=== PATIENT | male | born 1975 | race Caucasian/White ===

== ENCOUNTER 2016-08-27 18:55 | Emergency (ER) | payer OTHER ==
[2016-08-27 19:04] VITALS: BP 131/59; RESP 20; TEMP 99.4
[2016-08-27] MEDS ORDERED: methylPREDNISolone SOD SUCCI 125 MG/2 ML VIAL IM STA (19:10)
[2016-08-27] MEDS ORDERED: IPRATROPIUM-ALBUTEROL 3 ML NEB INHALATION STA (19:10)
--- NOTE | 2016-08-27 19:14 | ED ---
General Adult HPI - General Chief complaint: Upper Respiratory Infection Stated complaint: Cough x 4days Time Seen by Provider: 08/27/16 19:06 Source: patient, RN notes reviewed Mode of arrival: ambulatory Limitations: no limitations - History of Present Illness Initial comments: Patient 40-year-old male with significant past medical history for asthma, who presents emergency room today with chief complaint of cough congestion over the last 4 days. Does admit to positive sputum production it's been "white" in color. Patient does admit to using inhaler at home with little relief. Patient denies any other complaints or associated symptoms. Patient denies any recent fever, chills, shortness of breath, chest pain, back pain, abdominal pain , nausea or vomiting, numbness or tingling, dysuria or hematuria, constipation or diarrhea, headaches or visual changes, or any other complaints. - Related Data Home Medications Medication Instructions Recorded Confirmed Albuterol Sulfate [Ventolin HFA] 1 - 2 puff INHALATION RT-Q6H PRN 01/11/1408/27 Beclomethasone Dipropionate [Qvar 2 puff INHALATION RT-BID 10/02/14 08/27/16 80 mcg/puff] ARIPiprazole [Abilify Maintena] 400 mg IM QMONTH 01/22/16 08/27/16 FLUoxetine HCL [PROzac] 20 mg PO DAILY 01/22/16 08/27/16 Lisinopril [Zestril] 10 mg PO HS 01/22/16 08/27/16 [place] Carbonate 600 mg PO HS 01/22/16 08/27/16 Pravastatin Sodium [Pravachol] 40 mg PO HS 01/22/16 08/27/16 QUEtiapine [SEROquel] 25 mg PO HS 01/22/16 08/27/16 Previous Rx's Medication Instructions Recorded Montelukast Sodium [Singulair] 10 mg PO HS #30 tab 01/24/16 Beclomethasone Dipropionate [Qvar 1 puff INHALATION BID #1 inhaler 04/18/16 80 mcg] Albuterol Nebulized [Ventolin 2.5 mg INHALATION Q4H PRN 10 Days 08/27/16 Nebulized] Azithromycin [Zithromax Z-pack] 0 mg PO DIRECTED #6 tab 08/27/16 guaiFENesin 2 tab PO Q4-6H #30 tablet 08/27/16 predniSONE 60 mg PO DAILY 5 Days 08/27/16 Allergies Allergy/AdvReac Type Severity Reaction Status Date / Time haloperidol [From Haldol] Allergy Unknown Verified 08/27/16 19:04 haloperidol lactate Allergy Unknown Verified 08/27/16 19:04 [From Haldol] Review of Systems ROS Statement: Those systems with pertinent positive or pertinent negative responses have been documented in the HPI. ROS Other: All systems not noted in ROS Statement are negative. Past Medical History Past Medical History: Asthma, Hyperlipidemia, Hypertension Additional Past Medical History / Comment(s): Tourette's syndrome, seasonal ALLERGIES History of Any Multi-Drug Resistant Organisms: None Reported Past Surgical History: Hernia Repair, Tonsillectomy Past Anesthesia/Blood Transfusion Reactions: No Reported Reaction Past Psychological History: Anxiety, Bipolar, Depression, Panic Disorder Additional Psychological History / Comment(s): schizophrenia Smoking Status: Never smoker Past Alcohol Use History: None Reported Additional Past Alcohol Use History / Comment(s): Patient states he has never smoked cigarettes. He has had exposure to secondhand smoke from his parents were heavy smokers. He denies any medical marijuana, marijuana or street drug use. He denies. any alcohol use or abuse. He lives his his for 16 years. They do have a dog at home. They do not have any children. Past Drug Use History: None Reported - Past Family History Father Family Medical History: No Reported History Additional Family Medical History / Comment(s): He is 61 years of age. Patient has had no contact with him and 20 years Mother Additional Family Medical History / Comment(s): Mother at age 63 from sepsis. Sister(s) Family Medical History: No Reported History Additional Family Medical History / Comment(s): He has 2 sisters with no major medical problems. General Exam - General Exam Comments Initial Comments: General: The patient is awake and alert, in no distress, and does not appear acutely ill. Eye: Pupils are equal, round and reactive to light, extra-ocular movements are intact. No nystagmus. There is normal conjunctiva bilaterally. No signs of icterus. Ears, nose, mouth and throat: There are moist mucous membranes and no oral lesions. Neck: The neck is supple, there is no tenderness or JVD. Cardiovascular: There is a regular rate and rhythm. No murmur, rub or gallop is appreciated. Respiratory: Bilateral expiratory wheeze. respirations are non-labored, breath sounds are equal. No stridor, rales, or rhonchi. Musculoskeletal: Normal ROM, no tenderness. Strength 5/5. Sensation intact. Pulses equal bilaterally 2+. Neurological: A&O x 3. CN II-XII intact, There are no obvious motor or sensory deficits. Coordination appears grossly intact. Speech is normal. Skin: Skin is warm and dry and no rashes or lesions are noted. Psychiatric: Cooperative, appropriate mood & affect, normal judgment. Limitations: no limitations Course Vital Signs 08/27/16 08/27/16 08/27/16 19:03 19:14 19:25 Temperature 99.4 F Pulse Rate 105 H 100 100 Respiratory 20 Rate Blood Pressure 131/59 O2 Sat by Pulse 98 Oximetry Medical Decision Making - Medical Decision Making Case discussed in detail with attending physician Dr. Greene. X-ray reviewed shows no acute pneumonia. No other acute abnormalities. Patient reexamined after breathing treatment does admit to improvement. Lung sounds clear bilaterally. Patient will be discharged home on steroids, breathing treatments , cough medication. Patient advised mostly viral illness. Will be provided a prescription for azithromycin advised to hold this prescription to see if there is improvement with other medications first. He states understanding and is in agreement with this plan. Disposition Clinical Impression: Acute bronchitis Disposition: HOME SELF-CARE Condition: Good Instructions: Acute Bronchitis (ED) Additional Instructions: Please use medication as discussed. Please follow-up with family doctor in the next 2 days of symptoms have not improved. Please return to emergency room if the symptoms increase or worsen or for any other concerns. Prescriptions: Albuterol Nebulized [Ventolin Nebulized] 2.5 mg INHALATION Q4H PRN 10 Days PRN Reason: Cough Azithromycin [Zithromax Z-pack] 0 mg PO DIRECTED #6 tab guaiFENesin 2 tab PO Q4-6H #30 tablet predniSONE 60 mg PO DAILY 5 Days Time of Disposition: 19:37
[2016-08-27 19:16] VITALS: PULSE 100
--- NOTE | 2016-08-27 19:51 | XR ---
EXAMINATION TYPE: XR chest 2V DATE OF EXAM: 08/27/2016 7:29 PM COMPARISON: 04/18/2016 HISTORY: Cough and congestion. History of asthma. TECHNIQUE: Frontal and lateral views of the chest are obtained. FINDINGS: There is no focal air space opacity, pleural effusion, or pneumothorax seen. The cardiac silhouette size is within normal limits. The osseous structures are intact. IMPRESSION: No acute cardiopulmonary process, unchanged from the prior.
== END 2016-08-27 19:51 | disposition home or self-care (01) ==
LOC: EC 18:55
DX: J20.9 Acute bronchitis, unspecified (principal); E78.5 Hyperlipidemia, unspecified; I10 Essential (primary) hypertension; J45.909 Unspecified asthma, uncomplicated; F31.9 Bipolar disorder, unspecified; Z79.899 Other long term (current) drug therapy; Z88.8 Allergy status to other drugs, medicaments and biological substances
CPT/HCPCS: 94640; 71020; 99283; 96372; J2930

== ENCOUNTER 2016-09-05 21:28 | Emergency (ER) | payer OTHER ==
[2016-09-05 22:04] VITALS: TEMP 98.4
[2016-09-05] MEDS ORDERED: IPRATROPIUM-ALBUTEROL 3 ML NEB INHALATION STA (23:00)
--- NOTE | 2016-09-05 23:05 | ED ---
General Adult HPI - General Chief complaint: Upper Respiratory Infection Stated complaint: cough Time Seen by Provider: 09/05/16 22:54 Source: patient, RN notes reviewed Mode of arrival: ambulatory Limitations: no limitations - History of Present Illness Initial comments: Patient is a pleasant 40-year-old male presenting to emergency Department with cough. Onset of symptoms was close to month ago. Patient was in the hospital around a week ago and prescribed antibiotic and steroid without improvement of symptoms. Patient does occasionally use nebulizers. Patient has a history of asthma similar problems. Patient also complains of some sinus congestion. No fevers. - Related Data Previous Rx's Medication Instructions Recorded Sulfamethox-Tmp 800-160Mg [Bactrim 1 each PO Q12HR #20 tab 09/06/16 DS 800-160 mg] methylPREDNISolone Dose Pack 24 mg PO DAILY #1 tab 09/06/16 [Medrol Dose Pack] Allergies Allergy/AdvReac Type Severity Reaction Status Date / Time haloperidol [From Haldol] Allergy Unknown Verified 09/05/16 22:04 haloperidol lactate Allergy Unknown Verified 09/05/16 22:04 [From Haldol] Review of Systems ROS Statement: Those systems with pertinent positive or pertinent negative responses have been documented in the HPI. ROS Other: All systems not noted in ROS Statement are negative. Constitutional: Denies: fever, chills Eyes: Denies: eye pain ENT: Reports: congestion. Denies: ear pain Respiratory: Reports: cough, dyspnea (At times), wheezes Cardiovascular: Denies: chest pain Endocrine: Denies: fatigue Gastrointestinal: Denies: abdominal pain Genitourinary: Denies: dysuria Musculoskeletal: Denies: back pain Skin: Denies: rash Neurological: Denies: weakness Past Medical History Past Medical History: Asthma, Hyperlipidemia, Hypertension Additional Past Medical History / Comment(s): Tourette's syndrome, seasonal ALLERGIES History of Any Multi-Drug Resistant Organisms: None Reported Past Surgical History: Hernia Repair, Tonsillectomy Past Anesthesia/Blood Transfusion Reactions: No Reported Reaction Past Psychological History: Anxiety, Bipolar, Depression, Panic Disorder Additional Psychological History / Comment(s): schizophrenia Smoking Status: Never smoker Past Alcohol Use History: None Reported Additional Past Alcohol Use History / Comment(s): Patient states he has never smoked cigarettes. He has had exposure to secondhand smoke from his parents were heavy smokers. He denies any medical marijuana, marijuana or street drug use. He denies. any alcohol use or abuse. He lives his his for 16 years. They do have a dog at home. They do not have any children. Past Drug Use History: None Reported - Past Family History Father Family Medical History: No Reported History Additional Family Medical History / Comment(s): He is 61 years of age. Patient has had no contact with him and 20 years Mother Additional Family Medical History / Comment(s): Mother at age 63 from sepsis. Sister(s) Family Medical History: No Reported History Additional Family Medical History / Comment(s): He has 2 sisters with no major medical problems. General Exam Limitations: no limitations General appearance: alert, in no apparent distress Head exam: Present: atraumatic Eye exam: Present: normal appearance, PERRL ENT exam: Present: normal oropharynx, other (Mild tenderness over the frontal ethmoid and maxillary sinuses) Neck exam: Present: normal inspection Respiratory exam: Present: wheezes Cardiovascular Exam: Present: tachycardia GI/Abdominal exam: Present: soft. Absent: tenderness Extremities exam: Present: normal inspection. Absent: pedal edema, calf tenderness Neurological exam: Present: alert Psychiatric exam: Present: normal affect, normal mood Skin exam: Absent: rash Course Vital Signs 09/05/16 09/05/16 09/05/16 22:01 23:05 23:12 Temperature 98.4 F Pulse Rate 120 H 92 88 Respiratory 20 Rate Blood Pressure 119/84 O2 Sat by Pulse 98 Oximetry Medical Decision Making - Medical Decision Making Patient reexamined and feels much better. Patient is comfortable with discharge. Patient has some mild continued wheezing and is agreeable to repeat nebulizer prior to discharge. Patient does request repeat antibiotics. Vital signs have improved. - Radiology Data Radiology results: image reviewed (Chest x-ray shows no acute process) Disposition Clinical Impression: Asthmatic bronchitis Disposition: HOME SELF-CARE Condition: Stable Instructions: Asthma (ED), Acute Bronchitis (ED) Additional Instructions: Please follow-up to primary care physician in the next couple days for recheck. Return for difficulty breathing, fevers, worsening symptoms or other concerns. Prescriptions: Sulfamethox-Tmp 800-160Mg [Bactrim DS 800-160 mg] 1 each PO Q12HR #20 tab methylPREDNISolone Dose Pack [Medrol Dose Pack] 24 mg PO DAILY #1 tab Referrals: Sharyn Fonseca MD [Primary Care Provider] - 1-2 days
--- NOTE | 2016-09-05 23:53 | XR ---
EXAM: XR Chest, 2 Views. CLINICAL HISTORY: Reason: dyspnea TECHNIQUE: Frontal and lateral views of the chest. COMPARISON: Recent 08/27/16 radiographs. FINDINGS: Lungs: Unremarkable. No consolidation. Pleural spaces: Unremarkable. No pneumothorax. Heart: Unremarkable. No cardiomegaly. Mediastinum: Unremarkable. Bones: The patient is rotated towards the left and/or there is mild rightward curvature of the thoracic spine, stable. No acute fracture. IMPRESSION: No significant change including no new acute intrathoracic abnormality identified.
[2016-09-06] MEDS ORDERED: IPRATROPIUM-ALBUTEROL 3 ML NEB INHALATION STA (00:12)
[2016-09-06] MEDS ORDERED: predniSONE 50 MG TAB PO STA (00:14)
[2016-09-06 01:22] VITALS: BP 136/84; PULSE 101; RESP 18
== END 2016-09-06 01:21 | disposition home or self-care (01) ==
LOC: EC 21:28
DX: J45.909 Unspecified asthma, uncomplicated (principal); Z88.8 Allergy status to other drugs, medicaments and biological substances
CPT/HCPCS: 71020; 99283; J7512

== ENCOUNTER → 2016-10-05 | Outpatient (CLI) | payer OTHER ==
[2016-10-05 11:41] LABS: Anion Gap 10 mmol/L; Blood Urea Nitrogen 9 mg/dL (9-20); Carbon Dioxide 28 mmol/L (22-30); Chloride 103 mmol/L (98-107); Glucose 98 mg/dL (74-99); Lithium 0.8 mmol/L; Non-African American GFR(MDRD) >60 (>60 ml/min/1.73 sqM); Potassium 4.9 mmol/L (3.5-5.1); Sodium 141 mmol/L (137-145)
[2016-10-05 11:57] LABS: Calcium 10.4 mg/dL (8.4-10.2)
== END ==
LOC: LABWHC1 09:55
PROVIDERS: ATTEND Nurse Practitioner Psychiatric/Mental Health
DX: F20.9 Schizophrenia, unspecified (principal)
CPT/HCPCS: 36415; 80048; 80178

== ENCOUNTER 2016-11-04 20:36 | Emergency (ER) | payer OTHER ==
[2016-11-04 20:45] VITALS: RESP 18
--- NOTE | 2016-11-04 21:00 | ED ---
General Adult HPI - General Chief complaint: Back Pain/Injury Stated complaint: Back Pain Time Seen by Provider: 11/04/16 20:48 Source: patient, RN notes reviewed Mode of arrival: ambulatory Limitations: no limitations - History of Present Illness Initial comments: Patient is a 41-year-old male who presents emergency room today with chief complaint of right upper back pain times one week. Denies any known injury or trauma. Does admit that it seems to be worse with certain movements of his right shoulder and with twisting. Patient does admit he tried ibuprofen with little relief the symptoms. He denies any other complaints or associated symptoms. Patient denies any recent fever, chills, shortness of breath, chest pain, abdominal pain, nausea or vomiting, numbness or tingling, dysuria or hematuria, constipation or diarrhea, headaches or visual changes, or any other complaints. - Related Data Home Medications Medication Instructions Recorded Confirmed Albuterol Inhaler [Ventolin Hfa 1 - 2 puff INHALATION RT-Q6H PRN 11/04/16 Inhaler] Beclomethasone Dipropionate [Qvar 1 puff INHALATION RT-BID 11/04/16 11/04/16 40 mcg] FLUoxetine HCL [PROzac] 20 mg PO QAM 11/04/16 11/04/16 Lisinopril [Zestril] 20 mg PO HS 11/04/16 11/04/16 [place] Carbonate 900 mg PO HS 11/04/16 11/04/16 Pravastatin Sodium [Pravachol] 40 mg PO HS 11/04/16 11/04/16 QUEtiapine FUMARATE [SEROquel] 25 mg PO HS 11/04/16 11/04/16 Previous Rx's Medication Instructions Recorded Cyclobenzaprine [Flexeril] 10 mg PO TID #20 tab 11/04/16 Allergies Allergy/AdvReac Type Severity Reaction Status Date / Time haloperidol [From Haldol] Allergy Unknown Verified 11/04/16 21:08 haloperidol lactate Allergy Unknown Verified 11/04/16 21:08 [From Haldol] Review of Systems ROS Statement: Those systems with pertinent positive or pertinent negative responses have been documented in the HPI. ROS Other: All systems not noted in ROS Statement are negative. Past Medical History Past Medical History: Asthma, Hyperlipidemia, Hypertension Additional Past Medical History / Comment(s): Tourette's syndrome, seasonal ALLERGIES History of Any Multi-Drug Resistant Organisms: None Reported Past Surgical History: Hernia Repair, Tonsillectomy Past Anesthesia/Blood Transfusion Reactions: No Reported Reaction Past Psychological History: Anxiety, Bipolar, Depression, Panic Disorder Additional Psychological History / Comment(s): schizophrenia Smoking Status: Never smoker Past Alcohol Use History: None Reported Additional Past Alcohol Use History / Comment(s): Patient states he has never smoked cigarettes. He has had exposure to secondhand smoke from his parents were heavy smokers. He denies any medical marijuana, marijuana or street drug use. He denies. any alcohol use or abuse. He lives his his for 16 years. They do have a dog at home. They do not have any children. Past Drug Use History: None Reported - Past Family History Father Family Medical History: No Reported History Additional Family Medical History / Comment(s): He is 61 years of age. Patient has had no contact with him and 20 years Mother Additional Family Medical History / Comment(s): Mother at age 63 from sepsis. Sister(s) Family Medical History: No Reported History Additional Family Medical History / Comment(s): He has 2 sisters with no major medical problems. General Exam - General Exam Comments Initial Comments: General: The patient is awake and alert, in no distress, and does not appear acutely ill. Eye: Pupils are equal, round and reactive to light, extra-ocular movements are intact. No nystagmus. There is normal conjunctiva bilaterally. No signs of icterus. Ears, nose, mouth and throat: There are moist mucous membranes and no oral lesions. Neck: The neck is supple, there is no tenderness or JVD. Cardiovascular: There is a regular rate and rhythm. No murmur, rub or gallop is appreciated. Respiratory: Lungs are clear to auscultation, respirations are non-labored, breath sounds are equal. No wheezes, stridor, rales, or rhonchi. Musculoskeletal: normal appearance of cervical and thoracic spine with no step- offs forms appreciated. Mild tenderness to the T2-T3 area. Does have increased paravertebral tenderness on the right. Strength 5/5. Sensation intact. Pulses equal bilaterally 2+. Neurological: A&O x 3. CN II-XII intact, There are no obvious motor or sensory deficits. Coordination appears grossly intact. Speech is normal. Skin: Skin is warm and dry and no rashes or lesions are noted. Psychiatric: Cooperative, appropriate mood & affect, normal judgment. Limitations: no limitations Course Vital Signs 11/04/16 20:43 Temperature 98 F Pulse Rate 89 Respiratory 18 Rate Blood Pressure 155/91 O2 Sat by Pulse 98 Oximetry Medical Decision Making - Medical Decision Making X-ray reviewed does show old fracture T12. Patient has no pain or tenderness in this area. Patient's symptoms seem to be muscular skeletal as it is worse with certain movements and is tender in the paravertebral areas next T2 and T3. Will be started on a muscle relaxer. He is advised tofollow-up family doctor over the next 2 days or return if any symptoms increase or worsen. Disposition Clinical Impression: Back strain Disposition: HOME SELF-CARE Condition: Good Instructions: Thoracic Back Strain (ED) Additional Instructions: Please use muscle relaxer as prescribed and be aware that it may make you drowsy. Prescriptions: Cyclobenzaprine [Flexeril] 10 mg PO TID #20 tab Time of Disposition: 21:23
--- NOTE | 2016-11-04 21:12 | XR ---
EXAMINATION TYPE: XR thoracic spine complete DATE OF EXAM: 11/04/2016 9:05 PM COMPARISON: NONE HISTORY: Back pain TECHNIQUE: 3 views FINDINGS: The vertebra have normal alignment. Posterior elements are intact. There is no paraspinal m ass. There is a 15% anterior wedging of T12 vertebra. IMPRESSION: Mild wedging of T12 is of uncertain age. This could be a relatively acute fracture..
[2016-11-04 21:46] VITALS: BP 162/72; PULSE 68; TEMP 97.5
== END 2016-11-04 21:40 | disposition home or self-care (01) ==
LOC: EC 20:36
DX: S29.012A Strain of muscle and tendon of back wall of thorax, initial encounter (principal); E78.5 Hyperlipidemia, unspecified; I10 Essential (primary) hypertension; J45.909 Unspecified asthma, uncomplicated; F31.9 Bipolar disorder, unspecified; F41.0 Panic disorder [episodic paroxysmal anxiety]; Z79.51 Long term (current) use of inhaled steroids; Z79.899 Other long term (current) drug therapy; Z88.8 Allergy status to other drugs, medicaments and biological substances; Z77.22 Contact with and (suspected) exposure to environmental tobacco smoke (acute) (chronic); Z87.81 Personal history of (healed) traumatic fracture; X58.XXXA Exposure to other specified factors, initial encounter
CPT/HCPCS: 72072; 99283

== ENCOUNTER 2016-12-10 21:27 | Observation (INO) | payer OTHER ==
--- NOTE | 2016-12-10 21:49 | ED ---
Chest Pain HPI - General Chief Complaint: Chest Pain Stated Complaint: Chest pain/ left arm pain Time Seen by Provider: 12/10/16 21:36 Source: patient Mode of arrival: wheelchair Limitations: no limitations - History of Present Illness Initial Comments: This patient is a 41-year-old man who presents to be alive for left-sided chest pain that started he states about 15 minutes before arriving here. He had just finished taking shower. Patient states the pain is constant, sharp, moderately severe. He has not noticed anything that helps the pain or anything that makes it worse. He states that he also felt like he was breaking into a sweat. He denies any other anginal type symptoms. MD Complaint: chest pain Onset/Timin -: minutes(s) Onset: other (After taking shallow) Pain Location: left chest Pain Radiation: LUE Severity: moderate Quality: sharp Consistency: constant Improves With: nothing Worsens With: nothing Anginal Symptoms: diaphoresis Treatments Prior to Arrival: none - Related Data Home Medications Medication Instructions Recorded Confirmed Albuterol Inhaler [Ventolin Hfa 1 - 2 puff INHALATION RT-Q6H PRN 11/04/16 Inhaler] FLUoxetine HCL [PROzac] 20 mg PO QAM 11/04/16 12/10/16 Lisinopril [Zestril] 20 mg PO HS 11/04/16 12/10/16 [place] Carbonate 900 mg PO HS 11/04/16 12/10/16 Pravastatin Sodium [Pravachol] 40 mg PO HS 11/04/16 12/10/16 QUEtiapine FUMARATE [SEROquel] 25 mg PO HS 11/04/16 12/10/16 ARIPiprazole [Abilify Maintena] 400 mg IM Q28D 12/10/16 12/10/16 Baclofen [Lioresal] 20 mg PO TID-W/MEALS PRN 12/10/16 12/10/16 Beclomethasone Dip 80 Mcg/Puff 1 puff INHALATION RT-BID 12/10/16 12/10/16 [Qvar 80 mcg] Allergies Allergy/AdvReac Type Severity Reaction Status Date / Time haloperidol [From Haldol] Allergy Stroke-like Verified 12/10/16 22:17 symptoms Review of Systems ROS Statement: Those systems with pertinent positive or pertinent negative responses have been documented in the HPI. ROS Other: All systems not noted in ROS Statement are negative. Constitutional: Denies: fever, chills, weakness Respiratory: Denies: cough, dyspnea Cardiovascular: Reports: chest pain. Denies: palpitations, orthopnea, edema, syncope Gastrointestinal: Denies: abdominal pain, nausea, vomiting Musculoskeletal: Denies: back pain Skin: Denies: rash Neurological: Denies: headache, weakness, numbness EKG Findings - EKG Results: EKG: interpreted by ERMD, sinus rhythm, normal axis, normal QRS, normal ST/T EKG shows: tachycardia (Rate 112 bpm) Past Medical History Past Medical History: Asthma, Hyperlipidemia, Hypertension Additional Past Medical History / Comment(s): Tourette's syndrome, seasonal ALLERGIES History of Any Multi-Drug Resistant Organisms: None Reported Past Surgical History: Hernia Repair, Tonsillectomy Past Anesthesia/Blood Transfusion Reactions: No Reported Reaction Past Psychological History: Anxiety, Bipolar, Depression, Panic Disorder, Schizophrenia Smoking Status: Never smoker Past Alcohol Use History: None Reported Past Drug Use History: None Reported - Past Family History Father Family Medical History: No Reported History Additional Family Medical History / Comment(s): He is 61 years of age. Patient has had no contact with him and 20 years Mother Additional Family Medical History / Comment(s): Mother at age 63 from sepsis. Sister(s) Family Medical History: No Reported History Additional Family Medical History / Comment(s): He has 2 sisters with no major medical problems. General Exam Limitations: no limitations General appearance: alert, in no apparent distress Head exam: Present: atraumatic, normocephalic Eye exam: Present: normal appearance. Absent: scleral icterus, conjunctival injection Neck exam: Present: normal inspection, full ROM Respiratory exam: Present: normal lung sounds bilaterally. Absent: respiratory distress, wheezes, rales, rhonchi, stridor, chest wall tenderness Cardiovascular Exam: Present: regular rate, normal rhythm, normal heart sounds. Absent: systolic murmur, diastolic murmur, rubs, gallop GI/Abdominal exam: Present: soft. Absent: distended, tenderness, guarding, rebound, mass Extremities exam: Present: normal inspection, normal capillary refill. Absent: pedal edema, calf tenderness Back exam: Present: normal inspection. Absent: CVA tenderness (R), CVA tenderness (L) Skin exam: Present: warm, dry, intact, normal color. Absent: rash, cyanosis, diaphoretic, erythema, petechiae, pallor, mottled Course Vital Signs 12/10/16 12/10/16 12/10/16 21:33 22:01 23:00 Temperature 99 F Pulse Rate 109 H 108 H 102 H Respiratory 18 20 18 Rate Blood Pressure 123/71 140/71 109/58 O2 Sat by Pulse 97 97 100 Oximetry 12/11/16 00:00 Temperature Pulse Rate 82 Respiratory 20 Rate Blood Pressure 100/50 O2 Sat by Pulse 98 Oximetry Disposition Clinical Impression: Chest pain Disposition: ADMITTED IP TO THIS HOSP Condition: Fair Referrals: Sharyn Fonseca MD [Primary Care Provider] - 1-2 days
[2016-12-10] MEDS ORDERED: NITROGLYCERIN SL TABS 0.4 MG TAB SUBLINGUAL STA (21:52)
[2016-12-10] MEDS ORDERED: ASPIRIN 81 MG CHEW PO STA (21:52)
--- NOTE | 2016-12-10 22:06 | XR ---
EXAMINATION TYPE: XR chest 1V portable DATE OF EXAM: 12/10/2016 COMPARISON: 09/05/2016 INDICATION: Chest pain TECHNIQUE: Single frontal view of the chest is obtained. FINDINGS: The heart size is normal. The pulmonary vasculature is normal. The lungs are clear. IMPRESSION: 1. No acute pulmonary process.
[2016-12-10 22:07] LABS: Basophils # (A) 0.1 k/uL (0-0.2); Basophils % (A) 1 %; CH 30.1; CHCM 33.5; Eosinophils # (A) 0.5 k/uL (0-0.7); Eosinophils % (A) 4 %; HCT 45.5 % (39.0-53.0); HDW 2.44; HGB 15.2 gm/dL (13.0-17.5); Luc # (Auto) 0.25; Luc % (Auto) 2; Lymphocytes # (A) 3.3 k/uL (1.0-4.8); Lymphocytes % (A) 25 %; MCHC 33.4 g/dL (31.0-37.0); Mean Platelet Volume 7.6; Monocytes # (A) 0.8 k/uL (0-1.0); Monocytes % (A) 6 %; Neutrophils # (A) 8.5 k/uL (1.3-7.7); Neutrophils % (A) 63 %; RBC 5.05 m/uL (4.30-5.90); RDW 13.1 % (11.5-15.5); WBC 13.5 k/uL (3.8-10.6); WBC (Perox) 12.85
[2016-12-10 22:16] LABS: ALT 32 U/L (21-72); AST 20 U/L (17-59); Alkaline Phosphatase 80 U/L (38-126); Anion Gap 11 mmol/L; Blood Urea Nitrogen 10 mg/dL (9-20); Calcium 9.9 mg/dL (8.4-10.2); Carbon Dioxide 21 mmol/L (22-30); Chloride 107 mmol/L (98-107); Glucose 137 mg/dL (74-99); Magnesium 2.1 mg/dL (1.6-2.3); Non-African American GFR(MDRD) >60 (>60 ml/min/1.73 sqM); Potassium 4.1 mmol/L (3.5-5.1); Sodium 139 mmol/L (137-145); Total Bilirubin 0.4 mg/dL (0.2-1.3); Total Protein 7.4 g/dL (6.3-8.2)
[2016-12-10 22:26] LABS: Partial Thromboplastin Time 25.7 sec (22.0-30.0); Prothrombin Time 10.2 sec (9.0-12.0)
[2016-12-11] MEDS ORDERED: NITROGLYCERIN SL TABS 0.4 MG TAB SUBLINGUAL PRN (00:12)
[2016-12-11] MEDS ORDERED: ENOXAPARIN 120 MG/0.8 ML SYRINGE SQ SCH (00:15)
[2016-12-11] MEDS ORDERED: BACLOFEN 10 MG TAB PO PRN (00:15)
[2016-12-11] MEDS ORDERED: ALBUTEROL NEBULIZED 2.5 MG/3 ML INHALATION PRN (00:15)
[2016-12-11 01:08] VITALS: BMI 32.1
[2016-12-11 05:05] LABS: Creatine Kinase 65 U/L (55-170)
[2016-12-11 05:19] LABS: Creatine Kinase MB 0.5 ng/mL (0.0-2.4); Troponin I <0.012 ng/mL (0.000-0.034)
[2016-12-11] MEDS ORDERED: BECLOMETHASONE DIP 80 MCG/PUFF INHALER INHALATION SCH (08:00)
[2016-12-11] MEDS ORDERED: FLUoxetine HCL 20 MG CAP PO SCH (09:00)
[2016-12-11 10:39] LABS: Creatine Kinase 56 U/L (55-170)
[2016-12-11 10:52] LABS: Creatine Kinase MB 0.4 ng/mL (0.0-2.4); Troponin I <0.012 ng/mL (0.000-0.034)
--- NOTE | 2016-12-11 11:40 | CONS ---
DATE OF CONSULTATION: Mr. Stanley is a 41-year-old male with known history of hypertension, hyperlipidemia, who presented to the emergency room with symptoms of chest discomfort that occurred after going out from the shower,, the discomfort radiating to the left arm, but it was worse when he takes a deep breath. He was in the hospital in December of last year with symptoms of chest pain. At that time underwent stress echocardiogram revealed no evidence of inducible ischemia and his left ventricular systolic function by echocardiography was preserved. Patient gets some chest pain random not related to any physical activity. He has no significant dyspnea,, rare palpitation. No syncope. No peripheral edema. No PND. No orthopnea. His coronary risk factors are positive for hypertension, hyperlipidemia. He is nonsmoker, nondiabetic. His medications include Seroquel, Pravachol 40 mg daily, lithium, Zestril 20 mg daily, Prozac, Qvar, Lioresal, Ventolin and Abilify. REVIEW OF SYSTEMS: RESPIRATORY SYSTEM: He has history of bronchial asthma. GI SYSTEM: No recent GI bleeding. No peptic ulcer disease. SYSTEM: No dysuria or hematuria. NERVOUS SYSTEM: He has no history of stroke or seizure. He has a history of bipolar disorder. PHYSICAL EXAMINATION: He is a 41-year-old male, alert, oriented in no apparent distress. Blood pressure 103/60 with the heart rates in the 70s. HEAD: Normocephalic. EYES: Sclerae anicteric. NECK: Good upstroke. No bruit. No jugular venous distention. LUNGS: Clear to auscultation. HEART: Regular rate and rhythm. S1, S2, no S3, no S4, no rub. ABDOMEN: Soft, nontender, positive bowel sounds. No organomegaly. EXTREMITIES: No edema. Intact distal pulses. Lab data revealed BUN and creatinine 10 and 0.94. Troponin less than 0.012. Hemoglobin of 15.2. White blood cells 13.5. EKG reveals sinus mechanism, normal axis and intervals, rate of [address]-T wave changes with no evolution on subsequent EKG. Chest x-ray revealed no acute infiltrate. IMPRESSION: 1. Chest discomfort, has atypical feature for ischemic heart disease. The discomfort gets worse when he takes a deep breath. 2. History of bronchial asthma. 3. History of hypertension. 4. Hyperlipidemia. 5. History of bipolar disorder. RECOMMENDATION: I reviewed the results of his prior testing including the stress test and the echo. At this time I see no evidence of any cardiac abnormality. Patient should be able to be discharged home and follow up with his primary care physician. Thank you for this consult.
[2016-12-11 12:04] VITALS: BP 112/57; PULSE 84; RESP 18; TEMP 98.3
--- NOTE | 2016-12-11 18:40 | HP ---
DATE OF ADMISSION: 12/11/2016 PRESENTING COMPLAINT: Chest pain. HISTORY OF PRESENTING COMPLAINT: Chest pressure. This is a very pleasant 41-year-old patient of Dr. Pena whose chronic stable medical conditions include hyperlipidemia, hypertension, bipolar disorder, schizophrenia and hernia. Patient developed chest pressure going down the left arm. Some relief with nitroglycerin. Some shortness of breath, some dizziness that lasted about 2 hours. Patient had a stress echocardiogram in December of last year, but was reported as negative. REVIEW OF SYSTEMS: CONSTITUTIONAL: Tired. HEENT: None. RESPIRATORY: As above. CARDIOVASCULAR: As above. GASTROINTESTINAL: None. GENITOURINARY: None. MUSCULOSKELETAL: None. DERMATOLOGICAL: None. HEMATOLOGICAL: None. LYMPHATIC: None. PSYCHIATRY: Some anxiety. NEUROLOGICAL: None. PAST MEDICAL HISTORY: Hypertension, hyperlipidemia, bipolar, schizophrenia, lower back muscle spasm, Tourette syndrome. PAST SURGICAL HISTORY: Hernia repair, tonsillectomy. SOCIAL HISTORY: . No smoking. Alcohol rarely. Patient is unemployed. FAMILY HISTORY: Reviewed; noncontributory to presentation. HOME MEDICATIONS: 1. Seroquel 25 mg q.h.s. 2. Pravachol 40 mg q.h.s. 3. [place] 900 mg q.h.s. 4. Zestril 20 mg q.h.s. 5. Prozac 20 mg in the morning. 6. Qvar 80, 1 puff b.i.d. 7. Baclofen 20 mg t.i.d. p.r.n. with meals. 8. Ventolin 1 to 2 puffs every 6 hours p.r.n. 9. Abilify 100 mg IM q. 28 days. ALLERGIES: HALDOL. On examination, temperature 98.5, pulse 74, respirations 15, blood pressure 103/64, pulse ox 94% on room air. GENERAL APPEARANCE: Well built, BMI of 32.3. Lying in bed, comfortable. EYES: Pupils equal. Conjunctivae HEENT: Oral cavity normal. NECK: JVD not raised. Mass not palpable. RESPIRATORY: Effort normal. LUNGS: Fair air entry. CARDIOVASCULAR: First and second sounds normal. No edema. ABDOMEN: Soft, nontender. Liver and spleen not palpable. LYMPHATIC: No lymph nodes palpable in neck or axillae. PSYCHIATRIC: Alert and oriented x3. Mood and affect normal. NEUROLOGICAL: Pupils equal. Cranial nerves grossly intact. Power and sensation grossly intact. INVESTIGATIONS: White count 13.5, hemoglobin 15.2. Potassium 4.1. Troponin x3 negative. EKG: Some sinus tachycardia. D-dimer less than 0.017. ASSESSMENT: 1. Chest pain. The patient has had a stress test negative about a year ago. 2. Obesity; body mass index 32.3. 3. Essential hypertension. 4. Hyperlipidemia. 5. Bipolar disorder under control. 6. Moderate persistent asthma, controlled. PLAN: Serial cardiac enzymes and Cardiology was consulted. Care was discussed with the patient.
[2016-12-11] MEDS ORDERED: LITHIUM CARBONATE 300 MG CAP PO SCH (21:00)
[2016-12-11] MEDS ORDERED: QUEtiapine 25 MG TAB PO SCH (21:00)
[2016-12-11] MEDS ORDERED: LISINOPRIL 20 MG TAB PO SCH (21:00)
[2016-12-11] MEDS ORDERED: PRAVASTATIN SODIUM 40 MG TAB PO SCH (21:00)
[2016-12-12] MEDS ORDERED: ASPIRIN 325 MG TAB PO SCH (09:00)
--- NOTE | 2016-12-13 20:35 | DS ---
DATE OF ADMISSION: 12/11/2016 DATE OF DISCHARGE: 12/11/2016 FINAL DIAGNOSES: 1. Anterior chest wall pain; could be musculoskeletal. 2. Obesity; body mass index of 32.3. 3. Essential hypertension. 4. Hyperlipidemia. 5. Bipolar disorder, under control. 6. Moderate persistent asthma, controlled. HOSPITAL COURSE: This patient presented with chest pain, pressure. Patient had a negative stress echocardiogram of last year. Dr. Alberto from Cardiology was consulted, and he okayed the patient to be discharged. Patient's troponins were negative. Patient had no further symptoms. DISCHARGE MEDICATIONS: 1. Ventolin 1 to 2 puffs q.6 p.r.n. 2. Prozac 20 mg p.o. daily. 3. Zestril 20 mg at bedtime. 4. [place] 900 mg at bedtime. 5. Pravachol 40 mg at bedtime. 6. Seroquel 25 mg at bedtime. 7. Abilify 400 mg IM every 28 days. 8. Baclofen 20 mg t.i.d. with meals p.r.n. 9. Qvar 80 mcg 1 puff b.i.d. Follow up with Dr. Shawnee Rosales in 2 weeks. Follow up with Dr. Sharyn Fonseca in 3 days. On examination, lungs are clear. CARDIOVASCULAR: First and second seconds normal.
[2016-12-20] MEDS ORDERED: ARIPiprazole 400 MG VIAL IM SCH (09:00)
== END 2016-12-11 14:40 | disposition home or self-care (01) ==
LOC: EC 21:27 → 3OBS 12-11 00:12
PROVIDERS: ADMIT Hospitalist; ATTEND Hospitalist
DX: R07.89 Other chest pain (principal); M79.602 Pain in left arm; R61 Generalized hyperhidrosis; Z79.899 Other long term (current) drug therapy; Z88.8 Allergy status to other drugs, medicaments and biological substances; J45.40 Moderate persistent asthma, uncomplicated; I10 Essential (primary) hypertension; E78.5 Hyperlipidemia, unspecified; F95.2 Tourette's disorder; F41.0 Panic disorder [episodic paroxysmal anxiety]; F20.9 Schizophrenia, unspecified; F41.9 Anxiety disorder, unspecified; F31.9 Bipolar disorder, unspecified; Z68.32 Body mass index [BMI] 32.0-32.9, adult; E66.9 Obesity, unspecified
CPT/HCPCS: 96372; 99285; 36415; 94640; 93005; 85379; 80053; 82550; 82553; 83735; 84484 ×2; 85025; 85610; 85730; 71010; G0378; J1650

== ENCOUNTER → 2016-12-30 | Outpatient (CLI) | payer OTHER ==
[2016-12-30 10:51] LABS: Hemoglobin A1C 5.1 % (4.2-6.1)
[2016-12-30 10:58] LABS: Blood Urea Nitrogen 7 mg/dL (9-20); Cholesterol 140 mg/dL (<200); Glucose 84 mg/dL (74-99); HDL Cholesterol 42 mg/dL (40-60); Lithium 0.5 mmol/L; Non-African American GFR(MDRD) >60 (>60 ml/min/1.73 sqM); Triglycerides 204 mg/dL (<150)
== END | disposition home or self-care (01) ==
LOC: LABWHC1 09:52
PROVIDERS: ATTEND Psychiatry & Neurology Psychiatry
DX: Z51.81 Encounter for therapeutic drug level monitoring (principal); Z79.899 Other long term (current) drug therapy
CPT/HCPCS: 36415; 80061; 80178; 82565; 82947; 83036; 84439; 84443; 84520

== ENCOUNTER 2017-05-20 20:45 | Emergency (ER) | payer OTHER ==
[2017-05-20 20:49] VITALS: BP 172/92; PULSE 92; RESP 20; TEMP 98.6
--- NOTE | 2017-05-20 21:13 | ED ---
Back Pain HPI - General Chief Complaint: Back Pain/Injury Stated Complaint: Back Pain Time Seen by Provider: 05/20/17 20:50 Source: patient, RN notes reviewed Limitations: no limitations - History of Present Illness Initial Comments: This is a 41-year-old male who presents to the emergency department with chief complaint of acute low back pain. Patient states he has been experiencing low back pain for the past 4 days. He states he was laying down when the pain came on. Pain is made worse with movement and better while lying still. States he' s been taking ibuprofen with minimal relief. Pain is localized to right lower back. Patient denies any specific injury or trauma. He denies saddle paresthesias or loss of bladder or bowel function. Denies fever, chills, chest pain, shortness of breath, abdominal pain, nausea or vomiting, constipation or diarrhea, dysuria or hematuria, numbness or tingling, headache or vision changes. - Related Data Home Medications Medication Instructions Recorded Confirmed Albuterol Inhaler [Ventolin Hfa 1 - 2 puff INHALATION RT-Q6H PRN 11/04/16 Inhaler] FLUoxetine HCL [PROzac] 20 mg PO QAM 11/04/16 12/10/16 Lisinopril [Zestril] 20 mg PO HS 11/04/16 12/10/16 [place] Carbonate 900 mg PO HS 11/04/16 12/10/16 Pravastatin Sodium [Pravachol] 40 mg PO HS 11/04/16 12/10/16 QUEtiapine FUMARATE [SEROquel] 25 mg PO HS 11/04/16 12/10/16 ARIPiprazole [Abilify Maintena] 400 mg IM Q28D 12/10/16 12/10/16 Baclofen [Lioresal] 20 mg PO TID-W/MEALS PRN 12/10/16 12/10/16 Beclomethasone Dip 80 Mcg/Puff 1 puff INHALATION RT-BID 12/10/16 12/10/16 [Qvar 80 mcg] Previous Rx's Medication Instructions Recorded Orphenadrine [Norflex] 100 mg PO Q12H #10 tablet.er 05/20/17 Allergies Allergy/AdvReac Type Severity Reaction Status Date / Time haloperidol [From Haldol] Allergy Stroke-like Verified 05/20/17 20:49 symptoms Review of Systems ROS Statement: Those systems with pertinent positive or pertinent negative responses have been documented in the HPI. ROS Other: All systems not noted in ROS Statement are negative. Past Medical History Past Medical History: Asthma, Hyperlipidemia, Hypertension Additional Past Medical History / Comment(s): Tourette's syndrome, seasonal ALLERGIES History of Any Multi-Drug Resistant Organisms: None Reported Past Surgical History: Hernia Repair, Tonsillectomy Past Anesthesia/Blood Transfusion Reactions: No Reported Reaction Past Psychological History: Anxiety, Bipolar, Depression, Panic Disorder, Schizophrenia Smoking Status: Never smoker Past Alcohol Use History: None Reported Past Drug Use History: None Reported - Past Family History Father Family Medical History: No Reported History Additional Family Medical History / Comment(s): He is 61 years of age. Patient has had no contact with him and 20 years Mother Additional Family Medical History / Comment(s): Mother at age 63 from sepsis. Sister(s) Family Medical History: No Reported History Additional Family Medical History / Comment(s): He has 2 sisters with no major medical problems. General Exam - General Exam Comments Initial Comments: General: Awake and alert, well-developed; in no apparent distress. Pleasant and cooperative. HEENT: Head atraumatic, normocephalic. Pupils are equal, round and reactive to light. Extraocular movements intact. Oropharynx moist without erythema or exudate. Neck: Supple. Normal ROM. Cardiovascular: Regular rate and rhythm. No murmurs, rubs or gallops. Chest symmetrical. Respiratory: Lungs clear to auscultation bilaterally. No wheezes, rales or rhonchi. Normal respiratory effort with no use of accessory muscles. Musculoskeletal: Tenderness on palpation of right SI joint and paraspinal muscles. No bony point tenderness of vertebrae. Patient has normal range of motion of back. Sensation is intact. Pedal pulses 2+ equal and palpable bilaterally. Skin: [place], warm and dry without rashes or lesions. Neurological: Alert and oriented x3. CN II-XII grossly intact. Speech is fluent and answers are appropriate. No focal neuro deficits. Psychiatric: Normal mood and affect. No overt signs of depression or anxiety noted. Limitations: no limitations Course Vital Signs 05/20/17 20:46 Temperature 98.6 F Pulse Rate 92 Respiratory 20 Rate Blood Pressure 172/92 O2 Sat by Pulse 98 Oximetry Medical Decision Making - Medical Decision Making This is a 41-year-old male who presents to the emergency department with chief complaint of low back pain. Patient has pain localized to right SI joint and paraspinal muscles. X-ray revealed no acute abnormalities. Patient's pain is localized to right paraspinal muscles and SI joint. Recommended patient to continue taking ibuprofen every 6 hours. He will be discharged home with a prescription for muscle relaxers. Patient states last time he was in the emergency department for acute back pain, Norflex helped to improve the pain. Patient denies saddle paresthesias or loss of bladder or bowel function. Denies lower extremity numbness or tingling. He is in no acute distress at this time. Patient is in agreement to the plan and voiced understanding. All questions were answered. - Radiology Data Radiology results: report reviewed Lumbar x-ray findings: Vertebra have normal alignment. Disc spaces are fairly normal. Posterior elements are intact. Sacroiliac joints appear normal. Impression: Negative lumbar spine exam Disposition Clinical Impression: Strain of lumbar region Disposition: HOME SELF-CARE Condition: Good Instructions: Acute Low Back Pain (ED) Additional Instructions: Please take medications as prescribed. Please follow up with primary care provider within 1-2 days. Return to emergency department if symptoms should worsen or any concerns arise. Prescriptions: Orphenadrine [Norflex] 100 mg PO Q12H #10 tablet.er Referrals: Sharyn Fonseca MD [Primary Care Provider] - 1-2 days Time of Disposition: 21:46
--- NOTE | 2017-05-20 21:27 | XR ---
EXAMINATION TYPE: XR lumbar spine 2 or 3V DATE OF EXAM: 05/20/2017 COMPARISON: NONE HISTORY: Back pain TECHNIQUE: 3 views FINDINGS: Vertebra have normal alignment. Disc spaces are fairly normal. Posterior elements are intac t. Sacroiliac joints appear normal. IMPRESSION: Negative lumbar spine exam
== END 2017-05-20 21:40 | disposition home or self-care (01) ==
LOC: EC 20:45
DX: S39.012A Strain of muscle, fascia and tendon of lower back, initial encounter (principal); J45.909 Unspecified asthma, uncomplicated; E78.5 Hyperlipidemia, unspecified; I10 Essential (primary) hypertension; F20.9 Schizophrenia, unspecified; F41.0 Panic disorder [episodic paroxysmal anxiety]; F31.9 Bipolar disorder, unspecified; Z79.51 Long term (current) use of inhaled steroids; Z79.899 Other long term (current) drug therapy; Z88.8 Allergy status to other drugs, medicaments and biological substances
CPT/HCPCS: 72100; 99283

== ENCOUNTER 2017-08-05 19:02 | Emergency (ER) | payer OTHER ==
[2017-08-05 19:09] VITALS: BP 140/75; TEMP 98.6
[2017-08-05] MEDS ORDERED: IPRATROPIUM-ALBUTEROL 3 ML NEB INHALATION STA (19:31)
--- NOTE | 2017-08-05 19:33 | ED ---
URI HPI - General Chief Complaint: Upper Respiratory Infection Stated Complaint: COUGH Time Seen by Provider: 08/05/17 19:28 Source: patient, RN notes reviewed Mode of arrival: ambulatory Limitations: no limitations - History of Present Illness Initial Comments: This is a 41-year-old male who presents to the emergency department with chief complaint of cough. Patient states that he has had an increase in his cough over the past week. He states that he has a history of asthma and has experienced some shortness of breath. He states he uses Qvar once in the morning and once at night and albuterol as needed. He has been doing at home nebulizer treatments at least once or twice per day. He denies abdominal pain, nausea or vomiting diarrhea or constipation. Denies fever or chills. - Related Data Home Medications Medication Instructions Recorded Confirmed Albuterol Inhaler [Ventolin Hfa 1 - 2 puff INHALATION RT-Q6H PRN 11/04/16 Inhaler] [place] Carbonate 900 mg PO HS 11/04/16 08/05/17 ARIPiprazole [Abilify Maintena] 400 mg IM Q28D 12/10/16 08/05/17 Beclomethasone Dip 80 Mcg/Puff 2 puff INHALATION RT-BID 12/10/16 08/05/17 [Qvar 80 mcg] Fenofibrate [Lofibra] 54 mg PO DAILY 05/29/17 08/05/17 Benztropine Mesylate [Cogentin] 1 mg PO BID 08/05/17 08/05/17 FLUoxetine HCL [PROzac] 10 mg PO DAILY 08/05/17 08/05/17 Levothyroxine Sodium [Synthroid] 25 mcg PO DAILY 08/05/17 08/05/17 Lisinopril [Zestril] 10 mg PO DAILY 08/05/17 08/05/17 Previous Rx's Medication Instructions Recorded Azithromycin [Zithromax Z-pack] 0 mg PO DIRECTED #6 tab 08/05/17 predniSONE 20 mg PO BID #10 tab 08/05/17 Allergies Allergy/AdvReac Type Severity Reaction Status Date / Time haloperidol [From Haldol] Allergy Stroke-like Verified 08/05/17 19:20 symptoms Review of Systems ROS Statement: Those systems with pertinent positive or pertinent negative responses have been documented in the HPI. ROS Other: All systems not noted in ROS Statement are negative. Past Medical History Past Medical History: Asthma, Hyperlipidemia, Hypertension Additional Past Medical History / Comment(s): Tourette's syndrome, seasonal ALLERGIES History of Any Multi-Drug Resistant Organisms: None Reported Past Surgical History: Hernia Repair, Tonsillectomy Past Anesthesia/Blood Transfusion Reactions: No Reported Reaction Past Psychological History: Anxiety, Bipolar, Depression, Panic Disorder, Schizophrenia Smoking Status: Never smoker Past Alcohol Use History: None Reported Past Drug Use History: None Reported - Past Family History Father Family Medical History: No Reported History Additional Family Medical History / Comment(s): He is 61 years of age. Patient has had no contact with him and 20 years Mother Additional Family Medical History / Comment(s): Mother at age 63 from sepsis. Sister(s) Family Medical History: No Reported History Additional Family Medical History / Comment(s): He has 2 sisters with no major medical problems. General Exam - General Exam Comments Initial Comments: General: Awake and alert, well-developed; in no apparent distress. HEENT: Head atraumatic, normocephalic. Pupils are equal, round and reactive to light. Extraocular movements intact. Oropharynx moist without erythema or exudate. Neck: Supple. Normal ROM. Cardiovascular: Regular rate and rhythm. No murmurs, rubs or gallops. Chest symmetrical. Respiratory: Normal respiratory effort with no use of accessory muscles. Diminished air movement throughout all lung rodriguez. Rhonchi noted on auscultation of right lung. No wheezes or rales. Musculoskeletal: Normal ROM, no tenderness bilateral upper and lower extremities. Ambulating normally. Skin: [place], warm and dry without rashes or lesions. Neurological: Alert and oriented x3. CN II-XII grossly intact. Speech is fluent and answers are appropriate. No focal neuro deficits. Psychiatric: Normal mood and affect. No overt signs of depression or anxiety noted. Limitations: no limitations Course Vital Signs 08/05/17 08/05/17 08/05/17 19:06 19:53 19:59 Temperature 98.6 F Pulse Rate 105 H 109 H 108 H Respiratory 22 18 18 Rate Blood Pressure 140/75 O2 Sat by Pulse 98 Oximetry Medical Decision Making - Medical Decision Making This is a 41-year-old male with history of asthma who presents to the emergency department with chief complaint of cough 1 week. Patient states that he has been performing at-home nebulizer treatments 1-2 times daily. He reports some shortness of breath. Denies fevers or chills. Chest x-ray revealed no acute abnormalities. On initial examination, patient had rhonchi throughout the right lung. After DuoNeb breathing treatment, breath sounds have much improved. Patient is in no acute distress and vital signs are stable. He will be discharged home. He'll be given a prescription for azithromycin and steroids. Recommended performing at home nebulizer treatments up to 4 times daily. He is to continue taking his asthma medications as prescribed. Patient is in agreement with plan and voices understanding. All questions were answered. - Radiology Data Radiology results: report reviewed Chest x-ray findings: The heart size is normal. The pulmonary vasculature is normal. Lungs are clear. Impression: No acute pulmonary process. Disposition Clinical Impression: Asthmatic bronchitis Disposition: HOME SELF-CARE Condition: Good Instructions: Asthma (ED), Acute Bronchitis (ED) Additional Instructions: Please take medications as prescribed. Please perform at home nebulizer treatments up to 4 times daily. Please continue using Qvar and albuterol as prescribed. Please follow up with primary care provider within 1-2 days. Return to emergency department if symptoms should worsen or any concerns arise. Prescriptions: Azithromycin [Zithromax Z-pack] 0 mg PO DIRECTED #6 tab predniSONE 20 mg PO BID #10 tab Referrals: Sharyn Fonseca MD [Primary Care Provider] - 1-2 days Time of Disposition: 20:17
--- NOTE | 2017-08-05 19:47 | XR ---
EXAMINATION TYPE: XR chest 2V DATE OF EXAM: 08/05/2017 COMPARISON: 05/29/2017 INDICATION: Pain cough congestion TECHNIQUE: Frontal and lateral views of the chest are obtained. FINDINGS: The heart size is normal. The pulmonary vasculature is normal. The lungs are clear. IMPRESSION: 1. No acute pulmonary process.
[2017-08-05 19:55] VITALS: RESP 18
[2017-08-05 20:00] VITALS: PULSE 108
== END 2017-08-05 20:27 | disposition home or self-care (01) ==
LOC: EC 19:02
DX: J45.909 Unspecified asthma, uncomplicated (principal); E78.5 Hyperlipidemia, unspecified; I10 Essential (primary) hypertension; F20.9 Schizophrenia, unspecified; F31.9 Bipolar disorder, unspecified; F41.0 Panic disorder [episodic paroxysmal anxiety]; Z79.51 Long term (current) use of inhaled steroids; Z79.899 Other long term (current) drug therapy; Z88.8 Allergy status to other drugs, medicaments and biological substances
CPT/HCPCS: 71046; 94640; 99283

== ENCOUNTER 2017-09-06 13:04 | Emergency (ER) | payer OTHER ==
[2017-09-06 13:32] VITALS: RESP 18
[2017-09-06 14:03] LABS: Basophils % (A) 0 %; Eosinophils # (A) 0.2 k/uL (0-0.7); Eosinophils % (A) 1 %; HGB 16.1 gm/dL (13.0-17.5); Lymphocytes # (A) 0.4 k/uL (1.0-4.8); Lymphocytes % (A) 3 %; MCH 28.4 pg (25.0-35.0); MCHC 32.2 g/dL (31.0-37.0); MCV 88.1 fL (80.0-100.0); Mean Platelet Volume 7.7; Monocytes # (A) 0.5 k/uL (0-1.0); Monocytes % (A) 3 %; Neutrophils # (A) 15.1 k/uL (1.3-7.7); Neutrophils % (A) 93 %; Platelet Count 346 k/uL (150-450); RBC 5.68 m/uL (4.30-5.90); RDW 12.6 % (11.5-15.5); WBC 16.3 k/uL (3.8-10.6)
[2017-09-06 14:19] LABS: Calcium 10.4 mg/dL (8.4-10.2); Potassium 4.9 mmol/L (3.5-5.1); Total Bilirubin 0.8 mg/dL (0.2-1.3); Total Protein 8.1 g/dL (6.3-8.2)
[2017-09-06] MEDS ORDERED: RX INFO: IV CONTRAST WAS GIVEN 1 EACH MISC MISCELLANE PRN (15:45)
[2017-09-06] MEDS ORDERED: ONDANSETRON 4 MG/2 ML VIAL IVP STA (16:23)
[2017-09-06] MEDS ORDERED: SODIUM CHLORIDE 0.9% 1,000 ML IV ONE (16:23)
--- NOTE | 2017-09-06 16:27 | ED ---
Abdominal Pain HPI - General Source: patient, RN notes reviewed Mode of arrival: ambulatory Limitations: no limitations <Francis Burnett - Last Filed: 09/06/17 16:54> <Quinton Greene - Last Filed: 09/06/17 19:31> - General Chief Complaint: Abdominal Pain Stated Complaint: Vomiting, Diarrhea Time Seen by Provider: 09/06/17 15:45 - History of Present Illness Initial Comments: This a 41-year-old male presents emergency Department chief complaint abdominal pain, nausea vomiting diarrhea. Patient states symptoms started in the last 24 hours. Patient states he had some lower abdominal pain right and left lower quadrant. He said he has had prior hernia repair no other abdominal surgeries, no history of bowel infections. Patient denies any sick contacts. Denies chest pain, shortness breath, cough, chest congestion, sore throat, ear pain, headache or dizziness. Patient states that he has no dysuria no hematuria denies any rectal bleeding no melena. (Francis Burnett) - Related Data Home Medications Medication Instructions Recorded Confirmed Albuterol Inhaler [Ventolin Hfa 1 - 2 puff INHALATION RT-Q6H PRN 11/04/16 Inhaler] [place] Carbonate 900 mg PO HS 11/04/16 09/06/17 ARIPiprazole [Abilify Maintena] 400 mg IM Q28D 12/10/16 09/06/17 Beclomethasone Dip 80 Mcg/Puff 2 puff INHALATION RT-BID 12/10/16 09/06/17 [Qvar 80 mcg] Fenofibrate [Lofibra] 54 mg PO DAILY 05/29/17 09/06/17 Benztropine Mesylate [Cogentin] 1 mg PO BID 08/05/17 09/06/17 FLUoxetine HCL [PROzac] 10 mg PO DAILY 08/05/17 09/06/17 Levothyroxine Sodium [Synthroid] 25 mcg PO DAILY 08/05/17 09/06/17 Lisinopril [Zestril] 20 mg PO DAILY 09/06/17 09/06/17 Loratadine [Claritin] 10 mg PO DAILY 09/06/17 09/06/17 Previous Rx's Medication Instructions Recorded Ciprofloxacin HCl [Cipro] 500 mg PO Q12HR #8 tablet 09/06/17 Ondansetron Odt [Zofran Odt] 4 mg PO Q8HR PRN #10 tab 09/06/17 Allergies Allergy/AdvReac Type Severity Reaction Status Date / Time haloperidol [From Haldol] Allergy Stroke-like Verified 09/06/17 16:26 symptoms Review of Systems ROS Other: All systems not noted in ROS Statement are negative. <Francis Burnett - Last Filed: 09/06/17 16:54> ROS Other: All systems not noted in ROS Statement are negative. <Quinton Greene - Last Filed: 09/06/17 19:31> ROS Statement: Those systems with pertinent positive or pertinent negative responses have been documented in the HPI. Past Medical History Past Medical History: Asthma, Hyperlipidemia, Hypertension Additional Past Medical History / Comment(s): Tourette's syndrome, seasonal ALLERGIES History of Any Multi-Drug Resistant Organisms: None Reported Past Surgical History: Hernia Repair, Tonsillectomy Past Anesthesia/Blood Transfusion Reactions: No Reported Reaction Past Psychological History: Anxiety, Bipolar, Depression, Panic Disorder, Schizophrenia Smoking Status: Never smoker Past Alcohol Use History: None Reported Past Drug Use History: None Reported - Past Family History Father Family Medical History: No Reported History Additional Family Medical History / Comment(s): He is 61 years of age. Patient has had no contact with him and 20 years Mother Additional Family Medical History / Comment(s): Mother at age 63 from sepsis. Sister(s) Family Medical History: No Reported History Additional Family Medical History / Comment(s): He has 2 sisters with no major medical problems. <Francis Burnett - Last Filed: 09/06/17 16:54> General Exam Limitations: no limitations General appearance: alert, in no apparent distress Head exam: Present: atraumatic, normocephalic, normal inspection Respiratory exam: Present: normal lung sounds bilaterally. Absent: respiratory distress, wheezes, rales, rhonchi, stridor Cardiovascular Exam: Present: regular rate, normal rhythm, normal heart sounds. Absent: systolic murmur, diastolic murmur, rubs, gallop, clicks GI/Abdominal exam: Present: soft, tenderness (Mild left and right lower quadrant tenderness), normal bowel sounds. Absent: distended, guarding, rebound , rigid Back exam: Absent: CVA tenderness (R), CVA tenderness (L) <LexFrancis Josette - Last Filed: 09/06/17 16:54> Vital Signs 09/06/17 09/06/17 13:28 19:16 Temperature 99.9 F H 98.6 F Pulse Rate 105 H 95 Respiratory 18 18 Rate Blood Pressure 133/79 122/70 O2 Sat by Pulse 99 98 Oximetry Medical Decision Making - Lab Data Result diagrams: 09/06/17 13:45 09/06/17 13:45 <WhitneycharleenFrancis - Last Filed: 09/06/17 16:54> - Lab Data Result diagrams: 09/06/17 13:45 09/06/17 13:45 <Quinton Greene - Last Filed: 09/06/17 19:31> - Medical Decision Making Medical decision making; is a 41-year-old male here for complaint of nausea vomiting abdominal pain. Asians labs are reviewed. White count elevated at 16, 000 hemoglobin 16 hematocrit of 50. Urine clean no signs of infection. The patient had a CAT scan of the abdomen with IV contrast only the findings are reviewed. The radiologist's final impression is negative CT of the abdomen and pelvis. Old 10% compression fracture of T12 noted. Small right renal cortical cysts as read by Dr. Youssef I examine the patient is mild tenderness but no rebound or referred pain. Patient reports she had loose stool almost 20 times and vomited 5 times since last night. Suspicious for maybe had some bad hot dogs possibly. Patient will continue with hydration. Patient received IV hydration and is now asking to drink some fluids. No longer having any abdominal pain no nausea no vomiting. We did discuss gastroenteritis. He'll be placed on Cipro 500 twice a day for 5 days. The patient also be placed on Zofran for nausea told to advance his fluid slowly and consider yogurt. Patient told return emergency room or follow- up with family physician if his condition is not improved. (Quinton Greene) - Lab Data Lab Results 09/06/17 09/06/17 09/06/17 Range/Units 13:45 13:45 16:20 WBC 16.3 H (3.8-10.6) k/uL RBC 5.68 (4.30-5.90) m/uL Hgb 16.1 (13.0-17.5) gm/dL Hct 50.0 (39.0-53.0) % MCV 88.1 (80.0-100.0) fL MCH 28.4 (25.0-35.0) pg MCHC 32.2 (31.0-37.0) g/dL RDW 12.6 (11.5-15.5) % Plt Count 346 (150-450) k/uL Neutrophils % 93 % Lymphocytes % 3 % Monocytes % 3 % Eosinophils % 1 % Basophils % 0 % Neutrophils # 15.1 H (1.3-7.7) k/uL Lymphocytes # 0.4 L (1.0-4.8) k/uL Monocytes # 0.5 (0-1.0) k/uL Eosinophils # 0.2 (0-0.7) k/uL Basophils # 0.0 (0-0.2) k/uL Sodium 140 (137-145) mmol/L Potassium 4.9 (3.5-5.1) mmol/L Chloride 107 (98-107) mmol/L Carbon Dioxide 16 L (22-30) mmol/L Anion Gap 17 mmol/L BUN 23 H (9-20) mg/dL Creatinine 1.20 (0.66-1.25) mg/dL Est GFR (CKD-EPI)AfAm 87 (>60 ml/min/1.73 sqM) Est GFR (CKD-EPI)NonAf 75 (>60 ml/min/1.73 sqM) Glucose 130 H (74-99) mg/dL Calcium 10.4 H (8.4-10.2) mg/dL Total Bilirubin 0.8 (0.2-1.3) mg/dL AST 21 (17-59) U/L ALT 37 (21-72) U/L Alkaline Phosphatase 58 (38-126) U/L Total Protein 8.1 (6.3-8.2) g/dL Albumin 5.0 (3.5-5.0) g/dL Amylase 52 (30-110) U/L Lipase 78 (23-300) U/L Urine Color Yellow Urine Appearance Clear (Clear) Urine pH 5.5 (5.0-8.0) Ur Specific [place] 1.029 (1.001-1.035) Urine Protein 1+ H (Negative) Urine Glucose (UA) Negative (Negative) Urine Ketones Negative (Negative) Urine Blood Negative (Negative) Urine Nitrite Negative (Negative) Urine Bilirubin Negative (Negative) Urine Urobilinogen <2.0 (<2.0) mg/dL Ur Leukocyte Esterase Negative (Negative) Urine RBC 1 (0-5) /hpf Urine WBC 1 (0-5) /hpf Ur Squamous Epith Cells <1 (0-4) /hpf Urine Mucus Many H (None) /hpf Disposition <Francis Burnett - Last Filed: 09/06/17 16:54> Time of Disposition: 19:31 <Quinton Greene - Last Filed: 09/06/17 19:31> Clinical Impression: Gastroenteritis Disposition: HOME SELF-CARE Condition: Fair Instructions: Traveler's Diarrhea (ED), Gastroenteritis (ED) Additional Instructions: Advance fluids. Use Cipro twice a day for 4 days. Zofran for nausea. Follow- up with family physician return emergency room if not improving or your get worse. Prescriptions: Ciprofloxacin HCl [Cipro] 500 mg PO Q12HR #8 tablet Ondansetron Odt [Zofran Odt] 4 mg PO Q8HR PRN #10 tab PRN Reason: Nausea Referrals: Sharyn Fonseca MD [Primary Care Provider] - 1-2 days
[2017-09-06 16:36] LABS: Appearance,Urine Clear (Clear); Bilirubin,Urine Negative (Negative); Blood,Urine Negative (Negative); Color,Urine Yellow; Glucose,Urine (UA) Negative (Negative); Ketones,Urine Negative (Negative); Leukocyte Esterase,Urine Negative (Negative); Mucus,Urine Many /hpf; Nitrite,Urine Negative (Negative); PH, Urine 5.5 (5.0-8.0); Protein,Urine 1+ (Negative); RBC,Urine 1 /hpf (0-5); Specific Gravity,Urine 1.029 (1.001-1.035); Squamous Epithelial Cell,Urine <1 /hpf (0-4); Urobilinogen,Urine <2.0 mg/dL (<2.0); WBC,Urine 1 /hpf (0-5)
--- NOTE | 2017-09-06 17:21 | CT ---
EXAMINATION TYPE: CT abdomen pelvis w con DATE OF EXAM: 09/06/2017 COMPARISON: NONE HISTORY: ABDOMINAL PAIN WITH VOMITING CT DLP: 1799 mGycm Automated exposure control for dose reduction was used. TECHNIQUE: Helical acquisition of images was performed from the lung bases through the pelvis. CONTRAST: Performed without Oral Contrast and with IV Contrast, patient injected with 100 mL of Omnipaque 300. FINDINGS: Lung bases are clear. There is no pleural effusion. Heart size is normal. Liver spleen pancreas gallbladder appear normal. Bile ducts are not dilated. There is no adrenal mass. Kidneys show satisfactory contrast opacification. There is a 1 cm cortical cyst in the posterior right kidney. There is no hydronephrosis. There is no retroperitoneal adenopath y. There is no ascites. I see no intestinal wall thickening. There are no dilated loops. There is no sign of free air. There is no sign of appendicitis. IMPRESSION: NEGATIVE CT SCAN OF THE ABDOMEN AND PELVIS. OLD 10% COMPRESSION FRACTURE OF T12 NOTED. SMALL RIGHT RE NAL CORTICAL CYSTS.
[2017-09-06 19:17] VITALS: BP 122/70; PULSE 95; TEMP 98.6
[2017-09-06] MEDS ORDERED: CIPROFLOXACIN HCL 500 MG TAB PO STA (19:29)
== END 2017-09-06 19:38 | disposition home or self-care (01) ==
LOC: EC 13:04
DX: K52.9 Noninfective gastroenteritis and colitis, unspecified (principal); J45.909 Unspecified asthma, uncomplicated; E78.5 Hyperlipidemia, unspecified; I10 Essential (primary) hypertension; F41.9 Anxiety disorder, unspecified; F32.9 Major depressive disorder, single episode, unspecified; F20.9 Schizophrenia, unspecified; F95.2 Tourette's disorder; Z79.52 Long term (current) use of systemic steroids; Z79.899 Other long term (current) drug therapy
CPT/HCPCS: 36415; 80053; 82150; 83690; 85025; 81001; 74177; 99284; 96374; 96361; J2405; Q9967

== ENCOUNTER 2018-06-14 21:09 | Emergency (ER) | payer OTHER ==
[2018-06-14 22:03] VITALS: BP 130/82; PULSE 83; RESP 20; TEMP 97.9
[2018-06-14] MEDS ORDERED: KETOROLAC 60 MG/2 ML VIAL IM STA (22:50)
--- NOTE | 2018-06-14 22:55 | ED ---
General Adult HPI - General Chief complaint: Abdominal Pain Stated complaint: Rib injury Time Seen by Provider: 06/14/18 22:00 Source: patient, RN notes reviewed Mode of arrival: ambulatory Limitations: no limitations - History of Present Illness Initial comments: This is a 42-year-old male who presents emergency Department complaining of right sided rib pain. Patient states he was wrenching on his camper when all of a sudden he felt a pop in the lateral right chest wall and he states now it hurts to touch or take a deep breath per patient denies being short of breath. Patient denies any anterior chest pain. Patient denies any other injury. Patient denies any direct trauma to the area. Patient states nothing hit it it just popped. - Related Data Home Medications Medication Instructions Recorded Confirmed Albuterol Inhaler [Ventolin Hfa 1 - 2 puff INHALATION RT-Q6H PRN 11/04/16 Inhaler] [place] Carbonate 900 mg PO HS 11/04/16 06/14/18 Beclomethasone Dip 80 Mcg/Puff 2 puff INHALATION RT-BID 12/10/16 06/14/18 [Qvar 80 mcg] Benztropine Mesylate [Cogentin] 1 mg PO BID 08/05/17 06/14/18 Levothyroxine Sodium [Synthroid] 25 mcg PO DAILY 08/05/17 06/14/18 Lisinopril [Zestril] 20 mg PO DAILY 09/06/17 06/14/18 Loratadine [Claritin] 10 mg PO DAILY 09/06/17 06/14/18 Ibuprofen [Motrin Ib] 800 mg PO Q6H PRN 06/14/18 06/14/18 Previous Rx's Medication Instructions Recorded Ibuprofen [Motrin] 600 mg PO Q6HR PRN #20 tab 06/14/18 Allergies Allergy/AdvReac Type Severity Reaction Status Date / Time haloperidol [From Haldol] Allergy Stroke-like Verified 06/14/18 22:33 symptoms Review of Systems ROS Statement: Those systems with pertinent positive or pertinent negative responses have been documented in the HPI. ROS Other: All systems not noted in ROS Statement are negative. Past Medical History Past Medical History: Asthma, Hyperlipidemia, Hypertension Additional Past Medical History / Comment(s): Tourette's syndrome, seasonal ALLERGIES History of Any Multi-Drug Resistant Organisms: None Reported Past Surgical History: Hernia Repair, Tonsillectomy Past Anesthesia/Blood Transfusion Reactions: No Reported Reaction Past Psychological History: Anxiety, Bipolar, Depression, Panic Disorder, Schizophrenia Smoking Status: Never smoker Past Alcohol Use History: None Reported Past Drug Use History: None Reported - Past Family History Father Family Medical History: No Reported History Additional Family Medical History / Comment(s): He is 61 years of age. Patient has had no contact with him and 20 years Mother Additional Family Medical History / Comment(s): Mother at age 63 from sepsis. Sister(s) Family Medical History: No Reported History Additional Family Medical History / Comment(s): He has 2 sisters with no major medical problems. General Exam - General Exam Comments Initial Comments: GENERAL: Patient is well-developed and well-nourished. Patient is nontoxic and well- hydrated and is in mild distress ENT: Neck is soft and supple. No significant lymphadenopathy is noted. Oropharynx is clear. Moist mucous membranes. Neck has full range of motion without eliciting any pain. EYES: The sclera were anicteric and conjunctiva were pink and moist. Extraocular movements were intact and pupils were equal round and reactive to light. Eyelids were unremarkable. PULMONARY: Unlabored respirations. Good breath sounds bilaterally. No audible rales rhonchi or wheezing was noted. CARDIOVASCULAR: There is a regular rate and rhythm without any murmurs gallops or rubs. Patient has tenderness along the right lateral ribs ABDOMEN: Soft and nontender with normal bowel sounds. SKIN: Skin is clear with no lesions or rashes and otherwise unremarkable. NEUROLOGIC: Patient is alert and oriented x3. Cranial nerves II through XII are grossly intact. Motor and sensory are also intact. Normal speech, volume and content. Symmetrical smile. MUSCULOSKELETAL: Normal extremities with adequate strength and full range of motion. PSYCHIATRIC: Normal psychiatric evaluation. Limitations: no limitations Course Vital Signs 06/14/18 22:00 Temperature 97.9 F Pulse Rate 83 Respiratory 20 Rate Blood Pressure 130/82 O2 Sat by Pulse 97 Oximetry Medical Decision Making - Medical Decision Making Chest x-ray shows no acute abnormality. Toradol did help the patient's pain. Disposition Clinical Impression: Chest wall pain Disposition: HOME SELF-CARE Condition: Good Instructions: Chest Wall Pain (ED) Prescriptions: Ibuprofen [Motrin] 600 mg PO Q6HR PRN #20 tab PRN Reason: For pain Is patient prescribed a controlled substance at d/c from ED?: No Referrals: Sharyn Fonseca MD [Primary Care Provider] - 1-2 days Time of Disposition: 23:27
--- NOTE | 2018-06-14 23:06 | XR ---
EXAMINATION TYPE: XR chest 2V DATE OF EXAM: 06/14/2018 COMPARISON: August 052017 HISTORY: Short of breath TECHNIQUE: Frontal and lateral views of the chest are obtained. FINDINGS: . heart and mediastinum are normal. Lungs are clear. Diaphragm is normal. Bony thorax appears normal. IMPRESSION: Normal chest. No change.
== END 2018-06-14 23:50 | disposition home or self-care (01) ==
LOC: EC 21:09
DX: R07.89 Other chest pain (principal); R10.9 Unspecified abdominal pain; R07.81 Pleurodynia; J45.909 Unspecified asthma, uncomplicated; I10 Essential (primary) hypertension; Z79.899 Other long term (current) drug therapy; Z88.8 Allergy status to other drugs, medicaments and biological substances
CPT/HCPCS: 71046; 99284; 96372; J1885

== ENCOUNTER 2018-11-08 11:04 | Emergency (ER) | payer MEDICARE, OTHER ==
[2018-11-08 11:21] VITALS: RESP 20
--- NOTE | 2018-11-08 11:29 | ED ---
ENT HPI - General Chief complaint: ENT Stated complaint: sinus pain Time Seen by Provider: 11/08/18 11:07 Source: patient Mode of arrival: ambulatory Limitations: no limitations - History of Present Illness Initial comments: 43-year-old male presented for sinus pain. Patient states he has had pain in his sinuses of the face he states in the forehead and has had green boogers and congestion for the past 2-3 days. He states at times his blood in his bars. He denies any hemoptysis or cough. He denies fever chills or night sweats. Patient states it is a dull aching headache. She denies coming on suddenly or being the worse headache of his life he denies any numbness tingling loss sensation or muscle weakness speech or gait changes. He states the headache did not come on suddenly has been gradual comes and goes he denies this being the worse headache of his life. Patient states it feels identical to when he had a sinus infection the past. He states increases in intensity when he holds his head downward position. He states at times he has pain in the teeth. Patient presents emergency department for treatment. Remaining review of systems negative - Related Data Home Medications Medication Instructions Recorded Confirmed Albuterol Inhaler [Ventolin Hfa 1 - 2 puff INHALATION RT-Q6H PRN 11/04/16 11/08/18 Inhaler] [place] Carbonate 900 mg PO HS 11/04/16 11/08/18 Beclomethasone Dip 80 Mcg/Puff 2 puff INHALATION RT-BID 12/10/16 11/08/18 [Qvar 80 mcg] Levothyroxine Sodium [Synthroid] 25 mcg PO DAILY 08/05/17 11/08/18 Lisinopril [Zestril] 20 mg PO DAILY 09/06/17 11/08/18 Loratadine [Claritin] 10 mg PO DAILY 09/06/17 11/08/18 Ibuprofen [Motrin Ib] 800 mg PO Q6H PRN 06/14/18 11/08/18 ARIPiprazole [Abilify Maintena] 400 mg IM Q28D 11/08/18 11/08/18 Benztropine Mesylate [Cogentin] 1 mg PO DAILY 11/08/18 11/08/18 Escitalopram [Lexapro] 10 mg PO DAILY 11/08/18 11/08/18 Oxymetazoline 0.05% Nasl [place] 1 spray EA NOSTRIL DAILY 11/08/18 11/08/18 [Afrin 0.05% Nasal [place]] Pseudoephedrine 12Hr [Sudafed 12 120 mg PO Q12HR 11/08/18 11/08/18 Hour] Simvastatin 5 mg PO DAILY 11/08/18 11/08/18 Previous Rx's Medication Instructions Recorded Amoxic-Pot Clav 875-125Mg 1 tab PO Q12HR 7 Days #14 tablet 11/08/18 [Augmentin 875-125] Allergies Allergy/AdvReac Type Severity Reaction Status Date / Time haloperidol [From Haldol] Allergy Stroke-like Verified 11/08/18 11:29 symptoms Review of Systems ROS Statement: Those systems with pertinent positive or pertinent negative responses have been documented in the HPI. ROS Other: All systems not noted in ROS Statement are negative. Past Medical History Past Medical History: Asthma, Hyperlipidemia, Hypertension Additional Past Medical History / Comment(s): Tourette's syndrome, seasonal ALLERGIES History of Any Multi-Drug Resistant Organisms: None Reported Past Surgical History: Hernia Repair, Tonsillectomy Past Anesthesia/Blood Transfusion Reactions: No Reported Reaction Past Psychological History: Anxiety, Bipolar, Depression, Panic Disorder, Schizophrenia Smoking Status: Never smoker Past Alcohol Use History: None Reported Past Drug Use History: None Reported - Past Family History Father Family Medical History: No Reported History Additional Family Medical History / Comment(s): He is 61 years of age. Patient has had no contact with him and 20 years Mother Additional Family Medical History / Comment(s): Mother at age 63 from sepsis. Sister(s) Family Medical History: No Reported History Additional Family Medical History / Comment(s): He has 2 sisters with no major medical problems. General Exam - General Exam Comments Initial Comments: General: The patient is awake and alert, in no distress, and does not appear acutely ill. Eye: +3 mm pupils are equal, round and reactive to light, extra-ocular movements are intact. No nystagmus. There is normal conjunctiva bilaterally. No signs of icterus. No photophobia Ears, nose, mouth and throat: There are moist mucous membranes and no oral lesions. Oropharynx was not erythematous there is no tonsillar enlargement exudates or lesions. Uvula midline. Tympanic membranes are not erythematous or is no effusions bulging or retraction. No tenderness to palpation of the mastoid. No anterior cervical lymphadenopathy. Rhinorrhea, clear and bilateral nares. No tripoding, no drooling. Neck: The neck is supple, there is no tenderness or JVD. No nuchal rigidity negative. Pain to palpaton of both maxillary and frontal sinus to compression. No ethmoid. Cardiovascular: There is a regular rate and rhythm. No murmur, rub or gallop is appreciated. Respiratory: Lungs are clear to auscultation, respirations are non-labored, breath sounds are equal. No wheezes, stridor, rales, or rhonchi. No retractions or abdominal breathing. Gastrointestinal: Soft, non-distended, non-tender abdomen without masses or organomegaly noted. There is no rebound or guarding present. Bowel sounds are unremarkable. Musculoskeletal: Normal ROM, no tenderness. Strength 5/5. Sensation intact. Radial pulses equal bilaterally 2+. Neurological: A&O x 3. CN II-XII intact, There are no obvious motor or sensory deficits. Coordination appears grossly intact. Speech appears normal, no muffling. Skin: Skin is warm and dry and no rashes or lesions are noted. No extremity edema Psychiatric: Cooperative Limitations: no limitations Course Vital Signs 11/08/18 11/08/18 11:18 12:10 Temperature 98.2 F 97.7 F Pulse Rate 94 89 Respiratory 20 20 Rate Blood Pressure 110/60 111/81 O2 Sat by Pulse 96 94 L Oximetry Medical Decision Making - Medical Decision Making 43-year-old male presenting for sinus infection treatment. He states that he has had sinus infections in the past and this feels identical. Patient admits congestion and sinus pressure. The maxillary and frontal which is evident on examination. Patient has no focal deficits. He denies any hemoptysis cough fever chills or night sweats. Lungs are clear to auscultation. Patient appears well and nontoxic afebrile with vital signs within acceptable limits. Patient denies any recent antibiotic use. Patient denies any antibiotic ALLERGIES. At this time feel patient is stable for discharge with treatment with Augmentin. Patient is to follow-up with primary care provider and return to emergency department for any worsening symptoms. I discussed the case with him provider Dr. Lynn was agreeable care plan discharge today. Patient verbalized understanding bowel return parameters. Disposition Clinical Impression: Sinusitis Disposition: HOME SELF-CARE Condition: Good Instructions (If sedation given, give patient instructions): Sinusitis (ED) Additional Instructions: Please use medication as discussed. Please follow-up with family doctor in the next 2 days of symptoms have not improved. Please return to emergency room if the symptoms increase or worsen or for any other concerns. Prescriptions: Amoxic-Pot Clav 875-125Mg [Augmentin 875-125] 1 tab PO Q12HR 7 Days #14 tablet Is patient prescribed a controlled substance at d/c from ED?: No Referrals: Sharyn Fonseca MD [Primary Care Provider] - 1-2 days Time of Disposition: 11:57
[2018-11-08 12:14] VITALS: BP 111/81; PULSE 89; TEMP 97.7
== END 2018-11-08 12:14 | disposition home or self-care (01) ==
LOC: EC 11:04
DX: J32.9 Chronic sinusitis, unspecified (principal); J45.909 Unspecified asthma, uncomplicated; E78.5 Hyperlipidemia, unspecified; I10 Essential (primary) hypertension; F31.9 Bipolar disorder, unspecified; F41.0 Panic disorder [episodic paroxysmal anxiety]; Z79.890 Hormone replacement therapy; Z79.899 Other long term (current) drug therapy; Z88.8 Allergy status to other drugs, medicaments and biological substances
CPT/HCPCS: 99283

== ENCOUNTER 2019-01-12 21:48 | Emergency (ER) | payer MEDICARE, OTHER ==
[2019-01-12 21:57] VITALS: TEMP 98.1
[2019-01-12] MEDS ORDERED: MORPHINE SULFATE 4 MG/ML SYRINGE IVP STA (23:07)
[2019-01-12] MEDS ORDERED: KETOROLAC 30 MG/ML 1 ML VIAL IVP STA (23:27)
[2019-01-12 23:31] LABS: Appearance,Urine Clear (Clear); Bilirubin,Urine Negative (Negative); Blood,Urine Negative (Negative); Color,Urine Yellow; Glucose,Urine (UA) Negative (Negative); Ketones,Urine Negative (Negative); Leukocyte Esterase,Urine Negative (Negative); Nitrite,Urine Negative (Negative); Protein,Urine Negative (Negative); Specific Gravity,Urine 1.017 (1.001-1.035); Urobilinogen,Urine <2.0 mg/dL (<2.0)
--- NOTE | 2019-01-12 23:48 | ED ---
General Adult HPI - General Source: patient Mode of arrival: ambulatory Limitations: no limitations <Ryder Frederick - Last Filed: 01/12/19 23:39> <Artur Lopes - Last Filed: 01/14/19 13:24> - General Chief complaint: Urogenital Stated complaint: Groin pain Time Seen by Provider: 01/12/19 22:36 - History of Present Illness Initial comments: Patient is a 43-year-old male presents emergency Department with right groin pain. Patient reports the pain started approximately 2 weeks ago in the right inguinal region and radiates slightly along the medial aspect of the right upper leg. Patient reports the pain comes and goes. Patient reports the pain is alleviated when taking tgon-clo-ivqzoyc analgesics and exacerbated when pressure is applied. Patient denies abdominal pain, nausea, vomiting or diarrhea. Patient does report a history of a "testicular hernia." Patient denies urinary or obstructive symptoms. Patient denies testicular pain, tenderness, swelling, erythema or penile discharge. Patient reports no changes in pain in standing versus supine position (Ryder Frederick) - Related Data Home Medications Medication Instructions Recorded Confirmed Albuterol Inhaler [Ventolin Hfa 1 - 2 puff INHALATION RT-Q6H PRN 11/04/16 01/12/19 Inhaler] [place] Carbonate 900 mg PO HS 11/04/16 01/12/19 Beclomethasone Dip 80 Mcg/Puff 2 puff INHALATION RT-BID 12/10/16 01/12/19 [Qvar 80 mcg] Levothyroxine Sodium [Synthroid] 25 mcg PO DAILY 08/05/17 01/12/19 Lisinopril [Zestril] 20 mg PO DAILY 09/06/17 01/12/19 Loratadine [Claritin] 10 mg PO DAILY 09/06/17 01/12/19 Ibuprofen [Motrin Ib] 800 mg PO Q6H PRN 06/14/18 01/12/19 ARIPiprazole [Abilify Maintena] 400 mg IM Q28D 11/08/18 01/12/19 Benztropine Mesylate [Cogentin] 1 mg PO DAILY 11/08/18 01/12/19 Escitalopram [Lexapro] 10 mg PO DAILY 11/08/18 01/12/19 Oxymetazoline 0.05% Nasl [place] 1 spray EA NOSTRIL DAILY 11/08/18 01/12/19 [Afrin 0.05% Nasal [place]] Simvastatin 5 mg PO DAILY 11/08/18 01/12/19 Previous Rx's Medication Instructions Recorded Cyclobenzaprine [Flexeril] 5 mg PO TID PRN #15 tablet 01/12/19 Allergies Allergy/AdvReac Type Severity Reaction Status Date / Time haloperidol [From Haldol] Allergy Stroke-like Verified 01/12/19 22:50 symptoms Review of Systems ROS Other: All systems not noted in ROS Statement are negative. <Ryder Frederick - Last Filed: 01/12/19 23:39> ROS Other: All systems not noted in ROS Statement are negative. <Artur Lopes - Last Filed: 01/14/19 13:24> ROS Statement: Those systems with pertinent positive or pertinent negative responses have been documented in the HPI. Past Medical History Past Medical History: Asthma, Hyperlipidemia, Hypertension Additional Past Medical History / Comment(s): Tourette's syndrome, seasonal ALLERGIES, dyskenisia History of Any Multi-Drug Resistant Organisms: None Reported Past Surgical History: Hernia Repair, Tonsillectomy Past Anesthesia/Blood Transfusion Reactions: No Reported Reaction Past Psychological History: Anxiety, Bipolar, Depression, Panic Disorder, Schizophrenia Smoking Status: Never smoker Past Alcohol Use History: None Reported Past Drug Use History: None Reported - Past Family History Father Family Medical History: No Reported History Additional Family Medical History / Comment(s): He is 61 years of age. Patient has had no contact with him and 20 years Mother Additional Family Medical History / Comment(s): Mother at age 63 from sepsis. Sister(s) Family Medical History: No Reported History Additional Family Medical History / Comment(s): He has 2 sisters with no major medical problems. <Ryder Frederick - Last Filed: 01/12/19 23:39> General Exam Limitations: no limitations General appearance: alert, in no apparent distress Head exam: Present: atraumatic, normocephalic, normal inspection Eye exam: Present: normal appearance, PERRL, EOMI Pupils: Present: normal accommodation ENT exam: Present: normal exam, mucous membranes moist, normal external ear exam Neck exam: Present: normal inspection, full ROM Respiratory exam: Present: normal lung sounds bilaterally Cardiovascular Exam: Present: regular rate, normal rhythm, normal heart sounds GI/Abdominal exam: Present: soft. Absent: distended, tenderness, guarding exam: Present: normal inspection. Absent: testicular tenderness, urethral discharge, scrotal swelling, other (Direct or indirect inguinal hernia not detected.) Extremities exam: Present: normal inspection, full ROM Back exam: Present: normal inspection, full ROM Neurological exam: Present: alert, oriented X3 Psychiatric exam: Present: normal affect, normal mood Skin exam: Present: warm, intact, normal color <Ryder Frederick - Last Filed: 01/12/19 23:39> Course Vital Signs 01/12/19 01/13/19 21:52 00:29 Temperature 98.1 F Pulse Rate 85 70 Respiratory 19 16 Rate Blood Pressure 128/85 128/78 O2 Sat by Pulse 96 Oximetry Medical Decision Making <Ryder Frederick - Last Filed: 01/12/19 23:39> - Lab Data Result diagrams: 01/12/19 23:15 <Artur Lopes - Last Filed: 01/14/19 13:24> - Medical Decision Making Patient is a 43-year-old male presents emergency Department with right groin pain. Based on physical examination the patient does not appear to have a direct, and direct or femoral hernia. No visible bulging is present. At this point the patient could be at the early stages of developing a hernia. Patient advised to follow-up with general surgery. Patient was given Toradol for pain control. UA is unremarkable. Patient will be discharged with Flexeril for possible muscle strain in the groin region. Strict return parameters were thoroughly discussed with patient who is understanding and agreeable. Dr. Lopes also examined the patient and is in agreement with the treatment plan. ] (Ryder Frederick) I saw this patient in conjunction with the physician casino assistant manager. I performed independent history and physical exam. Agree with case management. (Artur Lopes) - Lab Data Lab Results 01/12/19 01/12/19 Range/Units 23:15 23:15 WBC 10.7 H (3.8-10.6) k/uL RBC 4.81 (4.30-5.90) m/uL Hgb 14.1 (13.0-17.5) gm/dL Hct 41.5 (39.0-53.0) % MCV 86.1 (80.0-100.0) fL MCH 29.3 (25.0-35.0) pg MCHC 34.0 (31.0-37.0) g/dL RDW 13.1 (11.5-15.5) % Plt Count 307 (150-450) k/uL Urine Color Yellow Urine Appearance Clear (Clear) Urine pH 5.0 (5.0-8.0) Ur Specific [place] 1.017 (1.001-1.035) Urine Protein Negative (Negative) Urine Glucose (UA) Negative (Negative) Urine Ketones Negative (Negative) Urine Blood Negative (Negative) Urine Nitrite Negative (Negative) Urine Bilirubin Negative (Negative) Urine Urobilinogen <2.0 (<2.0) mg/dL Ur Leukocyte Esterase Negative (Negative) Disposition Is patient prescribed a controlled substance at d/c from ED?: No Time of Disposition: 23:48 <Ryder Frederick - Last Filed: 01/12/19 23:39> <Artur Lopes - Last Filed: 01/14/19 13:24> Clinical Impression: Rt groin pain Disposition: HOME SELF-CARE Condition: Stable Instructions (If sedation given, give patient instructions): Groin Pain (ED) Additional Instructions: Please follow up with a general surgeon. Please return to emergency department if symptoms worsen. Please take prescribed medication as directed. Prescriptions: Cyclobenzaprine [Flexeril] 5 mg PO TID PRN #15 tablet PRN Reason: Muscle Spasm Referrals: Sharyn Fonseca MD [Primary Care Provider] - 1-2 days
[2019-01-13 00:07] LABS: HCT 41.5 % (39.0-53.0); HGB 14.1 gm/dL (13.0-17.5); MCH 29.3 pg (25.0-35.0); MCV 86.1 fL (80.0-100.0); Platelet Count 307 k/uL (150-450); RBC 4.81 m/uL (4.30-5.90); RDW 13.1 % (11.5-15.5); WBC 10.7 k/uL (3.8-10.6)
[2019-01-13 00:31] VITALS: BP 128/78; PULSE 70; RESP 16
== END 2019-01-13 00:31 | disposition home or self-care (01) ==
LOC: EC 21:48
DX: R10.31 Right lower quadrant pain (principal); J45.909 Unspecified asthma, uncomplicated; E78.5 Hyperlipidemia, unspecified; I10 Essential (primary) hypertension; F41.9 Anxiety disorder, unspecified; F32.9 Major depressive disorder, single episode, unspecified; F20.9 Schizophrenia, unspecified; Z87.19 Personal history of other diseases of the digestive system; Z98.890 Other specified postprocedural states; Z79.51 Long term (current) use of inhaled steroids; Z79.890 Hormone replacement therapy; Z79.899 Other long term (current) drug therapy; Z88.8 Allergy status to other drugs, medicaments and biological substances
CPT/HCPCS: 36415; 85027; 81003; 99283; 96374; J1885

== ENCOUNTER 2019-03-17 02:29 | Emergency (ER) | payer MEDICARE, OTHER ==
[2019-03-17 03:23] LABS: Appearance,Urine Clear (Clear); Bilirubin,Urine Negative (Negative); Blood,Urine Negative (Negative); Color,Urine Yellow; Glucose,Urine (UA) Negative (Negative); Ketones,Urine Negative (Negative); Leukocyte Esterase,Urine Negative (Negative); Nitrite,Urine Negative (Negative); PH, Urine 5.5 (5.0-8.0); Protein,Urine Trace (Negative); Specific Gravity,Urine 1.028 (1.001-1.035); Urobilinogen,Urine <2.0 mg/dL (<2.0)
[2019-03-17 05:37] LABS: Basophils # (A) 0.1 k/uL (0-0.2); Basophils % (A) 1 %; Eosinophils # (A) 0.6 k/uL (0-0.7); Eosinophils % (A) 5 %; HCT 42.6 % (39.0-53.0); HGB 14.3 gm/dL (13.0-17.5); Lymphocytes # (A) 3.2 k/uL (1.0-4.8); Lymphocytes % (A) 28 %; MCHC 33.5 g/dL (31.0-37.0); MCV 86.6 fL (80.0-100.0); Mean Platelet Volume 7.2; Monocytes # (A) 0.8 k/uL (0-1.0); Monocytes % (A) 7 %; Neutrophils # (A) 6.5 k/uL (1.3-7.7); Neutrophils % (A) 57 %; Platelet Count 300 k/uL (150-450); RBC 4.92 m/uL (4.30-5.90); RDW 14.9 % (11.5-15.5); WBC 11.4 k/uL (3.8-10.6)
[2019-03-17 05:52] LABS: ALT 36 U/L (21-72); AST 26 U/L (17-59); African American GFR (CKD) >90 (>60 ml/min/1.73 sqM); Albumin 4.1 g/dL (3.5-5.0); Alkaline Phosphatase 65 U/L (38-126); Anion Gap 9 mmol/L; Blood Urea Nitrogen 15 mg/dL (9-20); Calcium 9.6 mg/dL (8.4-10.2); Carbon Dioxide 23 mmol/L (22-30); Chloride 106 mmol/L (98-107); Glucose 93 mg/dL (74-99); Potassium 4.3 mmol/L (3.5-5.1); Sodium 138 mmol/L (137-145); Total Bilirubin 0.4 mg/dL (0.2-1.3); Total Protein 7.1 g/dL (6.3-8.2)
--- NOTE | 2019-03-17 06:03 | CT ---
ADDENDUM - Added by Jose Maria Chao MD on 03/17/2019 6:03 AM (-07:00) The impression should also state that there is a pleural-based nodule at the left lung base for which short-term six-month follow-up is advised. EXAM: CT Abdomen and Pelvis With Intravenous Contrast CLINICAL HISTORY: Abdominal pain. TECHNIQUE: Axial computed tomography images of the abdomen and pelvis with intravenous contrast. CTDI is 55 mGy and DLP is 947.1 mGy-cm. This CT exam was performed using one or more of the following dose reduction techniques: automated exposure control, adjustment of the mA and/or kV according to patient size, and/or use of iterative reconstruction technique. COMPARISON: 09/06/2017. FINDINGS: Lung bases: A 0.7 cm noncalcified pleural-based nodule is noted posteriorly at the left lung base, best seen on series 204 image 11. Follow-up as necessary. Heart: The heart is normal in size. ABDOMEN: Liver: Diffuse fatty infiltration of the liver is noted. Gallbladder and bile ducts: Unremarkable. No calcified stones. No ductal dilation. Pancreas: Unremarkable. No mass. No ductal dilation. Spleen: Unremarkable. No splenomegaly. Adrenals: Unremarkable. No mass. Kidneys and ureters: Unremarkable. No solid mass. No hydronephrosis. Stomach and bowel: There is thickening of the coffman of the terminal ileum best seen on series 302 image 56. The possibility of inflammatory bowel disease such as Crohn disease is raised. Correlation with history is necessary. The mid to distal descending colon is in a contracted state and therefore difficult to assess. A few scattered diverticula are noted. No evidence of diverticulosis. No obstruction. PELVIS: Appendix: No findings to suggest acute appendicitis. Bladder: Unremarkable. No mass. Reproductive: Unremarkable as visualized. ABDOMEN and PELVIS: Intraperitoneal space: Unremarkable. No free air. No significant fluid collection. Bones/joints: Evaluation of bone window images reveals findings of mild to moderate degenerative disc disease. Mild osteoarthritic changes about the sacroiliac joints are noted. No acute fracture. No dislocation. Soft tissues: Unremarkable. Vasculature: Unremarkable. No abdominal aortic aneurysm. Lymph nodes: Unremarkable. No enlarged lymph nodes. IMPRESSION: As noted above, the terminal ileum exhibits thin coffman. Etiology such as Crohn disease cannot be excluded. Clinical correlation is advised. Fatty infiltration of the liver.
--- NOTE | 2019-03-17 06:39 | ED ---
Abdominal Pain HPI - General Chief Complaint: Abdominal Pain Stated Complaint: groin & leg pain Source: patient Mode of arrival: ambulatory Limitations: no limitations - History of Present Illness Initial Comments: The patient is a 43-year-old male who presents to the emergency department with reported right lower quadrant abdominal pain and groin pain. The patient states the symptoms have been present for the past 3 days. He describes it as a sharp shooting sensation which is similar in nature to his previous hernia. CT had one when he was a teenager which required surgical repair. The pain is made worse with bearing down and movement. Does report that he feels a bulge in the area. Denies any testicular pain or swelling. Denies any numbness or tingling in his lower extremities. Denies any back or flank pain. No saddle anesthesia or bowel or bladder incontinence. Denies any changes in his urination to include dysuria, hematuria or difficulty voiding. Denies any changes in bowel movements include diarrhea, cuts patient, melanotic stools or hematochezia. No fevers or chills. There are no other alleviating, stating modifying factors - Related Data Home Medications Medication Instructions Recorded Confirmed Albuterol Inhaler [Ventolin Hfa 1 - 2 puff INHALATION RT-Q6H PRN 11/04/16 01/12/19 Inhaler] [place] Carbonate 900 mg PO HS 11/04/16 01/12/19 Beclomethasone Dip 80 Mcg/Puff 2 puff INHALATION RT-BID 12/10/16 01/12/19 [Qvar 80 mcg] Levothyroxine Sodium [Synthroid] 25 mcg PO DAILY 08/05/17 01/12/19 Lisinopril [Zestril] 20 mg PO DAILY 09/06/17 01/12/19 Loratadine [Claritin] 10 mg PO DAILY 09/06/17 01/12/19 Ibuprofen [Motrin Ib] 800 mg PO Q6H PRN 06/14/18 01/12/19 ARIPiprazole [Abilify Maintena] 400 mg IM Q28D 11/08/18 01/12/19 Benztropine Mesylate [Cogentin] 1 mg PO DAILY 11/08/18 01/12/19 Escitalopram [Lexapro] 10 mg PO DAILY 11/08/18 01/12/19 Oxymetazoline 0.05% Nasl [place] 1 spray EA NOSTRIL DAILY 11/08/18 01/12/19 [Afrin 0.05% Nasal [place]] Simvastatin 5 mg PO DAILY 11/08/18 01/12/19 Previous Rx's Medication Instructions Recorded Cyclobenzaprine [Flexeril] 5 mg PO TID PRN #15 tablet 01/12/19 Hydrocodone/Acetaminophen [[place] 1 tab PO Q6HR PRN #12 tab 03/17/19 5-325] Allergies Allergy/AdvReac Type Severity Reaction Status Date / Time haloperidol [From Haldol] Allergy Stroke-like Verified 03/17/19 02:42 symptoms Review of Systems ROS Statement: Those systems with pertinent positive or pertinent negative responses have been documented in the HPI. ROS Other: All systems not noted in ROS Statement are negative. Past Medical History Past Medical History: Asthma, Hyperlipidemia, Hypertension Additional Past Medical History / Comment(s): Tourette's syndrome, seasonal ALLERGIES, dyskenisia History of Any Multi-Drug Resistant Organisms: None Reported Past Surgical History: Hernia Repair, Tonsillectomy Past Anesthesia/Blood Transfusion Reactions: No Reported Reaction Past Psychological History: Anxiety, Bipolar, Depression, Panic Disorder, Katie izophrenia Smoking Status: Never smoker Past Alcohol Use History: None Reported Past Drug Use History: None Reported - Past Family History Father Family Medical History: No Reported History Additional Family Medical History / Comment(s): He is 61 years of age. Patient has had no contact with him and 20 years Mother Additional Family Medical History / Comment(s): Mother at age 63 from sepsis. Sister(s) Family Medical History: No Reported History Additional Family Medical History / Comment(s): He has 2 sisters with no major medical problems. General Exam Limitations: no limitations Course Vital Signs 03/17/19 03/17/19 03/17/19 02:38 06:52 07:08 Temperature 97.7 F 98.1 F 98.1 F Pulse Rate 82 62 62 Respiratory 18 20 18 Rate Blood Pressure 123/79 127/84 127/84 O2 Sat by Pulse 96 98 98 Oximetry Medical Decision Making - Medical Decision Making Upon arrival the patient is placed in room 5. He is hooked up to continuous pulse ox and teletypesetter monitor. I did offer something for pain and nausea however the patient is asymptomatic at this time. I recommended laboratory studies and a CT of the patient's abdomen and pelvis. White blood cell count 11.4. Trace protein in urine. CT the abdomen and pelvis demonstrates a thin-walled terminal ileum. I did discuss these results with the patient. He'll be discharged home and he needs to follow-up with his primary care physician for further treatment options. He may need a colonoscopy. The patient is requesting something strong er for pain and Motrin. He did provide him with a short course of [place]. He does sign an opiate start talking form the patient is a new or worsening symptoms she should return to the emergency room. The patient was started home in stable condition - Lab Data Result diagrams: 03/17/19 05:21 03/17/19 05:21 Lab Results 03/17/19 03/17/19 03/17/19 Range/Units 02:41 05:21 05:21 WBC 11.4 H (3.8-10.6) k/uL RBC 4.92 (4.30-5.90) m/uL Hgb 14.3 (13.0-17.5) gm/dL Hct 42.6 (39.0-53.0) % MCV 86.6 (80.0-100.0) fL MCH 29.0 (25.0-35.0) pg MCHC 33.5 (31.0-37.0) g/dL RDW 14.9 (11.5-15.5) % Plt Count 300 (150-450) k/uL Neutrophils % 57 % Lymphocytes % 28 % Monocytes % 7 % Eosinophils % 5 % Basophils % 1 % Neutrophils # 6.5 (1.3-7.7) k/uL Lymphocytes # 3.2 (1.0-4.8) k/uL Monocytes # 0.8 (0-1.0) k/uL Eosinophils # 0.6 (0-0.7) k/uL Basophils # 0.1 (0-0.2) k/uL Sodium 138 (137-145) mmol/L Potassium 4.3 (3.5-5.1) mmol/L Chloride 106 (98-107) mmol/L Carbon Dioxide 23 (22-30) mmol/L Anion Gap 9 mmol/L BUN 15 (9-20) mg/dL Creatinine 1.01 (0.66-1.25) mg/dL Est GFR (CKD-EPI)AfAm >90 (>60 ml/min/1.73 sqM) Est GFR (CKD-EPI)NonAf >90 (>60 ml/min/1.73 sqM) Glucose 93 (74-99) mg/dL Calcium 9.6 (8.4-10.2) mg/dL Total Bilirubin 0.4 (0.2-1.3) mg/dL AST 26 (17-59) U/L ALT 36 (21-72) U/L Alkaline Phosphatase 65 (38-126) U/L Total Protein 7.1 (6.3-8.2) g/dL Albumin 4.1 (3.5-5.0) g/dL Urine Color Yellow Urine Appearance Clear (Clear) Urine pH 5.5 (5.0-8.0) Ur Specific [place] 1.028 (1.001-1.035) Urine Protein Trace H (Negative) Urine Glucose (UA) Negative (Negative) Urine Ketones Negative (Negative) Urine Blood Negative (Negative) Urine Nitrite Negative (Negative) Urine Bilirubin Negative (Negative) Urine Urobilinogen <2.0 (<2.0) mg/dL Ur Leukocyte Esterase Negative (Negative) Disposition Clinical Impression: Groin pain Disposition: HOME SELF-CARE Condition: Stable Instructions (If sedation given, give patient instructions): Groin Pain (ED) Additional Instructions: Please follow-up with your primary care doctor in 2-4 days. I do recommend a colonoscopy. Return to the emergency room for any new or worsening symptoms Prescriptions: Hydrocodone/Acetaminophen [[place] 5-325] 1 tab PO Q6HR PRN #12 tab PRN Reason: Pain Is patient prescribed a controlled substance at d/c from ED?: Yes When asked, does pt state using other controlled substances?: No If prescribed controlled substance>3 days was MAPS reviewed?: Prescribed <3 Days If opioid is for acute pain is fill amount 7 days or less?: Yes If Rx opioid, was Start Talking consent form obtained?: Yes Referrals: Sharyn Fonseca MD [Primary Care Provider] - 1-2 days Time of Disposition: 06:39
[2019-03-17 06:53] VITALS: BP 127/84; PULSE 62; TEMP 98.1
[2019-03-17 07:13] VITALS: RESP 18
== END 2019-03-17 07:04 | disposition home or self-care (01) ==
LOC: EC 02:29
DX: R10.31 Right lower quadrant pain (principal); R11.0 Nausea; J45.909 Unspecified asthma, uncomplicated; I10 Essential (primary) hypertension; E78.5 Hyperlipidemia, unspecified; F41.0 Panic disorder [episodic paroxysmal anxiety]; F31.9 Bipolar disorder, unspecified; Z79.890 Hormone replacement therapy; Z79.899 Other long term (current) drug therapy; Z88.8 Allergy status to other drugs, medicaments and biological substances
CPT/HCPCS: 36415; 80053; 85025; 81003; 74177; 99284; Q9967

== ENCOUNTER 2019-05-15 05:54 | Emergency (ER) | payer MEDICARE, OTHER ==
[2019-05-15] MEDS ORDERED: methylPREDNISolone SOD SUCCI 125 MG/2 ML VIAL IM ONE (06:43)
--- NOTE | 2019-05-15 06:44 | XR ---
EXAMINATION TYPE: XR chest 2V DATE OF EXAM: 05/15/2019 COMPARISON: 06/14/2018 HISTORY: Cough TECHNIQUE: Frontal and lateral views of the chest are obtained. FINDINGS: Heart and mediastinum are normal. Lungs are clear. Diaphragm is normal. Bony thorax is int act. IMPRESSION: Normal chest. No change.
--- NOTE | 2019-05-15 06:58 | ED ---
URI HPI - General Chief Complaint: Upper Respiratory Infection Stated Complaint: Cough Time Seen by Provider: 05/15/19 06:13 Source: patient Mode of arrival: ambulatory Limitations: no limitations - History of Present Illness Initial Comments: 43-year-old male presenting today for chief complaint of cough sore throat. Patient states the past 2-3 days he has had a cough and sore throat. Patient states that the cough is so bad that he feels is causing the sore throat. Patient denies sputum production he states he is very congested. Patient denies any headache or neck stiffness difficulty breathing or swallowing. Patient denies any chest pain. Patient denies abdominal pain diarrhea. Patient states he has coughed so hard he is gagged and vomited. Remaining review of system negative patient states he has had his childhood vaccines. - Related Data Home Medications Medication Instructions Recorded Confirmed RX: Albuterol Inhaler [Ventolin 1 - 2 puff INHALATION RT-Q6H PRN 11/04/16 01/12/19 Hfa Inhaler] RX: [place] Carbonate 900 mg PO HS 11/04/16 01/12/19 RX: Beclomethasone Dip 80 Mcg/Puff 2 puff INHALATION RT-BID 12/10/16 01/12/19 [Qvar 80 mcg] Levothyroxine Sodium [Synthroid] 25 mcg PO DAILY 08/05/17 01/12/19 Lisinopril [Zestril] 20 mg PO DAILY 09/06/17 01/12/19 Loratadine [Claritin] 10 mg PO DAILY 09/06/17 01/12/19 Ibuprofen [Motrin Ib] 800 mg PO Q6H PRN 06/14/18 01/12/19 ARIPiprazole [Abilify Maintena] 400 mg IM Q28D 11/08/18 01/12/19 Benztropine Mesylate [Cogentin] 1 mg PO DAILY 11/08/18 01/12/19 Escitalopram [Lexapro] 10 mg PO DAILY 11/08/18 01/12/19 Oxymetazoline 0.05% Nasl [place] 1 spray EA NOSTRIL DAILY 11/08/18 01/12/19 [Afrin 0.05% Nasal [place]] RX: Simvastatin 5 mg PO DAILY 11/08/18 01/12/19 Previous Rx's Medication Instructions Recorded Cyclobenzaprine [Flexeril] 5 mg PO TID PRN #15 tablet 01/12/19 Hydrocodone/Acetaminophen [[place] 1 tab PO Q6HR PRN #12 tab 03/17/19 5-325] Benzonatate [Tessalon Perles] 100 mg PO TID 5 Days #15 cap 05/15/19 RX: predniSONE 20 mg PO DAILY 5 Days #5 tab 05/15/19 Allergies Allergy/AdvReac Type Severity Reaction Status Date / Time haloperidol [From Haldol] Allergy Stroke-like Verified 05/15/19 06:01 symptoms Review of Systems ROS Statement: Those systems with pertinent positive or pertinent negative responses have been documented in the HPI. ROS Other: All systems not noted in ROS Statement are negative. Past Medical History Past Medical History: Asthma, Hyperlipidemia, Hypertension Additional Past Medical History / Comment(s): Tourette's syndrome, seasonal ALLERGIES, dyskenisia History of Any Multi-Drug Resistant Organisms: None Reported Past Surgical History: Hernia Repair, Tonsillectomy Past Anesthesia/Blood Transfusion Reactions: No Reported Reaction Past Psychological History: Anxiety, Bipolar, Depression, Panic Disorder, Schizophrenia Smoking Status: Never smoker Past Alcohol Use History: None Reported Past Drug Use History: None Reported - Past Family History Father Family Medical History: No Reported History Additional Family Medical History / Comment(s): He is 61 years of age. Patient has had no contact with him and 20 years Mother Additional Family Medical History / Comment(s): Mother at age 63 from sepsis. Sister(s) Family Medical History: No Reported History Additional Family Medical History / Comment(s): He has 2 sisters with no major medical problems. General Exam - General Exam Comments Initial Comments: General: The patient is awake and alert, in no distress, and does not appear acutely ill. Eye: +3 mm pupils are equal, round and reactive to light, extra-ocular movements are intact. No nystagmus. There is normal conjunctiva bilaterally. No signs of icterus. No photophobia Ears, nose, mouth and throat: There are moist mucous membranes and no oral lesions. Oropharynx was not erythematous there is no tonsillar enlargement exudates or lesions. Uvula midline. Tympanic membranes are not erythematous or is no effusions bulging or retraction. No tenderness to palpation of the mastoid. No anterior cervical lymphadenopathy. Rhinorrhea, clear and bilateral nares. No tripoding, no drooling. Neck: The neck is supple, there is no tenderness or JVD. No nuchal rigidity Cardiovascular: There is a regular rate and rhythm. No murmur, rub or gallop is appreciated. Respiratory: Lungs are clear to auscultation, respirations are non-labored, breath sounds are equal. No wheezes, stridor, rales, or rhonchi. No retractions or abdominal breathing. Gastrointestinal: Soft, non-distended, non-tender abdomen without masses or organomegaly noted. There is no rebound or guarding present. Bowel sounds are unremarkable. Musculoskeletal: Normal ROM, no tenderness. Strength 5/5. Sensation intact. Radial pulses equal bilaterally 2+. Neurological: A&O x 3. CN II-XII intact grossly, There are no obvious motor or sensory deficits. Coordination appears grossly intact. Speech appears normal, no muffling. Skin: Skin is warm and dry and no rashes or lesions are noted. No extremity edema Psychiatric: Cooperative Limitations: no limitations Course Vital Signs 05/15/19 05/15/19 05:59 07:04 Temperature 97.7 F 97.8 F Pulse Rate 84 70 Respiratory 20 19 Rate Blood Pressure 151/94 134/74 O2 Sat by Pulse 95 97 Oximetry Medical Decision Making - Medical Decision Making 43-year-old male with obvious upper respiratory symptoms and physical examination coming in for cough sore throat. Normal oropharynx. Obvious dry cough on examination. His x-ray clear of pneumonia in no acute process. Patient's lungs clear. At this time feel patient most likely has a viral bronchitis provided steroids in the emergency department as well as a cough suppressant outpatient for symptomatic relief. Return parameters were discussed patient verbalized understanding patient is discharged appearing well, case discussed with attending provider Dr. Lynn Disposition Clinical Impression: Cough, Upper respiratory infection Disposition: HOME SELF-CARE Condition: Good Instructions (If sedation given, give patient instructions): Upper Respiratory Infection (ED) Additional Instructions: Please use medication as discussed. Please follow-up with family doctor in the next 2 days. Please return to emergency room if the symptoms increase or worsen or for any other concerns. Prescriptions: RX: predniSONE 20 mg PO DAILY 5 Days #5 tab Benzonatate [Tessalon Perles] 100 mg PO TID 5 Days #15 cap Is patient prescribed a controlled substance at d/c from ED?: No Referrals: Sharyn Fonseca MD [Primary Care Provider] - 1-2 days Time of Disposition: 06:57
[2019-05-15 07:07] VITALS: BP 134/74; PULSE 70; RESP 19; TEMP 97.8
== END 2019-05-15 07:13 | disposition home or self-care (01) ==
LOC: EC 05:54
DX: J02.9 Acute pharyngitis, unspecified (principal); J45.909 Unspecified asthma, uncomplicated; E78.5 Hyperlipidemia, unspecified; I10 Essential (primary) hypertension; F41.9 Anxiety disorder, unspecified; F31.9 Bipolar disorder, unspecified; F20.9 Schizophrenia, unspecified; F95.2 Tourette's disorder; Z79.890 Hormone replacement therapy; Z79.51 Long term (current) use of inhaled steroids; Z88.0 Allergy status to penicillin; Z88.8 Allergy status to other drugs, medicaments and biological substances; Z79.899 Other long term (current) drug therapy
CPT/HCPCS: 71046; 99283; 96372; J2930

== ENCOUNTER 2019-11-12 02:54 | Emergency (ER) | payer MEDICARE, OTHER ==
--- NOTE | 2019-11-12 03:30 | ED ---
Chest Pain HPI - General Chief Complaint: Chest Pain Stated Complaint: chest pain Time Seen by Provider: 11/12/19 02:58 Source: patient, RN notes reviewed, old records reviewed Mode of arrival: ambulatory Limitations: no limitations - History of Present Illness Initial Comments: This is a 44-year-old male DF for evaluation patient Dese for evaluation of chest pain not feeling well some mild anxiety. Patient's history of high blood pressure high cholesterol swallowing psychiatric illness. No trauma noted no fevers cough or congestions per patient. No travel history. MD Complaint: chest pain, other (Cough) -: hour(s) Onset: during rest, during exertion Pain Location: substernal, left chest Pain Radiation: none Severity: mild Severity scale (1-10): 3 Quality: aching Consistency: intermittent Improves With: nothing Worsens With: nothing Other Symptoms: cough Treatments Prior to Arrival: none - Related Data Home Medications Medication Instructions Recorded Confirmed Albuterol Inhaler (Mhu) [Ventolin 1 - 2 puff INHALATION RT-Q6H PRN 11/04/16 01/12/19 Hfa Inhaler (Mhu)] [place] Carbonate 900 mg PO HS 11/04/16 01/12/19 Beclomethasone Dip 80 Mcg/Puff 2 puff INHALATION RT-BID 12/10/16 01/12/19 [Qvar 80 mcg] Levothyroxine Sodium [Synthroid] 25 mcg PO DAILY 08/05/17 01/12/19 Lisinopril [Zestril] 20 mg PO DAILY 09/06/17 01/12/19 Loratadine [Claritin] 10 mg PO DAILY 09/06/17 01/12/19 Ibuprofen [Motrin Ib] 800 mg PO Q6H PRN 06/14/18 01/12/19 ARIPiprazole [Abilify Maintena] 400 mg IM Q28D 11/08/18 01/12/19 Benztropine Mesylate [Cogentin] 1 mg PO DAILY 11/08/18 01/12/19 Escitalopram [Lexapro] 10 mg PO DAILY 11/08/18 01/12/19 Oxymetazoline 0.05% Nasl [place] 1 spray EA NOSTRIL DAILY 11/08/18 01/12/19 [Afrin 0.05% Nasal [place]] Simvastatin 5 mg PO DAILY 11/08/18 01/12/19 Previous Rx's Medication Instructions Recorded Cyclobenzaprine [Flexeril] 5 mg PO TID PRN #15 tablet 01/12/19 Hydrocodone/Acetaminophen [[place] 1 tab PO Q6HR PRN #12 tab 03/17/19 5-325] Benzonatate [Tessalon Perles] 100 mg PO TID 5 Days #15 cap 05/15/19 predniSONE [Deltasone] 20 mg PO DAILY 5 Days #5 tab 05/15/19 Azithromycin [Zithromax Z-pack] 0 mg PO DIRECTED #1 pack 11/12/19 Allergies Allergy/AdvReac Type Severity Reaction Status Date / Time haloperidol [From Haldol] Allergy Stroke-like Verified 11/12/19 03:02 symptoms Review of Systems ROS Statement: Those systems with pertinent positive or pertinent negative responses have been documented in the HPI. ROS Other: All systems not noted in ROS Statement are negative. EKG Findings - EKG Comments: EKG Findings:: EKG shows sinus rhythm of 63, SC 190, QRS 110, QTC 419 Past Medical History Past Medical History: Asthma, Hyperlipidemia, Hypertension Additional Past Medical History / Comment(s): Tourette's syndrome, seasonal ALLERGIES, dyskenisia History of Any Multi-Drug Resistant Organisms: None Reported Past Surgical History: Hernia Repair, Tonsillectomy Past Anesthesia/Blood Transfusion Reactions: No Reported Reaction Past Psychological History: Anxiety, Bipolar, Depression, Panic Disorder, Schizophrenia Smoking Status: Never smoker Past Alcohol Use History: None Reported Past Drug Use History: None Reported - Past Family History Father Family Medical History: No Reported History Additional Family Medical History / Comment(s): He is 61 years of age. Patient has had no contact with him and 20 years Mother Additional Family Medical History / Comment(s): Mother at age 63 from sepsis. Sister(s) Family Medical History: No Reported History Additional Family Medical History / Comment(s): He has 2 sisters with no major medical problems. General Exam Limitations: no limitations General appearance: alert, in no apparent distress, anxious Head exam: Present: atraumatic, normocephalic, normal inspection Eye exam: Present: normal appearance, PERRL, EOMI. Absent: scleral icterus, conjunctival injection, periorbital swelling ENT exam: Present: normal exam, mucous membranes moist Neck exam: Present: normal inspection. Absent: tenderness, meningismus, lymphadenopathy Respiratory exam: Present: normal lung sounds bilaterally. Absent: respiratory distress, wheezes, rales, rhonchi, stridor Cardiovascular Exam: Present: regular rate, normal rhythm, normal heart sounds. Absent: systolic murmur, diastolic murmur, rubs, gallop, clicks GI/Abdominal exam: Present: soft, normal bowel sounds. Absent: distended, tenderness, guarding, rebound, rigid Extremities exam: Present: normal inspection, full ROM, normal capillary refill. Absent: tenderness, pedal edema, joint swelling, calf tenderness Back exam: Present: normal inspection Neurological exam: Present: alert, oriented X3, CN II-XII intact Psychiatric exam: Present: normal affect, normal mood Skin exam: Present: warm, dry, intact, normal color. Absent: rash Course Vital Signs 11/12/19 11/12/19 11/12/19 02:58 04:30 05:00 Temperature 97.5 F L Pulse Rate 88 72 70 Respiratory 18 18 18 Rate Blood Pressure 129/77 116/73 111/64 O2 Sat by Pulse 97 Oximetry 11/12/19 06:22 Temperature 97.7 F Pulse Rate 66 Respiratory 19 Rate Blood Pressure 103/66 O2 Sat by Pulse 97 Oximetry - Reevaluation(s) Reevaluation #1: Medical records reviewed Patient informed of possibility of chest pain being something other than pneumonia as well as ability to treat pneumonia patient. Patient states he will prefer outpatient treatment Chest Pain MDM - MDM 41 female who initially presented with chest pain patient acute distress was found to have pneumonia on x-ray. Patient will be treated with antibiotics and discharged home Disposition Clinical Impression: Chest pain, Community acquired pneumonia Disposition: HOME SELF-CARE Condition: Good Instructions (If sedation given, give patient instructions): Community Acquired Pneumonia (ED) Prescriptions: Azithromycin [Zithromax Z-pack] 0 mg PO DIRECTED #1 pack Is patient prescribed a controlled substance at d/c from ED?: No Referrals: Sharyn Fonseca MD [Primary Care Provider] - 1-2 days
[2019-11-12 04:13] LABS: Basophils # (A) 0.1 k/uL (0-0.2); Basophils % (A) 1 %; Eosinophils # (A) 0.5 k/uL (0-0.7); Eosinophils % (A) 4 %; HCT 44.1 % (39.0-53.0); HGB 14.3 gm/dL (13.0-17.5); Lymphocytes # (A) 2.4 k/uL (1.0-4.8); Lymphocytes % (A) 20 %; MCH 28.9 pg (25.0-35.0); MCHC 32.4 g/dL (31.0-37.0); MCV 89.1 fL (80.0-100.0); Mean Platelet Volume 7.5; Monocytes # (A) 0.8 k/uL (0-1.0); Monocytes % (A) 7 %; Neutrophils # (A) 8.5 k/uL (1.3-7.7); Neutrophils % (A) 68 %; Platelet Count 266 k/uL (150-450); RBC 4.95 m/uL (4.30-5.90); RDW 12.7 % (11.5-15.5); WBC 12.5 k/uL (3.8-10.6)
[2019-11-12 04:28] LABS: D-Dimer 0.39 mg/L FEU (<0.60); INR 0.9 (<1.2); Partial Thromboplastin Time 24.2 sec (22.0-30.0); Prothrombin Time 9.8 sec (9.0-12.0)
[2019-11-12 04:36] LABS: ALT 22 U/L (4-49); AST 21 U/L (17-59); African American GFR (CKD) >90 (>60 ml/min/1.73 sqM); Albumin 4.2 g/dL (3.5-5.0); Alkaline Phosphatase 91 U/L (38-126); Anion Gap 9 mmol/L; Blood Urea Nitrogen 17 mg/dL (9-20); Calcium 9.5 mg/dL (8.4-10.2); Carbon Dioxide 21 mmol/L (22-30); Chloride 106 mmol/L (98-107); Glucose 125 mg/dL (74-99); Magnesium 2.1 mg/dL (1.6-2.3); Non-African American GFR(CKD) >90 (>60 ml/min/1.73 sqM); Potassium 4.2 mmol/L (3.5-5.1); Sodium 136 mmol/L (137-145); Total Bilirubin 0.3 mg/dL (0.2-1.3); Total Protein 7.2 g/dL (6.3-8.2)
--- NOTE | 2019-11-12 04:36 | XR ---
EXAMINATION TYPE: XR chest 2V DATE OF EXAM: 11/12/2019 COMPARISON: 05/15/2019 HISTORY: Chest pain TECHNIQUE: FINDINGS: There is some linear patchy density in the right midlung. The other lung rodriguez are clear. Heart and mediastinum are normal. Diaphragm is normal. There are no hilar masses. Bony thorax is inta ct. IMPRESSION: There is some mild linear infiltrate or atelectasis right midlung that is a change compar ed to old exam. Normal heart.
[2019-11-12] MEDS ORDERED: KETOROLAC 30 MG/ML 1 ML VIAL IVP STA (04:55)
[2019-11-12] MEDS ORDERED: cefTRIAXone IN SWFI 1,000 MG/10 ML SYRINGE IVP ONE (05:00)
[2019-11-12] MEDS ORDERED: AZITHROMYCIN 500 MG in SODIUM CHLORIDE 0.9% 250 ML IVPB ONE (05:00)
[2019-11-12 06:24] VITALS: BP 103/66; PULSE 66; RESP 19; TEMP 97.7
== END 2019-11-12 06:24 | disposition home or self-care (01) ==
LOC: EC 02:54
DX: J18.9 Pneumonia, unspecified organism (principal); J45.909 Unspecified asthma, uncomplicated; E78.5 Hyperlipidemia, unspecified; I10 Essential (primary) hypertension; F41.9 Anxiety disorder, unspecified; F31.9 Bipolar disorder, unspecified; F20.9 Schizophrenia, unspecified; F41.0 Panic disorder [episodic paroxysmal anxiety]; Z79.51 Long term (current) use of inhaled steroids; Z79.899 Other long term (current) drug therapy; Z88.8 Allergy status to other drugs, medicaments and biological substances
CPT/HCPCS: 36415; 93005; 85379; 83880; 80053; 83690; 83735; 84484; 85025; 85610; 85730; 71046; 96365; 96375 ×2; 99285; J0456; J0696; J1885

== ENCOUNTER 2019-11-27 20:37 | Emergency (ER) | payer MEDICARE, OTHER ==
[2019-11-27 20:46] VITALS: BP 140/77; RESP 20; TEMP 98.2
--- NOTE | 2019-11-27 21:11 | ED ---
Extremity Problem HPI - General Chief complaint: Extremity Problem,Nontraumatic Stated complaint: Arm Pain, [facility] Time Seen by Provider: 11/27/19 20:47 Source: patient, RN notes reviewed, old records reviewed Mode of arrival: ambulatory Limitations: no limitations - History of Present Illness Initial comments: Patient is a 44-year-old male presents emergency Department today with right hand cramping and tingling sensation that started while he was at work. 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 He reports that he had a cramping sensation between the first second and third digit. Patient states that he has no other complaints at this time. He does report some pain with range of motion of the hand at this time. He reports his hand seemed to "lock up". - Related Data Home Medications Medication Instructions Recorded Confirmed Albuterol Inhaler (Mhu) [Ventolin 1 - 2 puff INHALATION RT-Q6H PRN 11/04/16 01/12/19 Hfa Inhaler (Mhu)] [place] Carbonate 900 mg PO HS 11/04/16 01/12/19 Beclomethasone Dip 80 Mcg/Puff 2 puff INHALATION RT-BID 12/10/16 01/12/19 [Qvar 80 mcg] Levothyroxine Sodium [Synthroid] 25 mcg PO DAILY 08/05/17 01/12/19 Lisinopril [Zestril] 20 mg PO DAILY 09/06/17 01/12/19 Loratadine [Claritin] 10 mg PO DAILY 09/06/17 01/12/19 Ibuprofen [Motrin Ib] 800 mg PO Q6H PRN 06/14/18 01/12/19 ARIPiprazole [Abilify Maintena] 400 mg IM Q28D 11/08/18 01/12/19 Benztropine Mesylate [Cogentin] 1 mg PO DAILY 11/08/18 01/12/19 Escitalopram [Lexapro] 10 mg PO DAILY 11/08/18 01/12/19 Oxymetazoline 0.05% Nasl [place] 1 spray EA NOSTRIL DAILY 11/08/18 01/12/19 [Afrin 0.05% Nasal [place]] Simvastatin 5 mg PO DAILY 11/08/18 01/12/19 Previous Rx's Medication Instructions Recorded Cyclobenzaprine [Flexeril] 5 mg PO TID PRN #15 tablet 01/12/19 Hydrocodone/Acetaminophen [[place] 1 tab PO Q6HR PRN #12 tab 03/17/19 5-325] Benzonatate [Tessalon Perles] 100 mg PO TID 5 Days #15 cap 05/15/19 predniSONE [Deltasone] 20 mg PO DAILY 5 Days #5 tab 05/15/19 Azithromycin [Zithromax Z-pack] 0 mg PO DIRECTED #1 pack 11/12/19 Allergies Allergy/AdvReac Type Severity Reaction Status Date / Time haloperidol [From Haldol] Allergy Stroke-like Verified 11/27/19 20:46 symptoms Review of Systems ROS Statement: Those systems with pertinent positive or pertinent negative responses have been documented in the HPI. ROS Other: All systems not noted in ROS Statement are negative. Past Medical History Past Medical History: Asthma, Hyperlipidemia, Hypertension Additional Past Medical History / Comment(s): Tourette's syndrome, seasonal ALLERGIES, dyskenisia History of Any Multi-Drug Resistant Organisms: None Reported Past Surgical History: Hernia Repair, Tonsillectomy Past Anesthesia/Blood Transfusion Reactions: No Reported Reaction Past Psychological History: Anxiety, Bipolar, Depression, Panic Disorder, Schizophrenia Smoking Status: Never smoker Past Alcohol Use History: None Reported Past Drug Use History: None Reported - Past Family History Father Family Medical History: No Reported History Additional Family Medical History / Comment(s): He is 61 years of age. Patient has had no contact with him and 20 years Mother Additional Family Medical History / Comment(s): Mother at age 63 from sepsis. Sister(s) Family Medical History: No Reported History Additional Family Medical History / Comment(s): He has 2 sisters with no major medical problems. General Exam - General Exam Comments Initial Comments: 44 -year-old male. Alert and oriented 3. No distress. Limitations: no limitations General appearance: alert, in no apparent distress Head exam: Present: atraumatic Eye exam: Present: normal appearance ENT exam: Present: normal exam, mucous membranes moist Neck exam: Present: normal inspection. Absent: tenderness, meningismus, lymphadenopathy Respiratory exam: Present: normal lung sounds bilaterally. Absent: respiratory distress, wheezes, rales, rhonchi, stridor Cardiovascular Exam: Present: regular rate GI/Abdominal exam: Present: soft, normal bowel sounds. Absent: distended, tenderness, guarding, rebound, rigid Extremities exam: Present: normal inspection Right Shoulder Exam: Present: normal inspection, full ROM Upper Arm exam: Present: normal inspection, full ROM Elbow exam: Present: normal inspection, full ROM Forearm Wrist exam: Present: normal inspection, full ROM Hand Wrist exam: Present: normal inspection, full ROM, other (Patient complains of cramping sensation over the first second and third digit. No pain with pronation and supination. He does have full range of motion noted. Normal sensation in with light touch is intact in all fingers. Radial pulses 2+.) Neuro motor exam: Present: wrist extension intact, thumb opposition intact, thumb IP flexion intact, thumb adduction intact, fingers 2-5 abduction intact Vascular: Present: normal capillary refill Back exam: Present: normal inspection, full ROM Neurological exam: Present: alert, oriented X3, CN II-XII intact Psychiatric exam: Present: normal affect, normal mood Skin exam: Present: warm, dry, intact, normal color. Absent: rash Course Vital Signs 11/27/19 20:44 Temperature 98.2 F Pulse Rate 119 H Respiratory 20 Rate Blood Pressure 140/77 O2 Sat by Pulse 95 Oximetry Medical Decision Making - Medical Decision Making 44-year-old male presents emergency Department today with hand cramping after doing repetitive motions at work and a hot environment. Patient is right-handed and does repeat movements. Discussed patient's likely suffering from some minor trigger finger as well as muscle cramps due to the hot weather. He is given large last water to drink. He has full range of motion of the hand and normal sensation distally. Without any fall or trauma discussed imaging would not be of benefit at this time he is normal range of motion. Patient was given an [place] wrap and advised to use gentle stretching of the hand. Discussed if symptoms persist and persisted or worsen to return to the ER or to follow-up with orthopedic. Patient answered. Discussed the importance of remaining hydrated frequency snacks As well as work. - Radiology Data Radiology results: report reviewed Disposition Clinical Impression: Hand cramp, Tendinitis of right hand Disposition: HOME SELF-CARE Condition: Good Instructions (If sedation given, give patient instructions): Trigger Finger (ED), Tendinitis (ED), Muscle Cramp (ED) Additional Instructions: Patient should do gentle stretching. Take anti-inflammatory medication for pain relief. Patient should remain hydrated while at work and have frequent snacks. Follow-up with PCP in orthopedic if symptoms continue to persist. Is patient prescribed a controlled substance at d/c from ED?: No Referrals: Sharyn Fonseca MD [Primary Care Provider] - 1-2 days Dany Hanley DO [Medical Doctor] - 1-2 days Time of Disposition: 21:11
[2019-11-27 21:40] VITALS: PULSE 104
== END 2019-11-27 22:10 | disposition home or self-care (01) ==
LOC: EC 20:37
DX: M77.9 Enthesopathy, unspecified (principal); R25.2 Cramp and spasm; M65.30 Trigger finger, unspecified finger; F41.0 Panic disorder [episodic paroxysmal anxiety]; J45.909 Unspecified asthma, uncomplicated; E78.5 Hyperlipidemia, unspecified; I10 Essential (primary) hypertension; F41.9 Anxiety disorder, unspecified; F31.9 Bipolar disorder, unspecified; F20.9 Schizophrenia, unspecified; Z79.899 Other long term (current) drug therapy; Z79.51 Long term (current) use of inhaled steroids; Z88.8 Allergy status to other drugs, medicaments and biological substances
CPT/HCPCS: 82075; 99284

== ENCOUNTER 2020-02-29 00:46 | Emergency (ER) | payer MEDICARE, OTHER ==
[2020-02-29 00:52] VITALS: RESP 18
[2020-02-29] MEDS ORDERED: KETOROLAC 15 MG/ML 1 ML VIAL IM STA (01:00)
--- NOTE | 2020-02-29 01:04 | ED ---
General Adult HPI - General Source: patient, RN notes reviewed Mode of arrival: ambulatory Limitations: no limitations <Natanael Dickson - Last Filed: 02/29/20 02:25> <Artur Lopes - Last Filed: 03/02/20 07:19> - General Chief complaint: Urogenital Stated complaint: urogenital Time Seen by Provider: 02/29/20 00:54 - History of Present Illness Initial comments: 44-year-old male with a past medical history of asthma, hyperlipidemia, hypertension, hernia repair presents to the emergency department for a chief co mplaint of right testicular pain. Patient states that he was at work lifting something when he felt a sudden pain in his right testicle. States he is unsure if the hernia he had repaired when he is 17 reoccurred or if something is wrong with his testicle. Denies any dysuria. Denies nausea or vomiting. Denies abdominal pain. Does admit to some groin pain. Patient has no other complaints at this time including shortness of breath, chest pain, abdominal pain, nausea or vomiting, headache, or visual changes. (Natanael Dickson) - Related Data Home Medications Medication Instructions Recorded Confirmed Albuterol Inhaler (Mhu) [Ventolin 1 - 2 puff INHALATION RT-Q6H PRN 11/04/16 01/12/19 Hfa Inhaler (Mhu)] [place] Carbonate 900 mg PO HS 11/04/16 01/12/19 Beclomethasone Dip 80 Mcg/Puff 2 puff INHALATION RT-BID 12/10/16 01/12/19 [Qvar 80 mcg] Levothyroxine Sodium [Synthroid] 25 mcg PO DAILY 08/05/17 01/12/19 Loratadine [Claritin] 10 mg PO DAILY 09/06/17 01/12/19 lisinopriL [Zestril] 20 mg PO DAILY 09/06/17 01/12/19 Ibuprofen [Motrin Ib] 800 mg PO Q6H PRN 06/14/18 01/12/19 ARIPiprazole [Abilify Maintena] 400 mg IM Q28D 11/08/18 01/12/19 Benztropine Mesylate [Cogentin] 1 mg PO DAILY 11/08/18 01/12/19 Escitalopram [Lexapro] 10 mg PO DAILY 11/08/18 01/12/19 Oxymetazoline 0.05% Nasl [place] 1 spray EA NOSTRIL DAILY 11/08/18 01/12/19 [Afrin 0.05% Nasal [place]] Simvastatin 5 mg PO DAILY 11/08/18 01/12/19 Previous Rx's Medication Instructions Recorded Cyclobenzaprine [Flexeril] 5 mg PO TID PRN #15 tablet 01/12/19 Hydrocodone/Acetaminophen [[place] 1 tab PO Q6HR PRN #12 tab 03/17/19 5-325] Benzonatate [Tessalon Perles] 100 mg PO TID 5 Days #15 cap 05/15/19 predniSONE [Deltasone] 20 mg PO DAILY 5 Days #5 tab 05/15/19 Azithromycin [Zithromax Z-pack] 0 mg PO DIRECTED #1 pack 11/12/19 Allergies Allergy/AdvReac Type Severity Reaction Status Date / Time haloperidol [From Haldol] Allergy Stroke-like Verified 02/29/20 00:52 symptoms Review of Systems ROS Other: All systems not noted in ROS Statement are negative. <Natanael Dickson - Last Filed: 02/29/20 02:25> ROS Other: All systems not noted in ROS Statement are negative. <Artur Lopes - Last Filed: 03/02/20 07:19> ROS Statement: Those systems with pertinent positive or pertinent negative responses have been documented in the HPI. Past Medical History Past Medical History: Asthma, Hyperlipidemia, Hypertension Additional Past Medical History / Comment(s): Tourette's syndrome, seasonal ALLERGIES, dyskenisia History of Any Multi-Drug Resistant Organisms: None Reported Past Surgical History: Hernia Repair, Tonsillectomy Past Anesthesia/Blood Transfusion Reactions: No Reported Reaction Past Psychological History: Anxiety, Bipolar, Depression, Panic Disorder, Schizophrenia Smoking Status: Never smoker Past Alcohol Use History: None Reported Past Drug Use History: None Reported - Past Family History Father Family Medical History: No Reported History Additional Family Medical History / Comment(s): He is 61 years of age. Patient has had no contact with him and 20 years Mother Additional Family Medical History / Comment(s): Mother at age 63 from sepsis. Sister(s) Family Medical History: No Reported History Additional Family Medical History / Comment(s): He has 2 sisters with no major medical problems. <Natanael Dickson - Last Filed: 02/29/20 02:25> General Exam Limitations: no limitations General appearance: alert, in no apparent distress Head exam: Present: atraumatic, normocephalic, normal inspection Eye exam: Present: normal appearance, PERRL, EOMI. Absent: scleral icterus, conjunctival injection, periorbital swelling ENT exam: Present: normal exam, mucous membranes moist Neck exam: Present: normal inspection, full ROM. Absent: tenderness, meningismus, lymphadenopathy Respiratory exam: Present: normal lung sounds bilaterally. Absent: respiratory distress, wheezes, rales, rhonchi, stridor Cardiovascular Exam: Present: regular rate, normal rhythm, normal heart sounds. Absent: systolic murmur, diastolic murmur, rubs, gallop, clicks GI/Abdominal exam: Present: soft, normal bowel sounds. Absent: distended, tenderness, guarding, rebound, rigid exam: Present: testicular tenderness, other (mild right groin tenderness). Absent: urethral discharge, scrotal swelling, vertical testicular lie, circumcision <Natanael Dickson - Last Filed: 02/29/20 02:25> Course Vital Signs 02/29/20 02/29/20 00:50 01:52 Temperature 98.1 F 98.4 F Pulse Rate 87 77 Respiratory 18 18 Rate Blood Pressure 130/91 113/69 O2 Sat by Pulse 97 95 Oximetry Medical Decision Making <Natanael Dickson - Last Filed: 02/29/20 02:25> <Artur Lopes - Last Filed: 03/02/20 07:19> - Medical Decision Making Mild bilateral hydroceles. No testicular torsion or mass. Mild left-sided varicocele. Groin ultrasound shows no evidence of inguinal hernia. Inguinal lymph node is demonstrated. Urinalysis is unremarkable. Patient likely strained abdominal wall and groin. Patient was given IM Toradol which did help somewhat with his pain. Dr Lopes also evaluated patient. At this time recommend patient refrain from any heavy lifting and follow-up with his doctor. He has the next 4 days off work. He will return for any worsening symptoms. (Natanael Dickson) I saw this patient in conjunction with the physician employee relations assistant. I performed independent history and physical exam. Agree with case management. (Clay Lopes ph) - Lab Data Lab Results 02/29/20 Range/Units 01:55 Urine Color Yellow Urine Appearance Clear (Clear) Urine pH 5.5 (5.0-8.0) Ur Specific [place] 1.028 (1.001-1.035) Urine Protein Trace H (Negative) Urine Glucose (UA) Negative (Negative) Urine Ketones Negative (Negative) Urine Blood Negative (Negative) Urine Nitrite Negative (Negative) Urine Bilirubin Negative (Negative) Urine Urobilinogen <2.0 (<2.0) mg/dL Ur Leukocyte Esterase Negative (Negative) Disposition Is patient prescribed a controlled substance at d/c from ED?: No Time of Disposition: 02:27 <Natanael Dickson - Last Filed: 02/29/20 02:25> <Artur Lopes - Last Filed: 03/02/20 07:19> Clinical Impression: Groin pain, Muscle strain Disposition: HOME SELF-CARE Condition: Good Instructions (If sedation given, give patient instructions): Groin Pain (ED) Additional Instructions: Please take Motrin and Tylenol for pain. Review ultrasound findings with your primary care doctor. If you have any worsening symptoms return to the emergency room. Referrals: Sharyn Fonseca MD [Primary Care Provider] - 1-2 days
--- NOTE | 2020-02-29 02:11 | US ---
EXAMINATION TYPE: US scrotum with doppler. Grayscale and color Doppler Duplex imaging performed of t janay scrotum. DATE OF EXAM: 02/29/2020 COMPARISON: CT CLINICAL HISTORY: pain. Pain in right testicle x 4 hours. Hx hernia repair in right groin. EXAM MEASUREMENTS: TESTICLES: Right Testicle: 5.0 x 3.3 x 2.3 cm Left Testicle: 5.0 x 3.0 x 2.8 cm EPIDIDYMIS HEAD: Right Epididymis: 1.0 x 1.7 x 1.2 cm Left Epididymis: 1.3 x 1.4 x 1.3 cm Epididymis appears heterogeneous bilaterally. Doppler performed to assess for testicular vascularity; bilateral color flow and waveforms are seen. Presence of hydroceles: Right: 3.9 x 0.7 x 0.9 cm. Left: 2.2 x 0.7 x 1.1 cm. Presence of varicoceles: Prominent vessels measure 3.3 mm on the right, and prominent vessels measur e 3.9 mm on the left. Small hyperechoic foci seen within the testicles, up to 0.07 cm within the right testicle and up to 0.12 cm within the left testicle. IMPRESSION: Mild bilateral hydroceles. No testicular torsion or mass. Mild left-sided varicocele.
[2020-02-29 02:12] LABS: Appearance,Urine Clear (Clear); Bilirubin,Urine Negative (Negative); Blood,Urine Negative (Negative); Color,Urine Yellow; Glucose,Urine (UA) Negative (Negative); Ketones,Urine Negative (Negative); Leukocyte Esterase,Urine Negative (Negative); Nitrite,Urine Negative (Negative); PH, Urine 5.5 (5.0-8.0); Protein,Urine Trace (Negative); Specific Gravity,Urine 1.028 (1.001-1.035); Urobilinogen,Urine <2.0 mg/dL (<2.0)
--- NOTE | 2020-02-29 02:14 | US ---
EXAMINATION TYPE: US groin RT DATE OF EXAM: 02/29/2020 COMPARISON: CT CLINICAL HISTORY: pain. Right groin pain x 4 hours. Hx hernia repair at 17 years old. Scanned right groin area of concern. There appears to be an indistinct, hypoechoic area with hyperechoic center and vascularity within the right groin measurin.4 x 2.3 x 0.9 cm. No other abnormalities seen at this time by ultrasound. IMPRESSION: No evidence of inguinal hernia. No evidence of pseudoaneurysm. No pathologic fluid collec tion. Inguinal lymph node is demonstrated measuring 23 x 9 mm.
[2020-02-29 02:50] VITALS: BP 113/69; PULSE 77; TEMP 98.4
[2020-03-02 14:44] LABS: C. trachomatis,PCR Negative (Neg,Equiv); Chlamydia trachomatis Source Urine; N. gonorrhoeae,PCR Negative (Neg,Equiv); Neisseria Source Urine
== END 2020-02-29 02:38 | disposition home or self-care (01) ==
LOC: EC 00:46
DX: S39.011A Strain of muscle, fascia and tendon of abdomen, initial encounter (principal); N43.3 Hydrocele, unspecified; I86.1 Scrotal varices; J45.909 Unspecified asthma, uncomplicated; E78.5 Hyperlipidemia, unspecified; I10 Essential (primary) hypertension; F41.9 Anxiety disorder, unspecified; F31.9 Bipolar disorder, unspecified; F20.9 Schizophrenia, unspecified; F95.2 Tourette's disorder; X50.0XXA Overexertion from strenuous movement or load, initial encounter; Y92.69 Other specified industrial and construction area as the place of occurrence of the external cause; Y99.0 Civilian activity done for income or pay; Z79.51 Long term (current) use of inhaled steroids; Z79.899 Other long term (current) drug therapy; Z88.8 Allergy status to other drugs, medicaments and biological substances
CPT/HCPCS: 76870; 81003; 87491; 87591; 93975; 96372; 99284

== ENCOUNTER 2020-03-17 21:59 | Emergency (ER) | payer MEDICARE, OTHER ==
[2020-03-17 22:40] LABS: Basophils # (A) 0.1 k/uL (0-0.2); Basophils % (A) 1 %; Eosinophils # (A) 0.5 k/uL (0-0.7); Eosinophils % (A) 4 %; HCT 43.7 % (39.0-53.0); Lymphocytes # (A) 2.7 k/uL (1.0-4.8); Lymphocytes % (A) 27 %; MCH 27.9 pg (25.0-35.0); MCHC 32.1 g/dL (31.0-37.0); MCV 87.1 fL (80.0-100.0); Mean Platelet Volume 7.5; Monocytes # (A) 0.7 k/uL (0-1.0); Monocytes % (A) 6 %; Neutrophils # (A) 6.2 k/uL (1.3-7.7); Neutrophils % (A) 60 %; Platelet Count 280 k/uL (150-450); RBC 5.02 m/uL (4.30-5.90); RDW 12.6 % (11.5-15.5); WBC 10.3 k/uL (3.8-10.6)
--- NOTE | 2020-03-17 22:45 | XR ---
EXAMINATION TYPE: XR chest 2V DATE OF EXAM: 03/17/2020 COMPARISON: 11/12/2019 HISTORY: Chest pain TECHNIQUE: FINDINGS: Heart is normal. Lungs are clear. Diaphragm is normal. Bony thorax appears normal. There ar e chest leads. IMPRESSION: Normal chest. No change.
[2020-03-17 22:49] LABS: ALT 21 U/L (4-49); AST 19 U/L (17-59); African American GFR (CKD) >90 (>60 ml/min/1.73 sqM); Albumin 4.1 g/dL (3.5-5.0); Alkaline Phosphatase 72 U/L (38-126); Anion Gap 7 mmol/L; Blood Urea Nitrogen 18 mg/dL (9-20); Calcium 9.5 mg/dL (8.4-10.2); Carbon Dioxide 23 mmol/L (22-30); Chloride 106 mmol/L (98-107); Glucose 134 mg/dL (74-99); Non-African American GFR(CKD) >90 (>60 ml/min/1.73 sqM); Potassium 4.7 mmol/L (3.5-5.1); Sodium 136 mmol/L (137-145); Total Bilirubin 0.4 mg/dL (0.2-1.3); Total Protein 6.8 g/dL (6.3-8.2)
[2020-03-17 22:58] LABS: Partial Thromboplastin Time 24.4 sec (22.0-30.0); Prothrombin Time 10.1 sec (9.0-12.0)
--- NOTE | 2020-03-17 23:54 | ED ---
Chest Pain HPI - General Chief Complaint: Chest Pain Stated Complaint: Chest Pain Time Seen by Provider: 03/17/20 22:27 Source: patient Mode of arrival: wheelchair Limitations: no limitations - History of Present Illness Initial Comments: Jurgen is an obese 44-year-old male with history of hypertension and hyperlipidemia who presents the ER today for evaluation of left upper chest pain radiating to his shoulder. Patient reports he's had pain like this in the past due to pulled muscles. Patient states she doesn't recall anything that would've pulled his muscle today but he is not certain. He states that this evening he was standing in his kitchen and he moved his shoulder noted that he had the pain and immediately came to the ER for evaluation. Pain was not associated with any diaphoresis, lightheadedness, shortness of breath. Pain is not exertional. Pain is reproducible with movement of the shoulder. Patient denies recent injuries or illness. Denies any associated symptoms. - Related Data Home Medications Medication Instructions Recorded Confirmed Albuterol Inhaler (Mhu) [Ventolin 1 - 2 puff INHALATION RT-Q6H PRN 11/04/16 01/12/19 Hfa Inhaler (Mhu)] [place] Carbonate 900 mg PO HS 11/04/16 01/12/19 Beclomethasone Dip 80 Mcg/Puff 2 puff INHALATION RT-BID 12/10/16 01/12/19 [Qvar 80 mcg] Levothyroxine Sodium [Synthroid] 25 mcg PO DAILY 08/05/17 01/12/19 Loratadine [Claritin] 10 mg PO DAILY 09/06/17 01/12/19 lisinopriL [Zestril] 20 mg PO DAILY 09/06/17 01/12/19 Ibuprofen [Motrin Ib] 800 mg PO Q6H PRN 06/14/18 01/12/19 ARIPiprazole [Abilify Maintena] 400 mg IM Q28D 11/08/18 01/12/19 Benztropine Mesylate [Cogentin] 1 mg PO DAILY 11/08/18 01/12/19 Escitalopram [Lexapro] 10 mg PO DAILY 11/08/18 01/12/19 Oxymetazoline 0.05% Nasl [place] 1 spray EA NOSTRIL DAILY 11/08/18 01/12/19 [Afrin 0.05% Nasal [place]] Simvastatin 5 mg PO DAILY 11/08/18 01/12/19 Previous Rx's Medication Instructions Recorded Cyclobenzaprine [Flexeril] 5 mg PO TID PRN #15 tablet 01/12/19 Hydrocodone/Acetaminophen [[place] 1 tab PO Q6HR PRN #12 tab 03/17/19 5-325] Benzonatate [Tessalon Perles] 100 mg PO TID 5 Days #15 cap 05/15/19 predniSONE [Deltasone] 20 mg PO DAILY 5 Days #5 tab 05/15/19 Azithromycin [Zithromax Z-pack] 0 mg PO DIRECTED #1 pack 11/12/19 Allergies Allergy/AdvReac Type Severity Reaction Status Date / Time haloperidol [From Haldol] Allergy Stroke-like Verified 03/17/20 22:08 symptoms Review of Systems ROS Statement: Those systems with pertinent positive or pertinent negative responses have been documented in the HPI. ROS Other: All systems not noted in ROS Statement are negative. EKG Findings - EKG Comments: EKG Findings:: EKG was obtained due to complaint of chest pain, EKG was obtained at 2214, rate is 68 rhythm is sinus there is a normal axis, there are normal intervals, IL 196, QRS 96, QTC 408 there are no acute ST elevations or d epressions no evidence of acute ischemia or infarction. Past Medical History Past Medical History: Asthma, GERD/Reflux, Hyperlipidemia, Hypertension Additional Past Medical History / Comment(s): Tourette's syndrome, seasonal ALLERGIES, dyskenisia History of Any Multi-Drug Resistant Organisms: None Reported Past Surgical History: Hernia Repair, Tonsillectomy Past Anesthesia/Blood Transfusion Reactions: No Reported Reaction Past Psychological History: Anxiety, Bipolar, Depression, Panic Disorder, Schizophrenia Smoking Status: Never smoker Past Alcohol Use History: None Reported Past Drug Use History: None Reported - Past Family History Father Family Medical History: No Reported History Additional Family Medical History / Comment(s): He is 61 years of age. Patient has had no contact with him and 20 years Mother Additional Family Medical History / Comment(s): Mother at age 63 from sepsis. Sister(s) Family Medical History: No Reported History Additional Family Medical History / Comment(s): He has 2 sisters with no major medical problems. General Exam - General Exam Comments Initial Comments: Physical Exam GENERAL: Patient is well-developed and well-nourished. Patient is nontoxic and well- hydrated and is in no distress. HENT: Normocephalic, Atraumatic. EYES: PERRL, EOMI PULMONARY: Unlabored respirations. No audible rales rhonchi or wheezing was noted. CARDIOVASCULAR: There is a regular rate and rhythm without any murmurs gallops or rubs. Reproducible pain to palpation in the left upper chest at the superior aspect of the pectoralis muscle with pain to the left shoulder ABDOMEN: Soft and nontender with normal bowel sounds. SKIN: Skin is clear with no lesions or rashes and otherwise unremarkable. : Deferred NEUROLOGIC: Patient is alert and oriented x3. Moving all extremities spontaneously MUSCULOSKELETAL: Normal extremities with adequate strength and full range of motion. No lower extremity swelling or edema. No calf tenderness. PSYCHIATRIC: Normal psychiatric evaluation. Limitations: no limitations Course Vital Signs 03/17/20 03/17/20 22:06 23:20 Temperature 98.0 F Pulse Rate 82 74 Respiratory 18 20 Rate Blood Pressure 133/77 129/72 O2 Sat by Pulse 95 96 Oximetry Chest Pain [facility] The patient was seen and evaluated, history is obtained from the patient History and physical exam are most concerning for likely musculoskeletal source of chest pain as the patient has reproducible pain with palpation to the pectoralis muscle Heart score 2 for risk factors, hypertension, hyperlipidemia, obesity Initial EKG is nonischemic, troponin negative chest x-ray unremarkable Patient is agreeable to remaining in the ER for repeat troponin Repeat troponin was drawn 3 hours after arrival and was again negative at this time I do not feel the patient's discomfort is secondary to acute coronary syndrome is likely musculoskeletal in nature. These results were discussed with the patient who is comfortable with the plan for discharge home. Disposition Clinical Impression: Musculoskeletal chest pain Disposition: HOME SELF-CARE Condition: Stable Instructions (If sedation given, give patient instructions): Chest Pain (DC) Is patient prescribed a controlled substance at d/c from ED?: No Referrals: Sharyn Fonseca MD [Primary Care Provider] - 1-2 days
[2020-03-18 04:52] VITALS: BP 117/76; PULSE 87; RESP 19; TEMP 97.9
== END 2020-03-18 03:45 | disposition home or self-care (01) ==
LOC: EC 21:59
DX: R07.89 Other chest pain (principal); I10 Essential (primary) hypertension; J45.909 Unspecified asthma, uncomplicated; E78.5 Hyperlipidemia, unspecified; F31.9 Bipolar disorder, unspecified; F20.9 Schizophrenia, unspecified; F41.9 Anxiety disorder, unspecified; Z79.899 Other long term (current) drug therapy; Z79.890 Hormone replacement therapy; Z79.51 Long term (current) use of inhaled steroids; Z88.8 Allergy status to other drugs, medicaments and biological substances
CPT/HCPCS: 36415; 71046; 80053; 83735; 83880; 84484; 85025; 85610; 85730; 93005; 99285

== ENCOUNTER → 2020-04-29 | Day surgery (SDC) | payer MEDICARE, OTHER ==
[2020-04-28 09:21] VITALS: BMI 38.0
[~2020-04-29] MED LIST: LACTATED RINGERS 1,000 ML IV SCH; LIDOCAINE 1% (10MG/ML) FOR IV START INTRADERMA ONE; LIDOCAINE 1% INJ 10MG/ML (20 ML MDV) ONE; MIDAZOLAM 2 MG/2 ML VIAL ONE; PROPOFOL 10 MG/ML 20 ML VIAL IV ONE; fentaNYL (PF) 50 MCG/ML 2 ML AMP ONE
[2020-04-29 10:15] VITALS: RESP 16; TEMP 97.6
[2020-04-29 10:30] LABS: Glucose,Whole Blood 108 mg/dL (75-99)
--- NOTE | 2020-04-29 11:03 | P.PCN ---
Date of Procedure: 04/29/20 Description of Procedure: BRIEF HISTORY: Patient is a 44-year-old male presenting for evaluation of heartburn, nausea and regurgitation. He reports symptoms over one year. Currently taking famotidine as needed for nighttime symptoms.. PROCEDURE PERFORMED: Esophagogastroduodenoscopy with biopsy. PREOPERATIVE DIAGNOSIS: GERD, reflux, heartburn, regurgitation. ESTIMATED BLOOD LOSS: Minimal. IV sedation per anesthesia. PROCEDURE: After informed consent was obtained, the patient was brought into the endoscopy unit. IV sedation was administered by Anesthesia under continuous monitoring. Initially the Olympus GIF-190 video endoscope was inserted into the mouth. Esophagus intubated without any difficulty. It was gradually advanced into the stomach and duodenum and carefully examined. The bulb and the second part of the duodenum appeared normal, With biopsies taken. The scope at this time was withdrawn to the stomach, adequately insufflated with air, and upon careful examination, mucosa of the antrum, body, cardia and the fundus appeared normal, Except for some mild scattered erythema in the antrum and body suggestive of mild gastritis biopsies taken. The scope was then withdrawn into the esophagus. The GE junction was located at 41 cm from the incisors, With erythema and superficial erosions in the distal esophagus consistent with LA grade B esophagitis with biopsies taken. The esophagus appeared normal. There were no erosions or ulcerations seen and the patient tolerated the procedure well. IMPRESSION: 1. LA grade B esophagitis . 2. Mild gastritis. 3. Biopsies taken of the duodenum, antrum and body and distal esophagus. RECOMMENDATIONS: The findings of this examination were discussed with the patient and his . Okay to resume diet. Okay to resume medications. Patient will be given a 30 day trial of omeprazole therapy with one refill. Follow-up in the GI clinic as scheduled.
[2020-04-29 11:13] VITALS: BP 117/70; PULSE 75
== END ==
LOC: ORWHC2ENDO 09:55
PROVIDERS: ATTEND Internal Medicine
DX: K29.50 Unspecified chronic gastritis without bleeding (principal); K21.00 Gastro-esophageal reflux disease with esophagitis, without bleeding; K22.10 Ulcer of esophagus without bleeding; I10 Essential (primary) hypertension; E78.5 Hyperlipidemia, unspecified; F31.9 Bipolar disorder, unspecified; F95.2 Tourette's disorder; Z88.5 Allergy status to narcotic agent; Z79.51 Long term (current) use of inhaled steroids; Z79.890 Hormone replacement therapy; Z79.899 Other long term (current) drug therapy; Z98.890 Other specified postprocedural states
CPT/HCPCS: 88305; 43239; J2250; J2001; J3010; J2704

== ENCOUNTER 2020-05-07 21:55 | Emergency (ER) | payer MEDICARE, OTHER ==
--- NOTE | 2020-05-07 22:15 | ED ---
Chest Pain HPI - General Chief Complaint: Chest Pain Stated Complaint: Chest Pain Time Seen by Provider: 05/07/20 22:03 Source: patient, EMS Mode of arrival: EMS - History of Present Illness Initial Comments: this patient is a 44-year-old man who states that he was at work tonight when he developed substernal chest pain that had radiated to his left arm, so they phoned EMS to make sure that he is not having heart attack. He did not have any coming symptoms. He rates to the pain 7 out of 10. Night show blistering given by EMS had reduce the pain to 3 out of 10. He did not have any associated symptoms. He notes that the pain did get worse with movement he thought it might be a strain. MD Complaint: chest pain Onset/Timin -: minutes(s) Pain Location: substernal Pain Radiation: LUE Severity: moderate Severity scale (1-10): 7 Quality: aching Consistency: now resolved (partially resolved, down to 3 out of 10) Improves With: nitroglycerin Worsens With: movement Treatments Prior to Arrival: aspirin, nitroglycerin - Related Data Home Medications Medication Instructions Recorded Confirmed lisinopriL [Zestril] 20 mg PO DAILY 09/06/17 05/07/20 ARIPiprazole [Abilify Maintena] 400 mg IM Q28D 11/08/18 05/07/20 Benztropine Mesylate [Cogentin] 1 mg PO DAILY 11/08/18 05/07/20 Escitalopram [Lexapro] 10 mg PO DAILY 11/08/18 05/07/20 Simvastatin 5 mg PO DAILY 11/08/18 05/07/20 [place] Carbonate 300 mg PO DAILY 05/07/20 05/07/20 [place] Carbonate 900 mg PO HS 05/07/20 05/07/20 Omeprazole 20 mg PO DAILY 05/07/20 05/07/20 Allergies Allergy/AdvReac Type Severity Reaction Status Date / Time haloperidol [From Haldol] Allergy Stroke-like Verified 04/29/20 10:12 symptoms Review of Systems ROS Statement: Those systems with pertinent positive or pertinent negative responses have been documented in the HPI. ROS Other: All systems not noted in ROS Statement are negative. Constitutional: Denies: fever, chills Respiratory: Denies: cough, dyspnea Cardiovascular: Reports: as per HPI, chest pain. Denies: palpitations, dyspnea on exertion, orthopnea, edema, syncope Gastrointestinal: Denies: abdominal pain, nausea, vomiting, diarrhea, constipation, melena, hematochezia Genitourinary: Denies: dysuria, hematuria Musculoskeletal: Denies: back pain Skin: Denies: rash Neurological: Denies: headache, weakness EKG Findings - EKG Results: EKG: interpreted by KAMAR MORRIS, sinus rhythm (rate 64 bpm), normal axis, normal QRS, normal ST/T, no acute changes Past Medical History Past Medical History: Asthma, GERD/Reflux, Hyperlipidemia, Hypertension Additional Past Medical History / Comment(s): FEELS LIKE FOOD WON'T GO DOWN/OR STICKS IN THROAT. Tourette's syndrome, seasonal ALLERGIES, dyskenisia History of Any Multi-Drug Resistant Organisms: None Reported Past Surgical History: Hernia Repair, Tonsillectomy Past Anesthesia/Blood Transfusion Reactions: No Reported Reaction Past Psychological History: Anxiety, Bipolar, Depression, Panic Disorder, Schizophrenia Smoking Status: Never smoker - Past Family History Father Family Medical History: No Reported History Additional Family Medical History / Comment(s): He is 61 years of age. Patient has had no contact with him and 20 years Mother Additional Family Medical History / Comment(s): Mother at age 63 from sepsis. Sister(s) Family Medical History: No Reported History Additional Family Medical History / Comment(s): He has 2 sisters with no major medical problems. General Exam General appearance: alert, in no apparent distress Head exam: Present: atraumatic, normocephalic Eye exam: Present: normal appearance. Absent: scleral icterus, conjunctival injection ENT exam: Present: normal oropharynx Neck exam: Present: normal inspection, full ROM Respiratory exam: Present: normal lung sounds bilaterally. Absent: respiratory distress, wheezes, rales, rhonchi, stridor, chest wall tenderness Cardiovascular Exam: Present: regular rate, normal rhythm, normal heart sounds. Absent: systolic murmur, diastolic murmur, rubs, gallop GI/Abdominal exam: Present: soft. Absent: distended, tenderness, guarding, rebound, rigid, mass Extremities exam: Present: normal inspection, normal capillary refill. Absent: pedal edema, calf tenderness Back exam: Present: normal inspection. Absent: CVA tenderness (R), CVA tenderness (L) Neurological exam: Present: alert Skin exam: Present: warm, dry, intact, normal color. Absent: rash Course Vital Signs 05/07/20 05/07/20 22:06 23:00 Temperature 98.3 F Pulse Rate 79 79 Respiratory 16 16 Rate Blood Pressure 112/64 110/73 O2 Sat by Pulse 96 94 L Oximetry Chest Pain MDM - [facility] patient's 44-year-old man with chest pain, completely resolved. Workup is negative. I went and reviewed the results with patient who would like to go home. He does understand that leaving her to second set of heart and it does contain small risk of missed syndrome, but states he'll follow with senior controls engineer to see about having stress test. He does agree to return here if any symptoms recur or new symptoms develop. Disposition Clinical Impression: Chest pain Disposition: HOME SELF-CARE Condition: Good Instructions (If sedation given, give patient instructions): Chest Pain (ED) Is patient prescribed a controlled substance at d/c from ED?: No Referrals: Sharyn Fonseca MD [Primary Care Provider] - 1-2 days Danielle Alberto MD [STAFF PHYSICIAN] - 1-2 days
[2020-05-07 22:37] LABS: Basophils # (A) 0.1 k/uL (0-0.2); Basophils % (A) 1 %; Eosinophils # (A) 0.5 k/uL (0-0.7); Eosinophils % (A) 5 %; HCT 41.6 % (39.0-53.0); HGB 14.1 gm/dL (13.0-17.5); Lymphocytes # (A) 2.7 k/uL (1.0-4.8); Lymphocytes % (A) 26 %; MCH 29.6 pg (25.0-35.0); MCHC 33.8 g/dL (31.0-37.0); MCV 87.5 fL (80.0-100.0); Mean Platelet Volume 7.7; Monocytes # (A) 0.6 k/uL (0-1.0); Monocytes % (A) 6 %; Neutrophils # (A) 6.4 k/uL (1.3-7.7); Neutrophils % (A) 61 %; Platelet Count 285 k/uL (150-450); RBC 4.76 m/uL (4.30-5.90); RDW 12.4 % (11.5-15.5); WBC 10.5 k/uL (3.8-10.6)
[2020-05-07 22:48] LABS: ALT 21 U/L (4-49); AST 21 U/L (17-59); African American GFR (CKD) >90 (>60 ml/min/1.73 sqM); Albumin 4.2 g/dL (3.5-5.0); Alkaline Phosphatase 66 U/L (38-126); Amylase 47 U/L (30-110); Anion Gap 4 mmol/L; Blood Urea Nitrogen 14 mg/dL (9-20); Calcium 9.4 mg/dL (8.4-10.2); Carbon Dioxide 24 mmol/L (22-30); Chloride 108 mmol/L (98-107); Glucose 95 mg/dL (74-99); Lipase 92 U/L (23-300); Magnesium 2.2 mg/dL (1.6-2.3); Non-African American GFR(CKD) >90 (>60 ml/min/1.73 sqM); Potassium 4.2 mmol/L (3.5-5.1); Sodium 136 mmol/L (137-145); Total Bilirubin 0.5 mg/dL (0.2-1.3); Total Protein 6.9 g/dL (6.3-8.2)
[2020-05-07 22:50] LABS: D-Dimer 0.19 mg/L FEU (<0.60); Partial Thromboplastin Time 25.7 sec (22.0-30.0); Prothrombin Time 10.1 sec (9.0-12.0)
--- NOTE | 2020-05-07 22:58 | XR ---
EXAMINATION TYPE: XR chest 2V DATE OF EXAM: 05/07/2020 COMPARISON: 03/17/2020 HISTORY: Chest pain TECHNIQUE: FINDINGS: Heart and mediastinum are normal. Lungs are clear. Costophrenic angles are clear. There are chest leads. Bony thorax appears intact. IMPRESSION: Normal chest. No change.
[2020-05-07 23:53] VITALS: BP 113/56; PULSE 70; RESP 19; TEMP 98
== END 2020-05-07 23:52 | disposition home or self-care (01) ==
LOC: EC 21:55
DX: R07.89 Other chest pain (principal); K21.9 Gastro-esophageal reflux disease without esophagitis; E78.5 Hyperlipidemia, unspecified; I10 Essential (primary) hypertension; F41.9 Anxiety disorder, unspecified; F31.9 Bipolar disorder, unspecified; F20.9 Schizophrenia, unspecified; Z79.899 Other long term (current) drug therapy; X50.0XXA Overexertion from strenuous movement or load, initial encounter; Y92.69 Other specified industrial and construction area as the place of occurrence of the external cause; Y99.0 Civilian activity done for income or pay
CPT/HCPCS: 36415; 71046; 80053; 82150; 83690; 83735; 84484; 85025; 85379; 85610; 85730; 93005; 99285

== ENCOUNTER → 2020-06-05 | Outpatient (CLI) | payer MEDICARE, OTHER | END | disposition home or self-care (01) | LOC: LABWHC1 12:29 | PROVIDERS: ATTEND Emergency Medicine | DX: Z20.828 Contact with and (suspected) exposure to other viral communicable diseases (principal) | CPT/HCPCS: U0003; C9803 ==

== ENCOUNTER 2020-06-12 20:26 | Emergency (ER) | payer MEDICARE, OTHER ==
[2020-06-12 20:32] VITALS: BP 159/89; PULSE 94; RESP 18; TEMP 98.3
--- NOTE | 2020-06-12 20:56 | ED ---
ENT HPI - General Chief complaint: ENT Stated complaint: ENT Time Seen by Provider: 06/12/20 20:34 Source: patient Mode of arrival: ambulatory Limitations: no limitations - History of Present Illness Initial comments: Patient is a 44-year-old male presenting to emergency Department with complaints of something in the left side of his nostril. The patient states he noticed this growth approximately 2-3 weeks ago. He states is becoming difficulty to breathe out of that side of the nose. He did make an appointment with an ENT that is scheduled for 06/23. He denies any fever, chills. He states at rest it is not painful to the touch, he is having some mild clear nasal drainage, no cough, no shortness of breath, no chest pain. He states he's never had this before. He feels like the growth is soft. He states yesterday he is blowing nose he had some mild bleeding from the area. He has no further complaints at this time. Upon arrival to the ER, his vitals are stable. - Related Data Home Medications Medication Instructions Recorded Confirmed lisinopriL [Zestril] 20 mg PO DAILY 09/06/17 05/07/20 ARIPiprazole [Abilify Maintena] 400 mg IM Q28D 11/08/18 05/07/20 Benztropine Mesylate [Cogentin] 1 mg PO DAILY 11/08/18 05/07/20 Escitalopram [Lexapro] 10 mg PO DAILY 11/08/18 05/07/20 Simvastatin 5 mg PO DAILY 11/08/18 05/07/20 [place] Carbonate 300 mg PO DAILY 05/07/20 05/07/20 [place] Carbonate 900 mg PO HS 05/07/20 05/07/20 Omeprazole 20 mg PO DAILY 05/07/20 05/07/20 Previous Rx's Medication Instructions Recorded Oxymetazoline 0.05% Nasl [place] 1 spray EA NOSTRIL BID PRN #1 06/12/20 [Afrin 0.05% Nasal [place]] bottle Allergies Allergy/AdvReac Type Severity Reaction Status Date / Time haloperidol [From Haldol] Allergy Stroke-like Verified 06/12/20 20:31 symptoms Review of Systems ROS Statement: Those systems with pertinent positive or pertinent negative responses have been documented in the HPI. ROS Other: All systems not noted in ROS Statement are negative. Past Medical History Past Medical History: Asthma, GERD/Reflux, Hyperlipidemia, Hypertension Additional Past Medical History / Comment(s): FEELS LIKE FOOD WON'T GO DOWN/OR STICKS IN THROAT. Tourette's syndrome, seasonal ALLERGIES, dyskenisia History of Any Multi-Drug Resistant Organisms: None Reported Past Surgical History: Hernia Repair, Tonsillectomy Past Anesthesia/Blood Transfusion Reactions: No Reported Reaction Past Psychological History: Anxiety, Bipolar, Depression, Panic Disorder, Schizophrenia Smoking Status: Never smoker - Past Family History Father Family Medical History: No Reported History Additional Family Medical History / Comment(s): He is 61 years of age. Patient has had no contact with him and 20 years Mother Additional Family Medical History / Comment(s): Mother at age 63 from sepsis. Sister(s) Family Medical History: No Reported History Additional Family Medical History / Comment(s): He has 2 sisters with no major medical problems. General Exam - General Exam Comments Initial Comments: GENERAL: Patient is well-developed and well-nourished. Patient is nontoxic and in no acute distress. HEAD: Atraumatic, normocephalic. EYES: Pupils equal round and reactive to light, extraocular movements intact, sclera anicteric, conjunctiva are normal. Eyelids were unremarkable. ENT: TMs normal, nares patent, oropharynx clear without exudates. Moist mucous membranes. Right nostril appears normal, left nostril appears to have 2 separate nasal polyps present, they are soft. No active bleeding. No surrounding erythema of the nose. NECK: Normal range of motion, supple without lymphadenopathy or JVD. LUNGS: Unlabored respirations. Breath sounds clear to auscultation bilaterally and equal. No wheezes rales or rhonchi. HEART: Regular rate and rhythm without murmurs, rubs or gallops. ABDOMEN: Soft, nontender, normoactive bowel sounds. No guarding, no rebound. No masses appreciated. : Deferred MUSCULOSKELETAL: Normal extremities with adequate strength and normal range of motion, no pitting or edema. No clubbing or cyanosis. NEUROLOGICAL: Patient is alert and oriented x 3. Motor and sensory are also intact. Cranial nerves II through XII grossly intact. Symmetrical smile. Normal speech, normal gait. PSYCH: Normal mood, normal affect. SKIN: Warm, Dry, normal turgor, no rashes or lesions noted. Limitations: no limitations Course Vital Signs 06/12/20 20:30 Temperature 98.3 F Pulse Rate 94 Respiratory 18 Rate Blood Pressure 159/89 O2 Sat by Pulse 97 Oximetry Medical Decision Making - Medical Decision Making Patient is a 44-year-old male presenting with a left-sided nasal polyp for the past 2-3 weeks. No fever or chills, his exam reveals 2 small nasal polyps on the left nostril. He is in no acute distress. He has an appointment with an ENT on 06/23. There is no active bleeding at this time. I discussed with patient that he needs to follow up with ENT as already planned. I will start him on a nasal spray to help with congestion. He is in agreement with this plan of care. He is stable for discharge. Return parameters were discussed with the patient he verbalizes understanding. Disposition Clinical Impression: Left nasal polyps Disposition: HOME SELF-CARE Condition: Stable Instructions (If sedation given, give patient instructions): Nasal Polyps (ED) Additional Instructions: Please return to the Emergency Department if symptoms worsen or any other concerns. May use nasal spray as needed for comfort. Follow up with ENT as discussed. Prescriptions: Oxymetazoline 0.05% Nasl [place] [Afrin 0.05% Nasal [place]] 1 spray EA NOSTRIL BID PRN #1 bottle PRN Reason: Congestion Is patient prescribed a controlled substance at d/c from ED?: No Referrals: Sharyn Fonseca MD [Primary Care Provider] - 1-2 days
== END 2020-06-12 21:10 | disposition home or self-care (01) ==
LOC: EC 20:26
DX: J33.9 Nasal polyp, unspecified (principal); I10 Essential (primary) hypertension; K21.9 Gastro-esophageal reflux disease without esophagitis; E78.5 Hyperlipidemia, unspecified; F32.9 Major depressive disorder, single episode, unspecified; F20.9 Schizophrenia, unspecified; F41.9 Anxiety disorder, unspecified; Z79.899 Other long term (current) drug therapy; Z88.8 Allergy status to other drugs, medicaments and biological substances
CPT/HCPCS: 99283

== ENCOUNTER 2020-07-23 10:27 | Emergency (ER) | payer MEDICARE, OTHER ==
[2020-07-23 10:32] VITALS: BP 122/76; PULSE 80; RESP 18; TEMP 97.7
[2020-07-23] MEDS ORDERED: KETOROLAC 15 MG/ML 1 ML VIAL IM STA (10:39)
--- NOTE | 2020-07-23 10:48 | ED ---
General Adult HPI - General Chief complaint: Back Pain/Injury Stated complaint: back pain Time Seen by Provider: 07/23/20 10:33 Source: patient Mode of arrival: ambulatory Limitations: no limitations - History of Present Illness Initial comments: 44-year-old male with a past medical history of asthma, GERD, hyperlipidemia, hypertension presents to the emergency room for a chief complaint of back pain. Patient reports that he has had pain across his bilateral lower back for 3-4 days now. States when he wakes up in the morning it feels fine. Throughout the day he does heavy lifting at work. He states he feels okay at work however when he gets home he started to have pain in his lower back. Feels like it is spasming. Patient states that movement seems to make this pain worse. Patient denies any radiating pain down the legs. Denies bladder or bowel changes. Denies numbness or tingling in the groin or buttock. No history of fevers or ch ills. Patient does not have a history of back surgery. Patient states he has been taking Motrin up to 1600 mg at a time. I did counseling department chair patient that this is an excessive amount and not recommended. He can take up to 800 mg at a time up to 4 times a day. Patient denies any upper back pain. Denies any pain radiating to his abdomen or back. Patient has no other complaints at this time including shortness of breath, chest pain, abdominal pain, nausea or vomiting, headache, or visual changes. - Related Data Home Medications Medication Instructions Recorded Confirmed lisinopriL [Zestril] 20 mg PO DAILY 09/06/17 05/07/20 ARIPiprazole [Abilify Maintena] 400 mg IM Q28D 11/08/18 05/07/20 Benztropine Mesylate [Cogentin] 1 mg PO DAILY 11/08/18 05/07/20 Escitalopram [Lexapro] 10 mg PO DAILY 11/08/18 05/07/20 Simvastatin 5 mg PO DAILY 11/08/18 05/07/20 [place] Carbonate 300 mg PO DAILY 05/07/20 05/07/20 [place] Carbonate 900 mg PO HS 05/07/20 05/07/20 Omeprazole 20 mg PO DAILY 05/07/20 05/07/20 Previous Rx's Medication Instructions Recorded Oxymetazoline 0.05% Nasl [place] 1 spray EA NOSTRIL BID PRN #1 06/12/20 [Afrin 0.05% Nasal [place]] bottle Acetaminophen [Tylenol] 500 mg PO Q4-6H PRN #20 tab 07/23/20 Cyclobenzaprine [Flexeril] 10 mg PO TID #10 tab 07/23/20 Allergies Allergy/AdvReac Type Severity Reaction Status Date / Time haloperidol [From Haldol] Allergy Stroke-like Verified 07/23/20 10:31 symptoms Review of Systems ROS Statement: Those systems with pertinent positive or pertinent negative responses have been documented in the HPI. ROS Other: All systems not noted in ROS Statement are negative. Past Medical History Past Medical History: Asthma, GERD/Reflux, Hyperlipidemia, Hypertension Additional Past Medical History / Comment(s): Tourette's syndrome, seasonal ALLERGIES, dyskenisia History of Any Multi-Drug Resistant Organisms: None Reported Past Surgical History: Hernia Repair, Tonsillectomy Past Anesthesia/Blood Transfusion Reactions: No Reported Reaction Past Psychological History: Anxiety, Bipolar, Depression, Panic Disorder, Schizophrenia Smoking Status: Never smoker Past Alcohol Use History: None Reported Past Drug Use History: None Reported - Past Family History Father Family Medical History: No Reported History Additional Family Medical History / Comment(s): He is 61 years of age. Patient has had no contact with him and 20 years Mother Additional Family Medical History / Comment(s): Mother at age 63 from sepsis. Sister(s) Family Medical History: No Reported History Additional Family Medical History / Comment(s): He has 2 sisters with no major medical problems. General Exam Limitations: no limitations General appearance: alert, in no apparent distress Head exam: Present: atraumatic Eye exam: Present: normal appearance, PERRL, EOMI. Absent: scleral icterus, conjunctival injection ENT exam: Present: normal exam, mucous membranes moist Neck exam: Present: normal inspection, full ROM. Absent: tenderness Respiratory exam: Present: normal lung sounds bilaterally. Absent: respiratory distress Cardiovascular Exam: Present: regular rate, normal rhythm, normal heart sounds GI/Abdominal exam: Present: soft, normal bowel sounds. Absent: distended, tenderness Extremities exam: Present: normal capillary refill (Capillary refill less than 2 seconds, DP and PT pulses 2+ in bilateral lower extremities) Back exam: Present: paraspinal tenderness (Minimal bilateral paraspinal lumbar tenderness), other (Patient has full flexion of the lumbar spine however does have pain when doing so. States that this exacerbates his pain along with other movements.). Absent: CVA tenderness (R), CVA tenderness (L), vertebral tenderness Neurological exam: Present: alert Course Vital Signs 07/23/20 10:28 Temperature 97.7 F Pulse Rate 80 Respiratory 18 Rate Blood Pressure 122/76 O2 Sat by Pulse 95 Oximetry Medical Decision Making - Medical Decision Making Vitals are stable. Patient is afebrile. Patient has pain that is exacerbated with movement and after heavy lifting. Neurovascular status intact in the lower extremities. No red flag symptoms. Patient's pain is exacerbated with flexion of the lumbar spine on physical exam. Patient did take 8 1600 mg's of Motrin yesterday at once. I consulted him not to do this as it is too strong of a dose. He will take 800 mg at a time up to 4 times per day. Patient has not had any Motrin today, he was given a shot of Toradol. I did write him Flexeril and recommended gentle stretching. He is aware not to drive while taking this. I discussed red flag symptoms for which she needs to return to the emergency room or if he has any other worsening symptoms. He will otherwise follow up with orthopedics or primary care. Disposition Clinical Impression: Mechanical back pain Disposition: HOME SELF-CARE Condition: Good Instructions (If sedation given, give patient instructions): Acute Low Back Pain (ED), Lower Back Exercises (ED) Additional Instructions: Please take Motrin and Tylenol alternating for pain. You may take one 800 mg tablet up to 4 times per day. Do not take more than one at a time or more than 4 tablets per day. In between these doses you can take 1-2 tablets of extra strength Tylenol up to 4 times per day. Take Flexeril as needed but do not drive while taking this. Do gentle stretching of the low back. Follow-up with your doctor or orthopedics in one to 2 days. If you develop any worsening symptoms return immediately to the emergency room. These could include bladder or bowel changes, loss of sensation in the groin or buttock, weakness of the legs, or fevers. Prescriptions: Cyclobenzaprine [Flexeril] 10 mg PO TID #10 tab Acetaminophen [Tylenol] 500 mg PO Q4-6H PRN #20 tab PRN Reason: Pain Is patient prescribed a controlled substance at d/c from ED?: No Referrals: Sharyn Fonseca MD [Primary Care Provider] - 1-2 days Roger Lyman DO [Doctor of Osteopathic Medicine] - 1-2 days Time of Disposition: 10:43
== END 2020-07-23 10:59 | disposition home or self-care (01) ==
LOC: EC 10:27
DX: M54.9 Dorsalgia, unspecified (principal); I10 Essential (primary) hypertension; E78.5 Hyperlipidemia, unspecified; K21.9 Gastro-esophageal reflux disease without esophagitis; F41.0 Panic disorder [episodic paroxysmal anxiety]; F31.9 Bipolar disorder, unspecified; Z79.899 Other long term (current) drug therapy; Z88.8 Allergy status to other drugs, medicaments and biological substances; Z91.048 Other nonmedicinal substance allergy status
CPT/HCPCS: 99283 ×2; 96372 ×2; J1885

== ENCOUNTER 2021-01-14 00:27 | Emergency (ER) | payer MEDICARE, OTHER ==
[2021-01-14 00:33] VITALS: RESP 18
[2021-01-14] MEDS ORDERED: MORPHINE SULFATE 4 MG/ML SYRINGE IV STA (00:44)
[2021-01-14] MEDS ORDERED: ONDANSETRON 4 MG/2 ML VIAL IVP STA (00:44)
[2021-01-14] MEDS ORDERED: SODIUM CHLORIDE 0.9% 1,000 ML IV STA (00:44)
--- NOTE | 2021-01-14 01:06 | ED ---
General Adult HPI - General Chief complaint: Back Pain/Injury Stated complaint: Urogenital Time Seen by Provider: 01/14/21 00:34 Source: patient Mode of arrival: ambulatory Limitations: no limitations - History of Present Illness Initial comments: 44-year-old male presents to the emergency room for chief complaint of right groin pain. Patient states this started around 9:30. He states it does radiate down his right leg a bit. She denies any back pain associated with this. Patient denies any testicular pain. Patient reports he has had an inguinal hernia in the past and would like to ensure this is not a hernia.Patient has no other complaints at this time including shortness of breath, chest pain, abdominal pain, nausea or vomiting, headache, or visual changes. - Related Data Home Medications Medication Instructions Recorded Confirmed lisinopriL [Zestril] 20 mg PO DAILY 09/06/17 05/07/20 ARIPiprazole [Abilify Maintena] 400 mg IM Q28D 11/08/18 05/07/20 Benztropine Mesylate [Cogentin] 1 mg PO DAILY 11/08/18 05/07/20 Escitalopram [Lexapro] 10 mg PO DAILY 11/08/18 05/07/20 Simvastatin 5 mg PO DAILY 11/08/18 05/07/20 [place] Carbonate 300 mg PO DAILY 05/07/20 05/07/20 [place] Carbonate 900 mg PO HS 05/07/20 05/07/20 Omeprazole 20 mg PO DAILY 05/07/20 05/07/20 Previous Rx's Medication Instructions Recorded Oxymetazoline 0.05% Nasl [place] 1 spray EA NOSTRIL BID PRN #1 06/12/20 [Afrin 0.05% Nasal [place]] bottle Acetaminophen [Tylenol] 500 mg PO Q4-6H PRN #20 tab 07/23/20 Cyclobenzaprine [Flexeril] 10 mg PO TID #10 tab 07/23/20 Allergies Allergy/AdvReac Type Severity Reaction Status Date / Time haloperidol [From Haldol] Allergy Stroke-like Verified 01/14/21 00:33 symptoms Review of Systems ROS Statement: Those systems with pertinent positive or pertinent negative responses have been documented in the HPI. ROS Other: All systems not noted in ROS Statement are negative. Past Medical History Past Medical History: Asthma, GERD/Reflux, Hyperlipidemia, Hypertension Additional Past Medical History / Comment(s): Tourette's syndrome, seasonal ALLERGIES, dyskenisia History of Any Multi-Drug Resistant Organisms: None Reported Past Surgical History: Hernia Repair, Tonsillectomy Past Anesthesia/Blood Transfusion Reactions: No Reported Reaction Past Psychological History: Anxiety, Bipolar, Depression, Panic Disorder, Schizophrenia Smoking Status: Never smoker Past Alcohol Use History: None Reported Past Drug Use History: None Reported - Past Family History Father Family Medical History: No Reported History Additional Family Medical History / Comment(s): He is 61 years of age. Patient has had no contact with him and 20 years Mother Additional Family Medical History / Comment(s): Mother at age 63 from sepsis. Sister(s) Family Medical History: No Reported History Additional Family Medical History / Comment(s): He has 2 sisters with no major medical problems. General Exam Limitations: no limitations General appearance: alert, in no apparent distress Head exam: Present: atraumatic, normocephalic, normal inspection Eye exam: Present: normal appearance, PERRL, EOMI. Absent: scleral icterus, con junctival injection, periorbital swelling ENT exam: Present: normal exam Neck exam: Present: normal inspection, full ROM. Absent: tenderness, meningi smus, lymphadenopathy Respiratory exam: Present: normal lung sounds bilaterally. Absent: respiratory distress, wheezes, rales, rhonchi, stridor Cardiovascular Exam: Present: regular rate, normal rhythm, normal heart sounds. Absent: systolic murmur, diastolic murmur, rubs, gallop, clicks GI/Abdominal exam: Present: soft, normal bowel sounds. Absent: distended, tenderness, guarding, rebound, rigid exam: Present: other (R groin tenderness). Absent: testicular tenderness Extremities exam: Present: normal capillary refill (Capillary refill less than 2 seconds, DP pulse 2+ right lower extremity) Course Vital Signs 01/14/21 01/14/21 00:30 01:58 Temperature 98.2 F Pulse Rate 92 63 Respiratory 18 18 Rate Blood Pressure 122/76 132/74 O2 Sat by Pulse 96 94 L Oximetry Medical Decision Making - Medical Decision Making CBC CMP unremarkable. Urinalysis negative. CT abdomen and pelvis shows some fatty infiltration of the liver without significant change compared to old exam. T12 mild compression fracture appears stable. Patient reevaluated, resting comfortably. Pain is resolved. At this time patient will be discharged home to follow up with primary care. Will return here for any worsening symptoms. - Lab Data Result diagrams: 01/14/21 00:59 01/14/21 00:59 Lab Results 01/14/21 01/14/21 01/14/21 Range/Units 00:59 00:59 00:59 WBC 9.9 (3.8-10.6) k/uL RBC 4.54 (4.30-5.90) m/uL Hgb 13.6 (13.0-17.5) gm/dL Hct 40.0 (39.0-53.0) % MCV 88.2 (80.0-100.0) fL MCH 29.9 (25.0-35.0) pg MCHC 33.9 (31.0-37.0) g/dL RDW 12.7 (11.5-15.5) % Plt Count 291 (150-450) k/uL MPV 8.0 Neutrophils % 59 % Lymphocytes % 28 % Monocytes % 6 % Eosinophils % 5 % Basophils % 1 % Neutrophils # 5.8 (1.3-7.7) k/uL Lymphocytes # 2.8 (1.0-4.8) k/uL Monocytes # 0.6 (0-1.0) k/uL Eosinophils # 0.5 (0-0.7) k/uL Basophils # 0.1 (0-0.2) k/uL Sodium 139 (137-145) mmol/L Potassium 3.8 (3.5-5.1) mmol/L Chloride 107 (98-107) mmol/L Carbon Dioxide 22 (22-30) mmol/L Anion Gap 10 mmol/L BUN 14 (9-20) mg/dL Creatinine 1.09 (0.66-1.25) mg/dL Est GFR (CKD-EPI)AfAm >90 (>60 ml/min/1.73 sqM) Est GFR (CKD-EPI)NonAf 82 (>60 ml/min/1.73 sqM) Glucose 128 H (74-99) mg/dL Plasma Lactic Acid [place] (0.7-2.0) mmol/L Calcium 9.5 (8.4-10.2) mg/dL Total Bilirubin 0.5 (0.2-1.3) mg/dL AST 22 (17-59) U/L ALT 20 (4-49) U/L Alkaline Phosphatase 77 (38-126) U/L Total Protein 6.9 (6.3-8.2) g/dL Albumin 4.2 (3.5-5.0) g/dL Urine Color Yellow Urine Appearance Clear (Clear) Urine pH 5.5 (5.0-8.0) Ur Specific Given 1.032 (1.001-1.035) Urine Protein Trace H (Negative) Urine Glucose (UA) Negative (Negative) Urine Ketones Negative (Negative) Urine Blood Negative (Negative) Urine Nitrite Negative (Negative) Urine Bilirubin Negative (Negative) Urine Urobilinogen <2.0 (<2.0) mg/dL Ur Leukocyte Esterase Negative (Negative) 01/14/21 Range/Units 00:59 WBC (3.8-10.6) k/uL RBC (4.30-5.90) m/uL Hgb (13.0-17.5) gm/dL Hct (39.0-53.0) % MCV (80.0-100.0) fL MCH (25.0-35.0) pg MCHC (31.0-37.0) g/dL RDW (11.5-15.5) % Plt Count (150-450) k/uL MPV Neutrophils % % Lymphocytes % % Monocytes % % Eosinophils % % Basophils % % Neutrophils # (1.3-7.7) k/uL Lymphocytes # (1.0-4.8) k/uL Monocytes # (0-1.0) k/uL Eosinophils # (0-0.7) k/uL Basophils # (0-0.2) k/uL Sodium (137-145) mmol/L Potassium (3.5-5.1) mmol/L Chloride (98-107) mmol/L Carbon Dioxide (22-30) mmol/L Anion Gap mmol/L BUN (9-20) mg/dL Creatinine (0.66-1.25) mg/dL Est GFR (CKD-EPI)AfAm (>60 ml/min/1.73 sqM) Est GFR (CKD-EPI)NonAf (>60 ml/min/1.73 sqM) Glucose (74-99) mg/dL Plasma Lactic Acid [place] 1.9 (0.7-2.0) mmol/L Calcium (8.4-10.2) mg/dL Total Bilirubin (0.2-1.3) mg/dL AST (17-59) U/L ALT (4-49) U/L Alkaline Phosphatase (38-126) U/L Total Protein (6.3-8.2) g/dL Albumin (3.5-5.0) g/dL Urine Color Urine Appearance (Clear) Urine pH (5.0-8.0) Ur Specific Given (1.001-1.035) Urine Protein (Negative) Urine Glucose (UA) (Negative) Urine Ketones (Negative) Urine Blood (Negative) Urine Nitrite (Negative) Urine Bilirubin (Negative) Urine Urobilinogen (<2.0) mg/dL Ur Leukocyte Esterase (Negative) Disposition Clinical Impression: Groin pain Disposition: HOME SELF-CARE Condition: Good Instructions (If sedation given, give patient instructions): Groin Pain (ED) Additional Instructions: Please follow up with primary care in 1-2 days. Return to the emergency room for any worsening symptoms. Is patient prescribed a controlled substance at d/c from ED?: No Referrals: Sharyn Fonseca MD [Primary Care Provider] - 1-2 days Time of Disposition: 03:05
[2021-01-14 01:08] LABS: Basophils # (A) 0.1 k/uL (0-0.2); Basophils % (A) 1 %; Eosinophils # (A) 0.5 k/uL (0-0.7); Eosinophils % (A) 5 %; HGB 13.6 gm/dL (13.0-17.5); Lymphocytes # (A) 2.8 k/uL (1.0-4.8); Lymphocytes % (A) 28 %; MCH 29.9 pg (25.0-35.0); MCHC 33.9 g/dL (31.0-37.0); MCV 88.2 fL (80.0-100.0); Monocytes # (A) 0.6 k/uL (0-1.0); Monocytes % (A) 6 %; Neutrophils # (A) 5.8 k/uL (1.3-7.7); Neutrophils % (A) 59 %; Platelet Count 291 k/uL (150-450); RBC 4.54 m/uL (4.30-5.90); RDW 12.7 % (11.5-15.5); WBC 9.9 k/uL (3.8-10.6)
[2021-01-14 01:23] LABS: ALT 20 U/L (4-49); AST 22 U/L (17-59); African American GFR (CKD) >90 (>60 ml/min/1.73 sqM); Albumin 4.2 g/dL (3.5-5.0); Alkaline Phosphatase 77 U/L (38-126); Anion Gap 10 mmol/L; Blood Urea Nitrogen 14 mg/dL (9-20); Calcium 9.5 mg/dL (8.4-10.2); Carbon Dioxide 22 mmol/L (22-30); Chloride 107 mmol/L (98-107); Glucose 128 mg/dL (74-99); Non-African American GFR(CKD) 82 (>60 ml/min/1.73 sqM); Potassium 3.8 mmol/L (3.5-5.1); Sodium 139 mmol/L (137-145); Total Bilirubin 0.5 mg/dL (0.2-1.3); Total Protein 6.9 g/dL (6.3-8.2)
--- NOTE | 2021-01-14 02:01 | CT ---
EXAMINATION TYPE: CT abdomen pelvis w con DATE OF EXAM: 01/14/2021 COMPARISON: 03/17/2019 HISTORY: groin pain CT DLP: 2631.4 mGycm Automated exposure control for dose reduction was used. CONTRAST: Performed with IV Contrast, patient injected with 100 mL of Isovue 300. Images obtained from the diaphragm to the floor the pelvis with IV contrast. Lung bases are clear. There is no pleural effusion. Heart size is normal. There is no pericardial eff usion. There is some fatty infiltration of the liver. Liver has normal size. Spleen is intact. There is no p ancreatic mass. Gallbladder appears normal. The bile ducts are not dilated. Stomach is intact. There is no adrenal mass. Kidneys show satisfactory contrast opacification. There is no hydronephrosi s. There is 1 cm cortical cyst posterior right kidney. There is no retroperitoneal adenopathy. Bladde r is almost empty. There is no inguinal hernia. There is no free fluid in the pelvis. There is no riddhi dence of a pelvic mass. Appendix is not seen. There is no sign of thickened appendix. There is no mes enteric edema. There is no ascites or free air. There is no evidence of a bowel obstruction. The lumbar vertebra have fairly normal alignment. There is no evidence of focal bone destruction. The re is T12 mild wedging of 15%. The bony pelvis is intact. The hip joints are intact. There is no hip dysplasia. IMPRESSION: There is some fatty infiltration of the liver. No significant change compared to old exam. T12 mild c ompression fracture appears stable.
[2021-01-14 02:24] LABS: Appearance,Urine Clear (Clear); Bilirubin,Urine Negative (Negative); Blood,Urine Negative (Negative); Color,Urine Yellow; Glucose,Urine (UA) Negative (Negative); Ketones,Urine Negative (Negative); Leukocyte Esterase,Urine Negative (Negative); Nitrite,Urine Negative (Negative); PH, Urine 5.5 (5.0-8.0); Protein,Urine Trace (Negative); Specific Gravity,Urine 1.032 (1.001-1.035); Urobilinogen,Urine <2.0 mg/dL (<2.0)
[2021-01-14 03:41] VITALS: BP 112/75; PULSE 57; TEMP 98
== END 2021-01-14 03:25 | disposition home or self-care (01) ==
LOC: EC 00:27
DX: R10.30 Lower abdominal pain, unspecified (principal); E78.5 Hyperlipidemia, unspecified; I10 Essential (primary) hypertension; J45.909 Unspecified asthma, uncomplicated; K21.9 Gastro-esophageal reflux disease without esophagitis; F32.9 Major depressive disorder, single episode, unspecified; F25.9 Schizoaffective disorder, unspecified
CPT/HCPCS: 36415; 80053; 83605; 85025; 81003; 74177; 99284; 96374; 96375; 96361 ×2; J2270; J2405; Q9967

== ENCOUNTER 2021-11-06 15:15 | Emergency (ER) | payer MEDICARE, OTHER ==
[2021-11-06 15:25] VITALS: TEMP 98.4
--- NOTE | 2021-11-06 15:51 | XR ---
EXAMINATION TYPE: XR chest 2V DATE OF EXAM: 11/06/2021 COMPARISON: 05/07/2020 HISTORY: Cough TECHNIQUE: Frontal and lateral views of the chest are obtained. FINDINGS: There is no focal air space opacity, pleural effusion, or pneumothorax seen. The cardiac silhouette size is within normal limits. The osseous structures are intact. IMPRESSION: No acute cardiopulmonary process.
[2021-11-06] MEDS ORDERED: methylPREDNISolone SOD SUCCI 125 MG/2 ML VIAL IV STA (18:13)
[2021-11-06] MEDS ORDERED: IPRATROPIUM-ALBUTEROL 3 ML NEB INHALATION STA (18:13)
[2021-11-06] MEDS ORDERED: ALBUTEROL NEBULIZED 2.5 MG/3 ML INHALATION STA (18:13)
--- NOTE | 2021-11-06 18:16 | ED ---
General Adult HPI - General Chief complaint: Upper Respiratory Infection Stated complaint: Cough/Sweating/SOB Time Seen by Provider: 11/06/21 18:04 Source: patient, RN notes reviewed Mode of arrival: ambulatory Limitations: no limitations - History of Present Illness Initial comments: This is a pleasant 46-year-old male with a history of hypertension, hyperlipidemia, and asthma. He states he is getting short of breath at work at about 3 PM. Patient states his chest feels tight. States she's been coughing up some yellow sputum for about 2 days. Patient also describes a sweating spell at work today. Patient states he still feeling short of breath but is somewhat better after he took his inhaler. Patient states she's had a cough for 2 days. No known fever. No exposures. Smoker. No headache, no fever or chills, no changes in vision or hearing, no sore throat or difficulty with speech, no neck pain,, no abdominal pain, no nausea or vomiting, no changes in urination or bowel movements, no numbness or tingling, no extremity pain, no skin rashes or lesions. - Related Data Home Medications Medication Instructions Recorded Confirmed lisinopriL [Zestril] 20 mg PO DAILY 09/06/17 05/07/20 ARIPiprazole [Abilify Maintena] 400 mg IM Q28D 11/08/18 05/07/20 Benztropine Mesylate [Cogentin] 1 mg PO DAILY 11/08/18 05/07/20 Escitalopram [Lexapro] 10 mg PO DAILY 11/08/18 05/07/20 Simvastatin 5 mg PO DAILY 11/08/18 05/07/20 [place] Carbonate 300 mg PO DAILY 05/07/20 05/07/20 [place] Carbonate 900 mg PO HS 05/07/20 05/07/20 Omeprazole 20 mg PO DAILY 05/07/20 05/07/20 Previous Rx's Medication Instructions Recorded Oxymetazoline 0.05% Nasl [place] 1 spray EA NOSTRIL BID PRN #1 06/12/20 [Afrin 0.05% Nasal [place]] bottle Acetaminophen [Tylenol] 500 mg PO Q4-6H PRN #20 tab 07/23/20 Cyclobenzaprine [Flexeril] 10 mg PO TID #10 tab 07/23/20 Albuterol Sulfate [Albuterol 2 puff PO Q6H #8.5 gm 11/06/21 Sulfate Hfa] predniSONE 50 mg PO DAILY #5 tab 11/06/21 Allergies Allergy/AdvReac Type Severity Reaction Status Date / Time haloperidol [From Haldol] Allergy Stroke-like Verified 01/14/21 00:33 symptoms Review of Systems ROS Statement: Those systems with pertinent positive or pertinent negative responses have been documented in the HPI. ROS Other: All systems not noted in ROS Statement are negative. Past Medical History Past Medical History: Asthma, GERD/Reflux, Hyperlipidemia, Hypertension Additional Past Medical History / Comment(s): Tourette's syndrome, seasonal ALLERGIES, dyskenisia History of Any Multi-Drug Resistant Organisms: None Reported Past Surgical History: Hernia Repair, Tonsillectomy Past Anesthesia/Blood Transfusion Reactions: No Reported Reaction Past Psychological History: Anxiety, Bipolar, Depression, Panic Disorder, Schizophrenia Smoking Status: Never smoker Past Alcohol Use History: None Reported Past Drug Use History: None Reported - Past Family History Father Family Medical History: No Reported History Additional Family Medical History / Comment(s): He is 61 years of age. Patient has had no contact with him and 20 years Mother Additional Family Medical History / Comment(s): Mother at age 63 from sepsis. Sister(s) Family Medical History: No Reported History Additional Family Medical History / Comment(s): He has 2 sisters with no major medical problems. General Exam - General Exam Comments Initial Comments: Appears adequately hydrated. Does not appear to be ill or toxic. Adequate peripheral perfusion Limitations: no limitations General appearance: alert, in distress (Minimal) Head exam: Present: atraumatic, normocephalic, normal inspection Eye exam: Present: normal appearance, PERRL, EOMI. Absent: scleral icterus, conjunctival injection, periorbital swelling ENT exam: Present: normal exam, mucous membranes moist Neck exam: Present: normal inspection. Absent: tenderness, meningismus, lymphadenopathy Respiratory exam: Present: respiratory distress (Mild increased work of breathing), wheezes, rhonchi, accessory muscle use, prolonged expiratory. Absent: rales, stridor, decreased breath sounds Cardiovascular Exam: Present: regular rate, normal rhythm, normal heart sounds. Absent: systolic murmur, diastolic murmur, rubs, gallop, clicks GI/Abdominal exam: Present: soft, normal bowel sounds. Absent: distended, tenderness, guarding, rebound, rigid Extremities exam: Present: normal inspection, full ROM, normal capillary refill. Absent: tenderness, pedal edema, joint swelling, calf tenderness Back exam: Present: normal inspection Neurological exam: Present: alert, oriented X3, CN II-XII intact Psychiatric exam: Present: normal affect, normal mood Skin exam: Present: warm, dry, intact, normal color. Absent: rash Course Vital Signs 11/06/21 11/06/21 11/06/21 15:23 18:51 19:19 Temperature 98.4 F Pulse Rate 91 90 96 Respiratory 18 Rate Blood Pressure 138/90 O2 Sat by Pulse 95 Oximetry - Reevaluation(s) Reevaluation #1: 11/06/21 19:16 Medical record is reviewed Symptoms are improved here in the emergency department Patient is informed of results and questions answered Patient in no distress Patient has no subsequent wheezing. No increased work of breathing. Cardiac testing is normal. EKG Findings - EKG Comments: EKG Findings:: EKG done at 1855 and attending physician reveals sinus rhythm with a rate of 77, normal axis, no acute ST or T-wave changes. Normal intervals. Essentially normal sinus rhythm. Normal QRS morphology. Medical Decision Making - Medical Decision Making Patient presents with symptomology consistent with acute bronchitis with superimposed asthma exacerbation. Think this is less likely cardiac in etiology. Although this is possible. Cardiopulmonary evaluation initiated. - Lab Data Result diagrams: 11/06/21 18:37 11/06/21 18:37 Lab Results 11/06/21 11/06/21 11/06/21 Range/Units 15:27 15:27 18:37 WBC 14.1 H (3.8-10.6) k/uL RBC 5.09 (4.30-5.90) m/uL Hgb 14.2 (13.0-17.5) gm/dL Hct 44.8 (39.0-53.0) % MCV 88.0 (80.0-100.0) fL MCH 27.9 (25.0-35.0) pg MCHC 31.7 (31.0-37.0) g/dL RDW 12.9 (11.5-15.5) % Plt Count 303 (150-450) k/uL MPV 7.8 Neutrophils % 71 % Lymphocytes % 13 % Monocytes % 6 % Eosinophils % 7 % Basophils % 1 % Neutrophils # 10.0 H (1.3-7.7) k/uL Lymphocytes # 1.9 (1.0-4.8) k/uL Monocytes # 0.9 (0-1.0) k/uL Eosinophils # 1.0 H (0-0.7) k/uL Basophils # 0.1 (0-0.2) k/uL Sodium (137-145) mmol/L Potassium (3.5-5.1) mmol/L Chloride (98-107) mmol/L Carbon Dioxide (22-30) mmol/L Anion Gap mmol/L BUN (9-20) mg/dL Creatinine (0.66-1.25) mg/dL Est GFR (CKD-EPI)AfAm (>60 ml/min/1.73 sqM) Est GFR (CKD-EPI)NonAf (>60 ml/min/1.73 sqM) Glucose (74-99) mg/dL Calcium (8.4-10.2) mg/dL Magnesium (1.6-2.3) mg/dL Total Bilirubin (0.2-1.3) mg/dL AST (17-59) U/L ALT (4-49) U/L Alkaline Phosphatase (38-126) U/L Troponin I (0.000-0.034) ng/mL Total Protein (6.3-8.2) g/dL Albumin (3.5-5.0) g/dL Coronavirus (PCR) Not Detected (Not Detectd) Influenza Type A RNA Not Detected (Not Detectd) Influenza Type B (PCR) Not Detected (Not Detectd) 11/06/21 11/06/21 Range/Units 18:37 18:37 WBC (3.8-10.6) k/uL RBC (4.30-5.90) m/uL Hgb (13.0-17.5) gm/dL Hct (39.0-53.0) % MCV (80.0-100.0) fL MCH (25.0-35.0) pg MCHC (31.0-37.0) g/dL RDW (11.5-15.5) % Plt Count (150-450) k/uL MPV Neutrophils % % Lymphocytes % % Monocytes % % Eosinophils % % Basophils % % Neutrophils # (1.3-7.7) k/uL Lymphocytes # (1.0-4.8) k/uL Monocytes # (0-1.0) k/uL Eosinophils # (0-0.7) k/uL Basophils # (0-0.2) k/uL Sodium 137 (137-145) mmol/L Potassium 4.7 (3.5-5.1) mmol/L Chloride 107 (98-107) mmol/L Carbon Dioxide 21 L (22-30) mmol/L Anion Gap 9 mmol/L BUN 21 H (9-20) mg/dL Creatinine 0.93 (0.66-1.25) mg/dL Est GFR (CKD-EPI)AfAm >90 (>60 ml/min/1.73 sqM) Est GFR (CKD-EPI)NonAf >90 (>60 ml/min/1.73 sqM) Glucose 92 (74-99) mg/dL Calcium 9.7 (8.4-10.2) mg/dL Magnesium 2.2 (1.6-2.3) mg/dL Total Bilirubin 0.8 (0.2-1.3) mg/dL AST 22 (17-59) U/L ALT 25 (4-49) U/L Alkaline Phosphatase 87 (38-126) U/L Troponin I <0.012 (0.000-0.034) ng/mL Total Protein 7.7 (6.3-8.2) g/dL Albumin 4.6 (3.5-5.0) g/dL Coronavirus (PCR) (Not Detectd) Influenza Type A RNA (Not Detectd) Influenza Type B (PCR) (Not Detectd) - Radiology Data Radiology results: report reviewed, image reviewed Disposition Clinical Impression: Asthma exacerbation, Acute bronchitis Disposition: HOME SELF-CARE Condition: Good Additional Instructions: Follow-up with your regular physician as directed. Return to the ER immediately if any symptoms worsen, new symptoms arise, or any other problems develop. Prescriptions: Albuterol Sulfate [Albuterol Sulfate Hfa] 2 puff PO Q6H #8.5 gm predniSONE 50 mg PO DAILY #5 tab Is patient prescribed a controlled substance at d/c from ED?: No Referrals: Sharyn Fonseca MD [Primary Care Provider] - 1-2 days Time of Disposition: :22
[2021-11-06 18:54] LABS: Basophils # (A) 0.1 k/uL (0-0.2); Basophils % (A) 1 %; Eosinophils % (A) 7 %; HCT 44.8 % (39.0-53.0); HGB 14.2 gm/dL (13.0-17.5); Lymphocytes # (A) 1.9 k/uL (1.0-4.8); Lymphocytes % (A) 13 %; MCH 27.9 pg (25.0-35.0); MCHC 31.7 g/dL (31.0-37.0); Mean Platelet Volume 7.8; Monocytes # (A) 0.9 k/uL (0-1.0); Monocytes % (A) 6 %; Neutrophils % (A) 71 %; Platelet Count 303 k/uL (150-450); RBC 5.09 m/uL (4.30-5.90); RDW 12.9 % (11.5-15.5); WBC 14.1 k/uL (3.8-10.6)
[2021-11-06 18:58] LABS: ALT 25 U/L (4-49); AST 22 U/L (17-59); African American GFR (CKD) >90 (>60 ml/min/1.73 sqM); Albumin 4.6 g/dL (3.5-5.0); Alkaline Phosphatase 87 U/L (38-126); Anion Gap 9 mmol/L; Blood Urea Nitrogen 21 mg/dL (9-20); Calcium 9.7 mg/dL (8.4-10.2); Carbon Dioxide 21 mmol/L (22-30); Chloride 107 mmol/L (98-107); Glucose 92 mg/dL (74-99); Magnesium 2.2 mg/dL (1.6-2.3); Non-African American GFR(CKD) >90 (>60 ml/min/1.73 sqM); Potassium 4.7 mmol/L (3.5-5.1); Sodium 137 mmol/L (137-145); Total Bilirubin 0.8 mg/dL (0.2-1.3); Total Protein 7.7 g/dL (6.3-8.2)
[2021-11-06 19:33] VITALS: BP 158/82; PULSE 106; RESP 17
== END 2021-11-06 19:33 | disposition home or self-care (01) ==
LOC: EC 15:15
DX: J45.901 Unspecified asthma with (acute) exacerbation (principal); J20.9 Acute bronchitis, unspecified; Z20.822 Contact with and (suspected) exposure to COVID-19; I10 Essential (primary) hypertension; K21.9 Gastro-esophageal reflux disease without esophagitis; E78.5 Hyperlipidemia, unspecified; F31.9 Bipolar disorder, unspecified; F41.9 Anxiety disorder, unspecified; F20.9 Schizophrenia, unspecified; Z79.899 Other long term (current) drug therapy
CPT/HCPCS: 36415; 94640; 83880; 80053; 83735; 84484; 85025; 87502; 87635; 71046; 99285; 96374; J2930

== ENCOUNTER 2022-03-12 18:05 | Emergency (ER) | payer OTHER, MEDICARE ==
[2022-03-12 19:12] VITALS: TEMP 97.6
--- NOTE | 2022-03-12 22:09 | US ---
EXAMINATION TYPE: US scrotum with doppler. Grayscale and color Doppler Duplex imaging performed of t janay scrotum. DATE OF EXAM: 03/12/2022 COMPARISON: NONE CLINICAL HISTORY: right testicular pain. EXAM MEASUREMENTS: TESTICLES: Right epididymal: 1.1 cm left epididymis: 1.2 cm EPIDIDYMIS HEAD: Right testicle: 5.5 x 2.3 x 3.7 cm Left testicle: 5.1 x 2.6 x 3.0 cm Doppler performed to assess for testicular vascularity; good bilateral color flow and waveforms are s een. There is no evidence of testicular torsion. Right hydrocele measuring 5.8 x 1.0 x 2.5cm Presence of varicoceles: no IMPRESSION: There is moderate right-sided hydrocele. No testicular torsion or mass.
--- NOTE | 2022-03-13 01:23 | ED ---
Male Urogenital HPI - General Chief complaint: Urogenital Stated complaint: IHS - hernia Time Seen by Provider: 03/13/22 01:18 Source: patient, RN notes reviewed, old records reviewed Mode of arrival: ambulatory Limitations: no limitations - History of Present Illness Initial comments: This is a 46-year-old male complaining with right groin pain right inguinal pain. States she has history of inguinal hernia coming with right-sided abdominal pain currently concern for worsening of hernia. Pain was increased for reaching upwards on a counter for something on a shelf. Patient began to have severe pain in his right groin. He does have bowel movements no nausea vomiting no other complaints MD Complaint: testicle pain, testicle swelling, hernia (Right-sided inguinal) -: hour(s) Location: right testicle, right inguinal region Radiation: none Severity: moderate Severity scale (1-10): 4 Quality: sharp Consistency: constant, intermittent Improves with: none Worsens with: none Reports: denies other symptoms - Related Data Home Medications Medication Instructions Recorded Confirmed lisinopriL [Zestril] 20 mg PO DAILY 09/06/17 02/19/22 ARIPiprazole [Abilify Maintena] 400 mg IM Q28D 11/08/18 02/19/22 Benztropine Mesylate [Cogentin] 1 mg PO DAILY 11/08/18 02/19/22 Escitalopram [Lexapro] 10 mg PO DAILY 11/08/18 02/19/22 Simvastatin 5 mg PO HS 11/08/18 02/19/22 [place] Carbonate 300 mg PO DAILY 05/07/20 02/19/22 Albuterol Sulfate [Ventolin HFA] 2 puff INHALATION RT-Q6H PRN 02/19/22 02/19/22 Allergies Allergy/AdvReac Type Severity Reaction Status Date / Time haloperidol [From Haldol] AdvReac Stroke-like Verified 02/19/22 09:21 symptoms Review of Systems ROS Statement: Those systems with pertinent positive or pertinent negative responses have been documented in the HPI. ROS Other: All systems not noted in ROS Statement are negative. Past Medical History Past Medical History: Asthma, GERD/Reflux, Hyperlipidemia, Hypertension Additional Past Medical History / Comment(s): Tourette's syndrome, seasonal ALLERGIES, dyskenisia History of Any Multi-Drug Resistant Organisms: None Reported Past Surgical History: Hernia Repair, Tonsillectomy Past Anesthesia/Blood Transfusion Reactions: No Reported Reaction Past Psychological History: Anxiety, Bipolar, Depression, Panic Disorder, Schizophrenia Smoking Status: Never smoker Past Alcohol Use History: None Reported Past Drug Use History: None Reported - Past Family History Father Family Medical History: No Reported History Additional Family Medical History / Comment(s): He is 61 years of age. Patient has had no contact with him and 20 years Mother Additional Family Medical History / Comment(s): Mother at age 63 from sepsis. Sister(s) Family Medical History: No Reported History Additional Family Medical History / Comment(s): He has 2 sisters with no major medical problems. General Exam Limitations: no limitations General appearance: alert, in no apparent distress Head exam: Present: atraumatic, normocephalic, normal inspection Eye exam: Present: normal appearance, PERRL, EOMI. Absent: scleral icterus, conjunctival injection, periorbital swelling ENT exam: Present: normal exam, mucous membranes moist Neck exam: Present: normal inspection. Absent: tenderness, meningismus, lymphadenopathy Respiratory exam: Present: normal lung sounds bilaterally. Absent: respiratory distress, wheezes, rales, rhonchi, stridor Cardiovascular Exam: Present: regular rate, normal rhythm, normal heart sounds. Absent: systolic murmur, diastolic murmur, rubs, gallop, clicks GI/Abdominal exam: Present: soft, normal bowel sounds. Absent: distended, tenderness, guarding, rebound, rigid Extremities exam: Present: normal inspection, full ROM, normal capillary refill. Absent: tenderness, pedal edema, joint swelling, calf tenderness Back exam: Present: normal inspection Neurological exam: Present: alert, oriented X3, CN II-XII intact Psychiatric exam: Present: normal affect, normal mood Skin exam: Present: warm, dry, intact, normal color. Absent: rash Course Vital Signs 03/12/22 19:08 Temperature 97.6 F Pulse Rate 63 Respiratory 16 Rate Blood Pressure 122/77 O2 Sat by Pulse 99 Oximetry - Reevaluation(s) Reevaluation #1: 03/13/22 02:10 Medical records reviewed Reevaluation #2: 03/13/22 02:10 Patient is informed results and questions are answered Reevaluation #3: 03/13/22 02:10 Patient is okay for discharge home Medical Decision Making - Medical Decision Making 46 male DF for evaluation of right inguinal pain. Occurred while reaching for an upper shelf. Patient does have inguinal hernia without incarceration or strangulation will follow up with general surgery - Lab Data Lab Results 03/13/22 Range/Units 01:43 Urine Color Yellow Urine Appearance Clear (Clear) Urine pH 6.0 (5.0-8.0) Ur Specific [place] 1.032 (1.001-1.035) Urine Protein Trace H (Negative) Urine Glucose (UA) Negative (Negative) Urine Ketones Negative (Negative) Urine Blood Negative (Negative) Urine Nitrite Negative (Negative) Urine Bilirubin Negative (Negative) Urine Urobilinogen <2.0 (<2.0) mg/dL Ur Leukocyte Esterase Negative (Negative) - Radiology Data Radiology results: report reviewed (CT head and pelvis right-sided scrotal ultrasound does show right-sided inguinal hernia), image reviewed Disposition Clinical Impression: Right inguinal hernia, Abdominal pain Disposition: HOME SELF-CARE Instructions (If sedation given, give patient instructions): Inguinal Hernia (ED) Is patient prescribed a controlled substance at d/c from ED?: No Referrals: Sharyn Fonseca MD [Primary Care Provider] - 1-2 days Mary Mcguire MD [STAFF PHYSICIAN] - 1-2 days Time of Disposition: 02:10
[2022-03-13 01:51] LABS: Appearance,Urine Clear (Clear); Bilirubin,Urine Negative (Negative); Blood,Urine Negative (Negative); Color,Urine Yellow; Glucose,Urine (UA) Negative (Negative); Ketones,Urine Negative (Negative); Leukocyte Esterase,Urine Negative (Negative); Nitrite,Urine Negative (Negative); Protein,Urine Trace (Negative); Specific Gravity,Urine 1.032 (1.001-1.035); Urobilinogen,Urine <2.0 mg/dL (<2.0)
--- NOTE | 2022-03-13 01:59 | CT ---
EXAMINATION TYPE: CT pelvis wo con DATE OF EXAM: 03/13/2022 COMPARISON: 01/14/2021 HISTORY: hernia CT DLP: 762.7 mGycm Automated exposure control for dose reduction was used. Images obtained from the iliac crest to the subtrochanteric femurs without contrast. There is no free fluid in the pelvis. Bladder is almost empty. No evidence of pelvic mass. There is a small fat-containing left inguinal hernia with no evidence of herniated bowel. The bony pelvis is intact. The proximal femurs and hip joints are intact. Lower lumbar spine is intac t. No compression fracture. IMPRESSION: Small left-sided fat-containing inguinal hernia. No change compared to old exam. No pelvic mass.
[2022-03-13 02:19] VITALS: BP 141/66; PULSE 58; RESP 18
== END 2022-03-13 02:22 | disposition home or self-care (01) ==
LOC: EC 18:05
DX: K40.90 Unilateral inguinal hernia, without obstruction or gangrene, not specified as recurrent (principal); J45.909 Unspecified asthma, uncomplicated; E78.5 Hyperlipidemia, unspecified; I10 Essential (primary) hypertension; Z88.8 Allergy status to other drugs, medicaments and biological substances
CPT/HCPCS: 72192; 76870; 81003; 87491; 87591; 93975; 99284

== ENCOUNTER 2022-04-22 10:29 | Day surgery (SDC) | payer MEDICARE, OTHER ==
[2022-04-21 08:56] VITALS: BMI 37.5
--- NOTE | 2022-04-22 08:29 | P.GSHP ---
History of Present Illness H&P Date: 04/22/22 CHIEF COMPLAINT: Inguinal hernia, bilateral HISTORY OF PRESENT ILLNESS: The patient is a 46-year-old male who presents with a history of swelling and pain along the groins. He's noted increased swelling including pain of the area. Now he presents for repair of his inguinal hernia. PAST MEDICAL HISTORY: Please see list. PAST SURGICAL HISTORY: Please see list. MEDICATIONS: Please see list. ALLERGIES: Please see list. SOCIAL HISTORY: No illicit drug use FAMILY HISTORY: No reports of Crohn disease or ulcerative colitis. REVIEW OF ORGAN SYSTEMS: CONSTITUTIONAL: No reports of fevers or chills. No reports of weight loss despite prior attempts. GI: Denies any blood in stools or constipation. PHYSICAL EXAM: VITAL SIGNS: Stable GENERAL: Well-developed pleasant male in no acute distress. HEENT: No scleral icterus. Extraocular movements grossly intact. Moist buccal mucosa. NECK: Supple without lymphadenopathy. CHEST: Unlabored respirations. Equal bilateral excursions. CARDIOVASCULAR: Regular rate and rhythm. Distal 2+ pulses. ABDOMEN: Soft, nondistended. No peritoneal signs. Palpable defect of the groin MUSCULOSKELETAL: No clubbing, cyanosis, or edema. ASSESSMENT: 1. Inguinal hernia, bilateral PLAN: 1. Recommend proceeding with a robotic inguinal repair with mesh with bilateral approach. 2. Benefits and risks of surgical intervention was discussed including possibility of open technique. 3. DVT prophylaxis. 4. Antibiotic prophylaxis. 5. Non narcotic pain management including abdominal wall block described 6. Blood sugar glucose described. 7. Weight loss management described. Past Medical History Past Medical History: Asthma, GERD/Reflux, Hyperlipidemia, Hypertension, Sleep Apnea/CPAP/BIPAP Additional Past Medical History / Comment(s): Tourette's syndrome, seasonal Al lergies, dyskenisia, sleep apnea- no machine., carlos a inguinal hernias History of Any Multi-Drug Resistant Organisms: None Reported Past Surgical History: Hernia Repair, Tonsillectomy Additional Past Surgical History / Comment(s): states hernia right testicle Past Anesthesia/Blood Transfusion Reactions: No Reported Reaction Additional Past Anesthesia/Blood Transfusion Reaction / Comment(s): difficulty waking. Past Psychological History: Anxiety, Bipolar, Depression, Panic Disorder, Schizophrenia Additional Psychological History / Comment(s): . Smoking Status: Never smoker Past Alcohol Use History: None Reported Additional Past Alcohol Use History / Comment(s): . Past Drug Use History: None Reported - Past Family History Father Family Medical History: No Reported History Additional Family Medical History / Comment(s): He is 61 years of age. Patient has had no contact with him and 20 years Mother Additional Family Medical History / Comment(s): Mother at age 63 from sepsis. Sister(s) Family Medical History: No Reported History Additional Family Medical History / Comment(s): He has 2 sisters with no major medical problems. Medications and Allergies Home Medications Medication Instructions Recorded Confirmed Type lisinopriL [Zestril] 20 mg PO HS 09/06/17 04/21/22 History ARIPiprazole [Abilify Maintena] 400 mg IM Q28D 11/08/18 04/21/22 History Benztropine Mesylate [Cogentin] 1 mg PO DAILY 11/08/18 04/21/22 History Escitalopram [Lexapro] 10 mg PO DAILY 11/08/18 04/21/22 History Simvastatin 5 mg PO HS 11/08/18 04/21/22 History [place] Carbonate 300 mg PO DAILY 05/07/20 04/21/22 History Albuterol Sulfate [Ventolin HFA] 2 puff INHALATION RT-Q6H PRN 02/19/22 04/21/22 History Ibuprofen [Motrin Ib] 800 mg PO DIRECTED PRN 04/21/22 04/21/22 History Omeprazole 20 mg PO [id number] 04/21/22 04/21/22 History Singulair (Unknown Dose) 1 tab PO DAILY 04/21/22 History Allergies Allergy/AdvReac Type Severity Reaction Status Date / Time haloperidol [From Haldol] AdvReac Stroke-like Verified 04/21/22 08:29 symptoms
[~2022-04-22 10:29] MED LIST changes: +ACETAMINOPHEN TAB 500 MG TAB PO STA; +DEXAMETHASONE SOD PHOSPHATE 4 MG/ML 1 ML VIAL IV ONE; +GABAPENTIN 300 MG CAP PO STA; +HEPARIN SODIUM,PORCINE/PF 5,000 UNIT/0.5 ML SYRINGE SQ PRN; +HYDROmorphone 0.5 MG/0.5 ML SYRINGE IVP PRN; -LACTATED RINGERS 1,000 ML IV SCH; -LIDOCAINE 1% (10MG/ML) FOR IV START INTRADERMA ONE; -LIDOCAINE 1% INJ 10MG/ML (20 ML MDV) ONE; +MELOXICAM 7.5 MG TAB PO SCH; -MIDAZOLAM 2 MG/2 ML VIAL ONE; +ONDANSETRON 4 MG/2 ML VIAL IVP ONE; -PROPOFOL 10 MG/ML 20 ML VIAL IV ONE; +ceFAZolin 3 GM in SODIUM CHLORIDE 0.9% 100 ML IVPB PRN; -fentaNYL (PF) 50 MCG/ML 2 ML AMP ONE
[2022-04-22] MEDS: LACTATED RINGERS 1,000 ML IV SCH ×3 (12:13→18:26)
[2022-04-22] MEDS: TAMSULOSIN 0.4 MG CAP.ER.24H PO STA ×2 (12:14→18:01)
[2022-04-22 12:32] LABS: Glucose,Whole Blood 88 mg/dL (70-110)
[2022-04-22] MEDS ORDERED: fentaNYL (PF) 50 MCG/1 ML VIAL IVP ONE (12:57)
[2022-04-22] MEDS ORDERED: MIDAZOLAM 2 MG/2 ML VIAL IVP ONE (12:57)
[2022-04-22] MEDS ORDERED: PROPOFOL 10 MG/ML 20 ML VIAL IV ONE (13:07)
[2022-04-22] MEDS ORDERED: SUCCINYLCHOLINE CHLORIDE 200 MG/10 ML VIAL IV ONE (13:07)
[2022-04-22] MEDS ORDERED: SODIUM CHLORIDE 0.9% (PF) 10 ML VIAL ONE (13:07)
[2022-04-22] MEDS ORDERED: NEOSTIGMINE 1 MG/ML 10 ML VIAL ONE (13:07)
[2022-04-22] MEDS ORDERED: ePHEDrine 50 MG/ML 1 ML VIAL ONE (13:07)
[2022-04-22] MEDS ORDERED: LIDOCAINE 2% INJ 20 MG/ML (2 ML VIAL) ONE (13:07)
[2022-04-22] MEDS ORDERED: GLYCOPYRROLATE 0.2 MG/ML 2 ML VIAL ONE (13:07)
[2022-04-22] MEDS ORDERED: ROCURONIUM 10 MG/ML (5 ML VIAL) IV ONE (13:07)
[2022-04-22] MEDS ORDERED: ROPIVACAINE 5 MG/ML 30 ML VIAL ONE (13:07)
[2022-04-22] MEDS ORDERED: fentaNYL (PF) 50 MCG/ML 2 ML AMP ONE (13:07)
[2022-04-22] MEDS ORDERED: PHENYLEPHRINE-0.9% NACL SYG 1,000 MCG/10 ML SYRINGE ONE (13:07)
[2022-04-22 13:30] LABS: Basophils # (A) 0.1 k/uL (0-0.2); Basophils % (A) 1 %; Eosinophils # (A) 0.4 k/uL (0-0.7); Eosinophils % (A) 6 %; HCT 42.4 % (39.0-53.0); HGB 14.6 gm/dL (13.0-17.5); Lymphocytes # (A) 1.7 k/uL (1.0-4.8); Lymphocytes % (A) 23 %; MCH 29.9 pg (25.0-35.0); MCHC 34.3 g/dL (31.0-37.0); MCV 86.9 fL (80.0-100.0); Mean Platelet Volume 8.5; Monocytes # (A) 0.6 k/uL (0-1.0); Monocytes % (A) 7 %; Neutrophils # (A) 4.8 k/uL (1.3-7.7); Neutrophils % (A) 62 %; Platelet Count 252 k/uL (150-450); RBC 4.88 m/uL (4.30-5.90); RDW 12.5 % (11.5-15.5); WBC 7.8 k/uL (3.8-10.6)
--- NOTE | 2022-04-22 13:30 | P.ANPRN ---
Procedure Note - Anesthesia - Nerve Block Performed Bilateral Transversus Abdominis Single Time Out Performed: Yes ([id number]) Date of Procedure: 04/22/22 Procedure Start Time: 12:56 Location of Patient: PreOp Indication: Acute Post-Operative Pain, Requested by Surgeon Sedation Type: Sedate with meaningful contact maintained Preparation: Sterile Prep, Sterile Dressing Position: Supine Catheter: None Needle Types: [place] Needle Gauge: 21 Ultrasound used to visualize needle placement: Yes Ultrasound used to observe medication spread: Yes Injectate: 0.5% Ropivacaine (see comment for volume) (20 mL of block solution on each side. The block solution containing 20 mL of 0.5% ropivacaine mixed with 20 mL of preservative-free normal saline.) Blood Aspirated: No Pain Paresthesia on Injection Noted: No Resistance on Injection: Normal Image Stored and Saved: Yes Events: Uneventful and Well Tolerated
[2022-04-22] MEDS ORDERED: LIDOCAINE 1%-EPI 1:100,000 20 ML VIAL SQ ONE ×2 (13:31→13:41)
[2022-04-22 13:39] LABS: ALT 26 U/L (4-49); AST 28 U/L (17-59); African American GFR (CKD) >90 (>60 ml/min/1.73 sqM); Albumin 4.5 g/dL (3.5-5.0); Alkaline Phosphatase 73 U/L (38-126); Anion Gap 10 mmol/L; Blood Urea Nitrogen 17 mg/dL (9-20); Calcium 9.6 mg/dL (8.4-10.2); Carbon Dioxide 22 mmol/L (22-30); Chloride 104 mmol/L (98-107); Glucose 97 mg/dL (74-99); Non-African American GFR(CKD) >90 (>60 ml/min/1.73 sqM); Sodium 136 mmol/L (137-145); Total Bilirubin 1.1 mg/dL (0.2-1.3); Total Protein 7.5 g/dL (6.3-8.2)
[2022-04-22 13:48] LABS: Potassium 4.6 mmol/L (3.5-5.1)
[2022-04-22] MEDS ORDERED: LACTATED RINGERS 1,000 ML IV ONE ×2 (14:04→16:03)
[2022-04-22 15:15] VITALS: TEMP 99.1
[2022-04-22] MEDS ORDERED: ONDANSETRON 4 MG/2 ML VIAL IVP ONE (15:20)
--- NOTE | 2022-04-22 17:24 | P.OP ---
Date of Procedure: 04/22/22 Description of Procedure: SURGEON: MARY MCGUIRE MD PREOPERATIVE DIAGNOSES: 1. Recurrent right inguinal hernia. 2. Initial left inguinal hernia 3. Morbid obesity due to excess calories 4. Body mass index 37.8 5. Hypertensive heart disease 6. Chronic obstructive pulmonary disease 7. Depressive disorder 8. Hyperlipidemia 9. Gastroesophageal reflux disease 10. Obstructive sleep apnea 11. Generalized anxiety disorder 12. Schizophrenia 13. Bipolar disorder 14. Tourette syndrome POSTOPERATIVE DIAGNOSES: 1. Right inguinal pain 2. Initial left inguinal hernia, indirect with incarceration 3. Morbid obesity due to excess calories 4. Body mass index 37.8 5. Hypertensive heart disease 6. Chronic obstructive pulmonary disease 7. Depressive disorder 8. Hyperlipidemia 9. Gastroesophageal reflux disease 10. Obstructive sleep apnea 11. Generalized anxiety disorder 12. Schizophrenia 13. Bipolar disorder 14. Tourette syndrome OPERATION: 1. Robotic-assisted da Stevan Xi laparoscopic exploration and repair repair of recurrent right indirect inguinal hernia with mesh, 11.[address] 2. Robotic-assisted da Stevan Xi laparoscopic repair of initial incarcerated left direct inguinal hernia with mesh, 11.[address] ANESTHESIA: General with local anesthetic ESTIMATED BLOOD LOSS: 5 mL. SPECIMENS: 1. Left inguinal hernia sac COMPLICATIONS: None. FINDINGS: 1. Incarcerated left inguinal hernia, sigmoid colon 2. Unremarkable exploration right groin INDICATIONS: The patient is a 46-year-old gentleman who presents with history of prior repair of right inguinal hernia and new left inguinal hernia. Now presents for definitive surgical intervention. Laparoscopic versus open and robotic approaches were discussed. Benefits and risks including bleeding, infection, injury to the vas deferens as well as sterility and chronic groin pain were reviewed. Placement of mesh was also described. Informed consent was obtained. DESCRIPTION: In the preoperative area, the patient was marked with indelible marker along the inguinal hernia. The patient was brought to the operating room and initially laid in supine position. The abdomen had been prepped and draped in standard sterile fashion. Ioban draping was also placed. Prior to incision, a timeout protocol was confirmed with surgical team regarding patient's name including procedures to be performed and location along the right groin. Initial positioning for the robotic assisted ports were selected whereby 20 cm superior to the target anatomy, 0 degree 5 mm laparoscopic trocar entry was performed at the left upper quadrant. The abdomen was insufflated to 15 mmHg which he had tolerated well. Diagnostic laparoscopy demonstrated no injury to bowel, viscera or mesentery. A defect along the left groin with incarcerated sigmoid colon was identified, indirect type. Right groin demonstrated no obvious defect. Next, along the epigastrium, 8 mm robot trocar was placed. An 8-mm robotic trocar was placed under direct visualization at the right upper quadrant. An 8 mm port was placed at the left upper quadrant. All trocars were positioned between 10-cm apart from each other. A 12 mm trocar was placed on the right upper abdomen for exchange of mesh and suture. The WaveMAX XI robot was primed, draped, prepared for docking along upper abdomen of the patient. The patient was positioned 14 steep Trendelenburg position I then went to the WaveMAX Xi console. The music library assistant was at bedside for exchange of the robot arms and equipment. The left groin had incarcerated sigmoid colon which was dissected free from surrounding tissue and reduced from the left inguinal hernia. The left indirect inguinal hernia sac was evaginated whereby the peritoneum was scored using Endo scissors with cautery. Once completely reduced into the abdominal cavity, the peritoneal sac of the hernia was stripped. The sac was resected and then passed off for further pathological analysis. The size of the hernia defect was 3 cm with intraoperative films obtained. Using a absorbable 2-0 VLOC, the peritoneal defect of the left inguinal hernia sites was closed using a pursestring suture separately. The defect was found to be completely closed with complete reduction of the left indirect inguinal hernia were confirmed. As an onlay, an 11.[address] mesh by Engiver was initially cut in half and entered into the abdominal cavity via the 8 mm trocar. The mesh was tacked to the pelvis using absorbable 2-0 VLOC 12-inch length sutures. Next, careful attention along the right groin demonstrated no obvious defects. Due to right groin pain, the right groin was explored via the right indirect inguinal hernia defect. No lipomas were identified. Using a absorbable 2-0 VLOC, the peritoneal defect of the right inguinal hernia site was closed using a running suture. The defect was found to be completely closed with complete closure of the right indirect inguinal hernia was confirmed. As an onlay, an 11.[address] mesh by Engiver was initially cut in half and entered into the abdominal cavity via the 8 mm trocar. The mesh was tacked to the pelvis using absorbable 2-0 VLOC 12-inch length sutures. The robot was undocked from the patient's bedside. I then rescrubbed into the case. Insufflation was released from the abdominal cavity and all instruments were removed from the abdominal cavity. The rest of incisions were reapproximated using 4-0 Monocryl in a running subcuticular fashion. Local anesthetic was placed along the incision including for a bilateral groin block. Incisions were cleansed using dilute hydrogen peroxide. Liquid glue was applied to the skin. At the end of the procedure, the needle, sponge and instrument counts had been verified correct by the surgical elastic knitter. The patient had tolerated the procedure well and was taken to the postanesthesia care unit in stable condition. Plan - Discharge Summary Discharge Rx Participant: No New Discharge Prescriptions: New Simethicone [Gas-X] 125 mg PO AC-TID PRN #20 capsule PRN Reason: Pain Acetaminophen Tab [Tylenol Tab] 1,000 mg PO Q6HR PRN #30 tablet PRN Reason: Pain Ibuprofen 800 mg PO Q8H PRN #30 tab PRN Reason: Pain Continue lisinopriL [Zestril] 20 mg PO HS Simvastatin 5 mg PO HS Escitalopram [Lexapro] 10 mg PO DAILY Benztropine Mesylate [Cogentin] 1 mg PO DAILY ARIPiprazole [Abilify Maintena] 400 mg IM Q28D [place] Carbonate 300 mg PO DAILY Albuterol Sulfate [Ventolin HFA] 2 puff INHALATION RT-Q6H PRN PRN Reason: Shortness Of Breath Singulair (Unknown Dose) 1 tab PO DAILY Omeprazole 20 mg PO AC-BRKFST Discontinued Ibuprofen [Motrin Ib] 800 mg PO DIRECTED PRN PRN Reason: Pain Discharge Medication List lisinopriL [Zestril] 20 mg PO HS 09/06/17 [History] ARIPiprazole [Abilify Maintena] 400 mg IM Q28D 11/08/18 [History] Benztropine Mesylate [Cogentin] 1 mg PO DAILY 11/08/18 [History] Escitalopram [Lexapro] 10 mg PO DAILY 11/08/18 [History] Simvastatin 5 mg PO HS 11/08/18 [History] [place] Carbonate 300 mg PO DAILY 05/07/20 [History] Albuterol Sulfate [Ventolin HFA] 2 puff INHALATION RT-Q6H PRN 02/19/22 [History] Omeprazole 20 mg PO AC-BRKFST 04/21/22 [History] Singulair (Unknown Dose) 1 tab PO DAILY 04/21/22 [History] Acetaminophen Tab [Tylenol Tab] 1,000 mg PO Q6HR PRN #30 tablet 04/22/22 [Rx] Ibuprofen 800 mg PO Q8H PRN #30 tab 04/22/22 [Rx] Simethicone [Gas-X] 125 mg PO AC-TID PRN #20 capsule 04/22/22 [Rx] Follow up Appointment(s)/Referral(s): Mary Mcguire MD [STAFF PHYSICIAN] - 05/04/22 (Telehealth) Patient Instructions/Handouts: *Surgery [facility] - (Anesthesia) Discharge Instructions Outpatient Surgery, Laparoscopic Herniorrhaphy (DC), Inguinal Hernia (DC) Activity/Diet/Wound Care/Special Instructions: No lifting for 4 pounds in 4 weeks, May 23 Using antibacterial soap. May shower. No bathtub soaks for 2 weeks, May 06 Use ice along incisions for today to prevent swelling. Discharge Disposition: HOME SELF-CARE
[2022-04-22 17:39] VITALS: BP 120/72; PULSE 66; RESP 20
== END 2022-04-22 18:27 | disposition home or self-care (01) ==
LOC: OR 10:29
PROVIDERS: ATTEND Surgery Plastic and Reconstructive Surgery
DX: K40.90 Unilateral inguinal hernia, without obstruction or gangrene, not specified as recurrent (principal); K40.91 Unilateral inguinal hernia, without obstruction or gangrene, recurrent; E66.01 Morbid (severe) obesity due to excess calories; I11.0 Hypertensive heart disease with heart failure; I50.9 Heart failure, unspecified; J44.9 Chronic obstructive pulmonary disease, unspecified; E78.5 Hyperlipidemia, unspecified; K21.9 Gastro-esophageal reflux disease without esophagitis; G47.33 Obstructive sleep apnea (adult) (pediatric); F41.1 Generalized anxiety disorder; F20.9 Schizophrenia, unspecified; F31.9 Bipolar disorder, unspecified; F95.2 Tourette's disorder; G47.30 Sleep apnea, unspecified; Z68.37 Body mass index [BMI] 37.0-37.9, adult; Z98.890 Other specified postprocedural states; Z90.89 Acquired absence of other organs; Z79.899 Other long term (current) drug therapy; Z79.51 Long term (current) use of inhaled steroids; Z88.8 Allergy status to other drugs, medicaments and biological substances
CPT/HCPCS: 64488; 80053; 85025; 49651; 49650; C1781; J2250; J0330; J1100; J2710; J0690; J2405; J3010; J2795; J2370; J2704; J1644; J2001

== ENCOUNTER 2022-04-22 19:40 | Emergency (ER) | payer MEDICARE, OTHER ==
[2022-04-22 20:04] VITALS: BP 121/77; PULSE 80; RESP 16; TEMP 97.5
--- NOTE | 2022-04-22 20:15 | ED ---
Male Urogenital HPI - General Chief complaint: Urogenital Stated complaint: Post-Op Complications Time Seen by Provider: 04/22/22 20:05 Source: patient Mode of arrival: wheelchair Limitations: no limitations - History of Present Illness Initial comments: Patient is a 46-year-old male who presents to the emergency department with chief complaint of inability urinate. Patient had bilateral inguinal hernia surgery today performed by Dr. Mcguire. Patient states after procedure he was unable to urinate. Patient states he was given fluids and was drinking water however did not urinate after the hospital. Patient was discharged with instruction to report to the emergency department if he continued to have trouble urinating. Patient does not have history of urinary retention or other urinary issues. He denies fever, chills, abdominal pain. - Related Data Home Medications Medication Instructions Recorded Confirmed lisinopriL [Zestril] 20 mg PO HS 09/06/17 04/22/22 ARIPiprazole [Abilify Maintena] 400 mg IM Q28D 11/08/18 04/22/22 Benztropine Mesylate [Cogentin] 1 mg PO DAILY 11/08/18 04/22/22 Escitalopram [Lexapro] 10 mg PO DAILY 11/08/18 04/22/22 Simvastatin 5 mg PO HS 11/08/18 04/22/22 [place] Carbonate 300 mg PO DAILY 05/07/20 04/22/22 Albuterol Sulfate [Ventolin HFA] 2 puff INHALATION RT-Q6H PRN 02/19/22 04/22/22 Omeprazole 20 mg PO AC-BRKFST 04/21/22 04/22/22 Singulair (Unknown Dose) 1 tab PO DAILY 04/21/22 04/22/22 Previous Rx's Medication Instructions Recorded Acetaminophen Tab [Tylenol Tab] 1,000 mg PO Q6HR PRN #30 tablet 04/22/22 Ibuprofen 800 mg PO Q8H PRN #30 tab 04/22/22 Simethicone [Gas-X] 125 mg PO AC-TID PRN #20 capsule 04/22/22 Tamsulosin [Flomax] 0.4 mg PO DAILY #7 cap 04/22/22 Allergies Allergy/AdvReac Type Severity Reaction Status Date / Time haloperidol [From Haldol] AdvReac Stroke-like Verified 04/22/22 12:06 symptoms Review of Systems ROS Statement: Those systems with pertinent positive or pertinent negative responses have been documented in the HPI. ROS Other: All systems not noted in ROS Statement are negative. Past Medical History Past Medical History: Asthma, GERD/Reflux, Hyperlipidemia, Hypertension, Sleep Apnea/CPAP/BIPAP Additional Past Medical History / Comment(s): Tourette's syndrome, seasonal Allergies, dyskenisia, sleep apnea- no machine., carlos a inguinal hernias History of Any Multi-Drug Resistant Organisms: None Reported Past Surgical History: Hernia Repair, Tonsillectomy Additional Past Surgical History / Comment(s): states hernia right testicle Past Anesthesia/Blood Transfusion Reactions: No Reported Reaction Additional Past Anesthesia/Blood Transfusion Reaction / Comment(s): difficulty waking. Past Psychological History: Anxiety, Bipolar, Depression, Panic Disorder, Schizophrenia Smoking Status: Never smoker Past Alcohol Use History: None Reported Past Drug Use History: None Reported - Past Family History Father Family Medical History: No Reported History Additional Family Medical History / Comment(s): He is 61 years of age. Patient has had no contact with him and 20 years Mother Additional Family Medical History / Comment(s): Mother at age 63 from sepsi s. Sister(s) Family Medical History: No Reported History Additional Family Medical History / Comment(s): He has 2 sisters with no major medical problems. General Exam Limitations: no limitations General appearance: alert Head exam: Present: atraumatic, normocephalic, normal inspection Respiratory exam: Present: normal lung sounds bilaterally. Absent: respiratory distress, wheezes, rales, rhonchi, stridor Cardiovascular Exam: Present: regular rate, normal rhythm, normal heart sounds. Absent: systolic murmur, diastolic murmur, rubs, gallop, clicks GI/Abdominal exam: Present: soft, tenderness (suprapubic ), normal bowel sounds, other (Surgical wounds present which look normal for recent surgery today). Absent: distended, guarding, rebound, rigid Neurological exam: Present: alert, oriented X3, CN II-XII intact Psychiatric exam: Present: normal affect, normal mood Course Vital Signs 04/22/22 20:01 Temperature 97.5 F L Pulse Rate 80 Respiratory 16 Rate Blood Pressure 121/77 O2 Sat by Pulse 97 Oximetry Medical Decision Making - Medical Decision Making This is a 46-year-old male presenting with urinary retention after bilateral inguinal hernia surgery today. Bladder scanner shows 900 mL of urine. Patient and discuss straight cath vs su catheter with urology follow up. Patient would like straight cath. He is aware that he may have further issues with urinary retention. Return parameters discussed. The bladder was drained with approx 850 mL output. Patient feeling relief and will be discharged home. Dr. Lopes is my attending. Disposition Clinical Impression: Urinary retention Disposition: HOME SELF-CARE Condition: Good Instructions (If sedation given, give patient instructions): Urinary Retention in Men (ED) Additional Instructions: Follow-up with primary care provider in one to 2 days. Return to emergency department if you experience further urinary retention or other new, concerning, or worsening symptoms. Is patient prescribed a controlled substance at d/c from ED?: No Referrals: Sharyn Fonseca MD [Primary Care Provider] - 1-2 days Time of Disposition: 20:15
== END 2022-04-22 20:41 | disposition home or self-care (01) ==
LOC: EC 19:40
DX: R33.9 Retention of urine, unspecified (principal); J45.909 Unspecified asthma, uncomplicated; K21.9 Gastro-esophageal reflux disease without esophagitis; E78.5 Hyperlipidemia, unspecified; I10 Essential (primary) hypertension; F41.9 Anxiety disorder, unspecified; F31.9 Bipolar disorder, unspecified; Z88.8 Allergy status to other drugs, medicaments and biological substances; Z79.899 Other long term (current) drug therapy; Z79.51 Long term (current) use of inhaled steroids
CPT/HCPCS: 99283

== ENCOUNTER 2022-04-24 01:34 | Emergency (ER) | payer MEDICARE, OTHER ==
[2022-04-24 01:43] VITALS: TEMP 98.2
--- NOTE | 2022-04-24 02:10 | XR ---
EXAMINATION TYPE: XR KUB DATE OF EXAM: 04/24/2022 COMPARISON: NONE HISTORY: Constipation. Hernia surgery. TECHNIQUE: 2 views upright FINDINGS: There is no sign of intestinal obstruction or pneumoperitoneum. Fecal pattern is normal. No evidence of a mass. There are no pathologic calcifications over the kidneys. Lung bases are clear. IMPRESSION: Nonacute abdomen.
[2022-04-24] MEDS ORDERED: SODIUM CHLORIDE 0.9% 1,000 ML IV STA (02:20)
[2022-04-24] MEDS ORDERED: KETOROLAC 15 MG/ML 1 ML VIAL IVP STA (02:20)
--- NOTE | 2022-04-24 02:31 | ED ---
General Adult HPI - General Chief complaint: Abdominal Pain Stated complaint: Post-Op complications, Constipation Time Seen by Provider: 04/24/22 02:05 Source: patient, RN notes reviewed Mode of arrival: ambulatory Limitations: no limitations - History of Present Illness Initial comments: 46-year-old male presents to the emergency department for evaluation of lower abdominal pain he attributes to constipation. Patient states he had a hernia surgery on 04/22/2022 and has not had a bowel movement since. Patient states he has been taking Tylenol and Motrin for postop pain. Has not taken any thing to treat his constipation symptoms. No aggravating or alleviating factors. Tolerating oral intake without difficulty. Passing gas. Has been applying ice to incision sites. Denies fever, chills, headache, dizziness, chest pain, shortness of breath, nausea, vomiting, diarrhea, dysuria, or hematuria. - Related Data Home Medications Medication Instructions Recorded Confirmed lisinopriL [Zestril] 20 mg PO HS 09/06/17 04/22/22 ARIPiprazole [Abilify Maintena] 400 mg IM Q28D 11/08/18 04/22/22 Benztropine Mesylate [Cogentin] 1 mg PO DAILY 11/08/18 04/22/22 Escitalopram [Lexapro] 10 mg PO DAILY 11/08/18 04/22/22 Simvastatin 5 mg PO HS 11/08/18 04/22/22 [place] Carbonate 300 mg PO DAILY 05/07/20 04/22/22 Albuterol Sulfate [Ventolin HFA] 2 puff INHALATION RT-Q6H PRN 02/19/22 04/22/22 Omeprazole 20 mg PO AC-BRKFST 04/21/22 04/22/22 Singulair (Unknown Dose) 1 tab PO DAILY 04/21/22 04/22/22 Previous Rx's Medication Instructions Recorded Acetaminophen Tab [Tylenol Tab] 1,000 mg PO Q6HR PRN #30 tablet 04/22/22 Ibuprofen 800 mg PO Q8H PRN #30 tab 04/22/22 Simethicone [Gas-X] 125 mg PO AC-TID PRN #20 capsule 04/22/22 Tamsulosin [Flomax] 0.4 mg PO DAILY #7 cap 04/22/22 Allergies Allergy/AdvReac Type Severity Reaction Status Date / Time haloperidol [From Haldol] AdvReac Stroke-like Verified 04/24/22 01:41 symptoms Review of Systems ROS Statement: Those systems with pertinent positive or pertinent negative responses have been documented in the HPI. ROS Other: All systems not noted in ROS Statement are negative. Past Medical History Past Medical History: Asthma, GERD/Reflux, Hyperlipidemia, Hypertension, Sleep Apnea/CPAP/BIPAP Additional Past Medical History / Comment(s): Tourette's syndrome, seasonal Allergies, dyskenisia, sleep apnea- no machine., carlos a inguinal hernias History of Any Multi-Drug Resistant Organisms: None Reported Past Surgical History: Hernia Repair, Tonsillectomy Additional Past Surgical History / Comment(s): states hernia right testicle Past Anesthesia/Blood Transfusion Reactions: No Reported Reaction Additional Past Anesthesia/Blood Transfusion Reaction / Comment(s): difficulty waking. Past Psychological History: Anxiety, Bipolar, Depression, Panic Disorder, Schizophrenia Smoking Status: Never smoker Past Alcohol Use History: None Reported Past Drug Use History: None Reported - Past Family History Father Family Medical History: No Reported History Additional Family Medical History / Comment(s): He is 61 years of age. Patient has had no contact with him and 20 years Mother Additional Family Medical History / Comment(s): Mother at age 63 from sepsis. Sister(s) Family Medical History: No Reported History Additional Family Medical History / Comment(s): He has 2 sisters with no major medical problems. General Exam Limitations: no limitations (Well-developed, well-nourished male in no acute distress. Initial temperature 98.2, pulse 96, respirations 24, blood pressure 129/79, pulse ox 96% on room air.) General appearance: alert, in no apparent distress ENT exam: Present: normal oropharynx, mucous membranes moist Respiratory exam: Present: normal lung sounds bilaterally. Absent: respiratory distress, wheezes, rales, rhonchi, stridor Cardiovascular Exam: Present: regular rate, normal rhythm, normal heart sounds. Absent: systolic murmur, diastolic murmur, rubs, gallop, clicks GI/Abdominal exam: Present: soft, tenderness (Mild tenderness upon palpation of the lower abdomen), normal bowel sounds, other (Large abdominal habitus. Four laparoscopic incision sites appear to be well-healing. No surrounding erythema or tenderness with palpation.). Absent: distended, guarding, rebound, rigid Back exam: Absent: CVA tenderness (R), CVA tenderness (L) Neurological exam: Present: alert, oriented X3, CN II-XII intact Psychiatric exam: Present: normal affect, normal mood Course Vital Signs 04/24/22 04/24/22 01:41 02:37 Temperature 98.2 F Pulse Rate 96 84 Respiratory 24 Rate Blood Pressure 129/79 O2 Sat by Pulse 96 Oximetry - Reevaluation(s) Reevaluation #1: 04/24/22 03:15 Upon reevaluation, patient reports pain is modestly improved from Toradol. Discussed discharge home with bowel regimen. Patient verbalizes understanding and agrees with this plan. Medical Decision Making - Medical Decision Making This is a pleasant 46-year-old male, status post hernia repair [id number], who presents to the emergency Department with complaints of abdominal discomfort and constipation. Upon exam, patient is well-appearing and in no acute distress. He is able to tolerate oral intake and denies nausea and vomiting. Abdomen is soft with some tenderness upon palpation. Incision sites appear to be well- healing. Patient was given Toradol with improvement. Laboratory studies were obtained. Mild leukocytosis likely reactive to surgery. Labs and x-ray are otherwise unremarkable. Discussed bowel regimen, fluid intake, and increasing activity. Instructed to follow up with surgeon as scheduled. Encouraged to see PCP for recheck next week if needed related to constipation. Return parameters were discussed in detail. Patient verbalizes understanding and agrees with this plan. Attending: Kevin. - Lab Data Result diagrams: 04/24/22 02:27 04/24/22 02:27 Lab Results 04/24/22 04/24/22 Range/Units 02:27 02:27 WBC 13.3 H (3.8-10.6) k/uL RBC 4.54 (4.30-5.90) m/uL Hgb 13.4 (13.0-17.5) gm/dL Hct 39.8 (39.0-53.0) % MCV 87.7 (80.0-100.0) fL MCH 29.6 (25.0-35.0) pg MCHC 33.7 (31.0-37.0) g/dL RDW 12.9 (11.5-15.5) % Plt Count 248 (150-450) k/uL MPV 8.7 Neutrophils % 75 % Lymphocytes % 14 % Monocytes % 7 % Eosinophils % 2 % Basophils % 1 % Neutrophils # 10.0 H (1.3-7.7) k/uL Lymphocytes # 1.8 (1.0-4.8) k/uL Monocytes # 1.0 (0-1.0) k/uL Eosinophils # 0.3 (0-0.7) k/uL Basophils # 0.1 (0-0.2) k/uL Sodium 135 L (137-145) mmol/L Potassium 4.5 (3.5-5.1) mmol/L Chloride 104 (98-107) mmol/L Carbon Dioxide 20 L (22-30) mmol/L Anion Gap 11 mmol/L BUN 16 (9-20) mg/dL Creatinine 0.87 (0.66-1.25) mg/dL Est GFR (CKD-EPI)AfAm >90 (>60 ml/min/1.73 sqM) Est GFR (CKD-EPI)NonAf >90 (>60 ml/min/1.73 sqM) Glucose 133 H (74-99) mg/dL Calcium 8.7 (8.4-10.2) mg/dL Total Bilirubin 0.5 (0.2-1.3) mg/dL AST 21 (17-59) U/L ALT 20 (4-49) U/L Alkaline Phosphatase 70 (38-126) U/L Total Protein 7.2 (6.3-8.2) g/dL Albumin 4.2 (3.5-5.0) g/dL - Radiology Data Radiology results: report reviewed, image reviewed KUB x-ray was obtained. Report was reviewed in its entirety. Impression per Dr. Velásquez is nonacute abdomen. Disposition Clinical Impression: Constipation, Abdominal pain Disposition: HOME SELF-CARE Condition: Stable Instructions (If sedation given, give patient instructions): Constipation (ED) Additional Instructions: Increase your intake of water as able. Include fiber in your diet. Consider Metamucil as a supplement. Take MiraLAX once daily until you have a bowel movement. Consider taking Colace, a stool softener, while taking medicine for pain. Make sure that you remain active and are up walking frequently. Follow-up with your surgeon for a recheck as scheduled. Return to the emergency department with any new, worsening, or concerning symptoms. Is patient prescribed a controlled substance at d/c from ED?: No Referrals: Sharyn Fonseca MD [Primary Care Provider] - 1-2 days Time of Disposition: 03:37
[2022-04-24 03:02] LABS: Basophils # (A) 0.1 k/uL (0-0.2); Basophils % (A) 1 %; Eosinophils # (A) 0.3 k/uL (0-0.7); Eosinophils % (A) 2 %; HCT 39.8 % (39.0-53.0); HGB 13.4 gm/dL (13.0-17.5); Lymphocytes # (A) 1.8 k/uL (1.0-4.8); Lymphocytes % (A) 14 %; MCH 29.6 pg (25.0-35.0); MCHC 33.7 g/dL (31.0-37.0); MCV 87.7 fL (80.0-100.0); Mean Platelet Volume 8.7; Monocytes % (A) 7 %; Neutrophils % (A) 75 %; Platelet Count 248 k/uL (150-450); RBC 4.54 m/uL (4.30-5.90); RDW 12.9 % (11.5-15.5); WBC 13.3 k/uL (3.8-10.6)
[2022-04-24 03:16] LABS: ALT 20 U/L (4-49); AST 21 U/L (17-59); African American GFR (CKD) >90 (>60 ml/min/1.73 sqM); Albumin 4.2 g/dL (3.5-5.0); Alkaline Phosphatase 70 U/L (38-126); Anion Gap 11 mmol/L; Blood Urea Nitrogen 16 mg/dL (9-20); Calcium 8.7 mg/dL (8.4-10.2); Carbon Dioxide 20 mmol/L (22-30); Chloride 104 mmol/L (98-107); Glucose 133 mg/dL (74-99); Non-African American GFR(CKD) >90 (>60 ml/min/1.73 sqM); Potassium 4.5 mmol/L (3.5-5.1); Sodium 135 mmol/L (137-145); Total Bilirubin 0.5 mg/dL (0.2-1.3); Total Protein 7.2 g/dL (6.3-8.2)
[2022-04-24] MEDS ORDERED: MAGNESIUM HYDROXIDE 2,400 MG/10 ML CUP PO STA (03:25)
[2022-04-24 03:38] VITALS: BP 144/85; PULSE 93; RESP 20
== END 2022-04-24 03:37 | disposition home or self-care (01) ==
LOC: EC 01:34
DX: K59.00 Constipation, unspecified (principal); R10.30 Lower abdominal pain, unspecified; J45.909 Unspecified asthma, uncomplicated; K21.9 Gastro-esophageal reflux disease without esophagitis; E78.5 Hyperlipidemia, unspecified; I11.0 Hypertensive heart disease with heart failure; G47.30 Sleep apnea, unspecified; Z88.8 Allergy status to other drugs, medicaments and biological substances; Z79.83 Long term (current) use of bisphosphonates; Z79.51 Long term (current) use of inhaled steroids; Z79.899 Other long term (current) drug therapy
CPT/HCPCS: 36415; 80053; 85025; 74018; 99284; 96374; 96361; J1885

== ENCOUNTER → 2022-09-13 | Outpatient (CLI) | payer MEDICARE, OTHER ==
--- NOTE | 2022-09-13 09:31 | CT ---
EXAMINATION TYPE: CT chest w con DATE OF EXAM: 09/13/2022 COMPARISON: 03/17/2019 CT abdomen and pelvis HISTORY: h/o left lung nodule CT DLP: 624.5 mGycm Automated exposure control for dose reduction was used. TECHNIQUE: CT scan of the chest is performed with IV Contrast, patient injected with 70 mL of Isovue 300. MIP I mages are created on CT scanner and reviewed. 3D reconstructed images are created on an independent w orkstation and reviewed. FINDINGS: LUNGS: The lungs are grossly clear, there is no concerning consolidative pneumonia identified. Ther e is no pleural effusion or pneumothorax seen. The tracheobronchial tree is patent. There is a 2 mm nodule superior segment right lower lobe axial image 31. Subpleural nodule left lower lobe noted on p rior exam not seen with certainty on today's exam. MEDIASTINUM: There are no greater than 1 cm hilar or mediastinal lymph nodes. No pericardial effusi on is seen. Heart size normal. No significant coronary artery calcification. Aorta normal caliber. OTHER: Fatty infiltration of the liver compatible hepatic stenosis. Hypertrophic and degenerative ch anges of the spine. Small hiatal hernia. IMPRESSION: 1. Interval resolution of subpleural nodule left lower lobe. There is a benign-appearing 2 mm nodule right lower lobe. 2. Hepatic steatosis
== END | disposition home or self-care (01) ==
LOC: RADCTMAIN 08:30
PROVIDERS: ATTEND Family Medicine
DX: R91.1 Solitary pulmonary nodule (principal); K76.0 Fatty (change of) liver, not elsewhere classified
CPT/HCPCS: 71260; Q9967

== ENCOUNTER → 2023-04-21 | Outpatient (CLI) | payer MEDICARE, OTHER ==
--- NOTE | 2023-04-21 18:48 | CT ---
EXAMINATION TYPE: CT pelvis w con CT DLP: 2022.30 mGycm, Automated exposure control for dose reduction was used. DATE OF EXAM: 04/21/2023 5:04 PM COMPARISON: 03/13/2022 CLINICAL INDICATION:Male, 47 years old with history of K40.20 BI INGUINAL HERNIA; B/L INGUINAL HERNIA . TECHNIQUE: Axial CT of the ;CT pelvis w con;Sagittal and coronal reformats were created on a [employer] workstation. Contrast used:90ML mL of Isovue 370 with IV Contrast, (none if empty) Oral contrast used: with Oral Contrast (none if empty) FINDINGS: BLADDER: Unremarkable REPRODUCTIVE: Unremarkable. ABDOMEN & PELVIS STOMACH AND BOWEL: No evidence of bowel obstruction. PERITONEUM/RETROPERITONEUM: No evidence of pneumoperitoneum or free fluid. VASCULATURE: No evidence of aortic aneurysm. MUSCULOSKELETAL: No acute osseous abnormalities. Mild disc degeneration changes are present throughou t the thoracolumbar spine. Moderate bilateral L5-S1 and L4-L5 neural foraminal stenosis. LYMPH NODES: No gross evidence for lymphadenopathy. SOFT TISSUE/ABDOMINAL WALL: Bilateral fat-containing inguinal hernias. Left greater than right. Tiny fat-containing umbilical hernia. IMPRESSION: Fat-containing left inguinal hernia into the lesser extent right. Small fat-containing umbilical jose ia.
== END | disposition home or self-care (01) ==
LOC: RADCTMAIN 15:17
PROVIDERS: ATTEND Surgery
DX: K40.20 Bilateral inguinal hernia, without obstruction or gangrene, not specified as recurrent (principal); K42.9 Umbilical hernia without obstruction or gangrene
CPT/HCPCS: 72193; Q9967

== ENCOUNTER 2023-05-16 05:40 | Day surgery (SDC) | payer MEDICARE, OTHER ==
[~2023-05-16 05:40] MED LIST changes: +ACETAMINOPHEN TAB 500 MG TAB PO PRN; -ACETAMINOPHEN TAB 500 MG TAB PO STA; -DEXAMETHASONE SOD PHOSPHATE 4 MG/ML 1 ML VIAL IV ONE; -GABAPENTIN 300 MG CAP PO STA; -HYDROmorphone 0.5 MG/0.5 ML SYRINGE IVP PRN; -MELOXICAM 7.5 MG TAB PO SCH; -ONDANSETRON 4 MG/2 ML VIAL IVP ONE
[2023-05-16] MEDS ORDERED: DEXAMETHASONE SOD PHOSPHATE 4 MG/ML 1 ML VIAL IV ONE (06:12)
[2023-05-16] MEDS ORDERED: LACTATED RINGERS 1,000 ML IV SCH (06:12)
[2023-05-16] MEDS ORDERED: SCOPOLAMINE 1 MG/72 HR PATCH TRANSDERM ONE (06:12)
[2023-05-16] MEDS ORDERED: ONDANSETRON 4 MG/2 ML VIAL IVP ONE (06:12)
[2023-05-16] MEDS ORDERED: MIDAZOLAM 2 MG/2 ML VIAL IV PRN (07:00)
[2023-05-16] MEDS ORDERED: TAMSULOSIN 0.4 MG CAP.ER.24H PO ONE (07:03)
[2023-05-16 07:05] LABS: HCT 42.3 % (39.0-53.0); HGB 14.3 gm/dL (13.0-17.5); MCH 29.8 pg (25.0-35.0); MCHC 33.9 g/dL (31.0-37.0); Mean Platelet Volume 7.8; Platelet Count 258 k/uL (150-450); RBC 4.81 m/uL (4.30-5.90); RDW 12.6 % (11.5-15.5); WBC 8.6 k/uL (3.8-10.6)
[2023-05-16] MEDS ORDERED: fentaNYL (PF) 50 MCG/ML 2 ML AMP IVP ONE (07:14)
[2023-05-16] MEDS ORDERED: MIDAZOLAM 2 MG/2 ML VIAL IVP ONE (07:14)
[2023-05-16] MEDS ORDERED: LIDOCAINE 4% LTA KIT (4 ML) TOPICAL ONE (07:29)
[2023-05-16] MEDS ORDERED: GLYCOPYRROLATE 0.2 MG/ML 2 ML VIAL ONE (07:29)
[2023-05-16] MEDS ORDERED: MIDAZOLAM 2 MG/2 ML VIAL ONE (07:29)
[2023-05-16] MEDS ORDERED: LIDOCAINE 1% INJ 10MG/ML (20 ML MDV) ONE (07:29)
[2023-05-16] MEDS ORDERED: DEXAMETHASONE SOD PHOSPHATE 4 MG/ML 1 ML VIAL ONE (07:29)
[2023-05-16] MEDS ORDERED: ROPIVACAINE 5 MG/ML 30 ML VIAL ONE (07:29)
[2023-05-16] MEDS ORDERED: fentaNYL (PF) 50 MCG/ML 2 ML AMP ONE (07:29)
[2023-05-16] MEDS ORDERED: SODIUM CHLORIDE 0.9% (PF) 10 ML VIAL ONE (07:29)
[2023-05-16] MEDS ORDERED: ROCURONIUM 10 MG/ML (5 ML VIAL) IV ONE (07:29)
[2023-05-16] MEDS ORDERED: NEOSTIGMINE 1 MG/ML 10 ML VIAL ONE (07:29)
[2023-05-16] MEDS ORDERED: SUCCINYLCHOLINE CHLORIDE 200 MG/10 ML VIAL IV ONE (07:29)
[2023-05-16] MEDS ORDERED: PROPOFOL 10 MG/ML 20 ML VIAL IV ONE (07:29)
[2023-05-16] MEDS ORDERED: BUPIVACAINE (PF) 0.25% 30 ML VIAL SQ ONE ×2 (08:05)
--- NOTE | 2023-05-16 08:41 | P.ANPRN ---
Procedure Note - Anesthesia - Nerve Block Performed Bilateral Transversus Abdominis Single Time Out Performed: Yes Date of Procedure: 05/16/23 Procedure Start Time: :13 Procedure Stop Time: : Location of Patient: PreOp Indication: Acute Post-Operative Pain Sedation Type: Sedate with meaningful contact maintained Preparation: Sterile Prep Position: Supine Needle Types: Pajunk Needle Gauge: 21 Ultrasound used to visualize needle placement: Yes Ultrasound used to observe medication spread: Yes Injectate: 0.5% Ropivacaine (see comment for volume) (15 ml + 15 ml NS + 4mg dexamethasone per side) Blood Aspirated: No Pain Paresthesia on Injection Noted: No Resistance on Injection: Normal Image Stored and Saved: Yes Events: Uneventful and Well Tolerated
--- NOTE | 2023-05-16 09:01 | P.OP ---
Date of Procedure: 05/16/23 Preoperative Diagnosis: Recurrent right inguinal hernia Left inguinal hernia Postoperative Diagnosis: Same Procedure(s) Performed: Repair of recurrent right inguinal hernia with Prolene hernia mesh plug Repair of left inguinal hernia with Prolene hernia mesh plug Bilateral cord lipoma excision Anesthesia: BHASKAR Surgeon: Dimitri Smith Estimated Blood Loss (ml): 5 Pathology: other (Bilateral cord lipoma) Condition: stable Disposition: PACU Description of Procedure: DESCRIPTION OF PROCEDURE: The patient was placed in the supine position after receiving adequate anesthesia. The patient's groin was prepped and draped in the usual sterile fashion. A standard hernia incision was on the right side made and the subcutaneous tissues were divided with electrocautery. There was a recurrent right inguinal hernia. The fascia of the external oblique was exposed. A екатерина the fascia was made with #15 blade. The fascia was then opened with pair of Metzenbaum scissors. A Weitlaner retractor was placed in the wound and the cord structures were grasped and dissected free from the inguinal canal. A rubber Rachna drain was placed around the cord structures. The hernial sac was seen on the anterior-medial portion of the cord and this was dissected free from the cord. A cord lipoma was dissected free sent to pathology. The hernia sac was then invaginated to the peritoneal cavity. Using blunt finger dissection, the preperitoneal space was dissected and then the Prolene hernial mesh plug was placed into the prepared space. The inferior leaf was expanded. The superior leaf was secured to the pubic tubercle using 2- 0 Prolene suture. The lateral portion of the superior leaf was incised and cords tied and secured to the transversalis fascia using 2-0 Prolene suture. Fascia of the external oblique was then closed using #0 Vicryl suture. The Rachna drain was removed. The Scarpas fascia was then closed with 3-0 Vicryl suture and skin was closed with 3-0 Monocryl suture. Next, the left inguinal hernias repaired. A standard hernia incision was made and the subcutaneous tissues were divided with electrocautery. The fascia of the external oblique was exposed. A екатерина the fascia was made with #15 blade. The fascia was then opened with pair of Metzenbaum scissors. A Weitlaner retractor was placed in the wound and the cord structures were grasped and dissected free from the inguinal canal. A rubber [place] drain was placed arou nd the cord structures. The hernial sac was seen on the anterior-medial portion of the cord and this was dissected free from the cord. The cord lipoma was dissected free sent to pathology. The hernia sac was then invaginated to the peritoneal cavity. Using blunt finger dissection, the preperitoneal space was dissected and then the Prolene hernial mesh plug was placed into the prepared space. The inferior leaf was expanded. The superior leaf was secured to the pubic tubercle using 2-0 Prolene suture. The lateral portion of the superior leaf was incised and cords tied and secured to the transversalis fascia using 2-0 Prolene suture. Fascia of the external oblique was then closed using #0 Vicryl suture. The Rachna drain was removed. The Scarpas fascia was then closed with 3-0 Vicryl suture and skin was closed with 3-0 Monocryl suture. Dermabond was applied. Patient was sent to recovery room stable condition.
[2023-05-16 09:31] VITALS: RESP 20; TEMP 97.1
[2023-05-16] MEDS: HYDROmorphone 0.5 MG/0.5 ML SYRINGE IVP PRN ×2 (09:38→09:49)
[2023-05-16] MEDS ORDERED: LACTATED RINGERS 1,000 ML IV ONE (10:06)
[2023-05-16] MEDS ORDERED: IBUPROFEN 600 MG TAB PO ONE (11:25)
[2023-05-16] MEDS ORDERED: HYDROmorphone 0.5 MG/0.5 ML SYRINGE IVP ONE (12:21)
[2023-05-16] MEDS ORDERED: droPERidol 5 MG/2 ML VIAL IVP ONE (12:25)
[2023-05-16 13:57] VITALS: BP 122/73; PULSE 61
== END 2023-05-16 15:28 | disposition home or self-care (01) ==
LOC: OR 05:40
PROVIDERS: ATTEND Surgery
DX: K40.20 Bilateral inguinal hernia, without obstruction or gangrene, not specified as recurrent (principal); I10 Essential (primary) hypertension; J45.909 Unspecified asthma, uncomplicated; E78.5 Hyperlipidemia, unspecified; K21.9 Gastro-esophageal reflux disease without esophagitis; F41.9 Anxiety disorder, unspecified; F41.0 Panic disorder [episodic paroxysmal anxiety]; F31.9 Bipolar disorder, unspecified; F95.2 Tourette's disorder; F20.9 Schizophrenia, unspecified; G47.33 Obstructive sleep apnea (adult) (pediatric); G89.18 Other acute postprocedural pain; Z98.890 Other specified postprocedural states; Z79.899 Other long term (current) drug therapy; Z79.51 Long term (current) use of inhaled steroids; Z88.8 Allergy status to other drugs, medicaments and biological substances
CPT/HCPCS: 64488; 88304; 85027; 49520; C1781 ×2; J2250; J0330; J1100; J2710; J0690; J2405; J2001; J3010; J2795; J2704; J1170; J1790; J1644; J0665

== ENCOUNTER 2023-05-19 14:13 | Emergency (ER) | payer MEDICARE, OTHER ==
[2023-05-19 14:20] VITALS: RESP 18; TEMP 98.3
[2023-05-19] MEDS ORDERED: IBUPROFEN 400 MG TAB PO STA (15:22)
--- NOTE | 2023-05-19 15:37 | ED ---
General Adult HPI - General Source: patient, RN notes reviewed Mode of arrival: ambulatory <Nicole Dorman - Last Filed: 05/19/23 16:59> <Jose Marcus - Last Filed: 05/19/23 18:06> - General Chief complaint: Urogenital Stated complaint: Post Op Paramjit Aquino Surgery 05/16 Time Seen by Provider: 05/19/23 14:56 - History of Present Illness Initial comments: 47-year-old male who is 4 days status post bilateral hernia repair surgery on 05/16/symptom free presents the emergency department with a chief complaint of postop problem. Patient reports that he has had increased testicular swelling and bruising. He reports he was told that this could be a common complication of hernia surgery however he is concerned that he has an infection. He denies any known fevers, dysuria, hematuria, increased urinary frequency. (Nicole Dorman) - Related Data Home Medications Medication Instructions Recorded Confirmed lisinopriL [Zestril] 20 mg PO HS 09/06/17 05/19/23 ARIPiprazole [Abilify Maintena] 400 mg IM Q28D 11/08/18 05/19/23 Benztropine Mesylate [Cogentin] 1 mg PO DAILY 11/08/18 05/19/23 Escitalopram [Lexapro] 10 mg PO DAILY 11/08/18 05/19/23 Simvastatin 5 mg PO HS 11/08/18 05/19/23 [place] Carbonate 300 mg PO DAILY 05/07/20 05/19/23 Albuterol Sulfate [Ventolin HFA] 2 puff INHALATION RT-Q6H PRN 02/19/22 05/19/23 Omeprazole 20 mg PO AC-BRKFST 04/21/22 05/19/23 Montelukast [Singulair] 10 mg PO DAILY 05/19/23 05/19/23 Previous Rx's Medication Instructions Recorded Acetaminophen Tab [Tylenol Tab] 1,000 mg PO Q6HR PRN #30 tablet 04/22/22 Simethicone [Gas-X] 125 mg PO AC-TID PRN #20 capsule 04/22/22 Acetaminophen Tab [Tylenol] 650 mg PO Q6H #30 tab 05/16/23 Docusate [Colace] 100 mg PO BID #20 capsule 05/16/23 Ibuprofen [Motrin] 600 mg PO Q6HR PRN #40 tab 05/16/23 oxyCODONE HCL [OxyIR] 5 mg PO Q6H PRN 3 Days #10 tab 05/16/23 Allergies Allergy/AdvReac Type Severity Reaction Status Date / Time haloperidol [From Haldol] AdvReac Stroke-like Verified 05/19/23 17:36 symptoms Review of Systems ROS Other: All systems not noted in ROS Statement are negative. <Nicole Dorman - Last Filed: 05/19/23 16:59> ROS Other: All systems not noted in ROS Statement are negative. <Jose Marcus - Last Filed: 05/19/23 18:06> ROS Statement: Those systems with pertinent positive or pertinent negative responses have been documented in the HPI. Past Medical History Past Medical History: Asthma, Chest Pain / Angina, GERD/Reflux, Hyperlipidemia, Hypertension, Sleep Apnea/CPAP/BIPAP Additional Past Medical History / Comment(s): Tourette's syndrome, seasonal Allergies, dyskenisia, sleep apnea- no machine., carlos a inguinal hernias History of Any Multi-Drug Resistant Organisms: None Reported Past Surgical History: Hernia Repair, Tonsillectomy Additional Past Surgical History / Comment(s): states hernia right testicle x 2 Past Anesthesia/Blood Transfusion Reactions: No Reported Reaction Additional Past Anesthesia/Blood Transfusion Reaction / Comment(s): difficulty waking. Past Psychological History: Anxiety, Bipolar, Depression, Panic Disorder, Schizophrenia Smoking Status: Never smoker Past Alcohol Use History: None Reported Past Drug Use History: None Reported - Past Family History Father Family Medical History: No Reported History Additional Family Medical History / Comment(s): He is 61 years of age. Patient has had no contact with him and 20 years Mother Additional Family Medical History / Comment(s): Mother at age 63 from sepsis. Sister(s) Family Medical History: No Reported History Additional Family Medical History / Comment(s): He has 2 sisters with no major medical problems. <Nicole Dorman - Last Filed: 05/19/23 16:59> General Exam <Nicole Dorman - Last Filed: 05/19/23 16:59> - General Exam Comments Initial Comments: General: Alert, in no acute distress Head: atraumatic normocephalic. Eyes PERRL, EOMI intact, mucous membranes moist Respiratory: Lungs clear to auscultation bilaterally Cardiovascular: Heart rate regular rate and Abdominal: Soft without guarding or rebound Extremities: Normal inspection with full range of motion and normal capillary refill Neuroogic: alert and oriented 3, CN II-XII intact, able to ambulate with steady gait Skin: warm dry and intact with normal color Bilateral testicles with mild edema and ecchymosis. Nontender to palpation. (Nicole Dorman) Course Vital Signs 05/19/23 05/19/23 14:14 17:07 Temperature 98.3 F Pulse Rate 83 74 Respiratory 18 18 Rate Blood Pressure 155/95 152/93 O2 Sat by Pulse 97 95 Oximetry Medical Decision Making - Lab Data Result diagrams: 05/19/23 15:33 05/19/23 15:33 <Nicole Dorman - Last Filed: 05/19/23 16:59> - Lab Data Result diagrams: 05/19/23 15:33 05/19/23 15:33 <Jose Marcus - Last Filed: 05/19/23 18:06> - Medical Decision Making Was pt. sent in by a medical professional or institution (, PA, NUCLEAR SCIENTIST, urgent care, hospital, or correction...) When possible be specific @ -[No] Did you speak to anyone other than the patient for history (EMS, parent, family, police, friend...)? What history was obtained from this source @ -[No] Did you review nursing and triage notes (agree or disagree)? Why? @ -[I reviewed and agree with nursing and triage notes] Were old charts reviewed (outside hosp., previous admission, EMS record, old EKG, old radiological studies, urgent care reports/EKG's, correction records)? Report findings @ -Chart reviewed from 05/16/2023 Differential Diagnosis (chest pain, altered mental status, abdominal pain women, abdominal pain men, vaginal bleeding, weakness, fever, dyspnea, syncope, headache, dizziness, GI bleed, back pain, seizure, CVA, palpatations, mental health, musculoskeletal)? @ -[not applicable] EKG interpreted by me (3pts min.). @ -[As above] X-rays interpreted by me (1pt min.). @ -[None done] CT interpreted by me (1pt min.). @ -[None done] U/S interpreted by me (1pt. min.). @ -[None done] What testing was considered but not performed or refused? (CT, X-rays, U/S, labs)? Why? @ -[None] What meds were considered but not given or refused? Why? @ -[None] Did you discuss the management of the patient with other professionals (anuel polanco i.e. , PA, NUCLEAR SCIENTIST, lab, RT, psych nurse, social services analyst, insole doubler, teacher, personal banking officer, rn field case manager)? Give summary @ -[No] Was smoking cessation discussed for >3mins.? @ -[No] Was critical care preformed (if so, how long)? @ -[No] Were there social determinants of health that impacted care today? How? (Homelessness, low income, unemployed, alcoholism, drug addiction, transport ation, low edu. Level, literacy, decrease access to med. care, residential, rehab)? @ -[No] Was there de-escalation of care discussed even if they declined (Discuss DNR or withdrawal of care, Hospice)? DNR status @ -[No] What co-morbidities impacted this encounter? (DM, HTN, Smoking, COPD, CAD, Cancer, CVA, ARF, Chemo, Hep., AIDS, mental health diagnosis, sleep apnea, morbid obesity)? @ -[None] Was patient admitted / discharged? Hospital course, mention meds given and route, prescriptions, significant lab abnormalities, going to OR and other pertinent info. Disposition pending. This is a 47-year-old male who presents to the emergency department with postop problem. She had a thorough history and physical exam performed. Vital signs stable. Patient afebrile. Heart rate regular rate and rhythm. Hernia repair sites appear well healed. Mild bilatera l testicular edema and ecchymosis. Mild tenderness. No evidence of hydrocele. She had laboratory studies which were unremarkable. Patient is signed out to , pending ultrasound results. (Nicole Dorman) @ -[Patient was endorsed to me by ED KULDEEP Rivera (secondary to end of her shift) with the patient a scrotal ultrasound report still pending. Patient's scrotal ultrasound report was reviewed myself, and shows no significant abnormality. Patient's labs were also reviewed myself and are fairly unremarkable. I have explained to the patient that scrotal ecchymosis and swelling can be seen after hernia repair, and I'm not concerned for an emergent complex locationnt states that he feels reassured, and he agrees to follow up closely with his general surgeon as an outpatient. He was clearly explained return and follow-up instructions. Strict return instructions were provided. Will disharge patient home with his significant other at this time.] Undiagnosed new problm ith uncertain prognosis? @ -[No] Drug Therapy requiring intensive monitoring for toxicity (Heparin Ntro, Insulin, Cardizem)? @ -[N] ere any procedures done?@ -[No] Diagnosis/symptom? @ -Postoperative scrotal ecchymosis] Acute, or Cronic or Acute on Chronic? @ -[Acute] Uncomplicated (without systemic symptoms) or Compicated systemic symptoms)? 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 @ -[No] Exacerbation, Progresson or Severe Exacerbation? @ -[No] Poses a threat to life or bodily function? How? (Chest pain, [place], MA, pneumonia, PE, COPD, DKA, ARF, appy, cholecystitis, CVA, Diverticulitis, Homicidal, Suicidal, threat to staff.. ad all critical care pts) @ -[No] (Jose Marcus) - Lab Data Lab Results 05/19/23 05/19/23 05/19/23 Range/Units 15:33 15:33 15:33 WBC 10.1 (3.8-10.6) k/uL RBC 4.61 (4.30-5.90) m/uL Hgb 13.8 (13.0-17.5) gm/dL Hct 41.0 (39.0-53.0) % MCV 89.0 (80.0-100.0) fL MCH 29.9 (25.0-35.0) pg MCHC 33.6 (31.0-37.0) g/dL RDW 12.6 (11.5-15.5) % Plt Count 258 (150-450) k/uL MPV 8.5 Neutrophils % 64 % Lymphocytes % 23 % Monocytes % 7 % Eosinophils % 5 % Basophils % 0 % Neutrophils # 6.5 (1.3-7.7) k/uL Lymphocytes # 2.3 (1.0-4.8) k/uL Monocytes # 0.7 (0-1.0) k/uL Eosinophils # 0.5 (0-0.7) k/uL Basophils # 0.0 (0-0.2) k/uL PT 9.7 L (10.0-12.5) sec INR 0.9 (<1.2) APTT 23.0 (22.0-30.0) sec Sodium 137 (137-145) mmol/L Potassium 4.5 (3.5-5.1) mmol/L Chloride 107 (98-107) mmol/L Carbon Dioxide 20 L (22-30) mmol/L Anion Gap 10 mmol/L BUN 16 (9-20) mg/dL Creatinine 0.89 (0.66-1.25) mg/dL Est GFR (CKD-EPI)AfAm >90 (>60 ml/min/1.73 sqM) Est GFR (CKD-EPI)NonAf >90 (>60 ml/min/1.73 sqM) Glucose 100 H (74-99) mg/dL Calcium 9.4 (8.4-10.2) mg/dL Total Bilirubin 0.6 (0.2-1.3) mg/dL AST 31 (17-59) U/L ALT 31 (4-49) U/L Alkaline Phosphatase 74 (38-126) U/L Total Protein 6.4 (6.3-8.2) g/dL Albumin 3.6 (3.5-5.0) g/dL - Radiology Data Scrotal ultrasound: No evidence of testicular torsion or mass. Moderate right, small to moderate left hydroceles. (Jose Marcus) Disposition <Nicole Dorman - Last Filed: 05/19/23 16:59> Is patient prescribed a controlled substance at d/c from ED?: No Time of Disposition: 18:06 <Jose Marcus - Last Filed: 05/19/23 18:06> Clinical Impression: Postoperative ecchymosis Disposition: HOME SELF-CARE Condition: Stable Instructions (If sedation given, give patient instructions): Postoperative Bleeding (ED), Pain Management (ED) Additional Instructions: Return to the ER immediately should you develop new or worsening pain, severe swelling, difficulty urinating, a fever, vomiting, shortness of breath, feeling dizzy or faint, or new or worsening symptoms. Follow up closely with your general surgeon. Referrals: Sharyn Fonseca MD [Primary Care Provider] - 1-2 days Dimitri Smith MD [STAFF PHYSICIAN] - 1-2 days
[2023-05-19 16:04] LABS: Basophils % (A) 0 %; Eosinophils # (A) 0.5 k/uL (0-0.7); Eosinophils % (A) 5 %; HGB 13.8 gm/dL (13.0-17.5); Lymphocytes # (A) 2.3 k/uL (1.0-4.8); Lymphocytes % (A) 23 %; MCH 29.9 pg (25.0-35.0); MCHC 33.6 g/dL (31.0-37.0); Mean Platelet Volume 8.5; Monocytes # (A) 0.7 k/uL (0-1.0); Monocytes % (A) 7 %; Neutrophils # (A) 6.5 k/uL (1.3-7.7); Neutrophils % (A) 64 %; Platelet Count 258 k/uL (150-450); RBC 4.61 m/uL (4.30-5.90); RDW 12.6 % (11.5-15.5); WBC 10.1 k/uL (3.8-10.6)
[2023-05-19 16:16] LABS: ALT 31 U/L (4-49); AST 31 U/L (17-59); African American GFR (CKD) >90 (>60 ml/min/1.73 sqM); Albumin 3.6 g/dL (3.5-5.0); Alkaline Phosphatase 74 U/L (38-126); Anion Gap 10 mmol/L; Blood Urea Nitrogen 16 mg/dL (9-20); Calcium 9.4 mg/dL (8.4-10.2); Carbon Dioxide 20 mmol/L (22-30); Chloride 107 mmol/L (98-107); Glucose 100 mg/dL (74-99); Non-African American GFR(CKD) >90 (>60 ml/min/1.73 sqM); Potassium 4.5 mmol/L (3.5-5.1); Sodium 137 mmol/L (137-145); Total Bilirubin 0.6 mg/dL (0.2-1.3); Total Protein 6.4 g/dL (6.3-8.2)
[2023-05-19 16:25] LABS: INR 0.9 (<1.2); Prothrombin Time 9.7 sec (10.0-12.5)
[2023-05-19] MEDS ORDERED: HYDROcodone/APAP 5-325MG 1 EACH TAB PO STA (16:39)
--- NOTE | 2023-05-19 17:13 | US ---
EXAMINATION TYPE: US scrotum with doppler. Grayscale and color Doppler Duplex imaging performed of t he scrotum. DATE OF EXAM: 05/19/2023 COMPARISON: US 2021 CLINICAL INDICATION: Male, 47 years old with history of testicular swelling; Bilateral testicular bisi n and swelling EXAM MEASUREMENTS: TESTICLES: Right Testicle: 5.4 x 2.8 x 3.4 cm Left Testicle: 5.2 x 2.9 x 3.2 cm EPIDIDYMIS HEAD: Right Epididymis: 1.4 cm Left Epididymis: 1.6 cm Doppler performed to assess for testicular vascularity; good bilateral color flow and waveforms are s een. There is no evidence of testicular torsion. Unremarkable vascularity of the epididymides. Presence of hydroceles: Moderate on the right greatest dimension 4.6cm, small to moderate on the lef t greatest dimension 2.9cm Presence of varicoceles: No IMPRESSION: No evidence of testicular torsion or mass. Moderate right, small to moderate left hydroceles.
[2023-05-19 17:30] VITALS: BP 152/93; PULSE 74
== END 2023-05-19 18:16 | disposition home or self-care (01) ==
LOC: EC 14:13
DX: N99.840 Postprocedural hematoma of a genitourinary system organ or structure following a genitourinary system procedure (principal); N43.3 Hydrocele, unspecified; I10 Essential (primary) hypertension; J45.909 Unspecified asthma, uncomplicated; E78.5 Hyperlipidemia, unspecified; F31.9 Bipolar disorder, unspecified; F41.9 Anxiety disorder, unspecified; K21.9 Gastro-esophageal reflux disease without esophagitis; Z79.899 Other long term (current) drug therapy; Z88.8 Allergy status to other drugs, medicaments and biological substances
CPT/HCPCS: 36415; 76870; 80053; 85025; 85610; 85730; 93975; 99284

== ENCOUNTER 2023-10-12 22:10 | Observation (INO) | payer MEDICARE, OTHER ==
[2023-10-12 22:36] VITALS: RESP 18; TEMP 99
[2023-10-12 22:38] LABS: Basophils # (A) 0.1 k/uL (0-0.2); Basophils % (A) 0 %; Eosinophils # (A) 0.4 k/uL (0-0.7); Eosinophils % (A) 3 %; HGB 14.6 gm/dL (13.0-17.5); Lymphocytes # (A) 2.8 k/uL (1.0-4.8); Lymphocytes % (A) 23 %; MCH 29.1 pg (25.0-35.0); Mean Platelet Volume 7.8; Monocytes # (A) 0.6 k/uL (0-1.0); Monocytes % (A) 5 %; Neutrophils # (A) 8.1 k/uL (1.3-7.7); Neutrophils % (A) 67 %; Platelet Count 311 k/uL (150-450); RDW 12.9 % (11.5-15.5); WBC 12.1 k/uL (3.8-10.6)
[2023-10-12 22:49] LABS: INR 0.9 (<1.2); Partial Thromboplastin Time 26.1 sec (22.0-30.0)
[2023-10-12 22:51] LABS: ALT 22 U/L (4-49); AST 19 U/L (17-59); African American GFR (CKD) >90 (>60 ml/min/1.73 sqM); Albumin 4.2 g/dL (3.5-5.0); Alkaline Phosphatase 91 U/L (38-126); Anion Gap 10 mmol/L; Blood Urea Nitrogen 18 mg/dL (9-20); Calcium 9.3 mg/dL (8.4-10.2); Carbon Dioxide 19 mmol/L (22-30); Chloride 104 mmol/L (98-107); Glucose 149 mg/dL (74-99); Magnesium 2.1 mg/dL (1.6-2.3); Non-African American GFR(CKD) >90 (>60 ml/min/1.73 sqM); Potassium 4.2 mmol/L (3.5-5.1); Sodium 133 mmol/L (137-145); Total Bilirubin 0.3 mg/dL (0.2-1.3); Total Protein 7.1 g/dL (6.3-8.2)
--- NOTE | 2023-10-12 23:00 | XR ---
EXAM: XR Chest, 2 Views CLINICAL HISTORY: ITS.REASON XR Reason: Chest Pain TECHNIQUE: Frontal and lateral views of the chest. COMPARISON: No relevant prior studies available. FINDINGS: Lungs: Unremarkable. No consolidation. Pleural space: Unremarkable. No pneumothorax. Heart: Unremarkable. No cardiomegaly. Mediastinum: Unremarkable. Normal mediastinal contour. Bones/joints: Unremarkable. No acute fracture. IMPRESSION: Normal chest x-rays.
--- NOTE | 2023-10-12 23:13 | ED ---
Chest Pain HPI - General Chief Complaint: Chest Pain Stated Complaint: Chest pain, Pain in Neck and down left arm Time Seen by Provider: 10/12/23 23:09 Source: patient, RN notes reviewed, old records reviewed Mode of arrival: ambulatory Limitations: no limitations - History of Present Illness Initial Comments: This is a 47-year-old male to the ER for evaluation of chest pain. Patient presents to the ER for evaluation of chest pain today with strong history of cardiac risk factors including hypertension, previous stress test but none within about 5 years. Patient has persistent chest pain here in the ER without shortness of breath. Patien has no other complaints patient also suffers from angina and hypercholesterol Pain Location: substernal, left chest, epigastric Pain Radiation: LUE Severity: moderate Severity scale (1-10): 4 Quality: tightness, aching Consistency: intermittent Improves With: nothing Worsens With: nothing Other Symptoms: palpitations - Related Data Home Medications Medication Instructions Recorded Confirmed lisinopriL [Zestril] 20 mg PO HS 09/06/17 10/13/23 ARIPiprazole [Abilify Maintena] 400 mg IM Q28D 11/08/18 10/13/23 Benztropine Mesylate [Cogentin] 1 mg PO DAILY 11/08/18 10/13/23 Escitalopram [Lexapro] 10 mg PO DAILY 11/08/18 10/13/23 [place] Carbonate 300 mg PO DAILY 05/07/20 10/13/23 Albuterol Sulfate [Ventolin HFA] 2 puff INHALATION RT-Q6H PRN 02/19/22 10/13/23 Ammonium Lactate Cream [Lac-Hydrin 1 applic TOPICAL DAILY 10/13/23 10/13/23 12% Cream] Previous Rx's Medication Instructions Recorded Aspirin 81 mg PO DAILY #30 tab 10/13/23 Atorvastatin [Lipitor] 80 mg PO DAILY #30 tab 10/13/23 Metoprolol Tartrate [Lopressor] 25 mg PO BID #60 tab 10/13/23 Nitroglycerin Sl Tabs [Nitrostat] 0.4 mg SUBLINGUAL Q5M PRN #15 tab 10/13/23 Allergies Allergy/AdvReac Type Severity Reaction Status Date / Time haloperidol [From Haldol] AdvReac Stroke-like Verified 10/13/23 07:49 symptoms Review of Systems ROS Statement: Those systems with pertinent positive or pertinent negative responses have been documented in the HPI. ROS Other: All systems not noted in ROS Statement are negative. EKG Findings - EKG Comments: EKG Findings:: EKG sinus 70 DC 200 QRS 110 QTc 389 - EKG Results: EKG: interpreted by ALEXANDRA, sinus rhythm (EKG 2 is sinus 72 DC 212 QRS 98 QTc 386) Past Medical History Past Medical History: Asthma, Chest Pain / Angina, GERD/Reflux, Hyperlipidemia, Hypertension, Sleep Apnea/CPAP/BIPAP Additional Past Medical History / Comment(s): Tourette's syndrome, seasonal Allergies, dyskenisia, sleep apnea- no machine., carlos a inguinal hernias History of Any Multi-Drug Resistant Organisms: None Reported Past Surgical History: Hernia Repair, Tonsillectomy Additional Past Surgical History / Comment(s): states hernia right testicle x 2 Past Anesthesia/Blood Transfusion Reactions: No Reported Reaction Additional Past Anesthesia/Blood Transfusion Reaction / Comment(s): difficulty waking. Past Psychological History: Anxiety, Bipolar, Depression, Panic Disorder, Schizophrenia Smoking Status: Never smoker Past Alcohol Use History: None Reported Past Drug Use History: None Reported - Past Family History Father Family Medical History: No Reported History Additional Family Medical History / Comment(s): He is 61 years of age. Patient has had no contact with him and 20 years Mother Additional Family Medical History / Comment(s): Mother at age 63 from sepsis. Sister(s) Family Medical History: No Reported History Additional Family Medical History / Comment(s): He has 2 sisters with no major medical problems. General Exam Limitations: no limitations General appearance: alert, in no apparent distress Head exam: Present: atraumatic, normocephalic, normal inspection Eye exam: Present: normal appearance, PERRL, EOMI. Absent: scleral icterus, conjunctival injection, periorbital swelling ENT exam: Present: normal exam, mucous membranes moist Neck exam: Present: normal inspection. Absent: tenderness, meningismus, lymphadenopathy Respiratory exam: Present: normal lung sounds bilaterally. Absent: respiratory distress, wheezes, rales, rhonchi, stridor Cardiovascular Exam: Present: regular rate, normal rhythm, normal heart sounds. Absent: systolic murmur, diastolic murmur, rubs, gallop, clicks GI/Abdominal exam: Present: soft, normal bowel sounds. Absent: distended, tenderness, guarding, rebound, rigid Extremities exam: Present: normal inspection, full ROM, normal capillary refill. Absent: tenderness, pedal edema, joint swelling, calf tenderness Back exam: Present: normal inspection Neurological exam: Present: alert, oriented X3, CN II-XII intact Psychiatric exam: Present: normal affect, normal mood Skin exam: Present: warm, dry, intact, normal color. Absent: rash Course Vital Signs 10/12/23 10/12/23 10/13/23 22:22 23:29 03:00 Temperature 99 F Pulse Rate 81 82 79 Respiratory 18 18 18 Rate Blood Pressure 154/92 113/77 118/91 O2 Sat by Pulse 97 95 96 Oximetry 10/13/23 10/13/23 10/13/23 09:41 13:33 15:29 Temperature Pulse Rate 51 L 67 77 Respiratory 18 18 18 Rate Blood Pressure 110/91 139/86 135/85 O2 Sat by Pulse 98 94 L 97 Oximetry - Reevaluation(s) Reevaluation #1: 10/13/23 00:26 Medical records reviewed Reevaluation #2: 10/13/23 00:27 Patient remains with chest pain here in the ER Reevaluation #3: 10/13/23 00:27 Patient informed of results and questions answered Reevaluation #4: Was pt. sent in by a medical professional or institution (, PA, PRODUCTION OPERATIONS INSPECTOR, urgent care, hospital, or correction...) When possible be specific @ -no Did you speak to anyone other than the patient for history (EMS, parent, family, police, friend...)? What history was obtained from this source @ -no Did you review nursing and triage notes (agree or disagree)? Why? @ -agree Are old charts reviewed (outside hosp., previous admission, EMS record, old EKG, old radiological studies, urgent care reports/EKG's, correction records)? Report findings @ -yes Differential Diagnosis (chest pain, altered mental status, abdominal pain women, abdominal pain men, vaginal bleeding, weakness, fever, dyspnea, syncope, headache, dizziness, GI bleed, back pain, seizure, CVA, palpatations, mental health, musculoskeletal)? @ -prior EKG interpreted by me (3pts min.). @ -yes X-rays interpreted by me (1pt min.). @ -yes negative for acute disease CT interpreted by me (1pt min.). @ -no U/S interpreted by me (1pt. min.). @ -no What testing was considered but not performed or refused? (CT, X-rays, U/S, labs)? Why? @ -none What meds were considered but not given or refused? Why? @ -none Did you discuss the management of the patient with other professionals (professionals i.e. DrMabel, PA, PRODUCTION OPERATIONS INSPECTOR, lab, RT, psych nurse, social service agency director, lawyers, teacher, corporate development officer, block and case maker)? Give summary @ -no Was smoking cessation discussed for >3mins.? @ -no Was critical care preformed (if so, how long)? @ -yes31 Were there social determinants of health that impacted care today? How? (Homelessness, low income, unemployed, alcoholism, drug addiction, transportation, low edu. Level, literacy, decrease access to med. care, [facility], rehab)? @ -none Was there de-escalation of care discussed even if they declined (Discuss DNR or withdrawal of care, Hospice)? DNR status @ -no What co-morbidities impacted this encounter? (DM, HTN, Smoking, COPD, CAD, Cancer, CVA, ARF, Chemo, Hep., AIDS, mental health diagnosis, sleep apnea, morbid obesity)? @ -none Was patient admitted / discharged? Hospital course, mention meds given and route, prescriptions, significant lab abnormalities, going to OR and other pertinent info. @ - 47 male to the ER for chest pain patient has persistent chest pain here in the ER and will be admitted for chest pain observation and cardiac evaluation on anticoagulation Admitted Undiagnosed new problem with uncertain prognosis? @ -no Drug Therapy requiring intensive monitoring for toxicity (Heparin, Nitro, Insulin, Cardizem)? @ -no Were any procedures done? @ -no Diagnosis/symptom? @ -Chest pain Acute, or Chronic, or Acute on Chronic? @ -Acute Uncomplicated (without systemic symptoms) or Complicated (systemic symptoms)? @ -Complicated Side effects of treatment? @ -no Exacerbation, Progression, or Severe Exacerbation? @ -exacerbation Poses a threat to life or bodily function? How? (Chest pain, [place], ND, pneumonia, PE, COPD, DKA, ARF, appy, cholecystitis, CVA, Diverticulitis, Homicidal, Suicidal, threat to staff... and all critical care pts) @ -yes with significant chest pain Reevaluation #5: Differential Chest Pain: Stable Angina, Unstable Angina, STEMI, NSTEMI Aortic Dissection, Pneumothorax, Musculoskeletal, Esophageal Spasm GERD, Cholecystitis, Pancreatitis, Zoster, this is not meant to be an all-inclusive list. - Consultations Consultation #1: Spoke with admitting physicians who agreed to admit this patient Chest Pain MDM - MDM 47 male to the ER for chest pain patient has persistent chest pain here in the ER and will be admitted for chest pain observation and cardiac evaluation on anticoagulation Critical Care Time Critical Care Time: Yes Total Critical Care Time: 31 Disposition Clinical Impression: Acute anxiety, Chest pain Disposition: ADMITTED IP TO THIS HOSP Condition: Undetermined Is patient prescribed a controlled substance at d/c from ED?: No Time of Disposition: 00:10
[2023-10-13] MEDS ORDERED: NITROGLYCERIN SL TABS 0.4 MG TAB SUBLINGUAL PRN (00:24)
[2023-10-13] MEDS ORDERED: MORPHINE SULFATE 4 MG/ML SYRINGE IV PRN (00:24)
[2023-10-13] MEDS: ASPIRIN 81 MG PO STA (02:50)
[2023-10-13] MEDS: HEPARIN SODIUM 1,000 UN/ML (10ML VL) IV ONE (03:03)
[2023-10-13] MEDS: METOPROLOL TARTRATE 25 MG TAB PO SCH (08:39)
[2023-10-13] MEDS: ATORVASTATIN 80 MG TAB PO SCH (08:39)
--- NOTE | 2023-10-13 09:38 | P.CRDCN ---
History of Present Illness Consult date: 10/13/23 Consult reason: chest pain History of present illness: History of present illness: This is a 47-year-old male with no previous coronary artery disease history. He has a past medical history of hypertension, hyperlipidemia. We have been asked to evaluate the patient for chest pain. Patient states he had left-sided chest pain that went into the left side of his neck and into his left arm. He states he took his lisinopril and the pain went away. Patient denies having any shortness of breath. Patient has been started on aspirin, Lopressor, statin in ER. Patient is seen in the emergency center waiting for bed on the observation unit.. EKG sinus rhythm with no acute ST-T wave changes. Chest x-ray: No acute finding WBC 12.1, hemoglobin 14.6. Sodium 133, potassium 4.2, CO2 19, BUN 18 and creatinine 0.9. Blood sugar 149. Troponin negative x 3. Home cardiac medications: Lisinopril 20 mg at bedtime, simvastatin 5 mg at bedtime. Stress echocardiogram performed in 2016 was negative. Echocardiogram performed in 2016 reveals EF of 55%, mild aortic valve sclerosis without stenosis. Mild mitral regurgitation. Mild tricuspid regurgitation. No pulmonary hypertension. Review Of Systems: At the time of my exam: CONSTITUTIONAL: Denies fever or chills. HEENT: Denies blurred vision, vision changes, or eye pain. Denies hemoptysis CARDIOVASCULAR: Denies chest pain. Denies orthopnea. Denies PND. Denies palpitations RESPIRATORY: Denies shortness of breath. GASTROINTESTINAL: Denies abdominal pain. Denies nausea or vomiting. HEMATOLOGIC: Denies bleeding disorders. GENITOURINARY: Denies any blood in urine. SKIN: Denies pruitis. Denies rash. Physical examination: Gen: This is a 47-year-old male in no acute distress VS: reviewed blood pressure 118/91, heart rate 79, pulse ox 96% on room air. HEENT: Head is atraumatic, normocephalic. Pupils equal, round. Sclerae is anicteric. NECK: Supple. No JVD. LUNGS: Clear to auscultation. No wheezes or rhonchi. No intercostal retractions. HEART: Regular rate and rhythm. No murmur. ABDOMEN: Soft No tenderness. EXTREMITIES: No pedal edema. No calf tenderness. NEUROLOGICAL: Patient is awake, alert and oriented x3. Assessment: Atypical chest pain, acute coronary syndrome ruled out Hypertension Hyperlipidemia Plan: Resume patient's home cardiac medications Obtain stress echocardiogram today Obtain 2-D echocardiogram and Doppler study to assess cardiac structure and function If testing is unremarkable, patient will be cleared for discharge from cardiology. Thank you kindly for this consultation. Nurse practitioner note has been reviewed, I agree with documented findings and plan of care. Patient was seen and examined. Past Medical History Past Medical History: Asthma, Chest Pain / Angina, GERD/Reflux, Hyperlipidemia, Hypertension, Sleep Apnea/CPAP/BIPAP Additional Past Medical History / Comment(s): Tourette's syndrome, seasonal Allergies, dyskenisia, sleep apnea- no machine., carlos a inguinal hernias History of Any Multi-Drug Resistant Organisms: None Reported Past Surgical History: Hernia Repair, Tonsillectomy Additional Past Surgical History / Comment(s): states hernia right testicle x 2 Past Anesthesia/Blood Transfusion Reactions: No Reported Reaction Additional Past Anesthesia/Blood Transfusion Reaction / Comment(s): difficulty waking. Past Psychological History: Anxiety, Bipolar, Depression, Panic Disorder, Schizophrenia Smoking Status: Never smoker Past Alcohol Use History: None Reported Past Drug Use History: None Reported - Past Family History Father Family Medical History: No Reported History Additional Family Medical History / Comment(s): He is 61 years of age. Patient has had no contact with him and 20 years Mother Additional Family Medical History / Comment(s): Mother at age 63 from sepsis. Sister(s) Family Medical History: No Reported History Additional Family Medical History / Comment(s): He has 2 sisters with no major medical problems. Medications and Allergies Home Medications Medication Instructions Recorded Confirmed Type lisinopriL [Zestril] 20 mg PO HS 09/06/17 10/13/23 History ARIPiprazole [Abilify Maintena] 400 mg IM Q28D 11/08/18 10/13/23 History Benztropine Mesylate [Cogentin] 1 mg PO DAILY 11/08/18 10/13/23 History Escitalopram [Lexapro] 10 mg PO DAILY 11/08/18 10/13/23 History Simvastatin 5 mg PO HS 11/08/18 10/13/23 History [place] Carbonate 300 mg PO DAILY 05/07/20 10/13/23 History Albuterol Sulfate [Ventolin HFA] 2 puff INHALATION RT-Q6H PRN 02/19/22 10/13/23 History Ammonium Lactate Cream [Lac-Hydrin 1 applic TOPICAL DAILY 10/13/23 10/13/23 History 12% Cream] Allergies Allergy/AdvReac Type Severity Reaction Status Date / Time haloperidol [From Haldol] AdvReac Stroke-like Verified 10/13/23 07:49 symptoms Physical Exam Vitals: Vital Signs Temp Pulse Resp BP Pulse Ox 10/13/23 03:00 79 18 118/91 96 10/12/23 23:29 82 18 113/77 95 10/12/23 22:22 99 F 81 18 154/92 97 Intake and Output 10/12/23 10/13/23 10/13/23 22:59 06:59 14:59 Other: Weight 127.006 kg Results 10/12/23 22:28 10/12/23 22:28 Cardiac Enzymes 10/12/23 10/12/23 10/13/23 Range/Units 22:28 22:28 02:35 AST 19 (17-59) U/L Troponin I <0.012 <0.012 (0.000-0.034) ng/mL Coagulation 10/12/23 Range/Units 22:28 PT 10.0 (10.0-12.5) sec APTT 26.1 (22.0-30.0) sec CBC 10/12/23 Range/Units 22:28 WBC 12.1 H (3.8-10.6) k/uL RBC 5.00 (4.30-5.90) m/uL Hgb 14.6 (13.0-17.5) gm/dL Hct 44.0 (39.0-53.0) % Plt Count 311 (150-450) k/uL Comprehensive Metabolic Panel 10/12/23 Range/Units 22:28 Sodium 133 L (137-145) mmol/L Potassium 4.2 (3.5-5.1) mmol/L Chloride 104 (98-107) mmol/L Carbon Dioxide 19 L (22-30) mmol/L BUN 18 (9-20) mg/dL Creatinine 0.90 (0.66-1.25) mg/dL Glucose 149 H (74-99) mg/dL Calcium 9.3 (8.4-10.2) mg/dL AST 19 (17-59) U/L ALT 22 (4-49) U/L Alkaline Phosphatase 91 (38-126) U/L Total Protein 7.1 (6.3-8.2) g/dL Albumin 4.2 (3.5-5.0) g/dL Current Medications Generic Name Dose Route Start Last Admin Trade Name Freq PRN Reason Stop Dose Admin Aspirin 325 mg 10/14/23 09:00 Aspirin 325 Mg Tab PO DAILY [facility] Atorvastatin Calcium 80 mg 10/13/23 09:00 Atorvastatin 80 Mg Tab PO DAILY [facility] Metoprolol Tartrate 25 mg 10/13/23 09:00 Metoprolol Tartrate 25 Mg Tab PO BID [facility] Morphine Sulfate 4 mg 10/13/23 00:24 Morphine Sulfate 4 Mg/Ml Syringe IV Q4HR PRN Chest Pain Nitroglycerin 0.4 mg 10/13/23 00:24 Nitroglycerin Sl Tabs 0.4 Mg Tab SUBLINGUAL Q5M PRN Chest Pain Intake and Output 10/12/23 10/13/23 10/13/23 22:59 06:59 14:59 Other: Weight 127.006 kg 10/12/23 22:28 10/12/23 22:28
--- NOTE | 2023-10-13 10:30 | CA ---
Transthoracic Echo Report Name: Jurgen Stanley Age: 47 Gender: M : 1975 Exam Date: 10/13/2023 08:03 Exam Location: [place] [facility] Ht (in): 73 Wt (lb): 280 Ordering Physician: Kai Brown DO Attending/Referring Phys: [id number], Kevin Retarder Operator Elba Ford RDCS Procedure CPT: Indications: CP Cardiac Hx: Technical Quality: Technically difficult study Contrast 1: Definity Total Dose (mL): 2 Contrast 2: Total Dose (mL): MEASUREMENTS (Male / Female) Normal Values 2D ECHO LV Diastolic Diameter PLAX 4.4 cm 4.2 - 5.9 / 3.9 - 5.3 cm LV Systolic Diameter PLAX 2.8 cm IVS Diastolic Thickness 1.8 cm 0.6 - 1.0 / 0.6 - 0.9 cm LVPW Diastolic Thickness 1.4 cm 0.6 - 1.0 / 0.6 - 0.9 cm LV Relative Wall Thickness 0.7 RV Internal Dim ED PLAX 5.0 cm LA Volume 47.8 cm??? 18 - 58 / 22 - 52 cm??? LA Volume Index 18.4 cm???/m??? 16 - 28 cm???/m??? M-MODE Aortic Root Diameter MM 2.9 cm LA Systolic Diameter MM 5.1 cm LA Ao Ratio MM 1.8 DOPPLER AV Peak Velocity 113.2 cm/s AV Peak Gradient 5.1 mmHg AV Mean Velocity 77.2 cm/s AV Mean Gradient 2.7 mmHg AV Velocity Time Integral 21.8 cm LVOT Peak Velocity 83.1 cm/s LVOT Peak Gradient 2.8 mmHg LVOT Velocity Time Integral 19.6 cm MV Area PHT 2.8 cm??? Mitral E Point Velocity 55.3 cm/s Mitral A Point Velocity 62.8 cm/s Mitral E to A Ratio 0.9 MV Deceleration Time 269.8 ms MV E' Velocity 7.2 cm/s Mitral E to MV E' Ratio 7.7 FINDINGS Left Ventricle Severely increased left ventricular wall thickness. Left ventricular cavity size normal. Normal left ventricular systolic function with no obvious regional wall motion abnormalities. Left ventricular ejection fraction is estimated at 55-60 %. Grade 1 diastolic dysfunction. Right Ventricle Severe right ventricular dilatation. Undetermined RV systolic pressures. Right Atrium Right atrium not well visualized. Left Atrium Normal left atrial size. Mitral Valve Structurally normal mitral valve. No mitral stenosis, regurgitation or prolapse. Aortic Valve No aortic valve stenosis or regurgitation. Tricuspid Valve Structurally normal tricuspid valve. Mild tricuspid regurgitation. Pulmonic Valve Structurally normal pulmonic valve. Pericardium No pericardial effusion. Aorta Normal size aortic root and proximal ascending aorta. CONCLUSIONS Normal LV function Previewed by: Dr. Anselmo Crystal MD (Electronically Signed) Final Date: 13 October 2023 10:29
[2023-10-13 15:56] VITALS: BP 135/85; PULSE 77
--- NOTE | 2023-10-13 17:16 | CA ---
Stress Echo Report Jurgen Stanley Age: 47 Gender: M : 1975 Exam Date: 10/13/2023 12:21 Exam Location: [facility] Ht (in): 73 Wt (lb): 280 Ordering Physician: Gina Briceno Referring Physician: Kaity ARCE Neurosurgical Nurse: LORNA, Technologist Elba Ford RDCS Procedure CPT: Indication: Chest Pain ICD-9 Codes: Rhythm: Patient History: CP, NUMBNESS FACE/NECK, HTN, CHOL, FMAILY HX, ASTHMA Cardiac Medications: SEE CHART Medications in past 24 hours: Contrast: Stress Results Protocol: Raul Total dose(mL): Exercise Duration (min:sec): 6:[address] Depression (mm): Angina Score: Zuniga Score: METS: 7.5 Resting HR: 63 Resting BP: 100 / 79 Peak HR: 118 Peak BP: 170 / 75 Max Predicted HR: 174 68 % Max Predicted HR Target HR: 148 Double Product: Stress Summary: TEST ENDED DUE TO SOB FROM Hx OF ASTHMA- WHEEZING BP Response: Reason for Termination: Excessive shortness of breath Cardiac Symptoms: Dyspnea ECG Analysis Resting ECG: Normal sinus rhythm normal axis normal intervals Stress ECG: Patient exercised on Raul protocol for 6 minutes achieving 7 metastases 85% of predicted maximal heart rate without chest pain or diagnostic ST segment depression Arrhythmia: Echo Analysis Resting Echo: Technically suboptimal study contrast agent was used for endocardial enhancement normal left ventricle a size wall motion systolic function Peak Echo Analysis: Normal hyperdynamic response of all segments of myocardium noted MEASUREMENTS (Male/Female) Normal Values CONCLUSIONS Average exercise tolerance negative stress test by EKG criteria Negative stress echo Dr. Anselmo Crystal MD (Electronically Signed) Final Date: 13 October 2023 17:15
--- NOTE | 2023-10-14 00:09 | HP ---
HISTORY AND PHYSICAL This is a combination of history and physical and discharge summary. CHIEF COMPLAINT: Chest pain. HISTORY OF PRESENT ILLNESS: This is a 47-year-old gentleman with past medical history of hypertension, hyperlipidemia, was complaining of chest pain. Myocardial infarction ruled out. Cardiology is performing a stress test. If stress test is normal, the patient will be discharged home with advice to follow up with Primary Physician and Cardiology. A 2D echo with Doppler did not show any acute abnormality at this time. There is no history of any fever, rigors, or chills. PAST MEDICAL HISTORY: Hypertension, hyperlipidemia. Rest of the history and rest of the chart is also reviewed. HOME MEDICATIONS: Reviewed include Zestril. Dose and rest of medications noted. ALLERGIES: Haloperidol. FAMILY HISTORY: No history of heart disease, or strokes in the family. SOCIAL HISTORY: No history of smoking, or alcohol. REVIEW OF SYSTEMS: A 14-point review is negative except as mentioned earlier. PHYSICAL EXAMINATION: VITAL SIGNS: Pulse is 51, blood pressure 110/94, respirations 18. HEENT: Conjunctivae normal. NECK: No JVD. CARDIOVASCULAR: S1, S2 muffled. RESPIRATIONS: Breath sounds diminished at the bases. No rhonchi. No crackles. ABDOMEN: Soft. LEGS: No edema. NERVOUS SYSTEM: No focal deficits. LABORATORY DATA: WBC 12.1. Rest of the labs are noted. ASSESSMENT: 1. Chest pain, possible unstable angina. 2. Hypertension. 3. Hyperlipidemia. 4. Gastroesophageal reflux disease. 5. History of asthma. 6. Multiple medical issues. RECOMMENDATIONS AND DISCUSSION: Recommend to continue current management and continue symptomatic treatment. Stress test is ordered and otherwise the patient is asymptomatic and if the stress test is normal, the patient will be discharged if okay with Cardiology with further plans to follow up with Cardiology in the outpatient setting, as well as primary physician, Dr. Coles in the outpatient setting. Please refer to the discharge reconciliation medication for list of medications. MMODL / IJN: [id number] /
[2023-10-14] MEDS ORDERED: ASPIRIN 325 MG TAB PO SCH (09:00)
[2023-10-14] MEDS ORDERED: ASPIRIN 81 MG PO SCH (09:00)
== END 2023-10-13 15:40 | disposition home or self-care (01) ==
LOC: EC 22:10 → 6NMEDSUR 10-13 00:25
PROVIDERS: ADMIT Hospitalist; ATTEND Hospitalist
DX: R07.89 Other chest pain (principal); M54.2 Cervicalgia; M79.602 Pain in left arm; I10 Essential (primary) hypertension; I08.3 Combined rheumatic disorders of mitral, aortic and tricuspid valves; J45.909 Unspecified asthma, uncomplicated; E78.00 Pure hypercholesterolemia, unspecified; I20.9 Angina pectoris, unspecified; R00.2 Palpitations; F41.9 Anxiety disorder, unspecified; K21.9 Gastro-esophageal reflux disease without esophagitis; Z79.899 Other long term (current) drug therapy; Z79.82 Long term (current) use of aspirin; Z88.8 Allergy status to other drugs, medicaments and biological substances
CPT/HCPCS: 96374; 99291; 36415; 93005; 93351; 80053; 83735; 84484 ×2; 85025; 85610; 85730; 71046; G0378; C8929; Q9957; J1644; 93306

== ENCOUNTER 2023-11-22 13:20 | Inpatient (IN) | payer MEDICARE, MEDICAID ==
--- NOTE | 2023-11-22 13:46 | ED ---
General Adult HPI - General Chief complaint: Psychiatric Symptoms Stated complaint: Suicidal Time Seen by Provider: 11/22/23 13:28 Source: patient, RN notes reviewed Mode of arrival: ambulatory Limitations: no limitations - History of Present Illness Initial comments: Patient is a 48-year-old male present to the emergency department for psychiatric evaluation. Patient states he has had suicidal thoughts for the past 4 to 5 days. Patient lost his job and his has medical problems. Patient has plan to overdose. Patient sometimes hears voices that say his name. No homicidal thoughts. No alcohol or street drug use. No new physical complaints. - Related Data Home Medications Medication Instructions Recorded Confirmed lisinopriL [Zestril] 20 mg PO HS 09/06/17 11/22/23 ARIPiprazole [Abilify Maintena] 400 mg IM Q28D 11/08/18 11/22/23 Benztropine Mesylate [Cogentin] 1 mg PO DAILY 11/08/18 11/22/23 Volo Carbonate 600 mg PO DAILY 05/07/20 11/22/23 Albuterol Sulfate [Ventolin HFA] 2 puff INHALATION RT-Q6H PRN 02/19/22 11/22/23 Ammonium Lactate Cream [Lac-Hydrin 1 applic TOPICAL DAILY 10/13/23 11/22/23 12% Cream] Escitalopram [Lexapro] 20 mg PO DAILY 11/22/23 11/22/23 traMADol HCl [Ultram] 50 mg PO Q6H PRN 11/22/23 11/22/23 Previous Rx's Medication Instructions Recorded Aspirin 81 mg PO DAILY #30 tab 10/13/23 Atorvastatin [Lipitor] 80 mg PO DAILY #30 tab 10/13/23 Metoprolol Tartrate [Lopressor] 25 mg PO BID #60 tab 10/13/23 Nitroglycerin Sl Tabs [Nitrostat] 0.4 mg SUBLINGUAL Q5M PRN #15 tab 10/13/23 Allergies Allergy/AdvReac Type Severity Reaction Status Date / Time haloperidol [From Haldol] AdvReac Stroke-like Verified 11/22/23 15:55 symptoms Review of Systems ROS Statement: Those systems with pertinent positive or pertinent negative responses have been documented in the HPI. ROS Other: All systems not noted in ROS Statement are negative. Constitutional: Denies: fever Eyes: Denies: eye pain ENT: Denies: ear pain Respiratory: Denies: cough Cardiovascular: Denies: chest pain Endocrine: Denies: fatigue Gastrointestinal: Denies: abdominal pain Psychiatric: Reports: as per HPI, depression, auditory hallucinations, suicidal thoughts Past Medical History Past Medical History: Asthma, Chest Pain / Angina, GERD/Reflux, Hyperlipidemia, Hypertension, Sleep Apnea/CPAP/BIPAP Additional Past Medical History / Comment(s): Tourette's syndrome, seasonal Allergies, dyskenisia, sleep apnea- no machine., carlos a inguinal hernias History of Any Multi-Drug Resistant Organisms: None Reported Past Surgical History: Hernia Repair, Tonsillectomy Additional Past Surgical History / Comment(s): states hernia right testicle x 2 Past Anesthesia/Blood Transfusion Reactions: No Reported Reaction Additional Past Anesthesia/Blood Transfusion Reaction / Comment(s): difficulty waking. Past Psychological History: Anxiety, Bipolar, Depression, Panic Disorder, Schizophrenia Smoking Status: Never smoker Past Alcohol Use History: None Reported Past Drug Use History: None Reported - Past Family History Father Family Medical History: No Reported History Additional Family Medical History / Comment(s): He is 61 years of age. Patient has had no contact with him and 20 years Mother Additional Family Medical History / Comment(s): Mother at age 63 from sepsis. Sister(s) Family Medical History: No Reported History Additional Family Medical History / Comment(s): He has 2 sisters with no major medical problems. General Exam Limitations: no limitations General appearance: alert, in no apparent distress Head exam: Present: normocephalic Eye exam: Present: normal appearance Neck exam: Present: normal inspection Respiratory exam: Present: normal lung sounds bilaterally Cardiovascular Exam: Present: regular rate, normal rhythm GI/Abdominal exam: Present: soft. Absent: tenderness Extremities exam: Present: normal inspection Neurological exam: Present: alert Psychiatric exam: Present: flat affect Skin exam: Present: normal color Course Vital Signs 11/22/23 13:24 Temperature 98.3 F Pulse Rate 78 Respiratory 18 Rate Blood Pressure 133/88 O2 Sat by Pulse 98 Oximetry Medical Decision Making - Medical Decision Making Was pt. sent in by a medical professional or institution (, PA, BILLING CUSTOMER SERVICE REPRESENTATIVE, urgent care, hospital, or long term...) When possible be specific @ -No Did you speak to anyone other than the patient for history (EMS, parent, family, police, friend...)? What history was obtained from this source @ -No Did you review nursing and triage notes (agree or disagree)? Why? @ -I reviewed and agree with nursing and triage notes Were old charts reviewed (outside hosp., previous admission, EMS record, old EKG, old radiological studies, urgent care reports/EKG's, long term records)? Report findings @ -No old charts were reviewed Differential Diagnosis (chest pain, altered mental status, abdominal pain women, abdominal pain men, vaginal bleeding, weakness, fever, dyspnea, syncope, headache, dizziness, GI bleed, back pain, seizure, CVA, palpatations, mental health, musculoskeletal)? @ -Differential Mental Health Depression, anxiety, bipolar, psychosis, schizophrenia, borderline personality, situational depression, adjustment disorder, behavioral disorder, brain tumor, malingering, substance abuse, encephalopathy, medication reaction, dementia, hypothyroidism, degenerative neurologic disorder, lupus.... This is not meant to be all-inclusive list EKG interpreted by me (3pts min.). @ -As above X-rays interpreted by me (1pt min.). @ -None done CT interpreted by me (1pt min.). @ -None done U/S interpreted by me (1pt. min.). @ -None done What testing was considered but not performed or refused? (CT, X-rays, U/S, labs)? Why? @ -None What meds were considered but not given or refused? Why? @ -None Did you discuss the management of the patient with other professionals (professionals i.e. , PA, BILLING CUSTOMER SERVICE REPRESENTATIVE, lab, RT, psych nurse, social work program coordinator, all round logger, teacher, animal control officer, case mgr)? Give summary @ -Case was discussed with mental health worker who will admit to psychiatric floor Was smoking cessation discussed for >3mins.? @ -No Was critical care preformed (if so, how long)? @ -No Were there social determinants of health that impacted care today? How? (Homelessness, low income, unemployed, alcoholism, drug addiction, transportation, low edu. Level, literacy, decrease access to med. care, snf, rehab)? @ -No Was there de-escalation of care discussed even if they declined (Discuss DNR or withdrawal of care, Hospice)? DNR status @ -No What co-morbidities impacted this encounter? (DM, HTN, Smoking, COPD, CAD, Cancer, CVA, ARF, Chemo, Hep., AIDS, mental health diagnosis, sleep apnea, mo rbid obesity)? @ -None Was patient admitted / discharged? Hospital course, mention meds given and route, prescriptions, significant lab abnormalities, going to OR and other pertinent info. @ -Patient presents with depression and suicidal ideation and plan. Patient will be admitted for mental health care. Undiagnosed new problem with uncertain prognosis? @ -No Drug Therapy requiring intensive monitoring for toxicity (Heparin, Nitro, Insulin, Cardizem)? @ -No Were any procedures done? @ -No Diagnosis/symptom? @ -Depression, suicidal ideation Acute, or Chronic, or Acute on Chronic? @ -Acute, acute Uncomplicated (without systemic symptoms) or Complicated (systemic symptoms)? @ -Default Side effects of treatment? @ -No Exacerbation, Progression, or Severe Exacerbation? @ -No Poses a threat to life or bodily function? How? (Chest pain, USA, MT, pneumonia, PE, COPD, DKA, ARF, appy, cholecystitis, CVA, Diverticulitis, Homicidal, Suicidal, threat to staff... and all critical care pts) @ -No - Lab Data Lab Results 11/22/23 Range/Units 14:41 Urine Opiates Screen Not Detected (NotDetected) Ur Oxycodone Screen Not Detected (NotDetected) Urine Methadone Screen Not Detected (NotDetected) Ur Barbiturates Screen Not Detected (NotDetected) U Tricyclic Antidepress Not Detected (NotDetected) Ur Phencyclidine Scrn Not Detected (NotDetected) Ur Amphetamines Screen Not Detected (NotDetected) U Methamphetamines Scrn Not Detected (NotDetected) U Benzodiazepines Scrn Not Detected (NotDetected) Urine Cocaine Screen Not Detected (NotDetected) U Marijuana (THC) Screen Not Detected (NotDetected) Disposition Clinical Impression: Depression, Suicidal ideation Disposition: TRANSFER TO PSYCH HOSP/UNIT Is patient prescribed a controlled substance at d/c from ED?: No Referrals: Sharyn Fonseca MD [Primary Care Provider] - 1-2 days Time of Disposition: 17:11
[2023-11-22 15:23] LABS: Amphetamine Screen,Urine Not Detected (NotDetected); Barbiturate Screen,Urine Not Detected (NotDetected); Benzodiazepines Screen,Urine Not Detected (NotDetected); Cocaine Screen,Urine Not Detected (NotDetected); Methadone Screen, Urine Not Detected (NotDetected); Opiate Screen,Urine Not Detected (NotDetected); Oxycodone Screen, Urine Not Detected (NotDetected); Phencyclidine Screen,Urine Not Detected (NotDetected); Tricyclic Antidepressant,Urine Not Detected (NotDetected); Urn Cannabinoid Scrn Not Detected (NotDetected)
[2023-11-22] MEDS ORDERED: MAGNESIUM HYDROXIDE 2,400 MG/30 ML CUP PO PRN (23:41)
[2023-11-22] MEDS ORDERED: traZODone HCL 50 MG TAB PO PRN (23:41)
[2023-11-22] MEDS ORDERED: IBUPROFEN 600 MG TAB PO PRN (23:41)
[2023-11-22] MEDS ORDERED: OLANZapine 5 MG TAB PO PRN (23:41)
[2023-11-22] MEDS ORDERED: OLANZapine 10 MG VIAL IM PRN (23:41)
[2023-11-22] MEDS ORDERED: MAG HYDROX/AL HYDROX/SIMETH 355 ML BOTTLE PO PRN (23:41)
[2023-11-22] MEDS ORDERED: ACETAMINOPHEN TAB 325 MG TAB PO PRN (23:41)
[2023-11-22] MEDS ORDERED: NITROGLYCERIN SL TABS 0.4 MG TAB SUBLINGUAL PRN (23:46)
[2023-11-23 00:52] LABS: Appearance,Urine Clear (Clear); Bilirubin,Urine Negative (Negative); Blood,Urine Negative (Negative); Color,Urine Light Yellow; Glucose,Urine (UA) Negative (Negative); Ketones,Urine Negative (Negative); Leukocyte Esterase,Urine Negative (Negative); Nitrite,Urine Negative (Negative); PH, Urine 5.5 (5.0-8.0); Protein,Urine Negative (Negative); Urobilinogen,Urine <2.0 mg/dL (<2.0)
[2023-11-23] MEDS: BENZTROPINE MESYLATE 1 MG TAB PO SCH (09:03)
[2023-11-23] MEDS: METOPROLOL TARTRATE 25 MG TAB PO SCH (09:03)
[2023-11-23] MEDS: ASPIRIN 81 MG PO SCH (09:03)
[2023-11-23] MEDS: ESCITALOPRAM 20 MG TAB PO SCH (09:03)
[2023-11-23] MEDS: ATORVASTATIN 80 MG TAB PO SCH (09:03)
[2023-11-23] MEDS: AMMONIUM LACTATE 12% CREAM 140 GM TUBE TOPICAL SCH (09:03)
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
[2023-11-23] MEDS: LITHIUM CARBONATE 300 MG CAP PO SCH (12:54)
[2023-11-23] MEDS: ALBUTEROL INHALER 60 PUFF/8 GM INHALER (MHU) INHALATION PRN (13:33)
[2023-11-23] MEDS: SYMBICORT 160-4.5 MCG INHALER INHALATION SCH (16:52)
--- NOTE | 2023-11-23 20:51 | CONS ---
CONSULTATION REASON FOR CONSULTATION: Advice regarding asthma, requested by Psychiatry. HISTORY OF PRESENT ILLNESS: This is a 48-year-old gentleman with history of asthma, was admitted with suicidal thoughts. There is no history of any fever or rigors. No history of headache, loss of consciousness, or seizures at this time. PAST MEDICAL HISTORY: History of asthma, GERD, hypertension, hyperlipidemia. Rest of the chart is also reviewed. HOME MEDICATIONS: Ultram. Dose and rest of medications reviewed. ALLERGIES: Haldol. FAMILY HISTORY: No history of heart disease or strokes in the family. SOCIAL HISTORY: No history of smoking or alcohol. REVIEW OF SYSTEMS: Fourteen-point review is negative except as mentioned earlier. PHYSICAL EXAMINATION: VITAL SIGNS: Pulse is 81, blood pressure 141/84, respirations 18. CHEST: A few scattered rhonchi and crackles. ABDOMEN: Soft, nontender. No mass. LEGS: No edema. NERVOUS SYSTEM: Nonfocal. SKIN: No ulcer, rash, bleeding. JOINTS: No active deforming arthropathy. LABORATORY DATA: Influenza, COVID are negative. Rest of the labs are noted. ASSESSMENT: 1. Depression and suicidal ideation. 2. Asthma. 3. Hypertension. 4. Hyperlipidemia. 5. Sleep apnea. RECOMMENDATIONS AND DISCUSSION: In this 48-year-old gentleman who presented for psychiatric evaluation, I recommend to continue the current management and continue symptomatic treatment. Continue with home inhalations. I would recommend a course of Symbicort also. Continue to monitor. Recommend close followup with Dr. Coles after discharge. MMODL / IJN: [id number] /
[2023-11-23] MEDS: risperiDONE 0.5 MG TAB PO SCH (21:19)
[2023-11-23] MEDS: lisinopriL 20 MG TAB PO SCH (21:19)
[2023-11-23] MEDS: ALBUTEROL INHALER 60 PUFF/8 GM INHALER (MHU) INHALATION SCH (21:56)
[2023-11-24] MEDS: traMADol 50 MG TAB PO PRN (09:17)
--- NOTE | 2023-11-24 11:08 | P.PN ---
Progress Note - Text Progress Note Date: 11/24/23 Interval History: Patient was seen wandering the hallways and was directable and agreeable to patrick macdonald with keno writer / runner in the office. Patient states that he feels a lot better today, and "ready to conquer the day". He claims to have slept very well last night. Patient states that he is going to groups. Patient states that his came in for a visit last night, and it went well. Patient is fairly focused on going home, however, keno writer / runner explained to the patient that with the medication changes, it would be best for him to stay here, to make sure the medications are working well for him. Patient agreeable, and admits that he should be here, due to the overwhelming stressors that brought him in to the hospital, and he needs the help. At this time patient denies any suicidal or homicidal ideations, intent or plan. Patient denies any auditory, visual hallucinations and denies any paranoia or delusions. Patient denies any side effects from the medications and has been compliant with meds. MENTAL STATUS EXAM: General Appearance: Patient appears to be stated age is alert, directable, and attempts to cooperate. Patient is big in stature, tall, shaved head. Patient appears to have fair hygiene and grooming. Wearing a hospital gown. Behavior: Patient is seated without any agitated behavior. Pleasant Speech: Patient's speech is fluent and nonpressured. Mood/Affect: Patient reports their mood is depressed and anxious, affect is congruent and constricted. Suicidality/Homicidality: Patient denies having any homicidal ideation intent or plan. Denies any suicidal ideations intent or plan Perceptions: Patient denies any visual hallucinations and denies any auditory hallucinations Though content/process: There is no evidence of any delusional thought content and thought process is linear and goal-directed. Focused on stressors Memory and concentration: AOX3, grossly intact for the purposes of this session. Judgment and insight: Poor IMPRESSIONS: schizoaffective, depressive type anxiety disorder, unspecified PLAN: -Patient is admitted under voluntary status to MHU for stabilization of psychiatric symptoms and safety. Patient has signed adult voluntary form and medication consent and is placed in patient's chart. -Medications : Risperdal 0.5mg qhs for psychosis, Lexapro 20mg daily for mood/anxiety, [place] 600mg daily for mood stabilization/suicidal thoughts. Cogentin 1mg daily for EPS symptoms Abilify Maintena 400mg IM last received 11/08/23. Next dose due 12/05. -Zyorexa PRN for agitation/aggression -SW on board for discharge planning. Encourage patient to participate in groups to work on coping skills. Likely discharge Tuesday vs Tuesday.
[2023-11-25] MEDS ORDERED: ASPIRIN 81 MG ONE (08:21)
[2023-11-25] MEDS ORDERED: BENZTROPINE MESYLATE 1 MG TAB ONE (08:22)
[2023-11-25] MEDS ORDERED: ESCITALOPRAM 20 MG TAB ONE (08:23)
[2023-11-25] MEDS ORDERED: LITHIUM CARBONATE 300 MG CAP ONE (08:24)
--- NOTE | 2023-11-25 11:20 | P.PN ---
Progress Note - Text Progress Note Date: 11/25/23 Interval History: Patient was seen wandering the hallways and was directable and agreeable to patrick macdonald with race and sports book writer in the office. Patient states that he thinks that his medication is working well for him. He states that he is rested up. He states that his appetite is good. Gummed Tape Press Operator spoke with the patient about drawing a lithium level Tuesday, patient agreeable. Patient offered no complaints. At this time patient denies any suicidal or homicidal ideations, intent or plan. Patient denies any auditory, visual hallucinations and denies any paranoia or delusions. Patient denies any side effects from the medications and has been compliant with meds. MENTAL STATUS EXAM: General Appearance: Patient appears to be stated age is alert, directable, and attempts to cooperate. Patient is big in stature, tall, shaved head. Patient appears to have fair hygiene and grooming. Wearing a hospital gown. Behavior: Patient is seated without any agitated behavior. Pleasant Speech: Patient's speech is fluent and nonpressured. Very talkative. Respectful. Mood/Affect: Patient reports their mood is improving, affect is congruent and constricted. Suicidality/Homicidality: Patient denies having any homicidal ideation intent or plan. Denies any suicidal ideations intent or plan Perceptions: Patient denies any visual hallucinations and denies any auditory hallucinations Though content/process: There is no evidence of any delusional thought content and thought process is linear and goal-directed. mildly improving Memory and concentration: AOX3, grossly intact for the purposes of this session. Judgment and insight: mildly improving IMPRESSIONS: schizoaffective, depressive type anxiety disorder, unspecified PLAN: -Patient is admitted under voluntary status to MHU for stabilization of psychiatric symptoms and safety. Patient has signed adult voluntary form and medication consent and is placed in patient's chart. -Medications : Risperdal 0.5mg qhs for psychosis, Lexapro 20mg daily for mood/anxiety, [place] 600mg daily for mood stabilization/suicidal thoughts. Cogentin 1mg daily for EPS symptoms Abilify Maintena 400mg IM last received 11/08/23. Next dose due 12/05. -Check [place] level, cmp and cbc with diff Tuesday morning -Zyorexa PRN for agitation/aggression -SW on board for discharge planning. Encourage patient to participate in groups to work on coping skills. Likely discharge Tuesday.
--- NOTE | 2023-11-26 11:42 | P.PN ---
Subjective Progress Note Date: 11/26/23 Principal diagnosis: IMPRESSIONS: schizoaffective, depressive type anxiety disorder, unspecified Patient Name: Jurgen Stanley Date of : 77 Patient Status: Inpatient Attending Provider: Sai Contreras Date: 11/26/23 Initialization Date: 11/25/23 08:38 Interval History: Patient was seen wandering the hallways and was directable and agreeable to speak with engineering technical writer Patient states that he thinks that his medication is working well for him. Patient reports that the reason for his being in the hospital was due to multiple losses. 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 Patient offered no complaints. At this time patient denies any suicidal or homicidal ideations, intent or plan. Patient denies any auditory, visual hallucinations and denies any paranoia or delusions. Patient denies any side effects from the medications and has been compliant with meds. MENTAL STATUS EXAM: General Appearance: Patient appears to be stated age is alert, directable, and attempts to cooperate. Patient is big in stature, tall, shaved head. Patient appears to be poor insight disheveled appearance Behavior: Patient is ambulating without any agitated behavior. Pleasant and polite Speech: Patient's speech is fluent and nonpressured. Very talkative. Respectful. Mood/Affect: Patient reports their mood is improving, affect is congruent and constricted. Suicidality/Homicidality: Patient denies having any homicidal ideation intent or plan. Denies any suicidal ideations intent or plan Perceptions: Patient denies any visual hallucinations and denies any auditory hallucinations Though content/process: There is no evidence of any delusional thought content and thought process is linear and goal-directed. Memory and concentration: AOX3, grossly intact for the purposes of this session. Judgment and insight: Improved IMPRESSIONS: schizoaffective, depressive type anxiety disorder, unspecified PLAN: Agree with the current treatment plan from Dr. Contreras -Patient is admitted under voluntary status to [facility]HU for stabilization of psychiatric symptoms and safety. Patient has signed adult voluntary form and medication consent -Medications : Continue Risperdal 0.5mg qhs for psychosis, Lexapro 20mg daily for mood/anxiety, [place] 600mg daily for mood stabilization/suicidal thoughts. Cogentin 1mg daily for EPS symptoms Abilify Maintena 400mg IM last received 11/08/23. Next dose due 12/05. -Check [place] level, cmp and cbc with diff Tuesday morning -Zyorexa PRN for agitation/aggression -SW on board for discharge planning. Encourage patient to participate in groups to work on coping skills. Likely discharge Tuesday. Stephen Gilmore MD Objective - Vital Signs Vital signs: Vital Signs Temp 97.5 F L 11/26/23 06:00 Pulse 74 11/26/23 08:35 Resp 18 11/26/23 06:00 BP 122/66 11/26/23 08:35 Pulse Ox 95 11/26/23 06:00 FiO2
[2023-11-27 08:02] LABS: Basophils # (A) 0.1 k/uL (0-0.2); Basophils % (A) 1 %; Eosinophils # (A) 0.5 k/uL (0-0.7); Eosinophils % (A) 5 %; HCT 44.9 % (39.0-53.0); HGB 14.3 gm/dL (13.0-17.5); Lymphocytes # (A) 2.1 k/uL (1.0-4.8); Lymphocytes % (A) 21 %; MCH 28.7 pg (25.0-35.0); MCHC 31.9 g/dL (31.0-37.0); MCV 89.8 fL (80.0-100.0); Mean Platelet Volume 8.3; Monocytes # (A) 0.7 k/uL (0-1.0); Monocytes % (A) 7 %; Neutrophils # (A) 6.3 k/uL (1.3-7.7); Neutrophils % (A) 64 %; Platelet Count 292 k/uL (150-450); WBC 9.9 k/uL (3.8-10.6)
--- NOTE | 2023-11-27 08:31 | P.PN ---
Subjective Progress Note Date: 11/27/23 Principal diagnosis: IMPRESSIONS: schizoaffective, depressive type anxiety disorder, unspecified Patient Name: Jurgen Stanley Date of : 77 Patient Status: Inpatient Attending Provider: Sai Contreras Date: 11/27/23 Initialization Date: 11/25/23 08:38 Interval History: Patient remains quite cooperative with this interview and is open about his personal issues and problems He states that he really had some tough time when he was younger with the Tourette's syndrome but that eventually he seemed to able to cope better He states that his 's illness really took a toll on him He states that he is looking forward to going home tomorrow He states that he had a blood test for lithium drawn today this morning before the medications Patient was seen wandering the hallways and was directable and agreeable to speak with teletypewriter operator Patient states that he thinks that his medication is working well for him. Patient reports that the reason for his being in the hospital was due to multiple losses. 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 Patient offered no complaints. At this time patient denies any suicidal or homicidal ideations, intent or plan. Patient denies any auditory, visual hallucinations and denies any paranoia or delusions. Patient denies any side effects from the medications and has been compliant with meds. MENTAL STATUS EXAM: General Appearance: Patient appears to be stated age is alert, directable, and attempts to cooperate. Patient is big in stature, tall, shaved head. Patient appears to be poor insight disheveled appearance Behavior: Patient is ambulating without any agitated behavior. Pleasant and polite Speech: Patient's speech is fluent and nonpressured. Very talkative. Respectful. Mood/Affect: Patient reports their mood is improving, affect is congruent and constricted. Suicidality/Homicidality: Patient denies having any homicidal ideation intent or plan. Denies any suicidal ideations intent or plan Perceptions: Patient denies any visual hallucinations and denies any auditory hallucinations Though content/process: There is no evidence of any delusional thought content and thought process is linear and goal-directed. Memory and concentration: AOX3, grossly intact for the purposes of this session. Judgment and insight: Improved IMPRESSIONS: schizoaffective, depressive type anxiety disorder, unspecified PLAN: Agree with the current treatment plan from Dr. Contreras -Patient is admitted under voluntary status to MHU for stabilization of psychiatric symptoms and safety. Patient has signed adult voluntary form and medication consent -Medications : Continue Risperdal 0.5mg qhs for psychosis, Lexapro 20mg daily for mood/anxiety, [place] 600mg daily for mood stabilization/suicidal thoughts. Cogentin 1mg daily for EPS symptoms Abilify Maintena 400mg IM last received 11/08/23. Next dose due 12/05. -Check [place] level, cmp and cbc with diff Tuesday morning -Zyorexa PRN for agitation/aggression -SW on board for discharge planning. Encourage patient to participate in groups to work on coping skills. Likely discharge Tuesday. Stephen Gilmore MD Objective - Vital Signs Vital signs: Vital Signs Temp 97.5 F L 11/26/23 06:00 Pulse 74 11/26/23 08:35 Resp 18 11/26/23 06:00 BP 122/66 11/26/23 08:35 Pulse Ox 95 11/26/23 06:00 FiO2 - Labs CBC & Chem 7: 11/27/23 07:37
[2023-11-27 08:34] VITALS: RESP 16
[2023-11-27 08:40] LABS: ALT 28 U/L (4-49); AST 20 U/L (17-59); African American GFR (CKD) >90 (>60 ml/min/1.73 sqM); Albumin 4.1 g/dL (3.5-5.0); Alkaline Phosphatase 79 U/L (38-126); Anion Gap 5 mmol/L; Blood Urea Nitrogen 12 mg/dL (9-20); Calcium 9.5 mg/dL (8.4-10.2); Carbon Dioxide 24 mmol/L (22-30); Chloride 109 mmol/L (98-107); Glucose 104 mg/dL (74-99); Lithium <0.2 mmol/L; Non-African American GFR(CKD) 84 (>60 ml/min/1.73 sqM); Potassium 4.7 mmol/L (3.5-5.1); Sodium 138 mmol/L (137-145); Total Bilirubin 1.1 mg/dL (0.2-1.3); Total Protein 6.9 g/dL (6.3-8.2)
[2023-11-28 06:57] VITALS: TEMP 97.7
[2023-11-28] MEDS: MAG HYDROX/AL HYDROX/SIMETH 30 ML CUP PO ONE (07:03)
[2023-11-28 08:33] VITALS: BP 130/70; PULSE 71
--- NOTE | 2023-11-28 09:33 | P.DS ---
Providers Date of admission: 11/22/23 23:32 Expected date of discharge: 11/28/23 Attending physician: Sai Contreras MD Consults: 11/22/23 23:41 Consult Physician Routine Consulting Provider: Bishop Kowalski Consult Reason/Comments: For H & P for Medical Follow Up Do you want consulting provider notified?: Yes, Notify in am Primary care physician: Sharyn Fonseca - Discharge Diagnosis(es) (1) Schizoaffective disorder, depressive type Current Visit: Yes Status: Acute Priority: High (2) Anxiety disorder, unspecified Current Visit: Yes Status: Acute Priority: Medium Hospital Course: Admission HPI: Admission note was completed by chief underwriter "Patient presented to the hospital on 11/21. As per EPS note, "Cl sitting in bed calm/cooperative A/O x4. Brought in via niece due to SI w plan to OD on psych medications, increased aud rashmi, command to harm self, racing thoughts, paranoia, depression, anxiety, helpless, increased stress. Cl states they lost their job recently and had been medically hospitalized w sepsis, which increased cl's stress. Cl reports having over 300 jobs in [place]. Cl is reported to be feeling helpless and worried. Cl presents with anxious, overwhelmed, asking for help, fearful they may act on voices, racing thoughts, Auditory hallucinations command, SI w plan to OD, and paranoia." Today, patient states that he has a lot of stressors as of late, having illness and hospitalized for two weeks, patient losing his job, financial stressors. Patient states that he has anxiety, and his mood is depressed. He is eating meals. He does endorse some paranoia. He is sleeping well at night. Today, patient denies any suicidal or homicidal ideations intent or plan. patient appears to be in distress and overwhelmed with his stressors. Today, kayleigh rodriguez denies any auditory or visual hallucinations. But he has been hearing voices lately. Patient denies any flight of ideas racing thoughts and increased in goal directed behavior. Patient UDS was negative. Does not smoke, does not drink. " Hospital course: Upon admission to the unit patient was directable and agreeable to commence treatment and signed adult voluntary form. Patient got along well with other patients on the unit and followed unit protocol. Patient was compliant with the medications and denied any side effects throughout hospital course. Patient was started on Risperdal up 0.5 mg nightly for psychosis/mood stabilization, Lexapro 20 mg daily for mood/anxiety, lithium 600 mg daily for mood stabilization/suicidal thoughts, Cogentin 1 mg daily for EPS symptoms, patient is currently on a maintenance dose of Abilify maintainer 400 mg IM last received at [facility] on 11/07, next dose will be due on 12/05.. Patient spoke of his stressors and engaged in therapy both group and individual. Patient was also seen by medical team for history and physical exam. Throughout the course of the hospitalization patient gradually improved with regards to mood, anxiety, hallucinations, sleep and returned back to their baseline level of functioning. On the day of discharge patient denied any suicidal or homicidal ideations intent or plan denied any auditory or visual hallucinations. Patient endorsed wanting to live for his health and family. The patient denied any access to guns or weapons. Patient denied any paranoia and did not endorse any delusions. Patient does not have a significant history of substance abuse and was counseled on abstaining from all substances including alcohol and marijuana. Patient was also counseled on the medications and need for regular compliance and was encouraged to follow-up with their outpatient appointment for mental health and also for primary care. Prior to discharge a family meeting will be arranged by social media marketing analyst to answer any questions and ensure safety upon discharge. Mental status exam: General Appearance: Patient appears to be overweight, stated age is alert, pleasant, and cooperative. Patient is in no acute distress and has improved hygiene and grooming Behavior: Patient is calmly seated without any agitated behavior. Speech: Patient's speech is fluent and nonpressured. Mood/Affect: Patient reports their mood is "better", affect is congruent and euthymic. Suicidality/Homicidality: Patient denies having any suicidal or homicidal ideation intent or plan. Perceptions: Patient denies any auditory or visual hallucinations. Though content/process: There is no evidence of any delusional thought content and thought process is linear and goal-directed. Memory and concentration: AOX3, grossly intact for the purposes of this session. Can spell "WORLD" backwards correctly. Judgment and insight: improved with guarded prognosis Impression: schizoaffective, depressive type anxiety disorder, unspecified Plan: -Continue with discharge today as patient has improved and stabilized psychiatrically and is not currently an imminent threat to himself and/or others. -Continue medications: Risperdal 0.5 mg nightly for psychosis/mood stabilization, Lexapro 20 mg daily for mood/anxiety, lithium 600 mg daily for mood stabilization/suicidal thoughts, Cogentin 1 mg daily for EPS symptoms, Abilify maintainer 400 mg IM last dose received at [facility] on 11/07, next dose will be due at [facility] on 12/05. -Patient was counseled on the need for medication compliance and appropriate follow-up at mental health and also primary care for medical issues. Patient verbalized understanding and agreed. -Social work to arrange for and conduct family meeting to ensure safety upon discharge and answer any questions/concerns. Social work also to arrange for patients follow up appointments with [facility] for psychiatric care along with follow up with primary care provider. -Patient counseled on abstaining from recreational drugs and marijuana and alcohol. Was informed/educated on the adverse effects on their physical and mental health. Patient verbally agreed and understood. -Patient was instructed to return to the hospital or seek immediate medical care if their psychiatric or medical symptoms do worsen or reoccur. Allergies Allergy/AdvReac Type Severity Reaction Status Date / Time haloperidol from Haldol AdvReac Stroke-like Verified 11/23/23 04:42 symptoms Laboratory Results WBC 9.9 k/uL (3.8-10.6) 11/27/23 07:37 RBC 5.00 m/uL (4.30-5.90) 11/27/23 07:37 Hgb 14.3 gm/dL (13.0-17.5) 11/27/23 07:37 Hct 44.9 % (39.0-53.0) 11/27/23 07:37 MCV 89.8 fL (80.0-100.0) 11/27/23 07:37 MCH 28.7 pg (25.0-35.0) 11/27/23 07:37 MCHC 31.9 g/dL (31.0-37.0) 11/27/23 07:37 RDW 13.0 % (11.5-15.5) 11/27/23 07:37 Plt Count 292 k/uL (150-450) 11/27/23 07:37 MPV 8.3 11/27/23 07:37 Neutrophils % 64 % 11/27/23 07:37 Lymphocytes % 21 % 11/27/23 07:37 Monocytes % 7 % 11/27/23 07:37 Eosinophils % 5 % 11/27/23 07:37 Basophils % 1 % 11/27/23 07:37 Neutrophils # 6.3 k/uL (1.3-7.7) 11/27/23 07:37 Lymphocytes # 2.1 k/uL (1.0-4.8) 11/27/23 07:37 Monocytes # 0.7 k/uL (0-1.0) 11/27/23 07:37 Eosinophils # 0.5 k/uL (0-0.7) 11/27/23 07:37 Basophils # 0.1 k/uL (0-0.2) 11/27/23 07:37 Sodium 138 mmol/L (137-145) 11/27/23 07:37 Potassium 4.7 mmol/L (3.5-5.1) 11/27/23 07:37 Chloride 109 mmol/L (98-107) H 11/27/23 07:37 Carbon Dioxide 24 mmol/L (22-30) 11/27/23 07:37 Anion Gap 5 mmol/L 11/27/23 07:37 BUN 12 mg/dL (9-20) 11/27/23 07:37 Creatinine 1.06 mg/dL (0.66-1.25) 11/27/23 07:37 Est GFR (CKD-EPI)AfAm >90 (>60 ml/min/1.73 sqM) 11/27/23 07:37 Est GFR (CKD-EPI)NonAf 84 (>60 ml/min/1.73 sqM) 11/27/23 07:37 Glucose 104 mg/dL (74-99) H 11/27/23 07:37 Calcium 9.5 mg/dL (8.4-10.2) 11/27/23 07:37 Total Bilirubin 1.1 mg/dL (0.2-1.3) 11/27/23 07:37 AST 20 U/L (17-59) 11/27/23 07:37 ALT 28 U/L (4-49) 11/27/23 07:37 Alkaline Phosphatase 79 U/L (38-126) 11/27/23 07:37 Total Protein 6.9 g/dL (6.3-8.2) 11/27/23 07:37 Albumin 4.1 g/dL (3.5-5.0) 11/27/23 07:37 Urine Color Light Yellow 11/23/23 00:00 Urine Appearance Clear (Clear) 11/23/23 00:00 Urine pH 5.5 (5.0-8.0) 11/23/23 00:00 Ur Specific [place] 1.020 (1.001-1.035) 11/23/23 00:00 Urine Protein Negative (Negative) 11/23/23 00:00 Urine Glucose (UA) Negative (Negative) 11/23/23 00:00 Urine Ketones Negative (Negative) 11/23/23 00:00 Urine Blood Negative (Negative) 11/23/23 00:00 Urine Nitrite Negative (Negative) 11/23/23 00:00 Urine Bilirubin Negative (Negative) 11/23/23 00:00 Urine Urobilinogen <2.0 mg/dL (<2.0) 11/23/23 00:00 Ur Leukocyte Esterase Negative (Negative) 11/23/23 00:00 Urine Opiates Screen Not Detected (NotDetected) 11/22/23 14:41 Ur Oxycodone Screen Not Detected (NotDetected) 11/22/23 14:41 Urine Methadone Screen Not Detected (NotDetected) 11/22/23 14:41 Ur Barbiturates Screen Not Detected (NotDetected) 11/22/23 14:41 U Tricyclic Antidepress Not Detected (NotDetected) 11/22/23 14:41 Ur Phencyclidine Scrn Not Detected (NotDetected) 11/22/23 14:41 Ur Amphetamines Screen Not Detected (NotDetected) 11/22/23 14:41 U Methamphetamines Scrn Not Detected (NotDetected) 11/22/23 14:41 U Benzodiazepines Scrn Not Detected (NotDetected) 11/22/23 14:41 [place] <0.2 mmol/L 11/27/23 07:37 Urine Cocaine Screen Not Detected (NotDetected) 11/22/23 14:41 U Marijuana (THC) Screen Not Detected (NotDetected) 11/22/23 14:41 Influenza Type A (PCR) Not Detected (Not Detectd) 11/22/23 16:02 Influenza Type B (PCR) Not Detected (Not Detectd) 11/22/23 16:02 RSV (PCR) Not Detected (Not Detectd) 11/22/23 16:02 SARS-CoV-2 (PCR) Not Detected (Not Detectd) 11/22/23 16:02 Vital Signs Temp 97.7 F 11/28/23 06:45 Pulse 71 11/28/23 08:16 Resp 16 11/28/23 06:45 BP 130/70 11/28/23 08:16 Pulse Ox 98 11/28/23 06:45 FiO2 Intake & Output 11/27/23 11/28/23 11/28/23 18:59 06:59 18:59 Weight 132.7 kg Patient Condition at Discharge: Stable Plan - Discharge Summary Discharge Rx Participant: Yes New Discharge Prescriptions: New Budesonide-Formot 160-4.5 Mcg [Symbicort 160-4.5 Mcg Inhaler] 2 puff INHALATION RT-BID 30 Days #1 each risperiDONE [RisperDAL] 0.5 mg PO HS 30 Days #30 tab Continue lisinopriL [Zestril] 20 mg PO HS ARIPiprazole [Abilify Maintena] 400 mg IM Q28D Albuterol Sulfate [Ventolin HFA] 2 puff INHALATION RT-Q6H PRN PRN Reason: Shortness Of Breath Ammonium Lactate Cream [Lac-Hydrin 12% Cream] 1 applic TOPICAL DAILY Nitroglycerin Sl Tabs [Nitrostat] 0.4 mg SUBLINGUAL Q5M PRN #15 tab PRN Reason: Chest Pain traMADol HCl [Ultram] 50 mg PO Q6H PRN PRN Reason: Moderate Pain (Scale 4 To 6) Escitalopram [Lexapro] 20 mg PO DAILY 30 Days #30 tab Aspirin 81 mg PO DAILY #30 tab Metoprolol Tartrate [Lopressor] 25 mg PO BID #60 tab Benztropine Mesylate [Cogentin] 1 mg PO DAILY 30 Days #30 tab Atorvastatin [Lipitor] 80 mg PO DAILY 30 Days #30 tab [place] Carbonate 600 mg PO DAILY 30 Days #60 cap Discharge Medication List lisinopriL [Zestril] 20 mg PO HS 09/06/17 [History] ARIPiprazole [Abilify Maintena] 400 mg IM Q28D 11/08/18 [History] Albuterol Sulfate [Ventolin HFA] 2 puff INHALATION RT-Q6H PRN 02/19/22 [History] Ammonium Lactate Cream [Lac-Hydrin 12% Cream] 1 applic TOPICAL DAILY 10/13/23 [History] Aspirin 81 mg PO DAILY #30 tab 10/13/23 [Rx] Metoprolol Tartrate [Lopressor] 25 mg PO BID #60 tab 10/13/23 [Rx] Nitroglycerin Sl Tabs [Nitrostat] 0.4 mg SUBLINGUAL Q5M PRN #15 tab 10/13/23 [Rx] traMADol HCl [Ultram] 50 mg PO Q6H PRN 11/22/23 [History] Atorvastatin [Lipitor] 80 mg PO DAILY 30 Days #30 tab 11/28/23 [Rx] Benztropine Mesylate [Cogentin] 1 mg PO DAILY 30 Days #30 tab 11/28/23 [Rx] Budesonide-Formot 160-4.5 Mcg [Symbicort 160-4.5 Mcg Inhaler] 2 puff INHALATION RT-BID 30 Days #1 each 11/28/23 [Rx] Escitalopram [Lexapro] 20 mg PO DAILY 30 Days #30 tab 11/28/23 [Rx] [place] Carbonate 600 mg PO DAILY 30 Days #60 cap 11/28/23 [Rx] risperiDONE [RisperDAL] 0.5 mg PO HS 30 Days #30 tab 11/28/23 [Rx] Follow up Appointment(s)/Referral(s): [facility] [place] [Outside] - 11/30/23 10:00 am (11/30/2023 10:00AM - 11:00AM ASIF MARTINEZ 12/06/2023 9:30AM - 10:00AM ASIF MARTINEZ 12/06/2023 10:30AM - 10:45AM nursing services 12/06/2023 10:30AM - 11:00AM DEYSI BLANCHARD ) Sharyn Fonseca MD [Primary Care Provider] - 1-2 days Activity/Diet/Wound Care/Special Instructions: Avoid the use of street drugs and alcohol. Take all medications as prescribed. When you are in need of refills on your medications, please contact your medical provider and/or outpatient psychiatrist/provider to have this done. Please go to your scheduled outpatient appointment for aftercare treatment. If symptoms return or become worse, call the crisis line at and/or go to the nearest emergency room for evaluation. National Suicide Hotline 988 Discharge Disposition: HOME SELF-CARE
== END 2023-11-28 12:25 | disposition home or self-care (01) | DRG 885 ==
LOC: EC 13:20 → 3MHU 23:32 → 3NCARDOBS 11-23 23:06
PROVIDERS: ADMIT Psychiatry & Neurology Psychiatry; ATTEND Psychiatry & Neurology Psychiatry
DX: F25.1 Schizoaffective disorder, depressive type (principal); R45.851 Suicidal ideations; E78.5 Hyperlipidemia, unspecified; F41.9 Anxiety disorder, unspecified; F95.2 Tourette's disorder; G47.30 Sleep apnea, unspecified; I10 Essential (primary) hypertension; J45.909 Unspecified asthma, uncomplicated; Z56.0 Unemployment, unspecified; Z59.86 Financial insecurity; Z79.82 Long term (current) use of aspirin; Z79.899 Other long term (current) drug therapy; Z88.8 Allergy status to other drugs, medicaments and biological substances; Z11.52 Encounter for screening for COVID-19
CPT/HCPCS: 80053; 80178; 80306; 81003; 82075; 85025; 87636; 99285

== ENCOUNTER → 2023-12-01 | Outpatient (CLI) | payer MEDICARE, MEDICAID ==
[2023-12-01 10:33] LABS: Total Eosinophil Count 396 #EOS/uL (150-300)
[2023-12-01 16:00] LABS: Basophils # (A) 0.07 X 10*3/uL (0.00-0.10); Basophils % (A) 0.8 %; Eosinophils # (A) 0.45 X 10*3/uL (0.04-0.35); Eosinophils % (A) 4.8 %; HCT 40.7 % (39.6-50.0); HGB 13.5 g/dL (13.0-17.0); Lymphocytes # (A) 1.94 X 10*3/uL (0.90-5.00); Lymphocytes % (A) 20.9 %; MCH 29.5 pg (27.0-32.0); MCHC 33.2 g/dL (32.0-37.0); MCV 88.9 FL (80.0-97.0); Mean Platelet Volume 11.5 FL (9.5-12.2); Monocytes % (A) 9.7 %; NRBC Per 100 WBC 0 X 10*3/uL (0.00-0.01); Neutrophils # (A) 5.92 X 10*3/uL (1.80-7.70); Neutrophils % (A) 63.6 %; Platelet Count 285 X 10*3/uL (140-440); RBC 4.58 X 10*6/uL (4.40-5.60); RDW 12.9 % (11.5-14.5)
[2023-12-02 02:59] LABS: Alternaria alternata IgE <0.10 kU/L; Aspergillus fumagatus IgE <0.10 kU/L; Birch IgE <0.10 kU/L; Cat Epith & Dander IgE <0.10 kU/L; Cladosporian herbarum IgE <0.10 kU/L; Cockroach IgE 1.22 kU/L; Dermato. farinae IgE <0.10 kU/L; Dog Dander IgE <0.10 kU/L; Elm IgE <0.10 kU/L; Maple (Box Elder) IgE <0.10 kU/L; Oak IgE <0.10 kU/L; Ragweed,Common IgE <0.10 kU/L; Red Top (Bentgrass) IgE <0.10 kU/L
== END | disposition home or self-care (01) ==
LOC: LABWHC1 09:06
PROVIDERS: ATTEND Internal Medicine
DX: J45.50 Severe persistent asthma, uncomplicated (principal)
CPT/HCPCS: 36415; 82785; 85008; 85025; 86003

== ENCOUNTER 2023-12-25 23:04 | Emergency (ER) | payer MEDICARE, OTHER ==
--- NOTE | 2023-12-25 23:28 | ED ---
Chest Pain HPI - General Chief Complaint: Chest Pain Stated Complaint: Chest pain, SOB Time Seen by Provider: 12/25/23 23:14 Source: patient Mode of arrival: ambulatory Limitations: no limitations - History of Present Illness Initial Comments: Patient is a 48-year-old man who presents to have evaluation of chest pain. The patient states that approximately half hour ago he was awakened from sleep by coughing, he was feeling short of breath and his chest felt tight, he indicates the bilateral upper chest. The patient called EMS and they brought him here. He states he was feeling fine when he went to bed. He has not noted fever or chills. No cough prior to waking. No sputum. Patient states that he tried using his inhaler for asthma but the chest tightness persisted. MD Complaint: chest pain Onset/Timin -: minutes(s) Onset: awoke with symptoms Pain Location: left chest, right chest Pain Radiation: none Severity: moderate Quality: tightness Consistency: constant Improves With: nothing Worsens With: nothing Treatments Prior to Arrival: other - Related Data Home Medications Medication Instructions Recorded Confirmed lisinopriL [Zestril] 20 mg PO HS 09/06/17 11/22/23 ARIPiprazole [Abilify Maintena] 400 mg IM Q28D 11/08/18 11/22/23 Albuterol Sulfate [Ventolin HFA] 2 puff INHALATION RT-Q6H PRN 02/19/22 11/22/23 Ammonium Lactate Cream [Lac-Hydrin 1 applic TOPICAL DAILY 10/13/23 11/22/23 12% Cream] traMADol HCl [Ultram] 50 mg PO Q6H PRN 11/22/23 11/22/23 Previous Rx's Medication Instructions Recorded Aspirin 81 mg PO DAILY #30 tab 10/13/23 Metoprolol Tartrate [Lopressor] 25 mg PO BID #60 tab 10/13/23 Nitroglycerin Sl Tabs [Nitrostat] 0.4 mg SUBLINGUAL Q5M PRN #15 tab 10/13/23 Atorvastatin [Lipitor] 80 mg PO DAILY 30 Days #30 tab 11/28/23 Benztropine Mesylate [Cogentin] 1 mg PO DAILY 30 Days #30 tab 11/28/23 Budesonide-Formot 160-4.5 Mcg 2 puff INHALATION RT-BID 30 Days 11/28/23 [Symbicort 160-4.5 Mcg Inhaler] #1 each Escitalopram [Lexapro] 20 mg PO DAILY 30 Days #30 tab 11/28/23 [place] Carbonate 600 mg PO DAILY 30 Days #60 cap 11/28/23 risperiDONE [RisperDAL] 0.5 mg PO HS 30 Days #30 tab 11/28/23 Allergies Allergy/AdvReac Type Severity Reaction Status Date / Time haloperidol [From Haldol] AdvReac Stroke-like Verified 12/25/23 23:11 symptoms Review of Systems ROS Statement: Those systems with pertinent positive or pertinent negative responses have been documented in the HPI. ROS Other: All systems not noted in ROS Statement are negative. Constitutional: Denies: fever, chills Respiratory: Reports: cough, dyspnea. Denies: hemoptysis Cardiovascular: Reports: chest pain. Denies: palpitations, dyspnea on exertion, orthopnea, edema, syncope Gastrointestinal: Denies: abdominal pain, nausea, vomiting, diarrhea Genitourinary: Denies: dysuria, hematuria Musculoskeletal: Denies: back pain Skin: Denies: rash Neurological: Denies: headache, weakness EKG Findings - EKG Comments: EKG Findings:: Similar to the comparison ECG from September of this year - EKG Results: EKG: interpreted by ALEXANDRA, sinus rhythm, normal axis, normal ST/T - Blocks, [place], Hypertrophy, ST Abn: AV and intraventricular conduction: intraventricular conduction delay Past Medical History Past Medical History: Asthma, Chest Pain / Angina, GERD/Reflux, Hyperlipidemia, Hypertension, Sleep Apnea/CPAP/BIPAP Additional Past Medical History / Comment(s): Tourette's syndrome, seasonal Allergies, dyskenisia, sleep apnea- no machine., carlos a inguinal hernias History of Any Multi-Drug Resistant Organisms: None Reported Past Surgical History: Hernia Repair, Tonsillectomy Additional Past Surgical History / Comment(s): states hernia right testicle x 2 Past Anesthesia/Blood Transfusion Reactions: No Reported Reaction Additional Past Anesthesia/Blood Transfusion Reaction / Comment(s): difficulty waking. Past Psychological History: Anxiety, Bipolar, Depression, Panic Disorder, Katie izophrenia Smoking Status: Never smoker Past Alcohol Use History: None Reported Past Drug Use History: None Reported - Past Family History Father Family Medical History: No Reported History Additional Family Medical History / Comment(s): He is 61 years of age. Patient has had no contact with him and 20 years Mother Additional Family Medical History / Comment(s): Mother at age 63 from sepsis. Sister(s) Family Medical History: No Reported History Additional Family Medical History / Comment(s): He has 2 sisters with no major medical problems. General Exam Limitations: no limitations General appearance: alert, in no apparent distress Head exam: Present: atraumatic, normocephalic Eye exam: Present: normal appearance. Absent: scleral icterus, conjunctival injection ENT exam: Present: normal oropharynx Neck exam: Present: normal inspection Respiratory exam: Present: normal lung sounds bilaterally. Absent: respiratory distress, wheezes, rales, rhonchi, stridor, accessory muscle use Cardiovascular Exam: Present: regular rate, normal rhythm, normal heart sounds. Absent: systolic murmur, diastolic murmur, rubs, gallop GI/Abdominal exam: Present: soft. Absent: distended, tenderness, guarding, rebound, rigid, mass Extremities exam: Present: normal inspection, normal capillary refill. Absent: pedal edema, calf tenderness Back exam: Present: normal inspection. Absent: CVA tenderness (R), CVA tenderness (L) Neurological exam: Present: alert Skin exam: Present: warm, dry, intact, normal color. Absent: rash Course Vital Signs 12/25/23 12/25/23 12/26/23 23:10 23:51 04:26 Temperature 97.9 F 98.2 F Pulse Rate 98 84 85 Respiratory 18 18 22 Rate Blood Pressure 144/89 118/79 113/76 O2 Sat by Pulse 96 96 96 Oximetry Chest Pain MDM - MDM The patient had chest x-ray that I interpreted as negative for acute infiltrate, pneumothorax, congestive heart failure Was pt. sent in by a medical professional or institution (, PA, GIS CONSULTANT, urgent care, hospital, or half-way...) When possible be specific @ -[No] Did you speak to anyone other than the patient for history (EMS, parent, family, police, friend...)? What history was obtained from this source @ -[No] Did you review nursing and triage notes (agree or disagree)? Why? @ -[I reviewed and agree with nursing and triage notes] Were old charts reviewed (outside hosp., previous admission, EMS record, old EKG, old radiological studies, urgent care reports/EKG's, half-way records)? Report findings @ -[No old charts were reviewed] Differential Diagnosis (chest pain, altered mental status, abdominal pain women, abdominal pain men, vaginal bleeding, weakness, fever, dyspnea, syncope, headache, dizziness, GI bleed, back pain, seizure, CVA, palpatations, mental health, musculoskeletal)? @ -[Differential Chest Pain: Stable Angina, Unstable Angina, STEMI, NSTEMI Aortic Dissection, Pneumothorax, Musculoskeletal, Esophageal Spasm GERD, Cholecystitis, Pancreatitis, Zoster, this is not meant to be an all-inclusive list. EKG interpreted by me (3pts min.). @ -[I interpreted as above] X-rays interpreted by me (1pt min.). @ -[I interpreted as above CT interpreted by me (1pt min.). @ -[None done] U/S interpreted by me (1pt. min.). @ -[None done] What testing was considered but not performed or refused? (CT, X-rays, U/S, labs)? Why? @ -[None] What meds were considered but not given or refused? Why? @ -[None] Did you discuss the management of the patient with other professionals (professionals i.e. , PA, GIS CONSULTANT, lab, RT, psych nurse, marriage and family social worker, rail car operator, teacher, agricultural extension officer, housing case manager)? Give summary @ -[No] Was smoking cessation discussed for >3mins.? @ -[No] Was critical care preformed (if so, how long)? @ -[No] Were there social determinants of health that impacted care today? How? (Homelessness, low income, unemployed, alcoholism, drug addiction, transportation, low edu. Level, literacy, decrease access to med. care, penitentiary, rehab)? @ -[No] Was there de-escalation of care discussed even if they declined (Discuss DNR or withdrawal of care, Hospice)? DNR status @ -[No] What co-morbidities impacted this encounter? (DM, HTN, Smoking, COPD, CAD, Cancer, CVA, ARF, Chemo, Hep., AIDS, mental health diagnosis, sleep apnea, morbid obesity)? @ -[None] Was patient admitted / discharged? Hospital course, mention meds given and route, prescriptions, significant lab abnormalities, going to OR and other pertinent info. @ -[hospital course] Undiagnosed new problem with uncertain prognosis? @ -[No] Drug Therapy requiring intensive monitoring for toxicity (Heparin, Nitro, Insulin, Cardizem)? @ -[No] Were any procedures done? @ -[No] Diagnosis/symptom? @ -[Acute chest pain Acute, or Chronic, or Acute on Chronic? @ -[Acute Uncomplicated (without systemic symptoms) or Complicated (systemic symptoms)? @ -[Uncomplicated Side effects of treatment? @ -[No] Exacerbation, Progression, or Severe Exacerbation? @ -[No] Poses a threat to life or bodily function? How? (Chest pain, [place], [place], pneumonia, PE, COPD, DKA, ARF, appy, cholecystitis, CVA, Diverticulitis, Homicidal, Suicidal, threat to staff... and all critical care pts) @ -[No] Disposition Clinical Impression: Chest pain Disposition: HOME SELF-CARE Condition: Good Instructions (If sedation given, give patient instructions): Chest Pain (ED) Is patient prescribed a controlled substance at d/c from ED?: No Referrals: Sharyn Fonseca MD [Primary Care Provider] - 1-2 days Kanu Vizcarra MD [STAFF PHYSICIAN] - 1-2 days
--- NOTE | 2023-12-25 23:40 | XR ---
EXAMINATION TYPE: XR chest 2V DATE OF EXAM: 12/25/2023 CLINICAL HISTORY: Chest pain TECHNIQUE: Frontal and lateral views of the chest are obtained. COMPARISON: Prior chest x-ray October 12, 2023 FINDINGS: There is no suspicious new focal air space opacity, pleural effusion, or pneumothorax seen . The cardiac silhouette size is stable and within normal limits. The osseous structures are intac t. IMPRESSION: No acute process.
[2023-12-25] MEDS: ASPIRIN 81 MG PO STA (23:48)
[2023-12-25 23:56] LABS: Basophils # (A) 0.1 k/uL (0-0.2); Basophils % (A) 1 %; Eosinophils # (A) 0.5 k/uL (0-0.7); Eosinophils % (A) 4 %; HGB 13.6 gm/dL (13.0-17.5); Lymphocytes # (A) 2.3 k/uL (1.0-4.8); Lymphocytes % (A) 21 %; MCH 28.9 pg (25.0-35.0); MCHC 32.3 g/dL (31.0-37.0); MCV 89.5 fL (80.0-100.0); Mean Platelet Volume 7.8; Monocytes # (A) 0.7 k/uL (0-1.0); Monocytes % (A) 6 %; Neutrophils # (A) 6.9 k/uL (1.3-7.7); Neutrophils % (A) 65 %; Platelet Count 257 k/uL (150-450); RBC 4.69 m/uL (4.30-5.90); RDW 13.1 % (11.5-15.5); WBC 10.6 k/uL (3.8-10.6)
[2023-12-26 00:23] LABS: INR 0.9 (<1.2); Partial Thromboplastin Time 25.5 sec (22.0-30.0); Prothrombin Time 10.4 sec (10.0-12.5)
[2023-12-26 00:45] LABS: ALT 28 U/L (4-49); AST 20 U/L (17-59); African American GFR (CKD) >90 (>60 ml/min/1.73 sqM); Alkaline Phosphatase 85 U/L (38-126); Anion Gap 8 mmol/L; Blood Urea Nitrogen 13 mg/dL (9-20); Calcium 9.7 mg/dL (8.4-10.2); Carbon Dioxide 20 mmol/L (22-30); Chloride 106 mmol/L (98-107); Glucose 189 mg/dL (74-99); Magnesium 1.9 mg/dL (1.6-2.3); Non-African American GFR(CKD) >90 (>60 ml/min/1.73 sqM); Potassium 4.1 mmol/L (3.5-5.1); Sodium 134 mmol/L (137-145); Total Bilirubin 0.4 mg/dL (0.2-1.3); Total Protein 6.7 g/dL (6.3-8.2)
[2023-12-26 04:27] VITALS: BP 113/76; PULSE 85; RESP 22; TEMP 98.2
== END 2023-12-26 04:26 | disposition home or self-care (01) ==
LOC: EC 23:04
DX: R07.89 Other chest pain (principal); Z88.8 Allergy status to other drugs, medicaments and biological substances
CPT/HCPCS: 36415; 71046; 80053; 83735; 84484; 85025; 85610; 85730; 93005; 99285

== ENCOUNTER 2024-01-18 21:11 | Emergency (ER) | payer MEDICARE, OTHER ==
[2024-01-18 21:21] VITALS: RESP 18
--- NOTE | 2024-01-18 22:35 | ED ---
Lower Extremity Injury HPI - General Chief Complaint: Extremity Injury, Lower Stated Complaint: Lft Toe Pain Time Seen by Provider: 01/18/24 21:30 Source: patient, RN notes reviewed Mode of arrival: ambulatory - History of Present Illness Initial Comments: 48-year-old male presenting with left great toe pain x 2 days. States the proximal part of his nail is red and swollen. He reports his attempted to drain it with a needle and a small amount of drainage was expressed. He has never had this before. Denies diabetes. Denies fever or chills. Denies trauma or injury of the area. - Related Data Home Medications Medication Instructions Recorded Confirmed lisinopriL [Zestril] 20 mg PO HS 09/06/17 11/22/23 ARIPiprazole [Abilify Maintena] 400 mg IM Q28D 11/08/18 11/22/23 Albuterol Sulfate [Ventolin HFA] 2 puff INHALATION RT-Q6H PRN 02/19/22 11/22/23 Ammonium Lactate Cream [Lac-Hydrin 1 applic TOPICAL DAILY 10/13/23 11/22/23 12% Cream] traMADol HCl [Ultram] 50 mg PO Q6H PRN 11/22/23 11/22/23 Previous Rx's Medication Instructions Recorded Aspirin 81 mg PO DAILY #30 tab 10/13/23 Metoprolol Tartrate [Lopressor] 25 mg PO BID #60 tab 10/13/23 Nitroglycerin Sl Tabs [Nitrostat] 0.4 mg SUBLINGUAL Q5M PRN #15 tab 10/13/23 Atorvastatin [Lipitor] 80 mg PO DAILY 30 Days #30 tab 11/28/23 Benztropine Mesylate [Cogentin] 1 mg PO DAILY 30 Days #30 tab 11/28/23 Budesonide-Formot 160-4.5 Mcg 2 puff INHALATION RT-BID 30 Days 11/28/23 [Symbicort 160-4.5 Mcg Inhaler] #1 each Escitalopram [Lexapro] 20 mg PO DAILY 30 Days #30 tab 11/28/23 [place] Carbonate 600 mg PO DAILY 30 Days #60 cap 11/28/23 risperiDONE [RisperDAL] 0.5 mg PO HS 30 Days #30 tab 11/28/23 Sulfamethox-Tmp 800-160Mg [Bactrim 1 each PO Q12HR 7 Days #14 tab 01/18/24 Ds] Allergies Allergy/AdvReac Type Severity Reaction Status Date / Time haloperidol [From Haldol] AdvReac Stroke-like Verified 12/25/23 23:11 symptoms Review of Systems ROS Statement: Those systems with pertinent positive or pertinent negative responses have been documented in the HPI. ROS Other: All systems not noted in ROS Statement are negative. Past Medical History Past Medical History: Asthma, Chest Pain / Angina, GERD/Reflux, Hyperlipidemia, Hypertension, Sleep Apnea/CPAP/BIPAP Additional Past Medical History / Comment(s): Tourette's syndrome, seasonal Allergies, dyskenisia, sleep apnea- no machine., carlos a inguinal hernias History of Any Multi-Drug Resistant Organisms: None Reported Past Surgical History: Hernia Repair, Tonsillectomy Additional Past Surgical History / Comment(s): states hernia right testicle x 2 Past Anesthesia/Blood Transfusion Reactions: No Reported Reaction Additional Past Anesthesia/Blood Transfusion Reaction / Comment(s): difficulty waking. Past Psychological History: Anxiety, Bipolar, Depression, Panic Disorder, Schizophrenia Smoking Status: Never smoker Past Alcohol Use History: None Reported Past Drug Use History: None Reported - Past Family History Father Family Medical History: No Reported History Additional Family Medical History / Comment(s): He is 61 years of age. Patient has had no contact with him and 20 years Mother Additional Family Medical History / Comment(s): Mother at age 63 from sepsis. Sister(s) Family Medical History: No Reported History Additional Family Medical History / Comment(s): He has 2 sisters with no major medical problems. General Exam General appearance: alert, in no apparent distress Head exam: Present: atraumatic, normocephalic, normal inspection Left Lower Leg exam: Present: normal inspection, full ROM. Absent: tenderness, swelling Ankle exam: Present: normal inspection, full ROM. Absent: tenderness, swelling Foot/Toe exam: Present: full ROM, tenderness. Absent: normal inspection (Fluctuant mass present on proximal portion of left great toenail with minimal brown discharge oozing from center. There is tenderness to palpation. Cap refill less than 2 seconds. Sensation intact on distal aspect of great toe. Dorsalis pulses intact bilaterally.) Neurovascular tendon exam: Present: no vascular compromise. Absent: pulse deficit, abnormal cap refill, sensory deficit Neurological exam: Present: alert, oriented X3 Psychiatric exam: Present: normal affect, normal mood Skin exam: Present: warm, dry, intact, normal color. Absent: rash Course Vital Signs 01/18/24 01/18/24 21:16 22:50 Temperature 98.2 F 97.9 F Pulse Rate 74 81 Respiratory 18 18 Rate Blood Pressure 117/78 113/76 O2 Sat by Pulse 96 95 Oximetry Procedures - Incision & Drainage Consent Obtained: verbal consent Indication: Paronychia Site: lower extremity Size (cm): 1 I&D Cleaning Method: Alcohol Wipe Sterile Field Used?: No Ultrasound used: No Needle Aspiration Performed?: No Irrigation Performed?: No I&D Drainage Obtained: Pus, Blood Insertion of drain: No Packing: Other (None) Culture Obtained?: No Patient Tolerated Procedure: well, no complications (Abscess was incised via proximal aspect of great toenail with 14-gauge needle. Neurovascularly intact status post procedure.) Medical Decision Making - Medical Decision Making Was pt. sent in by a medical professional or institution (KULDEEP García, LIBRARY AIDE, urgent care, hospital, or [facility]...) When possible be specific @ -No Did you speak to anyone other than the patient for history (EMS, parent, family, police, friend...)? What history was obtained from this source @ -No Did you review nursing and triage notes (agree or disagree)? Why? @ -I reviewed and agree with nursing and triage notes Were old charts reviewed (outside hosp., previous admission, EMS record, old EKG, old radiological studies, urgent care reports/EKG's, [facility] records)? Report findings @ -No old charts were reviewed Differential Diagnosis (chest pain, altered mental status, abdominal pain women, abdominal pain men, vaginal bleeding, weakness, fever, dyspnea, syncope, headache, dizziness, GI bleed, back pain, seizure, CVA, palpatations, mental health, musculoskeletal)? @ -Differential Musculoskeletal Muscular strain, contusion, ligament sprain, fracture, arthritis, septic arthritis, bursitis, cellulitis, muscle spasm, nerve compression, DVT, arterial occlusion, herpes zoster, electrolyte abnormality, tumor.... This is not meant to be in all inclusive list EKG interpreted by me (3pts min.). @ -As above X-rays interpreted by me (1pt min.). @ -None done CT interpreted by me (1pt min.). @ -None done U/S interpreted by me (1pt. min.). @ -None done What testing was considered but not performed or refused? (CT, X-rays, U/S, labs)? Why? @ -Imaging not indicated at this time as simple paronychia was drained with no complications What meds were considered but not given or refused? Why? @ -None Did you discuss the management of the patient with other professionals (professionals i.e. , PA, LIBRARY AIDE, lab, RT, psych nurse, social problems specialist, physical therapy director, teacher, administrative officer, trimming caser)? Give summary @ -No Was smoking cessation discussed for >3mins.? @ -No Was critical care preformed (if so, how long)? @ -No Were there social determinants of health that impacted care today? How? (Homelessness, low income, unemployed, alcoholism, drug addiction, transportation, low edu. Level, literacy, decrease access to med. care, custodial, rehab)? @ -No Was there de-escalation of care discussed even if they declined (Discuss DNR or withdrawal of care, Hospice)? DNR status @ -No What co-morbidities impacted this encounter? (DM, HTN, Smoking, COPD, CAD, Cancer, CVA, ARF, Chemo, Hep., AIDS, mental health diagnosis, sleep apnea, morbid obesity)? @ -None Was patient admitted / discharged? Hospital course, mention meds given and route, prescriptions, significant lab abnormalities, going to OR and other pertinent info. @ -Patient was discharged. Patient was seen and evaluated for left great toe p ain x 2 days. Patient is neurovascularly intact. Denies trauma or injury. Imaging not indicated at this time as physical examination is consistent with a simple paronychia. Paronychia was drained with 14-gauge needle and brown drainage and minimal blood was expressed with no complications. Patient was neurovascularly intact status post procedure. Diagnosis of paronychia discussed with patient. Supportive care discussed.. Patient was prescribed Bactrim. Return precautions discussed and patient is agreeable to plan. Case was discussed with my attending Dr. Brown. Patient discharged in stable condition. Undiagnosed new problem with uncertain prognosis? @ -No Drug Therapy requiring intensive monitoring for toxicity (Heparin, Nitro, Insulin, Cardizem)? @ -No Were any procedures done? @ -Simple I&D performed Diagnosis/symptom? @ -Paronychia of left great toe Acute, or Chronic, or Acute on Chronic? @ -Acute Uncomplicated (without systemic symptoms) or Complicated (systemic symptoms)? @ -Uncomplicated Side effects of treatment? @ -No Exacerbation, Progression, or Severe Exacerbation? @ -No Poses a threat to life or bodily function? How? (Chest pain, [place], [place], pneumonia, PE, COPD, DKA, ARF, appy, cholecystitis, CVA, Diverticulitis, Homicidal, Suicidal, threat to staff... and all critical care pts) @ -Unlikely at this time Disposition Clinical Impression: Paronychia of great toe, left Disposition: HOME SELF-CARE Condition: Stable Instructions (If sedation given, give patient instructions): Paronychia (ED) Additional Instructions: Please take Bactrim as directed. Soak toe in warm, soapy water 3 times daily. Apply bacitracin or Neosporin twice daily. Please return to the Emergency Department if symptoms worsen or any other concerns. Prescriptions: Sulfamethox-Tmp 800-160Mg [Bactrim Ds] 1 each PO Q12HR 7 Days #14 tab Is patient prescribed a controlled substance at d/c from ED?: No Referrals: Sharyn Fonseca MD [Primary Care Provider] - 1-2 days Time of Disposition: 22:35
[2024-01-18 23:01] VITALS: BP 113/76; PULSE 81; TEMP 97.9
== END 2024-01-18 23:14 | disposition home or self-care (01) ==
LOC: EC 21:11
DX: L03.032 Cellulitis of left toe (principal); Z88.8 Allergy status to other drugs, medicaments and biological substances
CPT/HCPCS: 10060; 99283

== ENCOUNTER 2024-02-29 16:28 | Emergency (ER) | payer MEDICARE, OTHER ==
[2024-02-29 16:46] VITALS: BP 130/82; PULSE 83; RESP 18; TEMP 97.9
--- NOTE | 2024-02-29 17:33 | ED ---
Recheck HPI - General Chief Complaint: Recheck/Abnormal Lab/Rx Stated Complaint: L Toe Pain Time Seen by Provider: 02/29/24 16:40 Source: patient, RN notes reviewed Mode of arrival: ambulatory Limitations: no limitations - History of Present Illness Initial Comments: This is a 48-year-old male presents emergency department with complaint of a left great toe injury. Patient states that he has seen a visitor services associate in the past for onychomycosis of the toenails and today accidentally hit his toe and resulted in a injury of the left toenail and it ripped off. Patient denies other injuries at the time of this event. Patient presented for evaluation to rule out possible infection. Patient denies history of diabetes, no recent antibiotic use. - Related Data Home Medications Medication Instructions Recorded Confirmed lisinopriL [Zestril] 20 mg PO HS 09/06/17 11/22/23 ARIPiprazole [Abilify Maintena] 400 mg IM Q28D 11/08/18 11/22/23 Albuterol Sulfate [Ventolin HFA] 2 puff INHALATION RT-Q6H PRN 02/19/22 11/22/23 Ammonium Lactate Cream [Lac-Hydrin 1 applic TOPICAL DAILY 10/13/23 11/22/23 12% Cream] traMADol HCl [Ultram] 50 mg PO Q6H PRN 11/22/23 11/22/23 Previous Rx's Medication Instructions Recorded Aspirin 81 mg PO DAILY #30 tab 10/13/23 Metoprolol Tartrate [Lopressor] 25 mg PO BID #60 tab 10/13/23 Nitroglycerin Sl Tabs [Nitrostat] 0.4 mg SUBLINGUAL Q5M PRN #15 tab 10/13/23 Atorvastatin [Lipitor] 80 mg PO DAILY 30 Days #30 tab 11/28/23 Benztropine Mesylate [Cogentin] 1 mg PO DAILY 30 Days #30 tab 11/28/23 Budesonide-Formot 160-4.5 Mcg 2 puff INHALATION RT-BID 30 Days 11/28/23 [Symbicort 160-4.5 Mcg Inhaler] #1 each Escitalopram [Lexapro] 20 mg PO DAILY 30 Days #30 tab 11/28/23 [place] Carbonate 600 mg PO DAILY 30 Days #60 cap 11/28/23 risperiDONE [RisperDAL] 0.5 mg PO HS 30 Days #30 tab 11/28/23 Sulfamethox-Tmp 800-160Mg [Bactrim 1 each PO Q12HR 7 Days #14 tab 01/18/24 Ds] Cephalexin [Keflex] 500 mg PO Q6HR #40 cap 02/29/24 Allergies Allergy/AdvReac Type Severity Reaction Status Date / Time haloperidol [From Haldol] AdvReac Stroke-like Verified 02/29/24 16:46 symptoms Review of Systems ROS Statement: Those systems with pertinent positive or pertinent negative responses have been documented in the HPI. ROS Other: All systems not noted in ROS Statement are negative. Past Medical History Past Medical History: Asthma, Chest Pain / Angina, GERD/Reflux, Hyperlipidemia, Hypertension, Sleep Apnea/CPAP/BIPAP Additional Past Medical History / Comment(s): Tourette's syndrome, seasonal Allergies, dyskenisia, sleep apnea- no machine., carlos a inguinal hernias History of Any Multi-Drug Resistant Organisms: None Reported Past Surgical History: Hernia Repair, Tonsillectomy Additional Past Surgical History / Comment(s): states hernia right testicle x 2 Past Anesthesia/Blood Transfusion Reactions: No Reported Reaction Additional Past Anesthesia/Blood Transfusion Reaction / Comment(s): difficulty waking. Past Psychological History: Anxiety, Bipolar, Depression, Panic Disorder, Schizophrenia Smoking Status: Never smoker Past Alcohol Use History: None Reported Past Drug Use History: None Reported - Past Family History Father Family Medical History: No Reported History Additional Family Medical History / Comment(s): He is 61 years of age. Patient has had no contact with him and 20 years Mother Additional Family Medical History / Comment(s): Mother at age 63 from sepsis. Sister(s) Family Medical History: No Reported History Additional Family Medical History / Comment(s): He has 2 sisters with no major medical problems. General Exam Limitations: no limitations General appearance: alert, in no apparent distress Head exam: Present: atraumatic, normocephalic, normal inspection Eye exam: Present: normal appearance, PERRL, EOMI. Absent: scleral icterus, conjunctival injection, periorbital swelling ENT exam: Present: normal exam, mucous membranes moist Neck exam: Present: normal inspection. Absent: tenderness, meningismus, lymphadenopathy Respiratory exam: Present: normal lung sounds bilaterally. Absent: respiratory distress, wheezes, rales, rhonchi, stridor Cardiovascular Exam: Present: regular rate, normal rhythm, normal heart sounds. Absent: systolic murmur, diastolic murmur, rubs, gallop, clicks GI/Abdominal exam: Present: soft, normal bowel sounds. Absent: distended, tenderness, guarding, rebound, rigid Left Foot/Toe exam: Present: nail avulsion (loss of first toenail) Neurovascular tendon exam: Present: no vascular compromise. Absent: pulse deficit, abnormal cap refill Gait: observed and limited by pain Back exam: Present: normal inspection Neurological exam: Present: alert, oriented X3, CN II-XII intact Skin exam: Present: warm, dry, intact, normal color. Absent: rash Course Vital Signs 02/29/24 16:45 Temperature 97.9 F Pulse Rate 83 Respiratory 18 Rate Blood Pressure 130/82 O2 Sat by Pulse 92 L Oximetry Medical Decision Making - Medical Decision Making Was pt. sent in by a medical professional or institution (, PA, CAFE HELPER, urgent care, hospital, or [facility]...) When possible be specific @ -No Did you speak to anyone other than the patient for history (EMS, parent, family, police, friend...)? What history was obtained from this source @ -No Did you review nursing and triage notes (agree or disagree)? Why? @ -I reviewed and agree with nursing and triage notes Were old charts reviewed (outside hosp., previous admission, EMS record, old EKG, old radiological studies, urgent care reports/EKG's, [facility] records)? Report findings @ -No old charts were reviewed Differential Diagnosis (chest pain, altered mental status, abdominal pain women, abdominal pain men, vaginal bleeding, weakness, fever, dyspnea, syncope, headache, dizziness, GI bleed, back pain, seizure, CVA, palpatations, mental health, musculoskeletal)? @ -Subungual hematoma, onychomycosis, traumatic nailbed injury, this is not all inclusive EKG interpreted by me (3pts min.). @ -None X-rays interpreted by me (1pt min.). @ -None done CT interpreted by me (1pt min.). @ -None done U/S interpreted by me (1pt. min.). @ -None done What testing was considered but not performed or refused? (CT, X-rays, U/S, labs)? Why? @ -X-ray imaging of the great toes considered but deferred. Patient states that he tolerated from a repeat injury rather than from standing therefore there is low clinical concern for bony abnormality. Patient here with deferring x-ray imaging What meds were considered but not given or refused? Why? @ -None Did you discuss the management of the patient with other professionals (professionals i.e. DrMabel, PA, CAFE HELPER, lab, RT, psych nurse, long term care social worker, live study manager, teacher, agricultural extension officer, casework supervisor)? Give summary @ -No Was smoking cessation discussed for >3mins.? @ -No Was critical care preformed (if so, how long)? @ -No Were there social determinants of health that impacted care today? How? (Homelessness, low income, unemployed, alcoholism, drug addiction, transportation, low edu. Level, literacy, decrease access to med. care, [facility], rehab)? @ -No Was there de-escalation of care discussed even if they declined (Discuss DNR or withdrawal of care, Hospice)? DNR status @ -No What co-morbidities impacted this encounter? (DM, HTN, Smoking, COPD, CAD, Cancer, CVA, ARF, Chemo, Hep., AIDS, mental health diagnosis, sleep apnea, morbid obesity)? @ -None Was patient admitted / discharged? Hospital course, mention meds given and route, prescriptions, significant lab abnormalities, going to OR and other pertinent info. @ -Discharge. 48-year-old male with injury to left great toe. Examination worst toenail is removed and there is mild pain to palpation. Patient pain to ambulation. The great toe is wrapped and patient is sent a prescription for antibiotics to cover for possible infection due to open skin. Instruct patient to continue to keep area clean and dry and follow-up with visitor services associate in the next week for further evaluation. All questions answered at bedside and strict retu rn. Discussed with the patient he is verbalized understanding. Case discussed with Dr. Jaime Undiagnosed new problem with uncertain prognosis? @ -No Drug Therapy requiring intensive monitoring for toxicity (Heparin, Nitro, Insulin, Cardizem)? @ -No Were any procedures done? @ -No Diagnosis/symptom? @ -Toenail avulsion Acute, or Chronic, or Acute on Chronic? @ -Acute Uncomplicated (without systemic symptoms) or Complicated (systemic symptoms)? @ -uncomplicated Side effects of treatment? @ -No Exacerbation, Progression, or Severe Exacerbation? @ -No Poses a threat to life or bodily function? How? (Chest pain, [place], [place], pneumonia, PE, COPD, DKA, ARF, appy, cholecystitis, CVA, Diverticulitis, Homicidal, Suicidal, threat to staff... and all critical care pts) @ -No Disposition Clinical Impression: Toenail torn away Disposition: HOME SELF-CARE Additional Instructions: Return to emergency department for any new or worsening symptoms. Complete full course of antibiotics as prescribed. Recommend he follow-up with visitor services associate for further evaluation. Prescriptions: Cephalexin [Keflex] 500 mg PO Q6HR #40 cap Is patient prescribed a controlled substance at d/c from ED?: No Referrals: Sharyn Fonseca MD [Primary Care Provider] - 1-2 days Time of Disposition: 17:33
== END 2024-02-29 17:57 | disposition home or self-care (01) ==
LOC: EC 16:28
DX: M79.675 Pain in left toe(s)
CPT/HCPCS: 99283

== ENCOUNTER 2024-03-15 09:44 | Emergency (ER) | payer MEDICARE, MEDICAID ==
[2024-03-15 09:59] VITALS: RESP 18
[2024-03-15] MEDS: ONDANSETRON ODT 4 MG TAB PO STA (10:16)
[2024-03-15] MEDS: IBUPROFEN 600 MG TAB PO STA (10:16)
[2024-03-15] MEDS: ACETAMINOPHEN TAB 500 MG TAB PO STA (10:17)
--- NOTE | 2024-03-15 10:20 | ED ---
URI HPI - General Chief Complaint: Upper Respiratory Infection Stated Complaint: body aches,headaches Time Seen by Provider: 03/15/24 09:55 Source: patient, RN notes reviewed Mode of arrival: ambulatory Limitations: no limitations - History of Present Illness Initial Comments: 48-year-old male presents emergency room chief complaint of fever chills cough congestion body aches nausea vomiting diarrhea. Symptoms started over the last 24 to 48 hours. Patient states she has had no sick contacts. Denies any headache neck pain neck stiffness. Denies any localized abdominal pain no sick contacts no dysuria - Related Data Home Medications Medication Instructions Recorded Confirmed lisinopriL [Zestril] 20 mg PO HS 09/06/17 11/22/23 ARIPiprazole [Abilify Maintena] 400 mg IM Q28D 11/08/18 11/22/23 Albuterol Sulfate [Ventolin HFA] 2 puff INHALATION RT-Q6H PRN 02/19/22 11/22/23 Ammonium Lactate Cream [Lac-Hydrin 1 applic TOPICAL DAILY 10/13/23 11/22/23 12% Cream] traMADol HCl [Ultram] 50 mg PO Q6H PRN 11/22/23 11/22/23 Previous Rx's Medication Instructions Recorded Aspirin 81 mg PO DAILY #30 tab 10/13/23 Metoprolol Tartrate [Lopressor] 25 mg PO BID #60 tab 10/13/23 Nitroglycerin Sl Tabs [Nitrostat] 0.4 mg SUBLINGUAL Q5M PRN #15 tab 10/13/23 Atorvastatin [Lipitor] 80 mg PO DAILY 30 Days #30 tab 11/28/23 Benztropine Mesylate [Cogentin] 1 mg PO DAILY 30 Days #30 tab 11/28/23 Budesonide-Formot 160-4.5 Mcg 2 puff INHALATION RT-BID 30 Days 11/28/23 [Symbicort 160-4.5 Mcg Inhaler] #1 each Escitalopram [Lexapro] 20 mg PO DAILY 30 Days #30 tab 11/28/23 [place] Carbonate 600 mg PO DAILY 30 Days #60 cap 11/28/23 risperiDONE [RisperDAL] 0.5 mg PO HS 30 Days #30 tab 11/28/23 Sulfamethox-Tmp 800-160Mg [Bactrim 1 each PO Q12HR 7 Days #14 tab 01/18/24 Ds] Cephalexin [Keflex] 500 mg PO Q6HR #40 cap 02/29/24 Ondansetron Odt [Zofran Odt] 4 mg PO Q8HR PRN #10 tab 03/15/24 Allergies Allergy/AdvReac Type Severity Reaction Status Date / Time haloperidol [From Haldol] AdvReac Stroke-like Verified 03/15/24 09:55 symptoms Review of Systems ROS Statement: Those systems with pertinent positive or pertinent negative responses have been documented in the HPI. ROS Other: All systems not noted in ROS Statement are negative. Past Medical History Past Medical History: Asthma, Chest Pain / Angina, GERD/Reflux, Hyperlipidemia, Hypertension, Sleep Apnea/CPAP/BIPAP Additional Past Medical History / Comment(s): Tourette's syndrome, seasonal Allergies, dyskenisia, sleep apnea- no machine., carlos a inguinal hernias History of Any Multi-Drug Resistant Organisms: None Reported Past Surgical History: Hernia Repair, Tonsillectomy Additional Past Surgical History / Comment(s): states hernia right testicle x 2 Past Anesthesia/Blood Transfusion Reactions: No Reported Reaction Additional Past Anesthesia/Blood Transfusion Reaction / Comment(s): difficulty waking. Past Psychological History: Anxiety, Bipolar, Depression, Panic Disorder, Schizophrenia Smoking Status: Never smoker Past Alcohol Use History: None Reported Past Drug Use History: None Reported - Past Family History Father Family Medical History: No Reported History Additional Family Medical History / Comment(s): He is 61 years of age. Patient has had no contact with him and 20 years Mother Additional Family Medical History / Comment(s): Mother at age 63 from sepsis. Sister(s) Family Medical History: No Reported History Additional Family Medical History / Comment(s): He has 2 sisters with no major medical problems. General Exam Limitations: no limitations General appearance: alert, in no apparent distress Head exam: Present: atraumatic, normocephalic, normal inspection Eye exam: Present: normal appearance, PERRL, EOMI. Absent: scleral icterus, conjunctival injection, periorbital swelling ENT exam: Present: normal exam, normal oropharynx, mucous membranes moist Neck exam: Present: normal inspection, full ROM. Absent: tenderness, menin gismus, lymphadenopathy Respiratory exam: Present: normal lung sounds bilaterally. Absent: respiratory distress, wheezes, rales, rhonchi, stridor Cardiovascular Exam: Present: normal rhythm, tachycardia, normal heart sounds. Absent: systolic murmur, diastolic murmur, rubs, gallop, clicks GI/Abdominal exam: Present: soft, normal bowel sounds. Absent: distended, tenderness, guarding, rebound, rigid Course Vital Signs 03/15/24 03/15/24 03/15/24 09:53 09:57 11:57 Temperature 101 F H 99.5 F Pulse Rate 109 H 99 Respiratory 20 18 Rate Blood Pressure 156/110 O2 Sat by Pulse 97 Oximetry 03/15/24 12:47 Temperature 98.9 F Pulse Rate 85 Respiratory 18 Rate Blood Pressure 140/80 O2 Sat by Pulse 96 Oximetry Medical Decision Making - Medical Decision Making Was pt. sent in by a medical professional or institution (KULDEEP García, MEETING/EVENT PLANNER, urgent care, hospital, or alf...) When possible be specific @ -No Did you speak to anyone other than the patient for history (EMS, parent, family, police, friend...)? What history was obtained from this source @ -No Did you review nursing and triage notes (agree or disagree)? Why? @ -I reviewed and agree with nursing and triage notes Were old charts reviewed (outside hosp., previous admission, EMS record, old EKG, old radiological studies, urgent care reports/EKG's, alf records)? Report findings @ -No old charts were reviewed Differential Diagnosis (chest pain, altered mental status, abdominal pain women, abdominal pain men, vaginal bleeding, weakness, fever, dyspnea, syncope, headache, dizziness, GI bleed, back pain, seizure, CVA, palpatations, mental health, musculoskeletal)? @ -COVID 19, RSV, influenza, pneumonia, acute bronchitis, URI, this list is not all inclusive EKG interpreted by me (3pts min.). @ -None X-rays interpreted by me (1pt min.). @ -Chest x-ray shows no acute cardiopulmonary process CT interpreted by me (1pt min.). @ -None done U/S interpreted by me (1pt. min.). @ -None done What testing was considered but not performed or refused? (CT, X-rays, U/S, labs)? Why? @ -None What meds were considered but not given or refused? Why? @ -None Did you discuss the management of the patient with other professionals (professionals i.e. , PA, MEETING/EVENT PLANNER, lab, RT, psych nurse, psychologist social, staff cytotechnologist, te acher, housing officer, caseworker)? Give summary @ -No Was smoking cessation discussed for >3mins.? @ -No Was critical care preformed (if so, how long)? @ -No Were there social determinants of health that impacted care today? How? (Homelessness, low income, unemployed, alcoholism, drug addiction, transportation, low edu. Level, literacy, decrease access to med. care, fdc, rehab)? @ -No Was there de-escalation of care discussed even if they declined (Discuss DNR or withdrawal of care, Hospice)? DNR status @ -No What co-morbidities impacted this encounter? (DM, HTN, Smoking, COPD, CAD, Cancer, CVA, ARF, Chemo, Hep., AIDS, mental health diagnosis, sleep apnea, morbid obesity)? @ -None Was patient admitted / discharged? Hospital course, mention meds given and route, prescriptions, significant lab abnormalities, going to OR and other pertinent info. @ -Discharge patient presented for URI symptoms. Cepheid swab was negative laboratory studies and x-ray ordered at this time which patient does feel improved after antipyretics and antiemetics. There are no acute findings patient did have mild reactive leukocytosis patient will be discharged with close follow-up return plans discussed Undiagnosed new problem with uncertain prognosis? @ -No Drug Therapy requiring intensive monitoring for toxicity (Heparin, Nitro, Insulin, Cardizem)? @ -No Were any procedures done? @ -No Diagnosis/symptom? @ -Viral infection, gastroenteritis, URI Acute, or Chronic, or Acute on Chronic? @ -Acute Uncomplicated (without systemic symptoms) or Complicated (systemic symptoms)? @ -Uncomplicated Side effects of treatment? @ -No Exacerbation, Progression, or Severe Exacerbation? @ -No Poses a threat to life or bodily function? How? (Chest pain, [place], [place], pneumonia, PE, COPD, DKA, ARF, appy, cholecystitis, CVA, Diverticulitis, Homicidal, Suicidal, threat to staff... and all critical care pts) @ -No - Lab Data Result diagrams: 03/15/24 11:08 03/15/24 11:08 Lab Results 03/15/24 03/15/24 03/15/24 Range/Units 10:08 11:08 11:08 WBC 16.8 H (3.8-10.6) k/uL RBC 4.82 (4.30-5.90) m/uL Hgb 14.0 (13.0-17.5) gm/dL Hct 42.9 (39.0-53.0) % MCV 89.0 (80.0-100.0) fL MCH 29.0 (25.0-35.0) pg MCHC 32.6 (31.0-37.0) g/dL RDW 13.0 (11.5-15.5) % Plt Count 274 (150-450) k/uL MPV 7.5 Neutrophils % 89 % Lymphocytes % 5 % Monocytes % 5 % Eosinophils % 1 % Basophils % 0 % Neutrophils # 14.9 H (1.3-7.7) k/uL Lymphocytes # 0.8 L (1.0-4.8) k/uL Monocytes # 0.8 (0-1.0) k/uL Eosinophils # 0.1 (0-0.7) k/uL Basophils # 0.0 (0-0.2) k/uL Sodium 135 L (137-145) mmol/L Potassium 3.8 (3.5-5.1) mmol/L Chloride 105 (98-107) mmol/L Carbon Dioxide 20 L (22-30) mmol/L Anion Gap 10 mmol/L BUN 13 (9-20) mg/dL Creatinine 1.07 (0.66-1.25) mg/dL Est GFR (CKD-EPI)AfAm >90 (>60 ml/min/1.73 sqM) Est GFR (CKD-EPI)NonAf 83 (>60 ml/min/1.73 sqM) Glucose 121 H (74-99) mg/dL Calcium 9.6 (8.4-10.2) mg/dL Total Bilirubin 0.7 (0.2-1.3) mg/dL AST 16 L (17-59) U/L ALT 18 (4-49) U/L Alkaline Phosphatase 71 (38-126) U/L Total Protein 7.0 (6.3-8.2) g/dL Albumin 4.3 (3.5-5.0) g/dL Influenza Type A (PCR) Not Detected (Not Detectd) Influenza Type B (PCR) Not Detected (Not Detectd) RSV (PCR) Not Detected (Not Detectd) SARS-CoV-2 (PCR) Not Detected (Not Detectd) Disposition Clinical Impression: Viral illness Disposition: HOME SELF-CARE Condition: Stable Instructions (If sedation given, give patient instructions): Upper Respiratory Infection (ED), Gastroenteritis (ED) Additional Instructions: Please return to the Emergency Department if symptoms worsen or any other concerns. Prescriptions: Ondansetron Odt [Zofran Odt] 4 mg PO Q8HR PRN #10 tab PRN Reason: Nausea Is patient prescribed a controlled substance at d/c from ED?: No Referrals: Sharyn Fonseca MD [Primary Care Provider] - 1-2 days Time of Disposition: 12:39
[2024-03-15 11:21] LABS: Basophils % (A) 0 %; Eosinophils # (A) 0.1 k/uL (0-0.7); Eosinophils % (A) 1 %; HCT 42.9 % (39.0-53.0); Lymphocytes # (A) 0.8 k/uL (1.0-4.8); Lymphocytes % (A) 5 %; MCHC 32.6 g/dL (31.0-37.0); Mean Platelet Volume 7.5; Monocytes # (A) 0.8 k/uL (0-1.0); Monocytes % (A) 5 %; Neutrophils # (A) 14.9 k/uL (1.3-7.7); Neutrophils % (A) 89 %; Platelet Count 274 k/uL (150-450); RBC 4.82 m/uL (4.30-5.90); WBC 16.8 k/uL (3.8-10.6)
[2024-03-15 11:39] LABS: ALT 18 U/L (4-49); AST 16 U/L (17-59); African American GFR (CKD) >90 (>60 ml/min/1.73 sqM); Albumin 4.3 g/dL (3.5-5.0); Alkaline Phosphatase 71 U/L (38-126); Anion Gap 10 mmol/L; Blood Urea Nitrogen 13 mg/dL (9-20); Calcium 9.6 mg/dL (8.4-10.2); Carbon Dioxide 20 mmol/L (22-30); Chloride 105 mmol/L (98-107); Glucose 121 mg/dL (74-99); Non-African American GFR(CKD) 83 (>60 ml/min/1.73 sqM); Potassium 3.8 mmol/L (3.5-5.1); Sodium 135 mmol/L (137-145); Total Bilirubin 0.7 mg/dL (0.2-1.3)
[2024-03-15] MEDS: SODIUM CHLORIDE 0.9% 1,000 ML IV ONE (11:48)
--- NOTE | 2024-03-15 11:59 | XR ---
EXAMINATION TYPE: XR chest 2V DATE OF EXAM: 03/15/2024 11:35 AM CLINICAL INDICATION: Male, 48 years old with history of fever; [facility] COMPARISON: Chest radiographs from 12/25/2023 TECHNIQUE: XR chest 2V Frontal view of the chest. FINDINGS: Lungs/Pleura: There is no evidence of pleural effusion, focal consolidation, or pneumothorax. Pulmonary vascularity: Unremarkable. Heart/mediastinum: Cardiomediastinal silhouette is unremarkable. Musculoskeletal: No acute osseous pathology. IMPRESSION: No acute cardiopulmonary disease/process. [facility], , 03/15/2024 11:56 AM
[2024-03-15 12:49] VITALS: BP 140/80; PULSE 85; TEMP 98.9
== END 2024-03-15 12:56 | disposition home or self-care (01) ==
LOC: EC 09:44
CPT/HCPCS: 36415; 71046; 80053; 85025; 87636; 96360; 99284

== ENCOUNTER 2024-08-21 22:40 | Emergency (ER) | payer MEDICARE ==
[2024-08-21 22:44] VITALS: RESP 20; TEMP 97.9
--- NOTE | 2024-08-22 00:09 | XR ---
EXAM: XR Left Foot Complete, 3 or More Views CLINICAL HISTORY: ITS.REASON XR Reason: pain TECHNIQUE: Frontal, lateral and oblique views of the left foot. COMPARISON: No relevant prior studies available. FINDINGS: Bones/joints: Heel spur measures 4 mm. No acute fracture. No dislocation. Soft tissues: Unremarkable. No radiopaque foreign body. IMPRESSION: No acute findings in the left foot.
--- NOTE | 2024-08-22 00:39 | ED ---
Lower Extremity Injury HPI - General Chief Complaint: Extremity Injury, Lower Stated Complaint: Left toe injury Time Seen by Provider: 08/22/24 00:17 Source: patient Mode of arrival: ambulatory Limitations: no limitations - History of Present Illness Initial Comments: 48-year-old male presenting with chief complaint of left big toe pain. Started 7 hours ago. Patient did not remember any injury or trauma. He is concerned that it may be broken due to the level of pain. No redness or swelling. No fevers or chills. No wound over the area. No numbness tingling or weakness. - Related Data Home Medications Medication Instructions Recorded Confirmed lisinopriL [Zestril] 20 mg PO HS 09/06/17 11/22/23 ARIPiprazole [Abilify Maintena] 400 mg IM Q28D 11/08/18 11/22/23 Albuterol Sulfate [Ventolin HFA] 2 puff INHALATION RT-Q6H PRN 02/19/22 11/22/23 Ammonium Lactate Cream [Lac-Hydrin 1 applic TOPICAL DAILY 10/13/23 11/22/23 12% Cream] traMADol HCl [Ultram] 50 mg PO Q6H PRN 11/22/23 11/22/23 Previous Rx's Medication Instructions Recorded Aspirin 81 mg PO DAILY #30 tab 10/13/23 Metoprolol Tartrate [Lopressor] 25 mg PO BID #60 tab 10/13/23 Nitroglycerin Sl Tabs [Nitrostat] 0.4 mg SUBLINGUAL Q5M PRN #15 tab 10/13/23 Atorvastatin [Lipitor] 80 mg PO DAILY 30 Days #30 tab 11/28/23 Benztropine Mesylate [Cogentin] 1 mg PO DAILY 30 Days #30 tab 11/28/23 Budesonide-Formot 160-4.5 Mcg 2 puff INHALATION RT-BID 30 Days 11/28/23 [Symbicort 160-4.5 Mcg Inhaler] #1 each Escitalopram [Lexapro] 20 mg PO DAILY 30 Days #30 tab 11/28/23 [place] Carbonate 600 mg PO DAILY 30 Days #60 cap 11/28/23 risperiDONE [RisperDAL] 0.5 mg PO HS 30 Days #30 tab 11/28/23 Sulfamethox-Tmp 800-160Mg [Bactrim 1 each PO Q12HR 7 Days #14 tab 07/24/24 Ds] Cephalexin [Keflex] 500 mg PO Q6HR #40 cap 02/29/24 Ondansetron Odt [Zofran Odt] 4 mg PO Q8HR PRN #10 tab 03/15/24 predniSONE 10 mg PO DIRECTED 9 Days #18 tab 08/22/24 Allergies Allergy/AdvReac Type Severity Reaction Status Date / Time haloperidol [From Haldol] AdvReac Stroke-like Verified 08/21/24 22:44 symptoms Review of Systems ROS Statement: Those systems with pertinent positive or pertinent negative responses have been documented in the HPI. ROS Other: All systems not noted in ROS Statement are negative. Past Medical History Past Medical History: Asthma, Chest Pain / Angina, GERD/Reflux, Hyperlipidemia, Hypertension, Sleep Apnea/CPAP/BIPAP Additional Past Medical History / Comment(s): Tourette's syndrome, seasonal Al lergies, dyskenisia, sleep apnea- no machine., carlos a inguinal hernias History of Any Multi-Drug Resistant Organisms: None Reported Past Surgical History: Hernia Repair, Tonsillectomy Additional Past Surgical History / Comment(s): states hernia right testicle x 2 Past Anesthesia/Blood Transfusion Reactions: No Reported Reaction Additional Past Anesthesia/Blood Transfusion Reaction / Comment(s): difficulty waking. Past Psychological History: Anxiety, Bipolar, Depression, Panic Disorder, Schizophrenia Smoking Status: Never smoker Past Alcohol Use History: None Reported Past Drug Use History: None Reported - Past Family History Father Family Medical History: No Reported History Additional Family Medical History / Comment(s): He is 61 years of age. Patient has had no contact with him and 20 years Mother Additional Family Medical History / Comment(s): Mother at age 63 from sepsis. Sister(s) Family Medical History: No Reported History Additional Family Medical History / Comment(s): He has 2 sisters with no major medical problems. General Exam Limitations: no limitations General appearance: alert, in no apparent distress Head exam: Present: atraumatic, normocephalic, normal inspection Eye exam: Present: normal appearance, EOMI Neck exam: Present: normal inspection. Absent: meningismus Respiratory exam: Absent: respiratory distress Cardiovascular Exam: Present: regular rate Left Foot/Toe exam: Present: normal inspection, full ROM, tenderness. Absent: swelling, deformity, erythema, puncture wound Neurovascular tendon exam: Present: no vascular compromise Neurological exam: Present: alert, oriented X3 Psychiatric exam: Present: normal affect, normal mood Skin exam: Present: warm, dry, normal color Course Vital Signs 08/21/24 08/22/24 22:42 01:08 Temperature 97.9 F 97.9 F Pulse Rate 84 78 Respiratory 20 20 Rate Blood Pressure 143/89 131/82 O2 Sat by Pulse 99 99 Oximetry Medical Decision Making - Medical Decision Making Was pt. sent in by a medical professional or institution (, [place], TECHNICAL PUBLICATIONS WRITER, urgent care, hospital, or group home...) When possible be specific @ -No Did you speak to anyone other than the patient for history (EMS, parent, family, police, friend...)? What history was obtained from this source @ -No Did you review nursing and triage notes (agree or disagree)? Why? @ -I reviewed and agree with nursing and triage notes Were old charts reviewed (outside hosp., previous admission, EMS record, old EKG, old radiological studies, urgent care reports/EKG's, group home records)? Report findings @ -No old charts were reviewed Differential Diagnosis (chest pain, altered mental status, abdominal pain women, abdominal pain men, vaginal bleeding, weakness, fever, dyspnea, syncope, headache, dizziness, GI bleed, back pain, seizure, CVA, palpatations, mental health, musculoskeletal)? @ -Differential Musculoskeletal Muscular strain, contusion, ligament sprain, fracture, arthritis, septic arthritis, bursitis, cellulitis, muscle spasm, nerve compression, DVT, arterial occlusion, herpes zoster, electrolyte abnormality, tumor.... This is not meant to be in all inclusive list EKG interpreted by me (3pts min.). @ -As above X-rays interpreted by me (1pt min.). @ -X-ray shows no acute findings in the left CT interpreted by me (1pt min.). @ -None done U/S interpreted by me (1pt. min.). @ -None done What testing was considered but not performed or refused? (CT, X-rays, U/S, labs)? Why? @ -None What meds were considered but not given or refused? Why? @ -None Did you discuss the management of the patient with other professionals (professionals i.e. , PA, TECHNICAL PUBLICATIONS WRITER, lab, RT, psych nurse, social media coordinator, molasses preparer, teacher, chief commercial officer, case therapist)? Give summary @ -No Was smoking cessation discussed for >3mins.? @ -No Was critical care preformed (if so, how long)? @ -No Were there social determinants of health that impacted care today? How? (Homelessness, low income, unemployed, alcoholism, drug addiction, transportation, low edu. Level, literacy, decrease access to med. care, skilled nursing, rehab)? @ -No Was there de-escalation of care discussed even if they declined (Discuss DNR or withdrawal of care, Hospice)? DNR status @ -No What co-morbidities impacted this encounter? (DM, HTN, Smoking, COPD, CAD, Cancer, CVA, ARF, Chemo, Hep., AIDS, mental health diagnosis, sleep apnea, morbid obesity)? @ -None Was patient admitted / discharged? Hospital course, mention meds given and route, prescriptions, significant lab abnormalities, going to OR and other pertinent info. @ -48-year-old male presenting with chief complaint of left big toe pain. No injury or trauma. X-rays obtained which shows no acute findings. Patient is later placed in room and evaluated by myself. Pain is mainly over the big toe MTP joint. Description sounds consistent with gout. Patient has no history of gout. He is treated here with a single dose of Decadron and Toradol. He is sent home on prednisone. He is educated on today's findings and supportive management of gout. Follow-up with PCP. Report back to ER with any new or worsening symptoms. Discussed return parameters and answered all questions. Patient conveyed verbal understanding and agreed to the plan. I discussed this case in detail with my attending Dr. Lopes Undiagnosed new problem with uncertain prognosis? @ -No Drug Therapy requiring intensive monitoring for toxicity (Heparin, Nitro, Insulin, Cardizem)? @ -No Were any procedures done? @ -No Diagnosis/symptom? @ -Gout Acute, or Chronic, or Acute on Chronic? @ -Acute Uncomplicated (without systemic symptoms) or Complicated (systemic symptoms)? @ -Uncomplicated Side effects of treatment? @ -No Exacerbation, Progression, or Severe Exacerbation? @ -No Poses a threat to life or bodily function? How? (Chest pain, [place], [place], pneumonia, PE, COPD, DKA, ARF, appy, cholecystitis, CVA, Diverticulitis, Homicidal, Suicidal, threat to staff... and all critical care pts) @ -Unlikely Disposition Clinical Impression: Gout Disposition: HOME SELF-CARE Condition: Good Instructions (If sedation given, give patient instructions): Low Purine Diet (ED), Gout (ED) Additional Instructions: Follow-up with PCP. Report back to ER with any new or worsening symptoms. Prescriptions: predniSONE 10 mg PO DIRECTED 9 Days #18 tab Is patient prescribed a controlled substance at d/c from ED?: No Referrals: Sharyn Fonseca MD [Primary Care Provider] - 1-2 days Time of Disposition: 00:39
[2024-08-22] MEDS: KETOROLAC 15 MG/ML 1 ML VIAL IM STA ×2 (00:55→01:01)
[2024-08-22] MEDS: DEXAMETHASONE SOD PHOSPHATE 10 MG/ML 1 ML VIAL IM STA (01:01)
[2024-08-22 01:09] VITALS: BP 131/82; PULSE 78
== END 2024-08-22 01:09 | disposition home or self-care (01) ==
LOC: EC 22:40
DX: M10.9 Gout, unspecified (principal); Z88.8 Allergy status to other drugs, medicaments and biological substances
CPT/HCPCS: 96372; 99283

== ENCOUNTER 2024-08-23 20:00 | Emergency (ER) | payer MEDICARE ==
--- NOTE | 2024-08-23 21:33 | ED ---
Skin/Abscess/FB HPI - General Stated complaint: toe is blue Time Seen by Provider: 08/23/24 20:16 Source: patient Mode of arrival: ambulatory Limitations: no limitations - History of Present Illness Initial comments: This is a 48-year-old male presenting with left toe discoloration x 1 day. Patient was seen in ER yesterday for toe pain where he was diagnosed with gout and had steroids sent to the pharmacy. Patient states he is unable to take steroids due to changes in behavior/anger and is unable to take Motrin either. Patient states toe appears both blue and red with no recent trauma or known cause for color change. - Related Data Home Medications Medication Instructions Recorded Confirmed lisinopriL [Zestril] 20 mg PO HS 09/06/17 11/22/23 ARIPiprazole [Abilify Maintena] 400 mg IM Q28D 11/08/18 11/22/23 Albuterol Sulfate [Ventolin HFA] 2 puff INHALATION RT-Q6H PRN 02/19/22 11/22/23 Ammonium Lactate Cream [Lac-Hydrin 1 applic TOPICAL DAILY 10/13/23 11/22/23 12% Cream] traMADol HCl [Ultram] 50 mg PO Q6H PRN 11/22/23 11/22/23 Previous Rx's Medication Instructions Recorded Aspirin 81 mg PO DAILY #30 tab 10/13/23 Metoprolol Tartrate [Lopressor] 25 mg PO BID #60 tab 10/13/23 Nitroglycerin Sl Tabs [Nitrostat] 0.4 mg SUBLINGUAL Q5M PRN #15 tab 10/13/23 Atorvastatin [Lipitor] 80 mg PO DAILY 30 Days #30 tab 11/28/23 Benztropine Mesylate [Cogentin] 1 mg PO DAILY 30 Days #30 tab 11/28/23 Budesonide-Formot 160-4.5 Mcg 2 puff INHALATION RT-BID 30 Days 11/28/23 [Symbicort 160-4.5 Mcg Inhaler] #1 each Escitalopram [Lexapro] 20 mg PO DAILY 30 Days #30 tab 11/28/23 [place] Carbonate 600 mg PO DAILY 30 Days #60 cap 11/28/23 risperiDONE [RisperDAL] 0.5 mg PO HS 30 Days #30 tab 11/28/23 Sulfamethox-Tmp 800-160Mg [Bactrim 1 each PO Q12HR 7 Days #14 tab 01/18/24 Ds] Cephalexin [Keflex] 500 mg PO Q6HR #40 cap 02/29/24 Ondansetron Odt [Zofran Odt] 4 mg PO Q8HR PRN #10 tab 03/15/24 predniSONE 10 mg PO DIRECTED 9 Days #18 tab 08/22/24 Mupirocin 2% Oint [Bactroban 2% 1 applic TOPICAL BID #22 gm 08/23/24 Oint] Sulfamethox-Tmp 800-160Mg [Bactrim 1 each PO Q12HR #20 tab 08/23/24 Ds] Allergies Allergy/AdvReac Type Severity Reaction Status Date / Time haloperidol [From Haldol] AdvReac Stroke-like Verified 08/23/24 22:28 symptoms Review of Systems ROS Statement: Those systems with pertinent positive or pertinent negative responses have been documented in the HPI. ROS Other: All systems not noted in ROS Statement are negative. Past Medical History Past Medical History: Asthma, Chest Pain / Angina, GERD/Reflux, Hyperlipidemia, Hypertension, Sleep Apnea/CPAP/BIPAP Additional Past Medical History / Comment(s): Tourette's syndrome, seasonal Allergies, dyskenisia, sleep apnea- no machine., carlos a inguinal hernias History of Any Multi-Drug Resistant Organisms: None Reported Past Surgical History: Hernia Repair, Tonsillectomy Additional Past Surgical History / Comment(s): states hernia right testicle x 2 Past Anesthesia/Blood Transfusion Reactions: No Reported Reaction Additional Past Anesthesia/Blood Transfusion Reaction / Comment(s): difficulty waking. Past Psychological History: Anxiety, Bipolar, Depression, Panic Disorder, Schizophrenia Smoking Status: Never smoker Past Alcohol Use History: None Reported Past Drug Use History: None Reported - Past Family History Father Family Medical History: No Reported History Additional Family Medical History / Comment(s): He is 61 years of age. Patient has had no contact with him and 20 years Mother Additional Family Medical History / Comment(s): Mother at age 63 from s epsis. Sister(s) Family Medical History: No Reported History Additional Family Medical History / Comment(s): He has 2 sisters with no major medical problems. General Exam General appearance: alert, in no apparent distress Head exam: Present: atraumatic, normocephalic, normal inspection Eye exam: Present: normal appearance, PERRL, EOMI. Absent: scleral icterus, conjunctival injection, periorbital swelling ENT exam: Present: normal exam, mucous membranes moist Neck exam: Present: normal inspection. Absent: tenderness, meningismus, lymphadenopathy Respiratory exam: Present: normal lung sounds bilaterally. Absent: respiratory distress, wheezes, rales, rhonchi, stridor Cardiovascular Exam: Present: regular rate, normal rhythm, normal heart sounds. Absent: systolic murmur, diastolic murmur, rubs, gallop, clicks GI/Abdominal exam: Present: soft, normal bowel sounds. Absent: distended, tenderness, guarding, rebound, rigid Extremities exam: Present: full ROM, normal capillary refill, other (Abscess, erythema and tenderness at base of left great toenail with some easily expressed purulent and serous discharge. Tenderness extends around entirety of nail border. Negative plantar tenderness. Significant hypertrophy of all nails and plantar aspect of foot). Absent: tenderness, pedal edema, joint swelling, calf tenderness Back exam: Present: normal inspection Neurological exam: Present: alert, oriented X3, CN II-XII intact Psychiatric exam: Present: normal affect, normal mood Skin exam: Present: warm, dry, intact, normal color. Absent: rash Course Vital Signs 08/23/24 08/23/24 22:24 23:30 Temperature 97.8 F 98.2 F Pulse Rate 73 87 Respiratory 16 20 Rate Blood Pressure 124/79 134/82 O2 Sat by Pulse 98 97 Oximetry Medical Decision Making - Medical Decision Making Was pt. sent in by a medical professional or institution (, PA, CHECKERING MACHINE OPERATOR, urgent care, hospital, or longterm...) When possible be specific @ -No Did you speak to anyone other than the patient for history (EMS, parent, family, police, friend...)? What history was obtained from this source @ -No Did you review nursing and triage notes (agree or disagree)? Why? @ -I reviewed and agree with nursing and triage notes Were old charts reviewed (outside hosp., previous admission, EMS record, old E KG, old radiological studies, urgent care reports/EKG's, longterm records)? Report findings @ -No old charts were reviewed Differential Diagnosis (chest pain, altered mental status, abdominal pain women, abdominal pain men, vaginal bleeding, weakness, fever, dyspnea, syncope, headache, dizziness, GI bleed, back pain, seizure, CVA, palpatations, mental health, musculoskeletal)? @ -Differential Musculoskeletal Muscular strain, contusion, ligament sprain, fracture, arthritis, septic arthritis, bursitis, cellulitis, muscle spasm, nerve compression, DVT, arterial occlusion, herpes zoster, electrolyte abnormality, tumor.... This is not meant to be in all inclusive list EKG interpreted by me (3pts min.). @ -Not done X-rays interpreted by me (1pt min.). @ -None done CT interpreted by me (1pt min.). @ -None done U/S interpreted by me (1pt. min.). @ -None done What testing was considered but not performed or refused? (CT, X-rays, U/S, labs)? Why? @ -None What meds were considered but not given or refused? Why? @ -None Did you discuss the management of the patient with other professionals (professionals i.e. , PA, CHECKERING MACHINE OPERATOR, lab, RT, psych nurse, social media coordinator, photoengraving supervisor, teacher, supervisory cbp officer, case assistant)? Give summary @ -No Was smoking cessation discussed for >3mins.? @ -No Was critical care preformed (if so, how long)? @ -No Were there social determinants of health that impacted care today? How? (Homelessness, low income, unemployed, alcoholism, drug addiction, transportation, low edu. Level, literacy, decrease access to med. care, correction, rehab)? @ -No Was there de-escalation of care discussed even if they declined (Discuss DNR or withdrawal of care, Hospice)? DNR status @ -No What co-morbidities impacted this encounter? (DM, HTN, Smoking, COPD, CAD, Cancer, CVA, ARF, Chemo, Hep., AIDS, mental health diagnosis, sleep apnea, morbid obesity)? @ -None Was patient admitted / discharged? Hospital course, mention meds given and route, prescriptions, significant lab abnormalities, going to OR and other pertinent info. @ -18-gauge needle used to break apart the outer layer of abscess following digital expression of purulent and serous material. Aerobic wound culture obtained. Toe cleaned copiously with antibacterial soap and water. Band-Aid applied. P.o. Bactrim DS and mupirocin ointment sent to patient's pharmacy. Wound care instructions conveyed to patient. Discussed patient with Dr. Lopes. Undiagnosed new problem with uncertain prognosis? @ -No Drug Therapy requiring intensive monitoring for toxicity (Heparin, Nitro, Insulin, Cardizem)? @ -No Were any procedures done? @ -No Diagnosis/symptom? @ -Paronychia with abscess Acute, or Chronic, or Acute on Chronic? @ -Acute Uncomplicated (without systemic symptoms) or Complicated (systemic symptoms)? @ -Uncomplicated Side effects of treatment? @ -No Exacerbation, Progression, or Severe Exacerbation? @ -No Poses a threat to life or bodily function? How? (Chest pain, [place], [place], pneumonia, PE, COPD, DKA, ARF, appy, cholecystitis, CVA, Diverticulitis, Homicidal, Suicidal, threat to staff... and all critical care pts) @ -No Disposition Clinical Impression: Paronychia of toe of left foot Disposition: HOME SELF-CARE Condition: Good Instructions (If sedation given, give patient instructions): Paronychia (ED) Additional Instructions: Epson salt soaks for 10 to 20 minutes up to 4 times daily. Keep clean with antibacterial soap and water Prescriptions: Sulfamethox-Tmp 800-160Mg [Bactrim Ds] 1 each PO Q12HR #20 tab Mupirocin 2% Oint [Bactroban 2% Oint] 1 applic TOPICAL BID #22 gm Is patient prescribed a controlled substance at d/c from ED?: No Referrals: Sharyn Fonseca MD [Primary Care Provider] - 1-2 days Time of Disposition: 23:08
[2024-08-23] MEDS: SULFAMETHOX-TMP 800-160MG 1 EACH TAB PO STA (23:49)
[2024-08-23 23:52] VITALS: BP 134/82; PULSE 87; RESP 20; TEMP 98.2
== END 2024-08-23 23:52 | disposition home or self-care (01) ==
LOC: EC 20:00
DX: L03.032 Cellulitis of left toe (principal); Z88.8 Allergy status to other drugs, medicaments and biological substances
CPT/HCPCS: 87070; 87205; 99283

== ENCOUNTER 2024-08-25 12:28 | Emergency (ER) | payer MEDICARE ==
[2024-08-25 12:43] VITALS: RESP 22
--- NOTE | 2024-08-25 12:46 | ED ---
URI HPI - General Chief Complaint: Upper Respiratory Infection Stated Complaint: Flu like symptoms Time Seen by Provider: 08/25/24 12:34 Source: patient, RN notes reviewed Mode of arrival: ambulatory Limitations: no limitations - History of Present Illness Initial Comments: This is a 48-year-old male who presents to the emergency department for coughing and congestion. States that it started 3 days ago. Cough is mildly productive with clear sputum. Also reports a headache and bodyaches. States that he works at [employer] and because he is with the public he wants to make sure he does not have anything contagious. - Related Data Home Medications Medication Instructions Recorded Confirmed lisinopriL [Zestril] 20 mg PO HS 09/06/17 11/22/23 ARIPiprazole [Abilify Maintena] 400 mg IM Q28D 11/08/18 11/22/23 Albuterol Sulfate [Ventolin HFA] 2 puff INHALATION RT-Q6H PRN 02/19/22 11/22/23 Ammonium Lactate Cream [Lac-Hydrin 1 applic TOPICAL DAILY 10/13/23 11/22/23 12% Cream] traMADol HCl [Ultram] 50 mg PO Q6H PRN 11/22/23 11/22/23 Previous Rx's Medication Instructions Recorded Aspirin 81 mg PO DAILY #30 tab 10/13/23 Metoprolol Tartrate [Lopressor] 25 mg PO BID #60 tab 10/13/23 Nitroglycerin Sl Tabs [Nitrostat] 0.4 mg SUBLINGUAL Q5M PRN #15 tab 10/13/23 Atorvastatin [Lipitor] 80 mg PO DAILY 30 Days #30 tab 11/28/23 Benztropine Mesylate [Cogentin] 1 mg PO DAILY 30 Days #30 tab 11/28/23 Budesonide-Formot 160-4.5 Mcg 2 puff INHALATION RT-BID 30 Days 11/28/23 [Symbicort 160-4.5 Mcg Inhaler] #1 each Escitalopram [Lexapro] 20 mg PO DAILY 30 Days #30 tab 11/28/23 [place] Carbonate 600 mg PO DAILY 30 Days #60 cap 11/28/23 risperiDONE [RisperDAL] 0.5 mg PO HS 30 Days #30 tab 11/28/23 Sulfamethox-Tmp 800-160Mg [Bactrim 1 each PO Q12HR 7 Days #14 tab 01/18/24 Ds] Cephalexin [Keflex] 500 mg PO Q6HR #40 cap 02/29/24 Ondansetron Odt [Zofran Odt] 4 mg PO Q8HR PRN #10 tab 03/15/24 predniSONE 10 mg PO DIRECTED 9 Days #18 tab 08/22/24 Mupirocin 2% Oint [Bactroban 2% 1 applic TOPICAL BID #22 gm 08/23/24 Oint] Sulfamethox-Tmp 800-160Mg [Bactrim 1 each PO Q12HR #20 tab 08/23/24 Ds] Albuterol Sulfate [Albuterol 1 - 2 puff PO Q4-6H PRN #8.5 gm 08/25/24 Sulfate Hfa] Ibuprofen [Motrin] 800 mg PO Q8H PRN #30 tab 08/25/24 Promethazine/Dextromethorphan 5 ml PO Q4-6H PRN #250 ml 08/25/24 [Promethazine-Dm 6.25-15 mg/5Ml] Allergies Allergy/AdvReac Type Severity Reaction Status Date / Time haloperidol [From Haldol] AdvReac Stroke-like Verified 08/25/24 12:31 symptoms Review of Systems ROS Statement: Those systems with pertinent positive or pertinent negative responses have been documented in the HPI. ROS Other: All systems not noted in ROS Statement are negative. Past Medical History Past Medical History: Asthma, Chest Pain / Angina, GERD/Reflux, Hyperlipidemia, Hypertension, Sleep Apnea/CPAP/BIPAP Additional Past Medical History / Comment(s): Tourette's syndrome, seasonal Allergies, dyskenisia, sleep apnea- no machine., carlos a inguinal hernias History of Any Multi-Drug Resistant Organisms: None Reported Past Surgical History: Hernia Repair, Tonsillectomy Additional Past Surgical History / Comment(s): states hernia right testicle x 2 Past Anesthesia/Blood Transfusion Reactions: No Reported Reaction Additional Past Anesthesia/Blood Transfusion Reaction / Comment(s): difficulty waking. Past Psychological History: Anxiety, Bipolar, Depression, Panic Disorder, Schizophrenia Smoking Status: Never smoker Past Alcohol Use History: None Reported Past Drug Use History: None Reported - Past Family History Father Family Medical History: No Reported History Additional Family Medical History / Comment(s): He is 61 years of age. Patient has had no contact with him and 20 years Mother Additional Family Medical History / Comment(s): Mother at age 63 from sepsis. Sister(s) Family Medical History: No Reported History Additional Family Medical History / Comment(s): He has 2 sisters with no major medical problems. General Exam Limitations: no limitations General appearance: alert, in no apparent distress Head exam: Present: atraumatic, normocephalic, normal inspection Respiratory exam: Present: normal lung sounds bilaterally. Absent: respiratory distress, wheezes, rales, rhonchi, stridor Cardiovascular Exam: Present: regular rate, normal rhythm Neurological exam: Present: alert, oriented X3, CN II-XII intact Psychiatric exam: Present: normal affect, normal mood Skin exam: Present: warm, dry, intact, normal color. Absent: rash Course Vital Signs 08/25/24 08/25/24 08/25/24 12:29 12:40 13:58 Temperature 98.9 F 98.1 F Pulse Rate 92 87 Respiratory 20 22 22 Rate Blood Pressure 141/77 130/79 O2 Sat by Pulse 96 97 Oximetry Medical Decision Making - Medical Decision Making This is a 48-year-old male who presents to the emergency department for coughing and congestion. Was pt. sent in by a medical professional or institution? @ -No Did you speak to anyone other than the patient for history? @ -No Did you review nursing and triage notes? @ -Yes, and I agree, it is accurate with regards to the patient's symptoms. Were old charts reviewed? @ -No Differential Diagnosis? @ -Differential Cough: Influenza, Covid, RSV, croup, allergic rhinitis, GERD, pneumonia, bronchitis, COPD, viral pharyngitis, streptococcal pharyngitis, this is not meant to be an all-inclusive list. EKG interpreted by me (3pts min.)? @ -Not obtained X-rays interpreted by me (1pt min.)? @ -Chest x-ray obtained, my interpretation identifies no localized consolidations or infiltrates. CT interpreted by me (1pt min.)? @ -Not obtained U/S interpreted by me (1pt. min.)? @ -Not obtained What testing was considered but not performed? (CT, X-rays, U/S, labs)? Why? @ -None What meds were considered but not given? Why? @ -None Did you discuss the management of the patient with other professionals? @ -No Did you reconcile home meds? @ -No Was smoking cessation discussed for >3mins.? @ -No Was critical care preformed (if so, how long)? @ -No Were there social determinants of health that impacted care today? How? (Homelessness, low income, unemployed, alcoholism, drug addiction, transportation, low edu. Level, literacy, decrease access to med. care, fpc, rehab)? @ -No Was there de-escalation of care discussed even if they declined? (Discuss DNR or withdrawal of care, Hospice)? @ -No What co-morbidities impacted this encounter? (DM, HTN, Smoking, COPD, CAD, Cancer, CVA, Hep., AIDS, mental health diagnosis, sleep apnea, morbid obesity)? @ -Asthma Was patient admitted / discharged? @ -Discharged. Patient positive for influenza A. COVID and RSV testing negative. Chest x-ray reveals no acute process. He is out of the timeframe for Tamiflu. Advised that we will aim to treat his symptoms. Prescription for ibuprofen, Promethazine DM cough syrup, and albuterol inhaler provided. Advised getting plenty of rest and drinking plenty of fluids. Patient discharged home in stable condition. Case discussed with ED attending Dr. Jaime. Return precautions reviewed in depth, the patient is instructed to return to the emergency department with any new, worsening, or concerning symptoms. Patient verbalized understanding. Undiagnosed new problem with uncertain prognosis? @ -None Drug Therapy requiring intensive monitoring for toxicity (Heparin, Nitro, Insulin, Cardizem)? @ -None Were any procedures done? @ -None Diagnosis/symptom? @ -Influenza A Acute, or Chronic, or Acute on Chronic? @ -Acute Uncomplicated (without systemic symptoms) or Complicated (systemic symptoms)? @ -Uncomplicated Side effects of treatment? @ -None Exacerbation, Progression, or Severe Exacerbation] @ -Not applicable Poses a threat to life or bodily function? @ -No - Lab Data Lab Results 08/25/24 Range/Units 12:43 Influenza Type A (PCR) Detected A (Not Detectd) Influenza Type B (PCR) Not Detected (Not Detectd) RSV (PCR) Not Detected (Not Detectd) SARS-CoV-2 (PCR) Not Detected (Not Detectd) Disposition Clinical Impression: Influenza A Disposition: HOME SELF-CARE Instructions (If sedation given, give patient instructions): Influenza (ED) Additional Instructions: Return to the emergency department with any new, worsening, or concerning symptoms. Alternate with ibuprofen and Tylenol as needed for fevers and discomfort. Take the cough medication every 4-6 hours as needed. Use the albuterol inhaler every 4-6 hours as needed for shortness of breath. Follow up with your primary care provider. Prescriptions: Albuterol Sulfate [Albuterol Sulfate Hfa] 1 - 2 puff PO Q4-6H PRN #8.5 gm PRN Reason: Shortness Of Breath Ibuprofen [Motrin] 800 mg PO Q8H PRN #30 tab PRN Reason: Pain Promethazine/Dextromethorphan [Promethazine-Dm 6.25-15 mg/5Ml] 5 ml PO Q4-6H PRN #250 ml PRN Reason: Cough Is patient prescribed a controlled substance at d/c from ED?: No Referrals: Sharyn Fonseca MD [Primary Care Provider] - 1-2 days Time of Disposition: 13:47
[2024-08-25] MEDS: BENZONATATE 100 MG CAP PO STA (12:50)
[2024-08-25] MEDS: KETOROLAC 15 MG/ML 1 ML VIAL IM STA (12:50)
--- NOTE | 2024-08-25 13:02 | XR ---
EXAMINATION TYPE: XR chest 2V DATE OF EXAM: 08/25/2024 12:55 PM COMPARISON: Multiple radiographs, with the most recent on 03/15/2024. TECHNIQUE: XR chest 2V Frontal and lateral views of the chest. CLINICAL INDICATION:Male, 48 years old with history of Cough; FINDINGS: Lungs/Pleura: There is no evidence of pleural effusion, focal consolidation, or pneumothorax. Pulmonary vascularity: Unremarkable. Heart/mediastinum: Cardiomediastinal silhouette is unremarkable. Musculoskeletal: No acute osseous pathology. Mild multilevel degenerative disc disease. IMPRESSION: No acute cardiopulmonary disease/process. [facility], , 08/25/2024 12:59 PM
[2024-08-25 13:29] LABS: Influenza A Detected (Not Detectd); Influenza B Not Detected (Not Detectd); RSV Not Detected (Not Detectd)
[2024-08-25 13:59] VITALS: BP 130/79; PULSE 87; TEMP 98.1
== END 2024-08-25 13:59 | disposition home or self-care (01) ==
LOC: EC 12:28
DX: J10.1 Influenza due to other identified influenza virus with other respiratory manifestations (principal); J45.909 Unspecified asthma, uncomplicated; Z88.8 Allergy status to other drugs, medicaments and biological substances; Z79.899 Other long term (current) drug therapy
CPT/HCPCS: 96372; 87636; 71046; 99284; J1885; 99283

== ENCOUNTER 2024-10-12 18:08 | Emergency (ER) | payer MEDICARE ==
[2024-10-12 18:15] VITALS: TEMP 98.3
--- NOTE | 2024-10-12 18:34 | ED ---
General Adult HPI - General Chief complaint: Abdominal Pain Stated complaint: BI Groin Pain Time Seen by Provider: 10/12/24 18:27 Source: patient Mode of arrival: ambulatory Limitations: no limitations - History of Present Illness Initial comments: Dictation was produced using [employer] dictation software. please excuse any grammatical, word or spelling errors. Chief Complaint: 48-year-old male presents emergency department with bilateral groin pain History of Present Illness: Patient is a 48-year-old male presents with chief complaint of bilateral groin pain states that his symptoms have been ongoing for the last 2 days. No clear inciting event. States that he has history of hernia repair and is worried that he has a recurrence of hernia. No abdominal pain. No fever chills or night sweats. The ROS documented in this emergency department record has been reviewed and confirmed by me. Those systems with pertinent positive or negative responses have been documented in the HPI. All other systems are other negative and/or noncontributory. - Related Data Home Medications Medication Instructions Recorded Confirmed lisinopriL [Zestril] 20 mg PO HS 09/06/17 11/22/23 ARIPiprazole [Abilify Maintena] 400 mg IM Q28D 11/08/18 11/22/23 Albuterol Sulfate [Ventolin HFA] 2 puff INHALATION RT-Q6H PRN 02/19/22 11/22/23 Ammonium Lactate Cream [Lac-Hydrin 1 applic TOPICAL DAILY 10/13/23 11/22/23 12% Cream] traMADol HCl [Ultram] 50 mg PO Q6H PRN 11/22/23 11/22/23 Previous Rx's Medication Instructions Recorded Aspirin 81 mg PO DAILY #30 tab 10/13/23 Metoprolol Tartrate [Lopressor] 25 mg PO BID #60 tab 10/13/23 Nitroglycerin Sl Tabs [Nitrostat] 0.4 mg SUBLINGUAL Q5M PRN #15 tab 10/13/23 Atorvastatin [Lipitor] 80 mg PO DAILY 30 Days #30 tab 11/28/23 Benztropine Mesylate [Cogentin] 1 mg PO DAILY 30 Days #30 tab 11/28/23 Budesonide-Formot 160-4.5 Mcg 2 puff INHALATION RT-BID 30 Days 11/28/23 [Symbicort 160-4.5 Mcg Inhaler] #1 each Escitalopram [Lexapro] 20 mg PO DAILY 30 Days #30 tab 11/28/23 [place] Carbonate 600 mg PO DAILY 30 Days #60 cap 11/28/23 risperiDONE [RisperDAL] 0.5 mg PO HS 30 Days #30 tab 11/28/23 Sulfamethox-Tmp 800-160Mg [Bactrim 1 each PO Q12HR 7 Days #14 tab 01/18/24 Ds] Cephalexin [Keflex] 500 mg PO Q6HR #40 cap 02/29/24 Ondansetron Odt [Zofran Odt] 4 mg PO Q8HR PRN #10 tab 03/15/24 predniSONE 10 mg PO DIRECTED 9 Days #18 tab 08/22/24 Mupirocin 2% Oint [Bactroban 2% 1 applic TOPICAL BID #22 gm 08/23/24 Oint] Sulfamethox-Tmp 800-160Mg [Bactrim 1 each PO Q12HR #20 tab 08/23/24 Ds] Albuterol Sulfate [Albuterol 1 - 2 puff PO Q4-6H PRN #8.5 gm 08/25/24 Sulfate Hfa] Ibuprofen [Motrin] 800 mg PO Q8H PRN #30 tab 08/25/24 Promethazine/Dextromethorphan 5 ml PO Q4-6H PRN #250 ml 08/25/24 [Promethazine-Dm 6.25-15 mg/5Ml] Allergies Allergy/AdvReac Type Severity Reaction Status Date / Time haloperidol [From Haldol] AdvReac Stroke-like Verified 10/12/24 18:14 symptoms Review of Systems ROS Statement: Those systems with pertinent positive or pertinent negative responses have been documented in the HPI. ROS Other: All systems not noted in ROS Statement are negative. Past Medical History Past Medical History: Asthma, Chest Pain / Angina, GERD/Reflux, Hyperlipidemia, Hypertension, Sleep Apnea/CPAP/BIPAP Additional Past Medical History / Comment(s): Tourette's syndrome, seasonal Allergies, dyskenisia, sleep apnea- no machine., carlos a inguinal hernias History of Any Multi-Drug Resistant Organisms: None Reported Past Surgical History: Hernia Repair, Tonsillectomy Additional Past Surgical History / Comment(s): states hernia right testicle x 3 Past Anesthesia/Blood Transfusion Reactions: No Reported Reaction Additional Past Anesthesia/Blood Transfusion Reaction / Comment(s): difficulty waking. Past Psychological History: Anxiety, Bipolar, Depression, Panic Disorder, Schizophrenia Smoking Status: Never smoker Past Alcohol Use History: None Reported Past Drug Use History: None Reported - Past Family History Father Family Medical History: No Reported History Additional Family Medical History / Comment(s): He is 61 years of age. Patient has had no contact with him and 20 years Mother Additional Family Medical History / Comment(s): Mother at age 63 from sepsis. Sister(s) Family Medical History: No Reported History Additional Family Medical History / Comment(s): He has 2 sisters with no major medical problems. General Exam - General Exam Comments Initial Comments: PHYSICAL EXAM: General Impression: Alert and oriented x3, not in acute distress HEENT: Normocephalic atraumatic, extra-ocular movements intact, pupils equal and reactive to light bilaterally, mucous membranes moist. Cardiovascular: Heart regular rate and rhythm Chest: Able to complete full sentences, no retractions, no tachypnea Abdomen: abdomen soft, non-tender, non-distended, no organomegaly no inguinal bulge with Valsalva Musculoskeletal: Pulses present and equal in all extremities, no peripheral edema Motor: no focal deficits noted Neurological: CN II-XII grossly intact, no focal motor or sensory deficits noted Skin: Intact with no visualized rashes Psych: Normal affect and mood Limitations: no limitations Course Vital Signs 10/12/24 18:12 Temperature 98.3 F Pulse Rate 75 Respiratory 22 Rate Blood Pressure 144/84 O2 Sat by Pulse 97 Oximetry Medical Decision Making - Medical Decision Making Was pt. sent in by a medical professional or institution (, PA, RELOCATION MANAGER, urgent care, hospital, or long-term...) When possible be specific @ -No Did you speak to anyone other than the patient for history (EMS, parent, family, police, friend...)? What history was obtained from this source @ -No Did you review nursing and triage notes (agree or disagree)? Why? @ -I reviewed and agree with nursing and triage notes Were old charts reviewed (outside hosp., previous admission, EMS record, old EKG, old radiological studies, urgent care reports/EKG's, long-term records)? Report findings @ -No old charts were reviewed Differential Diagnosis (chest pain, altered mental status, abdominal pain women, abdominal pain men, vaginal bleeding, musculoskeletal, weakness, fever, dyspnea, syncope, headache, dizziness, GI bleed, back pain, seizure, CVA, palpatations, mental health)? @ -Differential Abdominal Pain Men: Appendicitis, cholecystitis, diverticulosis, ischemic bowel, pancreatitis, hepatitis, UTI, gastroenteritis, AAA, incarcerated hernia, bowel obstruction, constipation, inflammatory bowel, hepatitis, peptic ulcer disease, splenic infarction, perforated viscus, testicular torsion, this is not meant to be an all-inclusive list EKG interpreted by me (3pts min.). @ -None done X-rays interpreted by me (1pt min.). @ -None done CT interpreted by me (1pt min.). @ -Fat-containing right inguinal hernia U/S interpreted by me (1pt. min.). @ -None done What testing was considered but not performed or refused? (CT, X-rays, U/S, labs)? Why? @ -None What meds were considered but not given or refused? Why? @ -None Was smoking cessation discussed for >3mins.? @ -No Were there social determinants of health that impacted care today? How? (Homelessness, low income, unemployed, alcoholism, drug addiction, transportation, low edu. Level, literacy, decrease access to med. care, fci, rehab)? @ -No Was there de-escalation of care discussed even if they declined (Discuss DNR or withdrawal of care, Hospice)? DNR status @ -No What co-morbidities impacted this encounter? (DM, HTN, Smoking, COPD, CAD, Cancer, CVA, ARF, Chemo, Hep., AIDS, mental health diagnosis, sleep apnea, morbid obesity)? @ -None Was patient admitted / discharged? Hospital course, mention meds given and route, prescriptions, significant lab abnormalities, going to OR and other pertinent info. @ -48-year-old male presents to the ER for groin pain. He has fat-containing right inguinal hernia. Vital signs stable. Physical examination otherwise benign. Patient told to follow-up with his surgeon for hernia repair. Did you discuss the management of the patient with other professionals (pr ofessionals i.e. , PA, RELOCATION MANAGER, lab, RT, psych nurse, social media campaign manager, gas scrubber operator, teacher, chief information officer, high risk case manager)? Give summary @ -No Was critical care preformed (if so, how long)? @ -No Undiagnosed new problem with uncertain prognosis? @ -No Drug Therapy requiring intensive monitoring for toxicity (Heparin, Nitro, Insulin, Cardizem)? @ -No Were any procedures done? @ -No Diagnosis/symptom? Acute, or Chronic, or Acute on Chronic? Uncomplicated (without systemic symptoms) or Complicated (systemic symptoms)? @ -Inguinal hernia Side effects of treatment? @ -No Exacerbation, Progression, or Severe Exacerbation? @ -No Poses a threat to life or bodily function? How? (Chest pain, [place], [place], pneumonia, PE, COPD, DKA, ARF, appy, cholecystitis, CVA, Diverticulitis, Homicidal, Suicidal, threat to staff... and all critical care pts) @ -No Disposition Clinical Impression: Inguinal hernia Disposition: HOME SELF-CARE Condition: Good Additional Instructions: f/u with surgeon for hernia repair Is patient prescribed a controlled substance at d/c from ED?: No Referrals: Sharyn Fonseca MD [Primary Care Provider] - 1-2 days Demetrio Baca DO [Medical Doctor] - 1-2 days Time of Disposition: 21:11
--- NOTE | 2024-10-12 20:59 | CT ---
EXAMINATION TYPE: CT abdomen pelvis wo con DATE OF EXAM: 10/12/2024 6:46 PM COMPARISON: 04/21/2023 CLINICAL INDICATION: Male, 48 years old with history of groin pain; Groin pain x3days. Hx of hernias. TECHNIQUE: Axial CT abdomen pelvis wo con;Sagittal and coronal reformats were created on a separate workstation. Contrast used: mL of , (none if empty) Oral contrast used: without Oral Contrast (none if empty) CT DLP: 1686.4 mGycm, Automated exposure control for dose reduction was used. FINDINGS: LOWER CHEST: Unremarkable ABDOMEN LIVER: Unremarkable GALLBLADDER AND BILE DUCTS: Unremarkable. PANCREAS: Unremarkable. SPLEEN: Unremarkable. ADRENAL GLANDS: Unremarkable. KIDNEYS AND URETERS: No evidence of hydronephrosis or obstructing renal calculus. The ureters are unr emarkable. Simple appearing right renal cortical cyst. No follow-up recommended. PELVIS BLADDER: No evidence for wall thickening or mass given limitations of exam. REPRODUCTIVE: Unremarkable. ABDOMEN & PELVIS STOMACH AND BOWEL: No evidence of bowel obstruction. PERITONEUM/RETROPERITONEUM: No evidence of pneumoperitoneum or free fluid. VASCULATURE: No evidence of aortic aneurysm. MUSCULOSKELETAL: No acute osseous abnormalities LYMPH NODES: No gross evidence for lymphadenopathy. SOFT TISSUE/ABDOMINAL WALL: Fat-containing right inguinal hernia. There is inflammation changes aroun d the right inguinal canal. Fat-containing umbilical hernia. No organizing fluid collection identifie d. IMPRESSION: Right fat-containing inguinal hernia with some inflammation correlate for recent intervention. No riddhi dence for bowel obstruction nor omental infarct. No other acute abdominal process., No organizing flu id collection. [facility], , 10/12/2024 8:56 PM
[2024-10-12] MEDS: ACET/COD 300 MG/30 MG STARTER PACK 6 TAB BTL PO STA (21:18)
[2024-10-12 21:20] VITALS: BP 134/65; PULSE 72; RESP 18
== END 2024-10-12 21:20 | disposition home or self-care (01) ==
LOC: EC 18:08
DX: K40.90 Unilateral inguinal hernia, without obstruction or gangrene, not specified as recurrent (principal); Z88.8 Allergy status to other drugs, medicaments and biological substances
CPT/HCPCS: 74176; 99284

== ENCOUNTER 2024-10-20 13:05 | Emergency (ER) | payer MEDICARE ==
[2024-10-20 13:09] VITALS: RESP 18; TEMP 97.9
--- NOTE | 2024-10-20 13:34 | ED ---
Abdominal Pain HPI - General Chief Complaint: Abdominal Pain Stated Complaint: Abd pain Time Seen by Provider: 10/20/24 13:10 Source: patient Mode of arrival: ambulatory Limitations: no limitations - History of Present Illness Initial Comments: 49-year-old male presents emergency department reporting left lower quadrant pain. Patient has a history of a hernia for which she is following up with the surgeon. States that the pain has been so bad that he has been taking a lot of Tylenol. He was then told that the amount of Tylenol was likely too much by urgent care and that he had to go to the hospital for evaluation. He does report to some left upper quadrant discomfort since he started taking the Tylenol. States he was likely taking it every 4 hours. He has not taken any today. He denies any nausea or vomiting. No hematemesis. No changes in his bowel or bladder habits. No other alleviating, precipitating or modifying factors - Related Data Home Medications Medication Instructions Recorded Confirmed lisinopriL [Zestril] 20 mg PO HS 09/06/17 11/22/23 ARIPiprazole [Abilify Maintena] 400 mg IM Q28D 11/08/18 11/22/23 Albuterol Sulfate [Ventolin HFA] 2 puff INHALATION RT-Q6H PRN 02/19/22 11/22/23 Ammonium Lactate Cream [Lac-Hydrin 1 applic TOPICAL DAILY 10/13/23 11/22/23 12% Cream] traMADol HCl [Ultram] 50 mg PO Q6H PRN 11/22/23 11/22/23 Previous Rx's Medication Instructions Recorded Aspirin 81 mg PO DAILY #30 tab 10/13/23 Metoprolol Tartrate [Lopressor] 25 mg PO BID #60 tab 10/13/23 Nitroglycerin Sl Tabs [Nitrostat] 0.4 mg SUBLINGUAL Q5M PRN #15 tab 10/13/23 Atorvastatin [Lipitor] 80 mg PO DAILY 30 Days #30 tab 11/28/23 Benztropine Mesylate [Cogentin] 1 mg PO DAILY 30 Days #30 tab 11/28/23 Budesonide-Formot 160-4.5 Mcg 2 puff INHALATION RT-BID 30 Days 11/28/23 [Symbicort 160-4.5 Mcg Inhaler] #1 each Escitalopram [Lexapro] 20 mg PO DAILY 30 Days #30 tab 11/28/23 [place] Carbonate 600 mg PO DAILY 30 Days #60 cap 11/28/23 risperiDONE [RisperDAL] 0.5 mg PO HS 30 Days #30 tab 11/28/23 Sulfamethox-Tmp 800-160Mg [Bactrim 1 each PO Q12HR 7 Days #14 tab 01/18/24 Ds] Cephalexin [Keflex] 500 mg PO Q6HR #40 cap 02/29/24 Ondansetron Odt [Zofran Odt] 4 mg PO Q8HR PRN #10 tab 03/15/24 predniSONE 10 mg PO DIRECTED 9 Days #18 tab 08/22/24 Mupirocin 2% Oint [Bactroban 2% 1 applic TOPICAL BID #22 gm 08/23/24 Oint] Sulfamethox-Tmp 800-160Mg [Bactrim 1 each PO Q12HR #20 tab 08/23/24 Ds] Albuterol Sulfate [Albuterol 1 - 2 puff PO Q4-6H PRN #8.5 gm 08/25/24 Sulfate Hfa] Ibuprofen [Motrin] 800 mg PO Q8H PRN #30 tab 08/25/24 Promethazine/Dextromethorphan 5 ml PO Q4-6H PRN #250 ml 08/25/24 [Promethazine-Dm 6.25-15 mg/5Ml] HYDROcodone/APAP 5-325MG [[place] 1 tab PO Q6HR PRN 3 Days #12 tab 10/20/24 5-325] Allergies Allergy/AdvReac Type Severity Reaction Status Date / Time haloperidol [From Haldol] AdvReac Stroke-like Verified 10/20/24 13:08 symptoms Review of Systems ROS Statement: Those systems with pertinent positive or pertinent negative responses have been documented in the HPI. ROS Other: All systems not noted in ROS Statement are negative. Past Medical History Past Medical History: Asthma, Chest Pain / Angina, GERD/Reflux, Hyperlipidemia, Hypertension, Sleep Apnea/CPAP/BIPAP Additional Past Medical History / Comment(s): Tourette's syndrome, seasonal Allergies, dyskenisia, sleep apnea- no machine., carlos a inguinal hernias History of Any Multi-Drug Resistant Organisms: None Reported Past Surgical History: Hernia Repair, Tonsillectomy Additional Past Surgical History / Comment(s): states hernia right testicle x 3 Past Anesthesia/Blood Transfusion Reactions: No Reported Reaction Additional Past Anesthesia/Blood Transfusion Reaction / Comment(s): difficulty waking. Past Psychological History: Anxiety, Bipolar, Depression, Panic Disorder, Schizophrenia Smoking Status: Never smoker Past Alcohol Use History: None Reported Past Drug Use History: None Reported - Past Family History Father Family Medical History: No Reported History Additional Family Medical History / Comment(s): He is 61 years of age. Patient has had no contact with him and 20 years Mother Additional Family Medical History / Comment(s): Mother at age 63 from se psis. Sister(s) Family Medical History: No Reported History Additional Family Medical History / Comment(s): He has 2 sisters with no major medical problems. General Exam Limitations: no limitations General appearance: alert, in no apparent distress Head exam: Present: atraumatic, normocephalic, normal inspection Eye exam: Present: normal appearance, PERRL, EOMI. Absent: scleral icterus, conjunctival injection, periorbital swelling ENT exam: Present: normal exam, mucous membranes moist Neck exam: Present: normal inspection. Absent: tenderness, meningismus, lymphadenopathy Respiratory exam: Present: normal lung sounds bilaterally. Absent: respiratory distress, wheezes, rales, rhonchi, stridor Cardiovascular Exam: Present: regular rate, normal rhythm, normal heart sounds. Absent: systolic murmur, diastolic murmur, rubs, gallop, clicks GI/Abdominal exam: Present: soft, tenderness (right inguinal canal and slightly in the LUQ), normal bowel sounds. Absent: distended, guarding, rebound, rigid Extremities exam: Present: normal inspection, full ROM, normal capillary refill. Absent: tenderness, pedal edema, joint swelling, calf tenderness Back exam: Present: normal inspection Neurological exam: Present: alert, oriented X3, CN II-XII intact Psychiatric exam: Present: normal affect, normal mood Skin exam: Present: warm, dry, intact, normal color. Absent: rash Course Vital Signs 10/20/24 10/20/24 13:06 15:06 Temperature 97.9 F Pulse Rate 68 69 Respiratory 18 18 Rate Blood Pressure 122/89 135/97 O2 Sat by Pulse 97 98 Oximetry Medical Decision Making - Medical Decision Making Was pt. sent in by a medical professional or institution (Dr., PA, ARTIFICIAL BREAST FABRICATOR, urgent care, hospital, or group home...) When possible be specific @ -Patient sent from urgent care Did you speak to anyone other than the patient for history (EMS, parent, family, police, friend...)? What history was obtained from this source @ -No Did you review nursing and triage notes (agree or disagree)? Why? @ -I reviewed and agree with nursing and triage notes Were old charts reviewed (outside hosp., previous admission, EMS record, old EKG, old radiological studies, urgent care reports/EKG's, group home records)? Report findings @ -I reviewed the abdominal CT from October 12 that patient had which showed inguinal hernia Differential Diagnosis (chest pain, altered mental status, abdominal pain women, abdominal pain men, vaginal bleeding, weakness, fever, dyspnea, syncope, headache, dizziness, GI bleed, back pain, seizure, CVA, palpatations, mental health, musculoskeletal)? @ -Differential Abdominal Pain Men: Appendicitis, cholecystitis, diverticulosis, ischemic bowel, pancreatitis, hepatitis, UTI, gastroenteritis, AAA, incarcerated hernia, bowel obstruction, constipation, inflammatory bowel, hepatitis, peptic ulcer disease, splenic infarction, perforated viscus, testicular torsion, this is not meant to be an all-inclusive list EKG interpreted by me (3pts min.). @ -Not done X-rays interpreted by me (1pt min.). @ -yes which demonstrates no acute process CT interpreted by me (1pt min.). @ -None done U/S interpreted by me (1pt. min.). @ -None done What testing was considered but not performed or refused? (CT, X-rays, U/S, labs)? Why? @ -None What meds were considered but not given or refused? Why? @ -None Did you discuss the management of the patient with other professionals (professionals i.e. KULDEEP García, ARTIFICIAL BREAST FABRICATOR, lab, RT, psych nurse, director social welfare, chick sexer, teacher, cash management officer, welfare case worker)? Give summary @ -No Was smoking cessation discussed for >3mins.? @ -No Was critical care preformed (if so, how long)? @ -No Were there social determinants of health that impacted care today? How? (Homelessness, low income, unemployed, alcoholism, drug addiction, transportation, low edu. Level, literacy, decrease access to med. care, [facility], rehab)? @ -No Was there de-escalation of care discussed even if they declined (Discuss DNR or withdrawal of care, Hospice)? DNR status @ -No What co-morbidities impacted this encounter? (DM, HTN, Smoking, COPD, CAD, Cancer, CVA, ARF, Chemo, Hep., AIDS, mental health diagnosis, sleep apnea, morbid obesity)? @ -Hernia Was patient admitted / discharged? Hospital course, mention meds given and route, prescriptions, significant lab abnormalities, going to OR and other pertinent info. @ -Upon arrival patient seen and evaluated in bed 5. Thorough history and physical exam was performed. Patient presents with concern for Tylenol overdose. I did start an IV and check labs. Tylenol level is undetectable and the patient has no signs of any acute liver injury. Hemoglobin is within normal limits. KUB demonstrates no signs of pneumoperitoneum. His results are discussed with patient. I feel he is stable for discharge home. Patient is instructed on the proper amount of Tylenol usage. He will be following up with his surgeon in regards to his hernia. I did provide patient additional pain c ontrol options with him for which she was agreeable to [place]. He is instructed that Tylenol is in the [place] so he should not take any extra Tylenol. He is to return for any new or worsening symptoms. Patient agreeable to plan was discharged in stable condition Undiagnosed new problem with uncertain prognosis? @ -No Drug Therapy requiring intensive monitoring for toxicity (Heparin, Nitro, Insul in, Cardizem)? @ -No Were any procedures done? @ -No Diagnosis/symptom? @ -Acute left upper quadrant pain, acute right inguinal pain, history of hernia, concern for Tylenol misuse Acute, or Chronic, or Acute on Chronic? @ -Acute Uncomplicated (without systemic symptoms) or Complicated (systemic symptoms)? @ -Complicated Side effects of treatment? @ -No Exacerbation, Progression, or Severe Exacerbation? @ -No Poses a threat to life or bodily function? How? (Chest pain, [place], [place], pneumonia, PE, COPD, DKA, ARF, appy, cholecystitis, CVA, Diverticulitis, Homicidal, Suicidal, threat to staff... and all critical care pts) @ -No - Lab Data Result diagrams: 10/20/24 13:34 10/20/24 13:34 Lab Results 10/20/24 10/20/24 10/20/24 Range/Units 13:34 13:34 13:34 WBC 9.03 (4.50-10.00) 10*3/uL RBC 4.91 (4.40-5.60) 10*6/uL Hgb 14.3 (13.0-17.0) g/dL Hct 43.3 (39.6-50.0) % MCV 88.2 (80.0-97.0) fL MCH 29.1 (27.0-32.0) pg MCHC 33.0 (32.0-37.0) g/dL Plt Count 305 (140-440) 10*3/uL MPV 9.8 (9.5-12.2) fL Immature Gran % (Auto) 0.3 % Neutrophils % 65.5 % Lymphocytes % 21.5 % Monocytes % 8.2 % Eosinophils % 3.5 % Basophils % 1.0 % Immature Gran # 0.03 (0.00-0.04) 10*3/uL Neutrophils # 5.91 (1.80-7.70) 10*3/uL Lymphocytes # 1.94 (0.90-5.00) 10*3/uL Monocytes # 0.74 (0.20-1.00) 10*3/uL Eosinophils # 0.32 (0.04-0.35) 10*3/uL Basophils # 0.09 (0.00-0.10) 10*3/uL PT 10.6 (10.0-12.5) sec INR 0.9 (<1.2) Sodium 137 (137-145) mmol/L Potassium 4.6 (3.5-5.1) mmol/L Chloride 103 (98-107) mmol/L Carbon Dioxide 24 (22-30) mmol/L Anion Gap 10 mmol/L BUN 15 (9-20) mg/dL Creatinine 0.88 (0.66-1.25) mg/dL Est GFR (CKD-EPI)AfAm >90 (>60 ml/min/1.73 sqM) Est GFR (CKD-EPI)NonAf >90 (>60 ml/min/1.73 sqM) Glucose 91 (74-99) mg/dL Plasma Lactic Acid B[place] (0.7-2.0) mmol/L Calcium 10.2 (8.4-10.2) mg/dL Total Bilirubin 0.8 (0.2-1.3) mg/dL AST 30 (17-59) U/L ALT 49 (4-49) U/L Alkaline Phosphatase 80 (38-126) U/L Total Protein 7.5 (6.3-8.2) g/dL Albumin 4.5 (3.5-5.0) g/dL Lipase 98 (23-300) U/L Acetaminophen <10.0 ug/mL // Range/Units 13:34 WBC (4.50-10.00) 10*3/uL RBC (4.40-5.60) 10*6/uL Hgb (13.0-17.0) g/dL Hct (39.6-50.0) % MCV (80.0-97.0) fL MCH (27.0-32.0) pg MCHC (32.0-37.0) g/dL Plt Count (140-440) 10*3/uL MPV (9.5-12.2) fL Immature Gran % (Auto) % Neutrophils % % Lymphocytes % % Monocytes % % Eosinophils % % Basophils % % Immature Gran # (0.00-0.04) 10*3/uL Neutrophils # (1.80-7.70) 10*3/uL Lymphocytes # (0.90-5.00) 10*3/uL Monocytes # (0.20-1.00) 10*3/uL Eosinophils # (0.04-0.35) 10*3/uL Basophils # (0.00-0.10) 10*3/uL PT (10.0-12.5) sec INR (<1.2) Sodium (137-145) mmol/L Potassium (3.5-5.1) mmol/L Chloride (98-107) mmol/L Carbon Dioxide (22-30) mmol/L Anion Gap mmol/L BUN (9-20) mg/dL Creatinine (0.66-1.25) mg/dL Est GFR (CKD-EPI)AfAm (>60 ml/min/1.73 sqM) Est GFR (CKD-EPI)NonAf (>60 ml/min/1.73 sqM) Glucose (74-99) mg/dL Plasma Lactic Acid [place] 0.7 (0.7-2.0) mmol/L Calcium (8.4-10.2) mg/dL Total Bilirubin (0.2-1.3) mg/dL AST (17-59) U/L ALT (4-49) U/L Alkaline Phosphatase (38-126) U/L Total Protein (6.3-8.2) g/dL Albumin (3.5-5.0) g/dL Lipase (23-300) U/L Acetaminophen ug/mL Disposition Clinical Impression: LUQ abdominal pain Disposition: HOME SELF-CARE Condition: Stable Instructions (If sedation given, give patient instructions): Abdominal Pain (ED) Additional Instructions: Please take the [place] sparingly. Follow-up with your surgeon and return for any new or worsening symptoms Prescriptions: HYDROcodone/APAP 5-325MG [[place] 5-325] 1 tab PO Q6HR PRN 3 Days #12 tab PRN Reason: Severe Breakthrough Pain Is patient prescribed a controlled substance at d/c from ED?: Yes When asked, does pt state using other controlled substances?: No If prescribed controlled substance>3 days was MAPS reviewed?: Prescribed <3 Days If opioid is for acute pain is fill amount 7 days or less?: Yes If Rx opioid, was Start Talking consent form obtained?: Yes Referrals: Sharyn Fonseca MD [Primary Care Provider] - 1-2 days Demetrio Baca DO [Medical Doctor] - 1-2 days Time of Disposition: 14:56
[2024-10-20] MEDS: PANTOPRAZOLE 40 MG/10 ML VIAL IVP STA (13:37)
[2024-10-20] MEDS: FAMOTIDINE 20 MG/2 ML VIAL IV STA (13:37)
[2024-10-20] MEDS: SODIUM CHLORIDE 0.9% 1,000 ML IV ONE (13:38)
[2024-10-20 13:46] LABS: Basophils # (A) 0.09 10*3/uL (0.00-0.10); Eosinophils # (A) 0.32 10*3/uL (0.04-0.35); Eosinophils % (A) 3.5 %; HCT 43.3 % (39.6-50.0); HGB 14.3 g/dL (13.0-17.0); Lymphocytes # (A) 1.94 10*3/uL (0.90-5.00); Lymphocytes % (A) 21.5 %; MCH 29.1 pg (27.0-32.0); MCV 88.2 fL (80.0-97.0); Mean Platelet Volume 9.8 fL (9.5-12.2); Monocytes # (A) 0.74 10*3/uL (0.20-1.00); Monocytes % (A) 8.2 %; Neutrophils # (A) 5.91 10*3/uL (1.80-7.70); Neutrophils % (A) 65.5 %; Platelet Count 305 10*3/uL (140-440); RBC 4.91 10*6/uL (4.40-5.60); RDW 13.2 % (11.5-14.5); WBC 9.03 10*3/uL (4.50-10.00)
--- NOTE | 2024-10-20 13:59 | XR ---
EXAMINATION TYPE: XR KUB DATE OF EXAM: 10/20/2024 COMPARISON: CT abdomen pelvis 10/12/2024 HISTORY: Abdominal pain TECHNIQUE: Single upright KUB image of the abdomen is obtained FINDINGS: Small bowel demonstrates no evidence for dilatation or air fluid levels. Gas and fecal material is seen in non-distended colon. No convincing evidence for pneumoperitoneum. No unusual calcifications. The lung bases are clear. The osseous structures are intact. IMPRESSION: Overall nonobstructive bowel gas pattern. [facility], , 10/20/2024 1:57 PM
[2024-10-20 14:02] LABS: INR 0.9 (<1.2); Prothrombin Time 10.6 sec (10.0-12.5)
[2024-10-20 14:05] LABS: ALT 49 U/L (4-49); AST 30 U/L (17-59); Acetaminophen <10.0 ug/mL; African American GFR (CKD) >90 (>60 ml/min/1.73 sqM); Albumin 4.5 g/dL (3.5-5.0); Alkaline Phosphatase 80 U/L (38-126); Anion Gap 10 mmol/L; Blood Urea Nitrogen 15 mg/dL (9-20); Calcium 10.2 mg/dL (8.4-10.2); Carbon Dioxide 24 mmol/L (22-30); Chloride 103 mmol/L (98-107); Glucose 91 mg/dL (74-99); Lipase 98 U/L (23-300); Non-African American GFR(CKD) >90 (>60 ml/min/1.73 sqM); Potassium 4.6 mmol/L (3.5-5.1); Sodium 137 mmol/L (137-145); Total Bilirubin 0.8 mg/dL (0.2-1.3); Total Protein 7.5 g/dL (6.3-8.2)
[2024-10-20 15:07] VITALS: BP 135/97; PULSE 69
== END 2024-10-20 15:07 | disposition home or self-care (01) ==
LOC: EC 13:05
DX: R10.32 Left lower quadrant pain (principal); Z88.8 Allergy status to other drugs, medicaments and biological substances
CPT/HCPCS: 36415; 80053; 83605; 83690; 85025; 85610; 80143; 74018; 99284; 96374; 96375; 96361 ×2; J2470; J1308

== ENCOUNTER 2025-01-08 17:07 | Emergency (ER) | payer MEDICARE, OTHER ==
[2025-01-08 17:10] VITALS: TEMP 97.9
--- NOTE | 2025-01-08 17:44 | ED ---
General Adult HPI - General Chief complaint: Extremity Problem,Nontraumatic Stated complaint: left leg pain Time Seen by Provider: 01/08/25 17:23 Source: patient, RN notes reviewed Mode of arrival: ambulatory Limitations: no limitations - History of Present Illness Initial comments: 49-year-old male presents to the emergency department for evaluation of left leg pain. Patient states that this has been going on for around 2 weeks. He denies any known injury at that time. He states that the pain is worse with standing and ambulation. He notes majority of the pain behind the knee and into the thigh. He denies any skin changes. Denies any fever, chills. - Related Data Home Medications Medication Instructions Recorded Confirmed lisinopriL [Zestril] 20 mg PO HS 09/06/17 01/08/25 ARIPiprazole [Abilify Maintena] 400 mg IM Q28D 11/08/18 01/08/25 Albuterol Sulfate [Ventolin HFA] 2 puff INHALATION RT-Q6H PRN 02/19/22 01/08/25 Atorvastatin [Lipitor] 80 mg PO HS 01/08/25 01/08/25 [place] Carbonate 600 mg PO HS 01/08/25 01/08/25 Omeprazole [PriLOSEC] 20 mg PO DAILY 01/08/25 01/08/25 Previous Rx's Medication Instructions Recorded Benztropine Mesylate [Cogentin] 1 mg PO DAILY 30 Days #30 tab 11/28/23 Escitalopram [Lexapro] 20 mg PO DAILY 30 Days #30 tab 11/28/23 risperiDONE [RisperDAL] 0.5 mg PO HS 30 Days #30 tab 11/28/23 Cyclobenzaprine [Flexeril] 10 mg PO TID PRN #15 tab 01/08/25 Ibuprofen [Motrin] 800 mg PO Q8HR #14 tab 01/08/25 Allergies Allergy/AdvReac Type Severity Reaction Status Date / Time haloperidol [From Haldol] AdvReac Stroke-like Verified 01/08/25 17:58 symptoms Review of Systems ROS Statement: Those systems with pertinent positive or pertinent negative responses have been documented in the HPI. ROS Other: All systems not noted in ROS Statement are negative. Past Medical History Past Medical History: Asthma, Chest Pain / Angina, GERD/Reflux, Hyperlipidemia, Hypertension, Sleep Apnea/CPAP/BIPAP Additional Past Medical History / Comment(s): Tourette's syndrome, seasonal Allergies, dyskenisia, sleep apnea- no machine., carlos a inguinal hernias History of Any Multi-Drug Resistant Organisms: None Reported Past Surgical History: Hernia Repair, Tonsillectomy Additional Past Surgical History / Comment(s): states hernia right testicle x 3 Past Anesthesia/Blood Transfusion Reactions: No Reported Reaction Additional Past Anesthesia/Blood Transfusion Reaction / Comment(s): difficulty waking. Past Psychological History: Anxiety, Bipolar, Depression, Panic Disorder, Schizophrenia Smoking Status: Never smoker Past Alcohol Use History: None Reported Past Drug Use History: None Reported - Past Family History Father Family Medical History: No Reported History Additional Family Medical History / Comment(s): He is 61 years of age. Patient has had no contact with him and 20 years Mother Additional Family Medical History / Comment(s): Mother at age 63 from sepsis. Sister(s) Family Medical History: No Reported History Additional Family Medical History / Comment(s): He has 2 sisters with no major medical problems. General Exam Limitations: no limitations General appearance: alert, in no apparent distress Head exam: Present: atraumatic, normocephalic, normal inspection Eye exam: Present: normal appearance, PERRL, EOMI. Absent: scleral icterus, conjunctival injection, periorbital swelling ENT exam: Present: normal exam, mucous membranes moist Respiratory exam: Present: normal lung sounds bilaterally. Absent: respiratory distress, wheezes, rales, rhonchi, stridor Cardiovascular Exam: Present: regular rate, normal rhythm, normal heart sounds. Absent: systolic murmur, diastolic murmur, rubs, gallop, clicks Extremities exam: Present: full ROM, tenderness, normal capillary refill. Absent: pedal edema, joint swelling, calf tenderness Back exam: Present: normal inspection Neurological exam: Present: alert, oriented X3 Psychiatric exam: Present: normal affect, normal mood Skin exam: Present: warm, dry, intact, normal color. Absent: rash Course Vital Signs 01/08/25 01/08/25 17:08 18:55 Temperature 97.9 F Pulse Rate 94 85 Respiratory 18 14 Rate Blood Pressure 126/87 128/74 O2 Sat by Pulse 98 98 Oximetry Medical Decision Making - Medical Decision Making Was pt. sent in by a medical professional or institution (KULDEEP García, JUNIOR ANALYST, urgent care, hospital, or shelter...) When possible be specific @ -[No] Did you speak to anyone other than the patient for history (EMS, parent, family, police, friend...)? What history was obtained from this source @ -[No] Did you review nursing and triage notes (agree or disagree)? Why? @ -[I reviewed and agree with nursing and triage notes] Were old charts reviewed (outside hosp., previous admission, EMS record, old EKG, old radiological studies, urgent care reports/EKG's, shelter records)? Report findings @ -[No old charts were reviewed] Differential Diagnosis (chest pain, altered mental status, abdominal pain women, abdominal pain men, vaginal bleeding, weakness, fever, dyspnea, syncope, headache, dizziness, GI bleed, back pain, seizure, CVA, palpatations, mental health, musculoskeletal)? @ -Differential Musculoskeletal Muscular strain, contusion, ligament sprain, fracture, arthritis, septic arthritis, bursitis, cellulitis, muscle spasm, nerve compression, DVT, arterial occlusion, herpes zoster, electrolyte abnormality, tumor.... This is not meant to be in all inclusive list EKG interpreted by me (3pts min.). @ -None X-rays interpreted by me (1pt min.). @ -[None done] CT interpreted by me (1pt min.). @ -[None done] U/S interpreted by me (1pt. min.). @ -[None done] What testing was considered but not performed or refused? (CT, X-rays, U/S, labs)? Why? @ -[None] What meds were considered but not given or refused? Why? @ -[None] Did you discuss the management of the patient with other professionals (professionals i.e. KULDEEP García, JUNIOR ANALYST, lab, RT, psych nurse, social service agency director, risk mgr, teacher, artillery officer, case assistant)? Give summary @ -[No] Was smoking cessation discussed for >3mins.? @ -[No] Was critical care preformed (if so, how long)? @ -[No] Were there social determinants of health that impacted care today? How? (Homelessness, low income, unemployed, alcoholism, drug addiction, transportation, low edu. Level, literacy, decrease access to med. care, correction, rehab)? @ -[No] Was there de-escalation of care discussed even if they declined (Discuss DNR or withdrawal of care, Hospice)? DNR status @ -[No] What co-morbidities impacted this encounter? (DM, HTN, Smoking, COPD, CAD, Cancer, CVA, ARF, Chemo, Hep., AIDS, mental health diagnosis, sleep apnea, morbid obesity)? @ -[None] Was patient admitted / discharged? Hospital course, mention meds given and route, prescriptions, significant lab abnormalities, going to OR and other pertinent info. @ -[hospital course] Undiagnosed new problem with uncertain prognosis? @ -[No] Drug Therapy requiring intensive monitoring for toxicity (Heparin, Nitro, Insulin, Cardizem)? @ -[No] Were any procedures done? @ -[No] Diagnosis/symptom? @ -[default] Acute, or Chronic, or Acute on Chronic? @ -[default] Uncomplicated (without systemic symptoms) or Complicated (systemic symptoms)? @ -[default] Side effects of treatment? @ -[No] Exacerbation, Progression, or Severe Exacerbation? @ -[No] Poses a threat to life or bodily function? How? (Chest pain, [place], [place], pneumonia, PE, COPD, DKA, ARF, appy, cholecystitis, CVA, Diverticulitis, Homicidal, Suicidal, threat to staff... and all critical care pts) @ -[No] Disposition Clinical Impression: Muscle strain Disposition: HOME SELF-CARE Condition: Stable Instructions (If sedation given, give patient instructions): Muscle Strain (ED) Additional Instructions: Rest, ice, elevate the leg. Do not drive or operate heavy machinery while taking muscle relaxers. Follow-up with your primary care provider. Return to the emergency department for new or worsening symptoms. Prescriptions: Cyclobenzaprine [Flexeril] 10 mg PO TID PRN #15 tab PRN Reason: Muscle Spasm Ibuprofen [Motrin] 800 mg PO Q8HR #14 tab Is patient prescribed a controlled substance at d/c from ED?: No Referrals: Sharyn Fonseca MD [Primary Care Provider] - 1-2 days
[2025-01-08] MEDS: KETOROLAC 15 MG/ML 1 ML VIAL IM STA (17:58)
--- NOTE | 2025-01-08 18:20 | XR ---
EXAMINATION TYPE: XR knee complete LT DATE OF EXAM: 01/08/2025 6:16 PM INDICATION: Patient age:Male; 49 years old; Reason for study: pain; PHH. pain COMPARISON: None. TECHNIQUE: The Left knee(s) was examined in Frontal, lateral and oblique projections. FINDINGS: No evidence of any acute osseous pathology, soft tissue swelling, or joint effusion is no narinder. IMPRESSION: No acute osseous pathology. [facility], , 01/08/2025 6:18 PM
--- NOTE | 2025-01-08 19:01 | US ---
EXAMINATION TYPE: US venous doppler duplex LE LT DATE OF EXAM: 01/08/2025 6:51 PM COMPARISON: NONE CLINICAL INDICATION: Male, 49 years old with history of pain; pain left leg, no swelling. no hx dvt. not on thinners TECHNIQUE: The lower extremity deep venous system is examined utilizing real time linear array sonog martin with graded compression, doppler sonography and color-flow sonography. Grayscale, color doppler , spectral doppler imaging performed of the deep veins of the lower extremities FINDINGS: SIDE PERFORMED: Left VESSELS IMAGED: Common Femoral Vein Deep Femoral Vein Greater Saphenous Vein * Femoral Vein Popliteal Vein Small Saphenous Vein * Proximal Calf Veins (* superficial vessels) Left Leg: Negative for DVT; There is normal flow, compressibility, vascular waveforms. IMPRESSION: No evidence for deep vein thrombosis of the left lower extremity. [facility], , 01/08/2025 6:58 PM
[2025-01-08 19:48] VITALS: BP 129/79; PULSE 81; RESP 18
== END 2025-01-08 19:48 | disposition home or self-care (01) ==
LOC: EC 17:07
DX: S76.912A Strain of unspecified muscles, fascia and tendons at thigh level, left thigh, initial encounter (principal); Z88.8 Allergy status to other drugs, medicaments and biological substances; X58.XXXA Exposure to other specified factors, initial encounter
CPT/HCPCS: 96372; 99284; 73562; 93971; J1885

== ENCOUNTER 2025-01-18 01:50 | Observation (INO) | payer MEDICARE ==
--- NOTE | 2025-01-18 02:22 | ED ---
Chest Pain HPI - General Chief Complaint: Chest Pain Stated Complaint: Chest pain Time Seen by Provider: 01/18/25 02:01 Source: patient Mode of arrival: ambulatory Limitations: no limitations - History of Present Illness Initial Comments: Dictation was produced using [email or web address] dictation software. please excuse any grammatical, word or spelling errors. Chief Complaint: 49-year-old male with chest pain History of Present Illness: Patient is a 49-year-old male with history of hypertension. Patient states that he has sharp left anterior chest pain. N onradiating or associated diaphoresis or nausea. He does report a family history of ACS. Patient denies any history of heart attacks or cardiac disease. The ROS documented in this emergency department record has been reviewed and confirmed by me. Those systems with pertinent positive or negative responses have been documented in the HPI. All other systems are other negative and/or noncontributory. - Related Data Home Medications Medication Instructions Recorded Confirmed lisinopriL [Zestril] 20 mg PO HS 09/06/17 01/08/25 ARIPiprazole [Abilify Maintena] 400 mg IM Q28D 11/08/18 01/08/25 Albuterol Sulfate [Ventolin HFA] 2 puff INHALATION RT-Q6H PRN 02/19/22 01/08/25 Atorvastatin [Lipitor] 80 mg PO HS 01/08/25 01/08/25 [place] Carbonate 600 mg PO HS 01/08/25 01/08/25 Omeprazole [PriLOSEC] 20 mg PO DAILY 01/08/25 01/08/25 Previous Rx's Medication Instructions Recorded Benztropine Mesylate [Cogentin] 1 mg PO DAILY 30 Days #30 tab 11/28/23 Escitalopram [Lexapro] 20 mg PO DAILY 30 Days #30 tab 11/28/23 risperiDONE [RisperDAL] 0.5 mg PO HS 30 Days #30 tab 11/28/23 Cyclobenzaprine [Flexeril] 10 mg PO TID PRN #15 tab 01/08/25 Ibuprofen [Motrin] 800 mg PO Q8HR #14 tab 01/08/25 Allergies Allergy/AdvReac Type Severity Reaction Status Date / Time haloperidol [From Haldol] AdvReac Stroke-like Verified 01/18/25 02:01 symptoms Review of Systems ROS Statement: Those systems with pertinent positive or pertinent negative responses have been documented in the HPI. ROS Other: All systems not noted in ROS Statement are negative. Past Medical History Past Medical History: Asthma, Chest Pain / Angina, GERD/Reflux, Hyperlipidemia, Hypertension, Sleep Apnea/CPAP/BIPAP Additional Past Medical History / Comment(s): Tourette's syndrome, seasonal Allergies, dyskenisia, sleep apnea- no machine., carlos a inguinal hernias History of Any Multi-Drug Resistant Organisms: None Reported Past Surgical History: Hernia Repair, Tonsillectomy Additional Past Surgical History / Comment(s): states hernia right testicle x 3 Past Anesthesia/Blood Transfusion Reactions: No Reported Reaction Additional Past Anesthesia/Blood Transfusion Reaction / Comment(s): difficulty waking. Past Psychological History: Anxiety, Bipolar, Depression, Panic Disorder, Schizophrenia Smoking Status: Never smoker Past Alcohol Use History: None Reported Past Drug Use History: None Reported - Past Family History Father Family Medical History: No Reported History Additional Family Medical History / Comment(s): He is 61 years of age. Patient has had no contact with him and 20 years Mother Additional Family Medical History / Comment(s): Mother at age 63 from sepsis. Sister(s) Family Medical History: No Reported History Additional Family Medical History / Comment(s): He has 2 sisters with no major medical problems. General Exam - General Exam Comments Initial Comments: PHYSICAL EXAM: General Impression: Alert and oriented x3, not in acute distress HEENT: Normocephalic atraumatic, extra-ocular movements intact, pupils equal and reactive to light bilaterally, mucous membranes moist. Cardiovascular: Heart regular rate and rhythm Chest: Able to complete full sentences, no retractions, no tachypnea Abdomen: abdomen soft, non-tender, non-distended, no organomegaly Musculoskeletal: Pulses present and equal in all extremities, no peripheral edema Motor: no focal deficits noted Neurological: CN II-XII grossly intact, no focal motor or sensory deficits noted Skin: Intact with no visualized rashes Psych: Normal affect and mood Limitations: no limitations Course Vital Signs 01/18/25 01/18/25 01/18/25 01:58 02:33 03:33 Temperature 98.1 F Pulse Rate 75 72 69 Respiratory 20 18 16 Rate Blood Pressure 149/83 116/72 134/75 O2 Sat by Pulse 97 96 95 Oximetry 01/18/25 04:00 Temperature Pulse Rate Respiratory 18 Rate Blood Pressure O2 Sat by Pulse Oximetry Chest Pain MDM - MDM My EKG interpretation: Ventricular rate 68, sinus rhythm, WI 182, QRS 109, QTc 397. No WI prolongation, no QTC prolongation, no ST or T-wave changes noted. EKG compared to October 12, 2023 showing no changes. Overall, this EKG is unremarkable Was pt. sent in by a medical professional or institution (, PA, [employer]ER, urgent care, hospital, or senior care...) When possible be specific @ -No Did you speak to anyone other than the patient for history (EMS, parent, family, police, friend...)? What history was obtained from this source @ -No Did you review nursing and triage notes (agree or disagree)? Why? @ -I reviewed and agree with nursing and triage notes Were old charts reviewed (outside hosp., previous admission, EMS record, old EKG, old radiological studies, urgent care reports/EKG's, senior care records)? Report findings @ -Previous charting was reviewed as described above especially comparing EKG. For review shows that patient seen by cardiology and had stress echo which was unremarkable Differential Diagnosis (chest pain, altered mental status, abdominal pain women, abdominal pain men, vaginal bleeding, musculoskeletal, weakness, fever, dyspnea, syncope, headache, dizziness, GI bleed, back pain, seizure, CVA, palpatations, mental health)? @ -Differential Chest Pain: Stable Angina, Unstable Angina, STEMI, NSTEMI Aortic Dissection, Pneumothorax, Musculoskeletal, Esophageal Spasm GERD, Cholecystitis, Pancreatitis, Zoster, this is not meant to be an all-inclusive list. EKG interpreted by me (3pts min.). @ -See above X-rays interpreted by me (1pt min.). @ -Chest x-ray nonacute CT interpreted by me (1pt min.). @ -None done U/S interpreted by me (1pt. min.). @ -None done What testing was considered but not performed or refused? (CT, X-rays, U/S, labs)? Why? @ -None What meds were considered but not given or refused? Why? @ -None Was smoking cessation discussed for >3mins.? @ -No Were there social determinants of health that impacted care today? How? (Homelessness, low income, unemployed, alcoholism, drug addiction, transportation, low edu. Level, literacy, decrease access to med. care, skilled nursing, rehab)? @ -No Was there de-escalation of care discussed even if they declined (Discuss DNR or withdrawal of care, Hospice)? DNR status @ -No What co-morbidities impacted this encounter? (DM, HTN, Smoking, COPD, CAD, Cancer, CVA, ARF, Chemo, Hep., AIDS, mental health diagnosis, sleep apnea, morbid obesity)? @ -None Was patient admitted / discharged? Hospital course, mention meds given and route, prescriptions, significant lab abnormalities, going to OR and other per tinent info. @ -41-year-old male with atypical chest pain typical features. Vital signs stable. EKG shows no dynamic changes. Appears to be comparable to previous EKGs. Labs and x-rays unremarkable. Disposition options were discussed. Patient will be admitted observation Case discussed with hospitalist for admission. Patient given aspirin Did you discuss the management of the patient with other professionals (professionals i.e. , PA, [employer]ER, lab, RT, psych nurse, social sciences chair, automotive parts salesperson, teacher, protective services officer, supervisor case loading)? Give summary @ -See above Was critical care preformed (if so, how long)? @ -No Undiagnosed new problem with uncertain prognosis? @ -No Drug Therapy requiring intensive monitoring for toxicity (Heparin, Nitro, Insulin, Cardizem)? @ -No Were any procedures done? @ -No Diagnosis/symptom? Acute, or Chronic, or Acute on Chronic? Uncomplicated (without systemic symptoms) or Complicated (systemic symptoms)? @ -Chest pain Side effects of treatment? @ -No Exacerbation, Progression, or Severe Exacerbation? @ -No Poses a threat to life or bodily function? How? (Chest pain, USA, MA, pneumonia, PE, COPD, DKA, ARF, appy, cholecystitis, CVA, Diverticulitis, Homicidal, Suicidal, threat to staff... and all critical care pts) @ -Yes Disposition Clinical Impression: Chest pain Disposition: ADMITTED IP TO THIS [facility] Condition: Fair Referrals: Sharyn Fonseca MD [Primary Care Provider] - 1-2 days Decision Time: 04:30
[2025-01-18 02:43] LABS: Basophils # (A) 0.08 10*3/uL (0.00-0.10); Basophils % (A) 0.8 %; Eosinophils # (A) 0.50 10*3/uL (0.04-0.35); Eosinophils % (A) 4.8 %; HCT 40.9 % (39.6-50.0); HGB 13.7 g/dL (13.0-17.0); Lymphocytes # (A) 2.57 10*3/uL (0.90-5.00); Lymphocytes % (A) 24.4 %; MCH 29.5 pg (27.0-32.0); MCHC 33.5 g/dL (32.0-37.0); MCV 88.0 fL (80.0-97.0); Monocytes # (A) 0.94 10*3/uL (0.20-1.00); Monocytes % (A) 8.9 %; Neutrophils # (A) 6.39 10*3/uL (1.80-7.70); Neutrophils % (A) 60.7 %; Platelet Count 300 10*3/uL (140-440); RBC 4.65 10*6/uL (4.40-5.60); RDW 12.9 % (11.5-14.5); WBC 10.52 10*3/uL (4.50-10.00)
[2025-01-18 03:00] LABS: ALT 31 U/L (4-49); AST 23 U/L (17-59); African American GFR (CKD) >90 (>60 ml/min/1.73 sqM); Albumin 4.1 g/dL (3.5-5.0); Alkaline Phosphatase 116 U/L (38-126); Anion Gap 12 mmol/L; Blood Urea Nitrogen 13 mg/dL (9-20); Calcium 10.0 mg/dL (8.4-10.2); Carbon Dioxide 22 mmol/L (22-30); Chloride 100 mmol/L (98-107); Glucose 195 mg/dL (74-99); INR 0.9 (<1.2); Magnesium 2.0 mg/dL (1.6-2.3); Non-African American GFR(CKD) >90 (>60 ml/min/1.73 sqM); Partial Thromboplastin Time 24.6 sec (22.0-30.0); Potassium 4.4 mmol/L (3.5-5.1); Prothrombin Time 10.2 sec (10.0-12.5); Sodium 134 mmol/L (137-145); Total Protein 6.8 g/dL (6.3-8.2)
[2025-01-18] MEDS ORDERED: NITROGLYCERIN SL TABS 0.4 MG TAB SUBLINGUAL PRN (05:27)
[2025-01-18] MEDS: ASPIRIN 81 MG PO STA (06:31)
--- NOTE | 2025-01-18 07:19 | XR ---
EXAMINATION TYPE: XR chest 2V DATE OF EXAM: 01/18/2025 2:42 AM COMPARISON: 08/25/2024 CLINICAL INDICATION: Male, 49 years old with history of Chest Pain, , TECHNIQUE: PA and lateral views FINDINGS: Heart normal size. Aorta and pulmonary vasculature within normal limits. There is mild interstitial p rominence and peribronchial cuffing without consolidation or pleural effusion. IMPRESSION: Interstitial prominence and peribronchial cuffing. Consider bronchitis or chronic asthma. No focal in filtrate seen. [facility], , 01/18/2025 7:17 AM
[2025-01-18 10:26] LABS: NT-Pro-B-Type Natriuretic Pept <20 pg/mL
--- NOTE | 2025-01-18 12:17 | P.CRDCN ---
History of Present Illness Consult date: 01/18/25 Consult reason: chest pain History of present illness: This is a 49-year-old male with past medical history of hypertension, hyperlipidemia, asthma, stomach ulcer. We have been asked to evaluate the patient for chest pain. 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 He states he has had a stress test in the past but could not finish it because of difficulty in breathing. Patient presented with left-sided chest pain that started yesterday. He states he does not have it when he is active. He has had no recent strenuous exertion or lifting. He denies history of tobacco use, marijuana use, alcohol use. Patient lives at home with a niece. He denies chest pain at the time of this evalua tion. Blood pressure 138/79, heart rate 66, pulse ox 98% on room air. Patient ate breakfast this morning. Patient is seen today in the emergency center waiting for a bed on the observation unit. -EKG: Sinus rhythm with nonspecific ST changes. -Chest x-ray: No acute process. -Laboratory studies: WBC 10.5, hemoglobin 13.7, creatinine 0.75, potassium 4.4. Troponin negative x 3. proBNP less than 20. TSH 2.59. -Home cardiac medications: Atorvastatin 80 mg at bedtime, lisinopril 20 mg at bedtime. -Echocardiogram performed 10/13/2023 at [facility] revealed normal LV function. -Stress echocardiogram performed 10/13/2023 at [facility] revealed average exercise tolerance. Negative stress test by EKG criteria. Negative stress echo. Review Of Systems: At the time of my exam: CONSTITUTIONAL: Denies fever or chills. HEENT: Denies blurred vision, vision changes, or eye pain. Denies hemoptysis CARDIOVASCULAR: Denies chest pain. Denies orthopnea. Denies PND. Denies pal pitations RESPIRATORY: Denies shortness of breath. GASTROINTESTINAL: Denies abdominal pain. Denies nausea or vomiting. HEMATOLOGIC: Denies bleeding disorders. GENITOURINARY: Denies any blood in urine. SKIN: Denies puritis. Denies rash. Physical examination: Gen: This is a 49-year-old morbidly obese male in no acute distress. VS: reviewed HEENT: Head is atraumatic, normocephalic. Pupils equal, round. Sclerae is anicteric. NECK: Supple. No JVD. LUNGS: Clear to auscultation. No wheezes or rhonchi. No intercostal retractions. HEART: Regular rate and rhythm. No murmur. ABDOMEN: Soft No tenderness. EXTREMITIES: No pedal edema. No calf tenderness. NEUROLOGICAL: Patient is awake, alert and oriented x3. Assessment: Atypical chest pain, acute coronary syndrome ruled out Hypertension Hyperlipidemia Asthma History of stomach ulcer Morbid obesity with BMI of 40. Plan: Resume patient's home cardiac medications Obtain sed rate, hemoglobin A1c, lipid panel Unable to obtain stress test today as patient had breakfast Obtain 2-D echocardiogram and Doppler study to assess cardiac structure and function Further recommendations to follow based upon clinical course Thank you kindly for this consultation. Nurse practitioner note has been reviewed, I agree with documented findings and plan of care. Patient was seen and examined. Past Medical History Past Medical History: Asthma, Chest Pain / Angina, GERD/Reflux, Hyperlipidemia, Hypertension, Sleep Apnea/CPAP/BIPAP Additional Past Medical History / Comment(s): Tourette's syndrome, seasonal Allergies, dyskenisia, sleep apnea- no machine., carlos a inguinal hernias History of Any Multi-Drug Resistant Organisms: None Reported Past Surgical History: Hernia Repair, Tonsillectomy Additional Past Surgical History / Comment(s): states hernia right testicle x 3 Past Anesthesia/Blood Transfusion Reactions: No Reported Reaction Additional Past Anesthesia/Blood Transfusion Reaction / Comment(s): difficulty waking. Past Psychological History: Anxiety, Bipolar, Depression, Panic Disorder, Schizophrenia Smoking Status: Never smoker Past Alcohol Use History: None Reported Past Drug Use History: None Reported - Past Family History Father Family Medical History: No Reported History Additional Family Medical History / Comment(s): He is 61 years of age. Patient has had no contact with him and 20 years Mother Additional Family Medical History / Comment(s): Mother at age 63 from sepsis. Sister(s) Family Medical History: No Reported History Additional Family Medical History / Comment(s): He has 2 sisters with no major medical problems. Medications and Allergies Home Medications Medication Instructions Recorded Confirmed Type lisinopriL [Zestril] 20 mg PO HS 09/06/17 01/18/25 History ARIPiprazole [Abilify Maintena] 400 mg IM Q28D 11/08/18 01/18/25 History Albuterol Sulfate [Ventolin HFA] 2 puff INHALATION RT-Q6H PRN 02/19/22 01/18/25 History Benztropine Mesylate [Cogentin] 1 mg PO DAILY 30 Days #30 tab 11/28/23 01/18/25 Rx Escitalopram [Lexapro] 20 mg PO DAILY 30 Days #30 tab 11/28/23 01/18/25 Rx risperiDONE [RisperDAL] 0.5 mg PO HS 30 Days #30 tab 11/28/23 01/18/25 Rx Atorvastatin [Lipitor] 80 mg PO HS 01/08/25 01/18/25 History Cyclobenzaprine [Flexeril] 10 mg PO TID PRN #15 tab 01/08/25 01/18/25 Rx Ibuprofen [Motrin] 800 mg PO Q8HR #14 tab 01/08/25 01/18/25 Rx [place] Carbonate 600 mg PO HS 01/08/25 01/18/25 History Omeprazole [PriLOSEC] 20 mg PO DAILY 01/08/25 01/18/25 History Allergies Allergy/AdvReac Type Severity Reaction Status Date / Time haloperidol [From Haldol] AdvReac Stroke-like Verified 01/18/25 02:01 symptoms Physical Exam Vitals: Vital Signs Temp Pulse Resp BP Pulse Ox 01/18/25 06:34 98.0 F 65 18 123/79 94 L 01/18/25 04:00 18 01/18/25 03:33 69 16 134/75 95 01/18/25 02:33 72 18 116/72 96 01/18/25 01:58 98.1 F 75 20 149/83 97 Intake and Output 01/17/25 01/18/25 01/18/25 22:59 06:59 14:59 Other: Weight 135.806 kg Results 01/18/25 02:37 01/18/25 02:37 Cardiac Enzymes 01/18/25 01/18/25 01/18/25 Range/Units 02:37 02:37 06:15 AST 23 (17-59) U/L Troponin I <0.012 <0.012 (0.000-0.034) ng/mL Coagulation 01/18/25 Range/Units 02:37 PT 10.2 (10.0-12.5) sec APTT 24.6 (22.0-30.0) sec CBC 01/18/25 Range/Units 02:37 WBC 10.52 H (4.50-10.00) 10*3/uL RBC 4.65 (4.40-5.60) 10*6/uL Hgb 13.7 (13.0-17.0) g/dL Hct 40.9 (39.6-50.0) % Plt Count 300 (140-440) 10*3/uL Comprehensive Metabolic Panel 01/18/25 Range/Units 02:37 Sodium 134 L (137-145) mmol/L Potassium 4.4 (3.5-5.1) mmol/L Chloride 100 (98-107) mmol/L Carbon Dioxide 22 (22-30) mmol/L BUN 13 (9-20) mg/dL Creatinine 0.75 (0.66-1.25) mg/dL Glucose 195 H (74-99) mg/dL Calcium 10.0 (8.4-10.2) mg/dL AST 23 (17-59) U/L ALT 31 (4-49) U/L Alkaline Phosphatase 116 (38-126) U/L Total Protein 6.8 (6.3-8.2) g/dL Albumin 4.1 (3.5-5.0) g/dL Current Medications Generic Name Dose Route Start Last Admin Trade Name Freq PRN Reason Stop Dose Admin Aspirin 325 mg 01/19/25 09:00 Aspirin 325 Mg Tab PO DAILY GEORGINA Nitroglycerin 0.4 mg 01/18/25 05:27 Nitroglycerin Sl Tabs 0.4 Mg Tab SUBLINGUAL Q5M PRN Chest Pain Intake and Output 01/17/25 01/18/25 01/18/25 22:59 06:59 14:59 Other: Weight 135.806 kg 01/18/25 02:37 01/18/25 02:37
[2025-01-18 15:20] VITALS: BP 122/73; PULSE 74; RESP 20; TEMP 98
--- NOTE | 2025-01-18 21:03 | CA ---
Transthoracic Echo Report Name: Jurgen Stanley Age: 49 Gender: M : 1975 Exam Date: 01/18/2025 13:39 Exam Location: [place] [facility] Ht (in): 72 Wt (lb): 299 Ordering Physician: Gina Briceno Attending/Referring Phys: [id number], Kaity Data Integration Architect Fredis Gamino RDCS Procedure CPT: Indications: LVF, chest pain Cardiac Hx: Technical Quality: Fair Contrast 1: Definity Total Dose (mL): 2 Contrast 2: Total Dose (mL): MEASUREMENTS (Male / Female) Normal Values 2D ECHO LV Diastolic Diameter PLAX 4.6 cm 4.2 - 5.9 / 3.9 - 5.3 cm LV Systolic Diameter PLAX 2.5 cm IVS Diastolic Thickness 1.4 cm 0.6 - 1.0 / 0.6 - 0.9 cm LVPW Diastolic Thickness 1.5 cm 0.6 - 1.0 / 0.6 - 0.9 cm LV Relative Wall Thickness 0.6 RV Internal Dim ED PLAX 3.5 cm LVOT Diameter 2.2 cm LA Systolic Diameter LX 4.3 cm 3.0 - 4.0 / 2.7 - 3.8 cm LV Diastolic Volume MOD BP 154.8 cm??? 67 - 155 / 56 - 104 cm??? LV Systolic Volume MOD BP 61.6 cm??? 22 - 58 / 19 - 49 cm??? LV Ejection Fraction MOD BP 60.2 % >= 55 % LV Cardiac Index MOD BP 2397.2 cm???/min???m??? LV Diastolic Volume MOD 4C 199.5 cm??? LV Systolic Volume MOD 4C 80.7 cm??? LV Ejection Fraction MOD 4C 59.6 % LV Cardiac Index MOD 4C 3056.6 cm???/min???m??? LV Diastolic Length 4C 9.1 cm LV Systolic Length 4C 8.3 cm LV Diastolic Volume MOD 2C 118.4 cm??? LV Systolic Volume MOD 2C 43.2 cm??? LV Ejection Fraction MOD 2C 63.5 % LV Cardiac Index MOD 2C 1935.5 cm???/min???m??? LV Diastolic Length 2C 9.3 cm LV Systolic Length 2C 7.6 cm LA Volume 63.8 cm??? 18 - 58 / 22 - 52 cm??? LA Volume Index 23.8 cm???/m??? 16 - 28 cm???/m??? M-MODE Aortic Root Diameter MM 3.2 cm LA Systolic Diameter MM 4.8 cm LA Ao Ratio MM 1.5 AV Cusp Separation MM 2.4 cm DOPPLER AV Peak Velocity 127.9 cm/s AV Peak Gradient 6.5 mmHg AV Mean Velocity 90.6 cm/s AV Mean Gradient 3.7 mmHg AV Velocity Time Integral 28.8 cm LVOT Peak Velocity 96.8 cm/s LVOT Peak Gradient 3.7 mmHg LVOT Velocity Time Integral 19.4 cm LVOT Stroke Volume 74.5 cm??? LVOT Stroke Volume Index 29.5 ml/m??? LVOT Cardiac Index 1915.7 cm???/min???m??? AV Area Cont Eq vti 2.6 cm??? AV Area Cont Eq pk 2.9 cm??? MV Peak Velocity 87.9 cm/s MV Peak Gradient 3.1 mmHg MV Mean Velocity 52.5 cm/s MV Mean Gradient 1.3 mmHg MV Velocity Time Integral 30.5 cm MV Area PHT 3.1 cm??? Mitral E Point Velocity 60.0 cm/s Mitral A Point Velocity 57.0 cm/s Mitral E to A Ratio 1.1 MV Deceleration Time 243.7 ms FINDINGS Left Ventricle Left ventricular ejection fraction is estimated at 55-60 %. Normal left ventricular systolic function with no obvious regional wall motion abnormalities. Left ventricular cavity size normal. Mildly increased septal wall thickness. Mildly increased left ventricular systolic volume. Right Ventricle Right ventricle not well visualized. Right Atrium Normal right atrial size. No right atrial thrombus or mass seen. Left Atrium Normal left atrial size. Mildly increased left atrial volume. No left atrial thrombus or mass present. Mitral Valve No mitral stenosis. Trace mitral regurgitation. Aortic Valve Trileaflet aortic valve. No aortic valve stenosis or regurgitation. Tricuspid Valve No tricuspid stenosis. Trace tricuspid regurgitation. Pulmonic Valve Pulmonic valve not well visualized. Pericardium Normal pericardium. No pericardial or pleural effusion. Aorta Normal size aortic root and proximal ascending aorta. CONCLUSIONS LVEF 55% No obvious regional wall motion abnormality No significant valve dysfunction Previewed by: Dr Chas Sun (Electronically Signed) Final Date: 18 January 2025 21:02
--- NOTE | 2025-01-19 00:01 | HP ---
HISTORY AND PHYSICAL Combined history and physical and discharge summary . CHIEF COMPLAINT: Chest pain. HISTORY OF PRESENT ILLNESS: This is a 49-year-old gentleman with past medical history of hypertension, was complaining of left anterior sharp chest pain, which was nonradiating. The initial cardiac workup was negative. Cardiology saw the patient and recommended outpatient followup. The patient was unable to obtain a stress test because the patient did eat breakfast. There is no history of fever, rigors, chills at this time. PAST MEDICAL HISTORY: Hypertension, asthma, hyperlipidemia, stomach ulcer. Rest of the history in his chart is also reviewed. HOME MEDICATIONS: Reviewed include Risperdal dose and rest of medications reviewed. ALLERGIES: Haloperidol. FAMILY HISTORY: Unknown. SOCIAL HISTORY: No history of smoke or alcohol. REVIEW OF SYSTEMS: Fourteen-point review of systems negative except as mentioned earlier. PHYSICAL EXAMINATION: VITAL SIGNS: Pulse 66, blood pressure 130/70, respirations 18. HEENT: Conjunctivae normal. NECK: No JVD. CARDIOVASCULAR: S1, S2. RESPIRATIONS: Breath sounds diminished at the bases. ABDOMEN: Soft, nontender. EXTREMITIES: Legs, no edema. NERVOUS SYSTEM: Nonfocal. LABORATORY DATA: Reviewed. ASSESSMENT: 1. Chest pain, myocardial infarction ruled out, possibly nonspecific, rule out coronary artery disease. 2. Hypertension. 3. Hyperlipidemia. 4. History of asthma. 5. History of gastroesophageal reflux disease. 6. Multiple complex medical issues. RECOMMENDATION: This 49-year-old gentleman presented with multiple medical problems at this time. At this time, initial workup is negative. The patient is totally asymptomatic. The patient would like to go home. I would recommend the patient be discharged and if it is okay with Cardiology and scheduled outpatient stress test as soon as possible. Otherwise, closely follow up with primary physician in outpatient setting, limited activity. Please refer to the discharge medication reconciliation for list of medications. MMODL / IJN: [id number] /
[2025-01-19] MEDS ORDERED: ASPIRIN 325 MG TAB PO SCH (09:00)
== END 2025-01-18 15:20 | disposition home or self-care (01) ==
LOC: EC 01:50 → 6NMEDSUR 05:28
PROVIDERS: ADMIT Hospitalist; ATTEND Hospitalist
DX: R07.89 Other chest pain (principal); I10 Essential (primary) hypertension; E78.5 Hyperlipidemia, unspecified; J45.909 Unspecified asthma, uncomplicated; K21.9 Gastro-esophageal reflux disease without esophagitis; E66.01 Morbid (severe) obesity due to excess calories; Z68.41 Body mass index [BMI] 40.0-44.9, adult; Z79.1 Long term (current) use of non-steroidal anti-inflammatories (NSAID); Z79.899 Other long term (current) drug therapy; Z88.8 Allergy status to other drugs, medicaments and biological substances; Z87.11 Personal history of peptic ulcer disease
CPT/HCPCS: 99285; 36415; 93005; 83880; 80053; 85652; 84443; 83735; 84484; 85025; 85610; 85730; 86140; 83036; 71046; G0378; C8929; Q9957; 93306